=== PATIENT | male | born 1955 | race Caucasian/White ===

== ENCOUNTER 2017-06-20 16:30 | Outpatient (RCR) | payer OTHER, SELFPAY ==
--- NOTE | 2017-06-06 12:18 | HP.OTEVAL_ITS ---
Patient's Visit Information CARLYN EVANGELISTA is a 61 year old M, referred to Occupational Therapy by RAJEEV Hall PA.MELO, with a diagnosis of bilateral wrist strain. Date of Evaluation: 06/05/17 Occupational Therapist: Adri Stokes - Subjective Subjective: Pt seen for inital occupational therapy evaluation due to increased bilateral wrist pain after falling on the ice 04/27/17. He had x-rays that indicated no broken bones. Pain in bilateral wrists have continued to get worse as time goes on. 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 He is right hand dominent. - Pain L wrist 9 Pain Intensity Range: 1, 2, 9, 10 R wrist 7 Pain Intensity Range: 1, 2, 7 - Objective Objective/Observation: Pt appears with increased pain in bilateral wrists from accidental fall on ice, when he landed on his bilateral wrist in April 2017. Pt has good functional ROM bilateral wrist. Pt demo decreased tankroom tender strength bilateral wrist/hands. - ROM ROM Comments: L wrist, R wrist WFL ROM, flexion, extension, supination, pronation - Strength Banquet Lead: R 50#, L 40# Tripod Pinch: R 4#, L 4# - Edema Other: No edema noted - Sensation Sensation Comments: Pt states no numbness/tingling - DASH-Disabilities of Arm, Shoulder& Hand DASH Sum: 93 - Goals Goal:: Pt will progress with bilateral tankroom tender strength by 30# to increase his independence with functional living tasks by d/c. Goal:: Pt will demonstrate no greater than 1/10 pain with movement of bilateral wrists by d/c. Goal:: Pt will be educated on bilateral hand and tankroom tender strengthening exercises to complete at home w/ good understanding and demonstration 100%x. - Rehabilitation General Assessment: Pt would benefit from occupational therapy services to increase bilateral hand strength and decrease bilateral wrist pain at rest and with movement. Rehabilitation Potential: Excellent - Anticipated Interventions Anticipated Interventions: Strengthening, Massage, Modalities, Joint Protection/ Energy Conservation, ADL Training, Home Program - Visit Plan Frequency: 3x /Week Duration: 4 Weeks General Plan: decrease bilateral wrist pain and increase tankroom tender strength bilateral hands/wrists. TEXT: Thank you for the opportunity to evaluate your patient. For Medicare and Medicare HMO plans, please review the plan of care and approve it. It will need to be FAXED BACK to us at [phone] for Medicare purposes. Please let me know if there are questions or concerns regarding this plan of care. Physician Signature: Date:
--- NOTE | 2017-06-20 17:01 | HP.OTDCSUM_ITS ---
HP - OT D/C Summary It has been my pleasure to treat CARLYN EVANGELISTA under orders from RAJEEV Hall, PAABIOLA for the diagnosis of bilateral wrist strain for a total of 5 visit(s). Please see the following information for a summary of their discharge status. - Objective Objective/Function: due to pts inablity to decrease use of hands while at work he has not made inprovments and is rec'd to return to at this time - Goals Patient Goals: Regain Strength, Decrease Pain, Improve Fine Motor Skills, Use Hand/Wrist/Arm Normally Again, Be More Independent in ADLS, Resume Hobbies Goal:: Pt will progress with bilateral top precipitator operator helper strength by 30# to increase his independence with functional living tasks by d/c. Goal:: Pt will demonstrate no greater than 1/10 pain with movement of bilateral wrists by d/c. Goal:: Pt will be educated on bilateral hand and top precipitator operator helper strengthening exercises to complete at home w/ good understanding and demonstration 100%x. - Plan Plan: D/C - D/C Information Discharge Comments: This pt was seen for 5 visits with no reported improvement- due to pts job duties he has not been able to decrease the use of his hands or wear the braces. Therapy has used, US paraffing - trigger point release, brace- and advised to use k-tape- pt is unable to to this while at work so his pain has not decreased. pt was advised to return to for further eval. If there are questions or concerns regarding this patient's occupational therapy , please fell free to call me at [phone]. Thank you for the referral of this patient. Sincerely, Breanna Marie, OTR/L, CHT
== END 2017-06-20 19:00 | disposition home or self-care (01) ==
LOC: OT 16:30
PROVIDERS: Family Provider Family Medicine; PCP Family Medicine; Visit Provider Physician Assistant
DX: S66.911D Strain of unspecified muscle, fascia and tendon at wrist and hand level, right hand, subsequent encounter (principal); S66.912D Strain of unspecified muscle, fascia and tendon at wrist and hand level, left hand, subsequent encounter
CPT/HCPCS: 97035; 97140; 97165; 97530

== ENCOUNTER → 2017-09-11 20:22 | Outpatient (CLI) | payer OTHER, SELFPAY | PROVIDERS: Family Provider Family Medicine; PCP Family Medicine; Visit Provider Family Medicine | DX: G47.30 Sleep apnea, unspecified (principal) | CPT/HCPCS: 95810 ==

== ENCOUNTER 2017-09-27 07:30 | Outpatient (RCR) | payer OTHER, SELFPAY ==
--- NOTE | 2017-09-05 12:27 | HP.OTEVAL_ITS ---
Patient's Visit Information CARLYN EVANGELISTA is a 61 year old M, referred to Occupational Therapy by Marcela Tolentino DO, with a diagnosis of Bilateral wrist sprain. Date of Evaluation: 09/04/17 Occupational Therapist: Breanna Marie, AMBROSE/Gia, CHT - Subjective Subjective: pt was seen for inital OT eval with dx of bilateral wrist sprain- pt has been seen in the past- and with his work schedule his wrist have continued to cuase pain. 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 with BADLS - but has pain the more he uses his hand- - ROM Forearm: right /left supination 75 Wrist: right 65 /60 left 65/60 - Strength Shoulder: right 4/5 left 4/5 Elbow: right 4/5 left 4/5 Forearm: right 4/5 left 4/5 Wrist: right 4/5 left 4/5 Seat Cover Installer: right 70 left 65 Lateral Pinch: right 10# left 10# Tripod Pinch: right 8# left 6# Strength Comments: pt demo with weak UB - Special Tests WHAT Test: negative Edvin Scaphoid Shift: negative - Goals Goal:: pt will demo a increase in BUE strength to 5/5 to increase ind. with IADLS by d/c Goal:: pt will report no pain greater than 1/10 with use of bilateral UE for IADLS by d/c Goal:: pt will demo understanding of joint protection and ad. eq. for IADLS by d /c - Rehabilitation General Assessment: pt demo with decrease understanding of work ergo., ad. eq. and protective flaco. with work and daily tasks. pt demo with weakness in UB that allows for compensation at wrist increasing pts pain. pt would benefit from skilled OT services to ed. on UB strengthening and work ergo. joint protection 2 -3x week for 4-6 weeks. Rehabilitation Potential: Good - Anticipated Interventions Anticipated Interventions: Strengthening, Joint Protection/Energy Conservation, Ergonomic Education - Visit Plan Frequency: 2-3x /Week Duration: 4 Weeks General Plan: pt to initiate Gym ex eq. to strengthen UB, ed. pt on joint protection with IADLS and home mtg tasks- TEXT: Thank you for the opportunity to evaluate your patient. For Medicare and Medicare HMO plans, please review the plan of care and approve it. It will need to be FAXED BACK to us at [phone] for Medicare purposes. Please let me know if there are questions or concerns regarding this plan of care. Physician Signature: Date:
--- NOTE | 2017-09-27 08:11 | HP.OTDCSUM_ITS ---
HP - OT D/C Summary It has been my pleasure to treat CARLYN EVANGELISTA under orders from Marcela Tolentino DO, for the diagnosis of Bilateral wrist sprain for a total of 8 visit(s). Please see the following information for a summary of their discharge status. - Objective Objective/Function: pt demo a increase in bilateral UB MMT grossly throunghout at 4+/5 - pt demo good tolerance of his UB ex. and was instructed to cont.with a HEP or join a health and wellness center- pt demo interest in this. - Goals Patient Goals: Regain Strength, Decrease Pain, Use Hand/Wrist/Arm Normally Again Goal:: pt will demo a increase in BUE strength to 5/5 to increase ind. with IADLS by d/c Goal:: pt will report no pain greater than 1/10 with use of bilateral UE for IADLS by d/c Goal:: pt will demo understanding of joint protection and ad. eq. for IADLS by d /c - Plan Plan: D/C - D/C Information Discharge Comments: pt was seen for 8 visits. He demo understanding of joint protection and ad. equip. use for home mt. tasks. pt Demo increase in bilateral UB strength and reports he has minimal pain in his wrist. Pt does report left wrist pain with some labor tasks he has done but per pt pain is much better. PT was advised to cont with a health and wellness facility to cont with UB strengthening. pt demo understanding. pt is to use tape on his wrist if he is doing heavy manual labor tasks around his home. pt demo understanding. pt has met functional goals in OT and is D/C at this time. If there are questions or concerns regarding this patient's occupational therapy , please fell free to call me at [phone]. Thank you for the referral of this patient. Sincerely, Breanna Marie, OTR/L, CHT
== END 2017-09-27 19:00 | disposition home or self-care (01) ==
LOC: OT 07:30
PROVIDERS: Family Provider Family Medicine; PCP Family Medicine; Visit Provider Orthopaedic Surgery
DX: S63.592D Other specified sprain of left wrist, subsequent encounter (principal); S63.591D Other specified sprain of right wrist, subsequent encounter
CPT/HCPCS: 97110; 97166; 97168

== ENCOUNTER 2018-01-03 08:00 | Outpatient (RCR) | payer OTHER, SELFPAY ==
--- NOTE | 2017-12-07 08:17 | HP.OTEVAL_ITS ---
Patient's Visit Information CARLYN EVANGELISTA is a 61 year old M, referred to Occupational Therapy by Marcela Tolentino DO, with a diagnosis of B wrist sprains. Date of Evaluation: 12/07/17 Occupational Therapist: Leigh Camejo - Subjective Subjective: Arrived and noted that received additional approval for c9. Previously seen at OT due to b wrist sprain in Dec while slipping on ice at work. Symptoms of B wrist sprain are persistent, and he has been approved for additional appointments. 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 He is keeping busy per Pt. report but continues to have pain in wrists. Currently working on putting deck on daughters home with son in law. Notes he was approved for a couple more injections as well as OT. - Pain Bilateral Wrist 1 Pain Intensity Range: 1, 6, 8 - ROM Forearm: WNL Wrist: flexion R 0-79, L 0-80; ext R 0-42, L 0-40 MP: WNL PIP: WNL DIP: WNL ROM Comments: radial R 0-15, L 0-20. ulnar R 0-29, L 0-35 - Strength Reel Worker: flex R 78, L 90; ext R 67, L 57 Lateral Pinch: R 17, L 16 Tripod Pinch: R 11, L 12 Tip-to-Tip Pinch: R 8, L 12 Intrinsics: R 4+/5, L 4-/5 Strength Comments: increased pain over wrist as helping son in law build deck and completed long work day yesterday. - Sensation Thumb: R 3.61, L 3.84 Index: R 3.84, L 2.83 Middle: R 3.84, L 3.84 Ring: R 3.84, L 3.84 Little: R 3.61, L 3.22 Sensation Comments: Does have mild neuropathy in B feet per Pt. report. - DASH-Disabilities of Arm, Shoulder& Hand DASH Sum: 81 - Goals Goal:: Carlyn to increase wrist stability through increased manager solution by 10-15 lbs to promote increased ROM and strength to return to PLOF by d/c. Goal:: Carlyn to be mod I to complete techniques to promote wrist alignment and stability 4/5 trials 80% of the time to promote returning to PLOF by d/c. Goal:: Carlyn to be mod I to complete HEP including strengthening and pain management techniques 4/5 trials 80% of the time to promote pain management and returning to PLOF by d/c. - Rehabilitation General Assessment: Carlyn arrived to OT maría elena on this date. Addition visits approved for B wrist sprain occurring in Apr 2017. 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 He lists pain over ligament attachment points around transverse carpal ligaments and ulnar collateral at wrist. HE has purchased wrist bands and wears on occasion for additional support. Reports that wirts bands seem to help. He plans to follow up with arthritis clinic in [place] to further determine cause of B wrist pain. OT to work on ergonomic and wrist mechanics as well as ROM, strength, orthotics as needed and pain management to promote completing tasks at PLOF. Rehabilitation Potential: Good - Anticipated Interventions Anticipated Interventions: A/AAROM/PROM, Strengthening, Triggerpoint Release, Modalities, Orthoses, Joint Protection/Energy Conservation, Ergonomic Education , Fine Motor Coord/Edwin, Caregiver Training, Home Program - Visit Plan Frequency: 2-3x /Week Duration: 4-6 Weeks General Plan: Carlyn to complete OT for ROM, strengthening, ergonomic and body mechanics, as well as pain mangement through use of modalities and body mechanics to promote returning to PLOF. TEXT: Thank you for the opportunity to evaluate your patient. For Medicare and Medicare HMO plans, please review the plan of care and approve it. It will need to be FAXED BACK to us at [phone] for Medicare purposes. Please let me know if there are questions or concerns regarding this plan of care. Physician Signature: Date:
--- NOTE | 2018-01-03 08:51 | HP.OTDCSUM ---
HP - OT D/C Summary It has been my pleasure to treat CARLYN Javed DANNEMILLER under orders from Marcela Tolentino DO, for the diagnosis of B wrist sprains for a total of 12 visit(s). Please see the following information for a summary of their discharge status. - Overall Improvement % Improvement: 30 - Objective Objective/Function: Reassessment completed on this date. ROM is WFL. Strength assessment completed: gas operations analyst flexed R 80, L 60; ext gas operations analyst R 66, L 63 lbs; lateral R 16, L 14; tripod R 12, L 12; pincer R 7, L 8 lbs. Sensation testing completed: IF R 3.61, L 3.84. MF R 3.04, L 3.84. RF R 4.08, L 3.84. PF R 4.08, L 3.84. thumb R 3.84, L 3.84. He has progressed with some goals and will be d/c'd today. - Goals Patient Goals: Regain Mobility, Regain Strength, Decrease Pain, Return to Work, Use Hand/Wrist/Arm Normally Again, Increase ROM, Be More Independent in ADLS, Resume Former Household Responsibilities (Cooking,Cleaning,Yard, etc.), Resume Hobbies Goal:: Carlyn to increase wrist stability through increased gas operations analyst by 10-15 lbs to promote increased ROM and strength to return to PLOF by d/c. Goal:: Carlyn to be mod I to complete techniques to promote wrist alignment and stability 4/5 trials 80% of the time to promote returning to PLOF by d/c. Goal:: Carlyn to be mod I to complete HEP including strengthening and pain management techniques 4/5 trials 80% of the time to promote pain management and returning to PLOF by d/c. - Plan Plan: Carlyn has completed approved visits and will be d/c'd. HE has progressed towards some but not all goals. Pain has been an issue t/o course of treatment, but he has continued to complete home based IADLs. He is paying out of pocket/using personal insurance to see arthritis doctor mid January to further get to bottom of pain. Further follow up with workers compensation would be beneficial if pain is not resolved after recent cortisone shots a week ago. It would be beneficial for Carlyn to get order from doctor/workers compensation for CMC push brace to provide additional support to R thumb CMC to help alleviate wrist pain. IF symptoms are consistent he is to see arthritis doctor and potentially specialist if he is continuing to have pain a full year out of injury. All symptoms of wrist related pain started and appear to be related to fall from this past April while at work. - D/C Information If there are questions or concerns regarding this patient's occupational therapy, please fell free to call me at [phone]. Thank you for the referral of this patient. Sincerely, Leigh Camejo
== END 2018-01-03 09:05 | disposition home or self-care (01) ==
LOC: OT 08:00
PROVIDERS: Family Provider Family Medicine; PCP Family Medicine; Visit Provider Orthopaedic Surgery
DX: S63.502D Unspecified sprain of left wrist, subsequent encounter (principal); S63.501D Unspecified sprain of right wrist, subsequent encounter
CPT/HCPCS: 97035; 97110; 97166; 97530

== ENCOUNTER → 2018-01-25 09:57 | Outpatient (CLI) | payer OTHER, SELFPAY ==
--- NOTE | 2018-01-25 10:10 | RAD_ITS ---
STUDY: X-RAY - PELVIS REASON FOR EXAM: Male, 62 years old. Pain. TECHNIQUE: One view of the pelvis was obtained. COMPARISON: None. FINDINGS: There is a non-specific bowel gas pattern. Normal visualized soft tissue structures. Normal bilateral iliac wings, sacroiliac joints and visualized sacrum. Normal visualized bilateral superior and inferior pubic rami. Normal pubic symphysis. Normal ischial tuberosities. Normal visualized right femoral head. Normal right acetabulum. Normal right hip joint. Normal visualized left femoral head. Normal left acetabulum. Normal left hip joint. RAD/Pelvis 1 or 2 Views IMPRESSION: Normal x-ray examination of the pelvis. Electronically Signed: Zach Bruno MD at 22:01 EDT , Service support ,
[2018-01-25 12:45] LABS: Absolute Lymphocyte Count 1.25 X10^3/ul (0.83-4.51); Absolute Neutrophil Count 4.8 X10^3/uL (2.0-7.7); Eosinophil# 0.15 X10^3/uL; Eosinophils% 2.1 % (0-5); Erythrocyte Sedimentation Rate 8 mm/hr (0-20); Hematocrit 45.6 % (40-54); Hemoglobin 14.3 g/dl (13.0-16.5); Lymphocyte # 1.25 X10^3/ul (4.0); Lymphocyte % 17.6 % (19-41); Mean Corp Hgb Conc 31.4 g/gl (32-36); Mean Corpuscular Hgb 30.7 pg (27.0-32.0); Mean Corpuscular Volume 97.9 fL (80-94); Monocyte# 0.85 X10^3/uL; Neutrophil # 4.83 X10^3/uL (2.7-7.7); Neutrophil % 68.2 % (47-70); Platelet Count 118 K/mm3 (150-450); RBC Distribution Width CV 13.2 % (11.6-14.6); Red Blood Count 4.66 M/mm3 (4.6-6.2); White Blood Count 7.1 K/mm3 (4.4-11.0)
[2018-01-25 12:46] LABS: Differential Indicated SCAN CRITERIA MET; POSITIVE COUNT NO; POSITIVE DIFFERENTIAL NO; POSITIVE MORPHOLOGY YES
[2018-01-25 12:48] LABS: BUN 17 mg/dL (7-18); Creatinine, Serum 0.95 mg/dL (0.70-1.30); Glucose 122 mg/dL (74-106)
[2018-01-25 12:49] LABS: AST(SGOT) 16 U/L (15-37); Alanine Aminotransfer ALT/SGPT 26 U/L (16-61); Albumin, Serum 3.6 g/dL (3.2-5.0); Alkaline Phosphatase 83 U/L (45-117); Anion Gap 5 (5-15); BUN/Creat Ratio 17.8 RATIO (10-20); Calcium,Total 9.3 mg/dL (8.5-10.1); Chloride 103 mmol/L (98-107); EST Glomerular Filtration Rate 85 mL/min (>60); Est Glom Filt Rate - Afr Amer 103 mL/min (>60); Globulin 3.5 g/dL (2.2-4.2); Potassium 4.6 mmol/L (3.5-5.1); Protein, Total 7.1 g/dL (6.4-8.2); Rheumatoid Factor < 10.0 IU/mL (<15); Sodium Level 142 mmol/L (136-145)
[2018-01-25 13:18] LABS: Platelet Morphology LARGE
[2018-01-28 11:06] LABS: CCP IgG Antibodies 22 units (0-19)
== END ==
PROVIDERS: Family Provider Family Medicine; PCP Family Medicine; Visit Provider Internal Medicine Rheumatology
DX: M18.12 Unilateral primary osteoarthritis of first carpometacarpal joint, left hand (principal); M19.032 Primary osteoarthritis, left wrist
CPT/HCPCS: 36415; 72170; 80053; 85025; 85652; 86140; 86200; 86431

== ENCOUNTER → 2018-02-04 13:44 | Outpatient (CLI) | payer OTHER, SELFPAY ==
[2018-02-04 14:35] LABS: Erythrocyte Sedimentation Rate 6 mm/hr (0-20)
[2018-02-04 14:37] LABS: Rheumatoid Factor < 10.0 IU/mL (<15)
[2018-02-05 13:16] LABS: ANTINUCLEAR ANTIBODIES DIRECT Negative (Negative)
== END ==
PROVIDERS: Family Provider Family Medicine; PCP Family Medicine; Visit Provider Family Medicine
DX: E10.9 Type 1 diabetes mellitus without complications (principal); E03.9 Hypothyroidism, unspecified
CPT/HCPCS: 85652; 86038; 86431

== ENCOUNTER → 2018-04-15 09:36 | Outpatient (CLI) | payer OTHER, SELFPAY ==
--- NOTE | 2018-04-15 09:38 | MRI_ITS ---
STUDY: MRI RIGHT WRIST WITHOUT CONTRAST REASON FOR EXAM: Male, 62 years old. Right wrist injury with diffuse pain for one year. Loss of strength. TECHNIQUE: Standardized fat and water weighted pulse sequences were obtained in all 3 orthogonal planes. COMPARISON: Right wrist images dated May 15, 2017. FINDINGS: Normal visualized distal radius and ulna. Normal distal radioulnar Articulation (DRUJ). Normal triangular fibrocartilaginous complex (TFCC). There are cystic changes in the lunate and triquetrum (coronal series 5 images 7-11). There is moderate arthrosis of the radial carpal row (coronal series 5 images 8-13). There is a small volar ganglion cyst of the pisotriquetral joint (coronal series 5 images 4-9, axial series 6 images 15-19). Normal visualized interosseous scapholunate ligament. Normal visualized dorsal (extrinsic) ligaments. Normal visualized volar (extrinsic) ligaments. Normal extensor tendons. Normal flexor tendons. Normal carpal tunnel with a normal median nerve. Normal carpometacarpal articulation of the thumb. Normal second through fifth carpometacarpal articulations. Normal visualized metacarpal bones. There is no demonstrated soft tissue abnormality. MRI/Upper Ext Joint Only(Routine) IMPRESSION: Osteoarthritic changes as described. Small volar ganglion cyst of the pisotriquetral joint. No other significant abnormality. Electronically Signed: Vijay Davalos MD at 16:57 EST , Service support ,
--- NOTE | 2018-04-15 09:38 | MRI_ITS ---
STUDY: MRI LEFT WRIST WITHOUT CONTRAST REASON FOR EXAM: Wrist pain extending to the thumb, fall 1 year ago. TECHNIQUE: Standardized fat and water weighted pulse sequences were obtained in all 3 orthogonal planes. COMPARISON: Radiographs 05/15/2017. FINDINGS: Normal visualized distal radius and ulna. Normal distal radioulnar articulation (DRUJ). Normal triangular fibrocartilaginous complex (TFCC). There is cystic change of the proximal ulnar aspect of the lunate (inversion recovery coronal images 10, 11). There is a small intraosseous cyst in the trapezoid (inversion recovery coronal image 10). There are very small subchondral cysts of the proximal capitate and hamate (inversion recovery coronal image 11). There is mild triscaphe arthrosis with mild chondral thinning and subchondral cystic change of the distal pole of the scaphoid (inversion recovery coronal image 8). There is a small subchondral cyst of the pisiform at the pisotriquetral articulation (T1 axial image 14). Normal visualized interosseous scapholunate ligament. Normal extensor tendons. Normal flexor tendons. Status post flexor retinaculum release. There is arthrosis of the carpometacarpal articulation of the thumb with chondral thinning and mild subchondral cystic change/bone edema (inversion recovery coronal images 8-11). Normal second through fifth carpometacarpal articulations. Normal visualized metacarpal bones. There is no demonstrated soft tissue abnormality. 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 Electronically Signed: Berto Terrell MD at 8:21 EST Tel , Service support ,
--- OUTSIDE RECORDS SUMMARY | 2018-06-08 13:52 | XMS RPT_ITS ---
:1955 Author Organization [facility] Support Name Relationship Address Phone TONJA SAMMY Unavailable [address] + [place] [address] R Unavailable Unavailable Unavailable DANNEMILLER, SAMMY Unavailable [address] + [place] [address] R Unavailable Unavailable Unavailable NONE Unavailable Unavailable + NONE Unavailable Unavailable + Dannemiller, Sammy Unavailable [address] + [place] [address] R Unavailable Unavailable Unavailable Dannemiller, Sammy Unavailable [address] + [place] [address] R Unavailable Unavailable Unavailable Dannemiller, Sammy Unavailable [address] + [place] [address] R Unavailable Unavailable Unavailable DANNEMILLER, SAMMY Unavailable [address] + [place] [address] R Unavailable Unavailable Unavailable DANNEMILLER, SAMMY Unavailable [address] + [place] [address] MATFO Unavailable [address] + [place] [address] DANNEMILLER, SAMMY Unavailable [address] + [place] [address] MATFO Unavailable [address] + [place] [address] DANNEMILLER, SAMMY Unavailable [address] + [place] [address] R Unavailable Unavailable Unavailable DANNEMILLER, SAMMY Unavailable [address] + [place] [address] MATFO Unavailable [address] + [place] [address] DANNEMILLER, SAMMY Unavailable [address] + [place] [address] MATFO Unavailable [address] + [place] [address] DANNEMILLER, SAMMY Unavailable [address] + [place] [address] MATFO Unavailable [address] + [place] [address] Dannemiller, Sammy Unavailable [address] + [place] [address] PAL[place] Unavailable [address] + [place] [address] Dannemiller, Sammy Unavailable [address] + [place] [address] [place] Unavailable [address] + [place] [address] Dannemiller, Sammy Unavailable [address] + [place] [address] [place] Unavailable [address] + [place] [address] DANNEMILLER, SAMMY Unavailable [address] + [place] [address] [place] Unavailable [address] + [place] [address] DANNEMILLER, SAMMY Unavailable [address] + [place] [address] [place] Unavailable [address] + [place] [address] DANNEMILLER, SAMMY Unavailable [address] + [place] [address] [place] Unavailable [address] + [place] [address] DANNEMILLER, SAMMY Unavailable [address] + [place] [address] [place] Unavailable [address] + [place] [address] DANCHARMAINEILLER, SAMMY Unavailable [address] [facility] [address] + [place] [address] [place] Unavailable [address] + [place] [address] DANNEMILLER, SAMMY Unavailable [address] [facility] [facility] [address] + [place] [address] [place] Unavailable [address] + [place] [address] Care Team Providers Name Role Phone MUMTAZ JONES, MS. GHANSHYAM Parks Attending Unavailable TIM CR, DR. KATTY Fields Primary Care Unavailable Ulices Perez Attending Unavailable JOLENE Loya Referring Unavailable Ulices Perez Attending Unavailable Ulices Perez Attending Unavailable NAUMOFF, KATTY Primary Care Unavailable Ulices Perez Attending Unavailable NAUMOFF, KATTY Referring Unavailable NAUMOFF, KATTY Primary Care Unavailable Gomez Sarabia Attending Unavailable NAUMOFF, KATTY Primary Care Unavailable Gomez Sarabia Referring Unavailable Ulices Perez Attending Unavailable NAUMOFF, KATTY Referring Unavailable NAUMOFF, KATTY Primary Care Unavailable [facility] Employee Attending Unavailable Ulices Perez Attending Unavailable NAUMDIAZ, KATTY Referring Unavailable NAUMDIAZ, KATTY Primary Care Unavailable Marcela Tolentino Attending Unavailable NAUMOFF, KATTY Referring Unavailable NAUMOFF, KATTY Primary Care Unavailable ChicMarcela tracey Attending Unavailable ChicorelliMarcela Referring Unavailable NAUMOFF, KATTY Primary Care Unavailable ChicorelliMarcela Attending Unavailable NAUMOFF, KATTY Referring Unavailable NAUMOFF, KATTY Primary Care Unavailable NAUMOFF, KATTY Attending Unavailable NAUMOFF, KATTY Primary Care Unavailable ChicorelliMarcela Attending Unavailable NAUMOFF, KATTY Referring Unavailable NAUMOFF, KATTY Primary Care Unavailable Chicorelli, Marcela Attending Unavailable ChicorelliMarcela Referring Unavailable NAUMOFF, KATTY Primary Care Unavailable Chicalexy, Marcela Attending Unavailable NAUMOFF, KATTY Referring Unavailable NAUMOFF, KATTY Primary Care Unavailable Casi Santos Attending Unavailable Casi Santos Referring Unavailable NAUMOFF, KATTY Primary Care Unavailable Naumoff, Katty Attending Unavailable NAUMOFF, KATTY Attending Unavailable NAUMOFF, KATTY Referring Unavailable NAUMOFF, KATTY Primary Care Unavailable Chicorelli, Marcela Attending Unavailable NAUMOFF, KATTY Referring Unavailable Chicorelli, Marcela Attending Unavailable Chicorelli, Marcela Referring Unavailable NAUMOFF, KATTY Primary Care Unavailable Chicorelli, Marcela Attending Unavailable NAUMOFF, KATTY Referring Unavailable PROBLEMS PROBLEMS DATE TYPE CONDITION / CODE ATTENDING STATUS SOURCE 01/25/2018 Unknown 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 - 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, 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 / Hospital M19.032(ICD-10) Repository 01/25/2018 Unknown M18.12 - Unilateral Casi Santos Active [facility] primary Community osteoarthritis of Hospital first carpometacarpal Repository joint, left hand / M18.12(ICD-10) 01/03/2018 Unknown S63.502D - Chicorelli, Active [place] Unspecified sprain of [facility] left wrist, Hospital subsequent encounter Repository / S63.502D(ICD-10) 01/30/2018 Unknown S66.911A - Strain of Chicorelli, Active [facility] unspecified muscle, Marcela [facility] fascia and tendon at Hospital wrist and hand level, Repository right hand, initial encounter / S66.911A(ICD-10) 01/30/2018 Unknown S66.912A - Strain of Chicorelli, Active [facility] unspecified muscle, Marcela [facility] fascia and tendon at Hospital wrist and hand level, Repository left hand, initial encounter / S66.912A(ICD-10) 09/11/2017 Unknown G47.30 - Sleep apnea, KATTY IYER Active [facility] unspecified / Community G47.30(ICD-10) Hospital Repository PROCEDURES PROCEDURES No Procedure Records FoundRESULTS RESULTS ORTHOPEDIC VISIT Observed: 04/18/2018 Status: F Source: RAMA REPORT 1:58 PM [facility] REPOSITORY [facility] [address] [place] [address] OFFICE VISIT Date of Service: 04/18/18 MR#: [id number] Acct: [id number] Name: FARAZ AMBRIZ Rep #: [id number] : 1955 Provider: Marcela Tolentino DO Age/Sex: 62/M Location: [facility] Status: Signed Intake Intake Visit Reasons: bilateral wrist Is patient in pain?: Yes Allergies aspirin Allergy (Severe, Verified 04/18/18 09:35) Unknown Medications insulin detemir (U-100) 100 unit/mL (3 mL) subcutaneous pen SC 90 Days #15 05/15/17 [History Confirmed 08/03/17] PFSH Medical History Arthritis (Acute) Diabetes (Acute) Surgical History History of hernia repair (Acute) History of partial thyroidectomy (Acute) Social History Smoking Status: Never smoker alcohol intake: never HPI bilateral wrist: Details: FARAZ AMBRIZ is a 62 year old M here today for bilateral wrist pain. Patient states that he continues to have pain into his wrist. Patient has pain around his thumb. He states that he has weakness into hand. Denies numbness, tingling or other associated symptoms. He had MRI which is here for review. He states that he is not working currently as he is retired. ROS Const Reports system reviewed and no additional complaints, except as docu Eyes Reports system reviewed and no additional complaints, except as docu ENT Reports system reviewed and no additional complaints, except as docu Card Reports system reviewed and no additional complaints, except as docu Resp Reports system reviewed and no additional complaints, except as docu GI Reports system reviewed and no additional complaints, except as docu Reports system reviewed and no additional complaints, except as docu Musc Reports joint pain, Reports muscle weakness Skin/Breast Reports system reviewed and no additional complaints, except as docu Neuro Yes system reviewed and no additional complaints, except as docu Psych Reports system reviewed and no additional complaints, except as docu Endo Reports system reviewed and no additional complaints, except as docu Ortho Exam Right Wrist/Hand Skin/Wound: Yes CDI Contralateral Normal: No A1 desirae trigger: No Right Wrist: Yes ROM-Extension 0-60, ROM-Supination 0-90, ROM-Flexion 0-80 and ROM-Pronation 0-80 Motor: EPL: 5, FDP-2: 5, 1st Dorsal Interosseous: 5, APB: 5 Sensation: Radial: I, Ulnar: I, Median: I Left Wrist/Hand Skin/Wound: Yes CDI Contralateral Normal: No A1 desirae trigger: No Left Wrist: Yes ROM-Extension 0-60, Yes ROM-Flexion 0-80, Yes ROM-Pronation 0-80 and Yes ROM-Supination 0-90 Motor: EPL: 5, FDP-2: 5, 1st Dorsal Interosseous: 5, APB: 5 Sensation: Radial: I, Ulnar: D, Median: I Assessment AND Plan 1. Strain of wrist, bilateral S66.911A; S66.912A Plan discussed treatment options, nothing immediately surgical that needs to be addressed at thsi point. discussed that injections are best course for oa of the wrist for now, and will follow. All questions answered. Patient in agreement of plan. Personally reviewed his MRI and explained that he has OA and degenerative changes with no surgical option at this point. He can continue to be treated with injections. We will request additional bilateral steroid injections. Follow up as needed or sooner if pain, swelling, numbness or associated symptoms, or concerns develop. All questions answered. Patient in agreement of plan. Coding Level of Care Code Off vis,est,level 4 Diagnoses Strain of wrist, bilateral S66.911A; S66.912A 04/18/18 1358 <Electronically signed by Marcela Tolentino DO> Date Marcela Tolentino DO Cosigner Signature: Date (if applicable) CC: UPPER EXT JOINT Observed: 04/15/2018 Status: F Source: RAMA ONLY(ROUTINE) 9:39 AM [facility] REPOSITORY Imaging Services [address] [place] [address] Upper Ext Joint Only(Routine) MR#: [id number] Acct: [id number] Name: FARAZ AMBRIZ Rep #: [id number] : 1955 M 62 From: Berto Terrell MD PCP: Katty Iyer MD Status: REG CLI Study: Upper Ext Joint Only(Routine) Date of Exam: 04/15/18 Exam# [id number] Ordering Dr: Marcela Tolentino DO STUDY: MRI LEFT WRIST WITHOUT CONTRAST REASON FOR EXAM: Wrist pain extending to the thumb, fall 1 year ago. TECHNIQUE: Standardized fat and water weighted pulse sequences were obtained in all 3 orthogonal planes. COMPARISON: Radiographs 05/15/2017. FINDINGS: Normal visualized distal radius and ulna. Normal distal radioulnar articulation (DRUJ). Normal triangular fibrocartilaginous complex (TFCC). There is cystic change of the proximal ulnar aspect of the lunate (inversion recovery coronal images 10, 11). There is a small intraosseous cyst in the trapezoid (inversion recovery coronal image 10). There are very small subchondral cysts of the proximal capitate and hamate (inversion recovery coronal image 11). There is mild triscaphe arthrosis with mild chondral thinning and subchondral cystic change of the distal pole of the scaphoid (inversion recovery coronal image 8). There is a small subchondral cyst of the pisiform at the pisotriquetral articulation (T1 axial image 14). Normal visualized interosseous scapholunate ligament. Normal extensor tendons. Normal flexor tendons. Status post flexor retinaculum release. There is arthrosis of the carpometacarpal articulation of the thumb with chondral thinning and mild subchondral cystic change/bone edema (inversion recovery coronal images 8-11). Normal second through fifth carpometacarpal articulations. Normal visualized metacarpal bones. There is no demonstrated soft tissue abnormality. 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 Electronically Signed: Berto Terrell MD at 8:21 EST Tel , Service support , CC: Katty Iyer MD; Marcela Tolentino DO Curtain Inspector: Signed UPPER EXT JOINT Observed: 04/15/2018 Status: F Source: RAMA ONLY(ROUTINE) 9:39 AM [facility] REPOSITORY Imaging Services [address] [place] [address] Upper Ext Joint Only(Routine) MR#: [id number] Acct: [id number] Name: FARAZ AMBRIZ Rep #: [id number] : 1955 M 62 From: Vijay Davalos MD PCP: Katty Iyer MD Status: REG CLI Study: Upper Ext Joint Only(Routine) Date of Exam: 04/15/18 Exam# [id number] Ordering Dr: Marcela Tolentino DO STUDY: MRI RIGHT WRIST WITHOUT CONTRAST REASON FOR EXAM: Male, 62 years old. Right wrist injury with diffuse pain for one year. Loss of strength. TECHNIQUE: Standardized fat and water weighted pulse sequences were obtained in all 3 orthogonal planes. COMPARISON: Right wrist images dated May 15, 2017. FINDINGS: Normal visualized distal radius and ulna. Normal distal radioulnar Articulation (DRUJ). Normal triangular fibrocartilaginous complex (TFCC). There are cystic changes in the lunate and triquetrum (coronal series 5 images 7-11). There is moderate arthrosis of the radial carpal row (coronal series 5 images 8-13). There is a small volar ganglion cyst of the pisotriquetral joint (coronal series 5 images 4-9, axial series 6 images 15-19). Normal visualized interosseous scapholunate ligament. Normal visualized dorsal (extrinsic) ligaments. Normal visualized volar (extrinsic) ligaments. Normal extensor tendons. Normal flexor tendons. Normal carpal tunnel with a normal median nerve. Normal carpometacarpal articulation of the thumb. Normal second through fifth carpometacarpal articulations. Normal visualized metacarpal bones. There is no demonstrated soft tissue abnormality. MRI/Upper Ext Joint Only(Routine) IMPRESSION: Osteoarthritic changes as described. Small volar ganglion cyst of the pisotriquetral joint. No other significant abnormality. Electronically Signed: Vijay Davalos MD at 16:57 EST , Service support , CC: Katty Iyer MD; Marcela Tolentino DO Curtain Inspector: Signed XR RIBS 2 VIEWS Observed: 04/02/2018 Status: F Source: KS12 LEFT/PA CHEST(AO) 3:27 PM [facility] OR[facility]AL XR RIBS 2 VIEWS LEFT/PA CHEST(AO) CLINICAL STATEMENT: pain. COMPARISON: 04/24/2005 IMPRESSION: Cardiomediastinal contours are normal. Aorta is atherosclerotic. Lungs are clear. No pleural effusion or pneumothorax. No visible rib fracture. I have personally reviewed the images of this examination and agree with the resident's findings and interpretation. Interpreted By: Ana Soares MD Preliminary Report By: Dipak Rebolledo DO Electronically Signed By: Ana Soares MD Dictated Date: 04/02/2018 4:02:31 PM Prelim Date: 04/02/2018 4:04:40 PM Sign Date: 04/02/2018 4:24:31 PM XR SHOULDER MINIMUM 2 Observed: 04/02/2018 Status: F Source: KS12 VIEWS LEFT 3:25 PM [facility] REPOSIT[facility] ORIGINAL XR SHOULDER MINIMUM 2 VIEWS LEFT CLINICAL STATEMENT: pain. Strain type injury lifting deer COMPARISON: None FINDINGS: No acute fracture or dislocation is identified. Humeral head projects over the glenoid appropriately. No abnormal calcification or periosteal reaction. No destructive osseous lesion. There is moderate acromioclavicular joint space narrowing and subacromial spurring. Included intrathoracic structures are unremarkable. IMPRESSION: No acute bony abnormality. I have personally reviewed the images of this examination and agree with the resident's findings and interpretation. Interpreted By: Ana Soares MD Preliminary Report By: Dipak Rebolledo DO Electronically Signed By: Ana Soares MD Dictated Date: 04/02/2018 4:04:50 PM Prelim Date: 04/02/2018 4:06:07 PM Sign Date: 04/02/2018 4:27:45 PM ORTHOPEDIC VISIT Observed: 03/26/2018 Status: F Source: RAMA REPORT 4:36 PM [facility] REPOSITORY [facility] [address] [place] [address] 5 [place] [address] OFFICE VISIT Date of Service: 03/25/18 MR#: [id number] Acct: [id number] Name: FARAZ AMBRIZ Rep #: [id number] : 1955 Provider: Marcela Tolentino DO Age/Sex: 62/M Location: [facility] Status: Signed Intake Intake Visit Reasons: Bilat Wrist Is patient in pain?: Yes Allergies aspirin Allergy (Severe, Verified 03/25/18 09:21) Unknown Medications insulin detemir (U-100) 100 unit/mL (3 mL) subcutaneous pen SC 90 Days #15 05/15/17 [History Confirmed 08/03/17] PFSH Medical History Arthritis (Acute) Diabetes (Acute) Surgical History History of hernia repair (Acute) History of partial thyroidectomy (Acute) Social History Smoking Status: Never smoker alcohol intake: never HPI Bilat Wrist: Details: Faraz Ambriz is a 62 year old M here today for a followup on his bilateral wrist. Patient notes that he has pain of his entire wrist and into his left thumb. He has increased pain with all activities. Patient notes that he has retired but he has pain with activities at home. 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 Patient notes that he has had 2 injections and they were initially helpful but less so now. He has completed physical therapy twice which has not been helpful. Patient denies any bracing due to his brace causing him achiness. He denies any numbness or tingling. Patient takes tylenol for pain if needed. Patient denies any MRI. ROS Const Reports system reviewed and no additional complaints, except as docu Eyes Reports system reviewed and no additional complaints, except as docu ENT Reports system reviewed and no additional complaints, except as docu Card Reports system reviewed and no additional complaints, except as docu Resp Reports system reviewed and no additional complaints, except as docu GI Reports system reviewed and no additional complaints, except as docu Reports system reviewed and no additional complaints, except as docu Musc Reports joint pain, Reports muscle weakness Skin/Breast Reports system reviewed and no additional complaints, except as docu Neuro Yes system reviewed and no additional complaints, except as docu Psych Reports system reviewed and no additional complaints, except as docu Endo Reports system reviewed and no additional complaints, except as docu Ortho Exam Right Wrist/Hand Skin/Wound: Yes CDI Contralateral Normal: No A1 desirae trigger: No Right Wrist: Yes ROM-Extension 0-60 and ROM-Flexion 0-80; no Durken's Test, Sinai's Test or Pardo Test Motor: EPL: 5, FDP-2: 5, 1st Dorsal Interosseous: 5, APB: 5 Sensation: Radial: I, Ulnar: I, Median: I Left Wrist/Hand Skin/Wound: Yes CDI Contralateral Normal: No A1 desirae trigger: No Left Wrist: Yes ROM-Extension 0-60 and Yes ROM-Flexion 0-80; no Durken's Test, no Sinai's Test or no Pardo Test Motor: EPL: 5, FDP-2: 5, 1st Dorsal Interosseous: 4, APB: 5 Sensation: Radial: I, Ulnar: D, Median: I WRIST: he has signs of ulnar nerve weakness at the innervation Assessment AND Plan 1. Strain of wrist, bilateral S66.911A; S66.912A Plan patient also has signs on ulnar neuritis which is not covered by workmans comp which needs to be addressed provided mri is neg. He has completed conservative care with OT and injections and his pain continues to return. He has pain greater in the left than the right with evidence of atrophy in the first interosseous space. We will request an MRI of bilateral wrists and hands for further evaluation. Two pt discrim was negative today. He is overcompensating with the left elbow due to left wrist pain. Follow up after MRI or sooner if pain, swelling, numbness or associated symptoms, or concerns develop. All questions answered. Patient in agreement of plan. Coding Level of Care Code Off vis,est,level 4 Diagnoses Strain of wrist, bilateral S66.911A; S66.912A 03/26/18 4926 <Electronically signed by Marcela Tolentino DO> Date Marcela Mccarthy Signature: Date (if applicable) CC: CBC W/DIFF, AUTOMATED Collected: 02/04/2018 Status: F Source: RAMA 7:45 AM [facility] REPOSITORY Order Comment: JORGE LUIS, RF, SED FOR ANOTHER ACCOUNT TYPE CODE TESTS RESULT OUT OF RANGE REFERENCE UNITS LAB L100.1000 4.4-11.0 K/mm3 Normal WBC 6.0 LAB L100.1200 4.6-6.2 M/mm3 Low RBC 4.57 LAB L100.1300 13.0-16.5 g/dl Normal HGB 14.0 LAB L100.1400 40-54 % Normal HCT 44.8 LAB L100.1500 80-94 fL High MCV 98.0 LAB L100.1600 27.0-32.0 pg Normal MCH 30.6 LAB L100.1700 32-36 g/gl Low MCHC 31.3 LAB L100.1810 11.6-14.6 % Normal RDW CV 13.4 LAB L100.1820 35.1-43.9 fl High RDW SD 48.1 LAB L100.1900 150-450 K/mm3 Low PLT 135 LAB L100.2000 6.2-12.0 fl High MPV 13.7 LAB L100.2100 47-70 % Normal NEUT% 64.1 LAB L100.2200 19-41 % Low LY% 18.4 LAB L100.2300 0-10 % High MONO% 12.1 LAB L100.2400 0-5 % Normal EO% 4.9 LAB L100.2500 0-1 % Normal BASO% 0.0 LAB L100.2550 0.0-0.9 % Normal IM GRAN % 0.500 Result Comment: IG% - Immature Granulocytes (promyelocytes, myelocytes and metamyelocytes) > 1% indicates that a LEFT SHIFT is Present. LAB L100.2620 2.0-7.7 X10 3/uL Normal Absolute Neut 3.8 LAB L100.2720 0.83-4.51 X10 3/ul Normal Absolute Lymph 1.10 Performed By: #### L100.0100 #### [facility] [address] [place], [address] HEMOGLOBIN A1C Collected: 02/04/2018 Status: F Source: [place] 7:45 AM [facility] REPOSITORY Order Comment: JORGE LUIS, RF, SED FOR ANOTHER ACCOUNT TYPE CODE TESTS RESULT OUT OF RANGE REFERENCE UNITS LAB L501.9985 4.2-6.3 % High HGB A1C 7.5 Performed By: #### L501.9985 #### [facility] [address] [place], [address] COMPREHENSIVE METABOLIC Collected: 02/04/2018 Status: F Source: [facility] 7:45 AM [facility] REPOSITORY Order Comment: JORGE LUIS, RF, SED FOR ANOTHER ACCOUNT TYPE CODE TESTS RESULT OUT OF RANGE REFERENCE UNITS LAB L501.0100 74-106 mg/dL High GLU 192 Result Comment: Fasting Glucose result greater than or equal to 126 mg/dL suggests DIABETES MELLITUS per A.D.A. criteria. Please note revised GLUCOSE reference range effective 2017. LAB L501.1000 7-18 mg/dL Normal BUN 15 LAB L501.1100 0.70-1.30 mg/dL Normal CREAT,SERUM 0.94 Result Comment: The validity of the calculated GFR AND GFRAA in patients over 70 years has not been determined. Clinical correlation is essential. LAB L501.1110 >60 mL/min Normal EST GFR 86 Result Comment: Non- GFR Calc LAB L501.1115 >60 mL/min Normal EST GFR - AA 104 Result Comment: GFR Calc LAB L501.1300 10-20 RATIO Normal BUN/CRE 15.9 LAB L501.1500 6.4-8.2 g/dL T Normal PROT 7.2 LAB L501.1800 3.2-5.0 g/dL Normal ALB 3.5 LAB L501.1950 2.2-4.2 g/dL Normal GLOB 3.7 LAB L501.2000 0.9-2.4 RATIO Normal A/G 0.9 LAB L501.2200 8.5-10.1 mg/dL CA Normal 8.7 LAB L501.4100 15-37 U/L Normal AST 20 LAB L501.4305 45-117 U/L Normal ALK P 89 LAB L501.4405 16-61 U/L Normal ALT 29 LAB L501.4600 0.20-1.00 mg/dL T Normal BILI 0.70 LAB L501.5300 136-145 mmol/L NA Normal 140 LAB L501.5600 3.5-5.1 mmol/L K Normal 4.3 LAB L501.5900 98-107 mmol/L CL Normal 104 LAB L501.6100 21.0-32.0 mmol/L Normal CO2 31.0 LAB L501.6200 5-15 Normal GAP 5 Performed By: #### L500.4050, L500.4100, L501.9520, L501.9910 #### [facility] [address] [place], [place], [id number] LIPID PROFILE Collected: 02/04/2018 Status: F Source: RAMA 7:45 AM [facility] REPOSITORY Order Comment: JORGE LUIS, RF, SED FOR ANOTHER ACCOUNT TYPE CODE TESTS RESULT OUT OF RANGE REFERENCE UNITS LAB L501.4900 200 mg/dL High CHOL 221 Result Comment: <200 mg/dL Desirable 200-240 mg/dL Borderline >240 mg/dL High Risk LAB L501.5000 mg/dL Normal TRIG 90 Result Comment: The drugs N-Acetylcysteine and Metamizole may falsely depress this assay. Serum Triglycerides Reference Interval Normal <150 mg/dL Borderline high 150 - 199 mg/dL High 200 - 499 mg/dL Very High > or = 500 mg/dL LAB L501.6400 mg/dL Normal HDL 97 Result Comment: The drugs N-Acetylcysteine and Metamizole may falsely depress this assay. Reference Range HDL <40 mg/dL Low HDL Cholesterol HDL >or= 60 mg/dL High HDL Cholesterol LAB L501.6500 0-130 mg/dL Normal LDL 106 LAB L501.6600 5-40 mg/dL Normal VLDL 18 Performed By: #### L500.4050, L500.4100, L501.9520, L501.9910 #### [facility] [address] [place], [address] THYROID STIM HORMONE Collected: 02/04/2018 Status: F Source: [place] (TSH) 7:45 AM [facility] REPOSITORY Order Comment: JORGE LUIS, RF, SED FOR ANOTHER ACCOUNT TYPE CODE TESTS RESULT OUT OF RANGE REFERENCE UNITS LAB L501.9520 0.358-3.74 uIU/mL Normal TSH 1.87 Performed By: #### L500.4050, L500.4100, L501.9520, L501.9910 #### [facility] [address] [place], [address] PSA,TOTAL - ANNUAL Collected: 02/04/2018 Status: F Source: [place] SCREEN 7:45 AM [facility] REPOSITORY Order Comment: JORGE LUIS, RF, SED FOR ANOTHER ACCOUNT TYPE CODE TESTS RESULT OUT OF RANGE REFERENCE UNITS LAB L501.9910 0.00-4.00 ng/mL Normal PSA,TOT 0.72 SCREEN Result Comment: This test was performed using the TPSA assay method for the Wireless Generation chemistry system. Values obtained with different assay methods cannot be used interchangably. When changing PSA assays in the course of monitoring a patient, additional sequential testing should be carried out to confirm baseline values. Performed By: #### L500.4050, L500.4100, L501.9520, L501.9910 #### [facility] [address] [place], [address] ERYTHROCYTE SED RATE Collected: 02/04/2018 Status: F Source: RAMA 7:45 AM [facility] REPOSITORY TYPE CODE TESTS RESULT OUT OF RANGE REFERENCE UNITS LAB L102.0000 0-20 mm/hr Normal SED RATE 6 Performed By: #### L101.9900 #### [facility] [address] [place], [address] RHEUMATOID FACTOR Collected: 02/04/2018 Status: F Source: [place]A 7:45 AM [facility] REPOSITORY TYPE CODE TESTS RESULT OUT OF RANGE REFERENCE UNITS LAB L505.7010 <15 IU/mL Normal RHEUMATOID FAC < 10.0 Performed By: #### L505.7010 #### [facility] [address] [place], [address] ANTINUCLEAR ANTIBODIES Collected: 02/04/2018 Status: F Source: RAMA DIRECT 7:45 AM [facility] REPOSITORY TYPE CODE TESTS RESULT OUT OF RANGE REFERENCE UNITS LAB L3100.5475 Negative Normal Negative JORGE LUIS-DIRECT Result Comment: Performed at: - [facility] [address] [id number] Skip Load Driver: Garrett Beckwith PhD, Phone: [phone] Performed By: #### L3100.5475 #### [facility] (refer to report for specific site) refer to report for address and phone number ERYTHROCYTE SED RATE Collected: 01/25/2018 Status: F Source: [place] 10:05 AM [facility] REPOSITORY TYPE CODE TESTS RESULT OUT OF RANGE REFERENCE UNITS LAB L102.0000 0-20 mm/hr Normal SED RATE 8 Performed By: #### L101.9900, L100.0100 #### [facility] [address] [place], [place], [address] CBC W/DIFF, AUTOMATED Collected: 01/25/2018 Status: F Source: [place] 10:05 AM [facility] REPOSITORY TYPE CODE TESTS RESULT OUT OF RANGE REFERENCE UNITS LAB L100.1000 4.4-11.0 K/mm3 Normal WBC 7.1 LAB L100.1200 4.6-6.2 M/mm3 Normal RBC 4.66 LAB L100.1300 13.0-16.5 g/dl Normal HGB 14.3 LAB L100.1400 40-54 % Normal HCT 45.6 LAB L100.1500 80-94 fL High MCV 97.9 LAB L100.1600 27.0-32.0 pg Normal MCH 30.7 LAB L100.1700 32-36 g/gl Low MCHC 31.4 LAB L100.1810 11.6-14.6 % Normal RDW CV 13.2 LAB L100.1820 35.1-43.9 fl High RDW SD 47.0 LAB L100.1900 150-450 K/mm3 Low PLT 118 LAB L100.2100 47-70 % Normal NEUT% 68.2 LAB L100.2200 19-41 % Low LY% 17.6 LAB L100.2300 0-10 % High MONO% 12.0 LAB L100.2400 0-5 % Normal EO% 2.1 LAB L100.2500 0-1 % Normal BASO% 0.0 LAB L100.2550 0.0-0.9 % Normal IM GRAN % 0.100 Result Comment: IG% - Immature Granulocytes (promyelocytes, myelocytes and metamyelocytes) > 1% indicates that a LEFT SHIFT is Present. LAB L100.2620 2.0-7.7 X10 3/uL Normal Absolute Neut 4.8 LAB L100.2720 0.83-4.51 X10 3/ul Normal Absolute Lymph 1.25 LAB L100.5650 Normal PLT MORPH LARGE Performed By: #### L101.9900, L100.0100 #### [facility] [address] [place], [place], [address] COMPREHENSIVE METABOLIC Collected: 01/25/2018 Status: F Source: [facility] 10:05 AM [facility] REPOSITORY TYPE CODE TESTS RESULT OUT OF RANGE REFERENCE UNITS LAB L501.0100 74-106 mg/dL High GLU 122 Result Comment: Fasting Glucose result from 100 to 125 mg/dL suggests IMPAIRED HOMEOSTASIS per A.D.A. criteria. Please note revised GLUCOSE reference range effective 2017. LAB L501.1000 7-18 mg/dL Normal BUN 17 LAB L501.1100 0.70-1.30 mg/dL Normal CREAT,SERUM 0.95 Result Comment: The validity of the calculated GFR AND GFRAA in patients over 70 years has not been determined. Clinical correlation is essential. LAB L501.1110 >60 mL/min Normal EST GFR 85 Result Comment: Non- GFR Calc LAB L501.1115 >60 mL/min Normal EST GFR - AA 103 Result Comment: GFR Calc LAB L501.1300 10-20 RATIO Normal BUN/CRE 17.8 LAB L501.1500 6.4-8.2 g/dL T Normal PROT 7.1 LAB L501.1800 3.2-5.0 g/dL Normal ALB 3.6 LAB L501.1950 2.2-4.2 g/dL Normal GLOB 3.5 LAB L501.2000 0.9-2.4 RATIO Normal A/G 1.0 LAB L501.2200 8.5-10.1 mg/dL CA Normal 9.3 LAB L501.4100 15-37 U/L Normal AST 16 LAB L501.4305 45-117 U/L Normal ALK P 83 LAB L501.4405 16-61 U/L Normal ALT 26 LAB L501.4600 0.20-1.00 mg/dL T Normal BILI 0.80 LAB L501.5300 136-145 mmol/L NA Normal 142 LAB L501.5600 3.5-5.1 mmol/L K Normal 4.6 LAB L501.5900 98-107 mmol/L CL Normal 103 LAB L501.6100 21.0-32.0 mmol/L High CO2 34.0 LAB L501.6200 5-15 Normal GAP 5 Performed By: #### L500.4050, L501.6710, L505.7010 #### [facility] [address] [facility]. [place], [place], [address] CRP Collected: 01/25/2018 Status: F Source: [place] 10:05 [facility] REPOSITORY TYPE CODE TESTS RESULT OUT OF RANGE REFERENCE UNITS LAB L501.6710 0.0-3.0 mg/L High 4.60 C-REACTIVE PROT Result Comment: C-Reactive Protein (CRP) provides useful information for the diagnosis, therapy and monitoring of inflammatory processes and associated diseases. For the evaluation of Relative Risk for Cardiovascular Disease, a High Sensitivity CRP (HSCRP) should be ordered. Performed By: #### L500.4050, L501.6710, L505.7010 #### [facility] [address] [facility] [place], [place], [id number] RHEUMATOID FACTOR Collected: 01/25/2018 Status: F Source: [place] 10:05 [facility] REPOSITORY TYPE CODE TESTS RESULT OUT OF RANGE REFERENCE UNITS LAB L505.7010 <15 IU/mL Normal RHEUMATOID FAC < 10.0 Performed By: #### L500.4050, L501.6710, L505.7010 #### [facility] [address] [facility]. [place], [place], [address] CCP IGG ANTIBODIES Collected: 01/25/2018 Status: F Source: [place] 10:05 [facility] REPOSITORY TYPE CODE TESTS RESULT OUT OF REFERENCE UNITS RANGE LAB L4600.0100 0-19 units High ANTI-CCP 22 [id number] Result Comment: Negative <20 Weak positive 20 - 39 Moderate positive 40 - 59 Strong positive >59 Performed at: - [facility] [address] [id number] Skip Load Driver: Tony Ashley MD, Phone: [phone] Performed By: #### L4600.0100 #### [facility] (refer to report for specific site) refer to report for address and phone number PELVIS 1 OR 2 VIEWS Observed: 01/25/2018 Status: F Source: [facility] 10:01 AM [facility] REPOSITORY Imaging Services [address] [place] [address] Pelvis 1 or 2 Views MR#: [id number] Acct: [id number] Name: FARAZ AMBRIZ Rep #: [id number] : 1955 M 62 From: Zach Bruno MD PCP: Katty Iyer MD Status: REG CLI Study: Pelvis 1 or 2 Views Date of Exam: 01/25/18 Exam# [id number] Ordering Dr: Casi Santos MD STUDY: X-RAY - PELVIS REASON FOR EXAM: Male, 62 years old. Pain. TECHNIQUE: One view of the pelvis was obtained. COMPARISON: None. FINDINGS: There is a non-specific bowel gas pattern. Normal visualized soft tissue structures. Normal bilateral iliac wings, sacroiliac joints and visualized sacrum. Normal visualized bilateral superior and inferior pubic rami. Normal pubic symphysis. Normal ischial tuberosities. Normal visualized right femoral head. Normal right acetabulum. Normal right hip joint. Normal visualized left femoral head. Normal left acetabulum. Normal left hip joint. RAD/Pelvis 1 or 2 Views IMPRESSION: Normal x-ray examination of the pelvis. Electronically Signed: Zach Bruno MD at 22:01 EDT , Service support , CC: Katty Iyer MD; Casi Santos MD Curtain Inspector: Signed OT D/C SUMMARY Observed: 01/03/2018 Status: F Source: [place] 9:01 AM [facility] REPOSITORY [facility] [address] [place] [address] Fax REHABILITATION SERVICES DISCHARGE SUMMARY MR#: [id number] Acct: [id number] Name: FARAZ AMBRIZ Rep #: [id number] : 1955 62 From: Leigh Camejo Referring Dr.: Marcela Tolentino DO Status: REG RCR Eval Date: Discharge Date: HP - OT D/C Summary It has been my pleasure to treat FARAZ AMBRIZ under orders from Marcela Tolentino DO, for the diagnosis of B wrist sprains for a total of 12 visit(s). Please see the following information for a summary of their discharge status. - Overall Improvement % Improvement: 30 - Objective Objective/Function: Reassessment completed on this date. ROM is WFL. Strength assessment completed: tag stringer flexed R 80, L 60; ext tag stringer R 66, L 63 lbs; lateral R 16, L 14; tripod R 12, L 12; pincer R 7, L 8 lbs. Sensation testing completed: IF R 3.61, L 3.84. MF R 3.04, L 3.84. RF R 4.08, L 3.84. PF R 4.08, L 3.84. thumb R 3.84, L 3.84. He has progressed with some goals and will be d/c'd today. - Goals Patient Goals: Regain Mobility, Regain Strength, Decrease Pain, Return to Work, Use Hand/Wrist/Arm Normally Again, Increase ROM, Be More Independent in ADLS, Resume Former Household Responsibilities (Cooking,Cleaning,Yard, etc.), Resume Hobbies Goal:: Faraz to increase wrist stability through increased tag stringer by 10-15 lbs to promote increased ROM and strength to return to PLOF by d/c. Goal:: Faraz to be mod I to complete techniques to promote wrist alignment and stability 4/5 trials 80% of the time to promote returning to PLOF by d/c. Goal:: Faraz to be mod I to complete HEP including strengthening and pain management techniques 4/5 trials 80% of the time to promote pain management and returning to PLOF by d/c. - Plan Plan: Faraz has completed approved visits and will be d/c'd. HE has progressed towards some but not all goals. Pain has been an issue t/o course of treatment, but he has continued to complete home based IADLs. He is paying out of pocket/using personal insurance to see arthritis doctor mid January to further get to bottom of pain. Further follow up with workers compensation would be beneficial if pain is not resolved after recent cortisone shots a week ago. It would be beneficial for Faraz to get order from doctor/workers compensation for CMC push brace to provide additional support to R thumb CMC to help alleviate wrist pain. IF symptoms are consistent he is to see arthritis doctor and potentially specialist if he is continuing to have pain a full year out of injury. All symptoms of wrist related pain started and appear to be related to fall from this past April while at work. - D/C Information If there are questions or concerns regarding this patient's occupational therapy, please fell free to call me at [phone]. Thank you for the referral of this patient. Sincerely, Leigh Camejo <Electronically signed by Leigh Camejo > 01/03/18 0901 CC: Katty Iyer MD; Marcela Tolentino DO KMB Signed ORTHOPEDIC VISIT Observed: 01/02/2018 Status: F Source: RAMA REPORT 12:04 PM [facility] REPOSITORY [facility] Orthopaedics AND Sports Medicine [address] [place] [address] OFFICE VISIT Date of Service: 12/28/17 MR#: [id number] Acct: [id number] Name: FARAZ AMBRIZ Rep #: [id number] : 1955 Provider: Marcela Tolentino DO Age/Sex: 62/M Location: [facility] Status: Signed Intake Intake Visit Reasons: Bilat Wrist Pain Is patient in pain?: Yes Allergies aspirin Allergy (Severe, Verified 08/30/17 15:20) Unknown Medications insulin detemir (U-100) 100 unit/mL (3 mL) subcutaneous pen SC 90 Days #15 05/15/17 [History Confirmed 08/03/17] [facility] Medical History Arthritis (Acute) Diabetes (Acute) Surgical History History of hernia repair (Acute) History of partial thyroidectomy (Acute) Social History Smoking Status: Never smoker alcohol intake: never HPI Bilat Wrist Pain: Details: FARAZ AMBRIZ is a 62 year old M here today for bilateral wrist pain, he has since retired due to the pain. His last injection was 08/2017 was helpful for pain relief. His left is greater than the right and he has pain with gripping. Ortho Exam Left Wrist/Hand Skin/Wound: Yes CDI Contralateral Normal: No A1 desirae trigger: No Assessment AND Plan 1. Strain of wrist, bilateral S66.911A; S66.912A Plan Reviewed the pain location and his activities that increase pain. Have approval for bilateral injections today. Instructed to watch his blood sugar carefully over next two days. Follow up as needed or sooner if pain, swelling, numbness or associated symptoms, or concerns develop. All questions answered. Patient in agreement of plan. Orders Orders: Medications New: Coding Level of Care Code No Charge Diagnoses Strain of wrist, bilateral S66.911A; S66.912A 01/02/18 1204 <Electronically signed by Marcela Tolentino DO> Date Marcela Tolentino DO Cosigner Signature: Date (if applicable) CC: OT GENERAL EVALUATION Observed: 12/10/2017 Status: F Source: [facility]A 3:20 PM [facility] REPOSITORY [facility] [address] [place] [address]. [address] [place], [place] [address] Fax REHABILITATION SERVICES INITIAL EVALUATION MR#: [id number] Acct: [id number] Name: FARAZ AMBRIZ Rep #: [id number] : 1955 61 From: Leigh Camejo Referring Dr.: Marcela Tolentino DO Status: REG RCR Insurance: [facility] OTHER Eval Date: SELF PAY INSURANCE Patient's Visit Information FARAZ AMBRIZ is a 61 year old M, referred to Occupational Therapy by Marcela Tolentino DO, with a diagnosis of B wrist sprains. Date of Evaluation: 12/07/17 Occupational Therapist: Leigh Camejo - Subjective Subjective: Arrived and noted that received additional approval for c9. Previously seen at OT due to b wrist sprain in Dec while slipping on ice at work. Symptoms of B wrist sprain are persistent, and he has been approved for additional appointments. 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 He is keeping busy per Pt. report but continues to have pain in wrists. Currently working on putting deck on daughters home with son in law. Notes he was approved for a couple more injections as well as OT. - Pain Bilateral Wrist 1 Pain Intensity Range: 1, 6, 8 - ROM Forearm: WNL Wrist: flexion R 0-79, L 0-80; ext R 0-42, L 0-40 MP: WNL PIP: WNL DIP: WNL ROM Comments: radial R 0-15, L 0-20. ulnar R 0-29, L 0-35 - Strength Draw Frame Operator: flex R 78, L 90; ext R 67, L 57 Lateral Pinch: R 17, L 16 Tripod Pinch: R 11, L 12 Tip-to-Tip Pinch: R 8, L 12 Intrinsics: R 4+/5, L 4-/5 Strength Comments: increased pain over wrist as helping son in law build deck and completed long work day yesterday. - Sensation Thumb: R 3.61, L 3.84 Index: R 3.84, L 2.83 Middle: R 3.84, L 3.84 Ring: R 3.84, L 3.84 Little: R 3.61, L 3.22 Sensation Comments: Does have mild neuropathy in B feet per Pt. report. - DASH-Disabilities of Arm, Shoulder AND Hand DASH Sum: 81 - Goals Goal:: Faraz to increase wrist stability through increased tag stringer by 10-15 lbs to promote increased ROM and strength to return to PLOF by d/c. Goal:: Faraz to be mod I to complete techniques to promote wrist alignment and stability 4/5 trials 80% of the time to promote returning to PLOF by d/c. Goal:: Faraz to be mod I to complete HEP including strengthening and pain management techniques 4/5 trials 80% of the time to promote pain management and returning to PLOF by d/c. - Rehabilitation General Assessment: Faraz arrived to OT eval on this date. Addition visits approved for B wrist sprain occurring in Apr 2017. 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 He lists pain over ligament attachment points around transverse carpal ligaments and ulnar collateral at wrist. HE has purchased wrist bands and wears on occasion for additional support. Reports that wirts bands seem to help. He plans to follow up with arthritis clinic in [place] to further determine cause of B wrist pain. OT to work on ergonomic and wrist mechanics as well as ROM, strength, orthotics as needed and pain management to promote completing tasks at PLOF. Rehabilitation Potential: Good - Anticipated Interventions Anticipated Interventions: A/AAROM/PROM, Strengthening, Triggerpoint Release, Modalities, Orthoses, Joint Protection/Energy Conservation, Ergonomic Education, Fine Motor Coord/Edwin, Caregiver Training, Home Program - Visit Plan Frequency: 2-3x /Week Duration: 4-6 Weeks General Plan: Faraz to complete OT for ROM, strengthening, ergonomic and body mechanics, as well as pain mangement through use of modalities and body mechanics to promote returning to PLOF. TEXT: Thank you for the opportunity to evaluate your patient. For Medicare and Medicare HMO plans, please review the plan of care and approve it. It will need to be FAXED BACK to us at [phone] for Medicare purposes. Please let me know if there are questions or concerns regarding this plan of care. Physician Signature: Date: <Electronically signed by Leigh Camejo > 12/10/17 1520 CC: Katty Iyer MD; Marcela Tolentino DO HIMA Signed For Medicare only, by signing this I certify the plan of care. Physicians Signature Date ORTHOPEDIC VISIT Observed: 11/23/2017 Status: F Source: [place] REPORT 10:[address] [facility] Orthopaedics AND Sports Medicine [address] [place] [address] [address] [place] [address] OFFICE VISIT Date of Service: 11/22/17 MR#: [id number] Acct: [id number] Name: FARAZ AMBRIZ Rep #: [id number] : 1955 Provider: Marcela Tolentino DO Age/Sex: 61/M Location: [facility] [place] Status: Signed Intake Intake Visit Reasons: Bialat Wrist Pain Allergies aspirin Allergy (Severe, Verified 08/30/17 15:20) Unknown Medications insulin detemir (U-100) 100 unit/mL (3 mL) subcutaneous pen SC 90 Days #15 05/15/17 [History Confirmed 08/03/17] [facility] Medical History Arthritis (Acute) Diabetes (Acute) Surgical History History of hernia repair (Acute) History of partial thyroidectomy (Acute) Social History Smoking Status: Never smoker alcohol intake: never HPI Bialat Wrist Pain: Details: FARAZ AMBRIZ is a 61 year old M here today for f/u on bilateral wrist pain. He had injections in August that were successful for about a month. He still has pain with gripping and repetitive. He has recently retired but the ache remains. Denies numbness, tingling or other associated symptoms. Patient does use tylenol prn. Ortho Exam Right Wrist/Hand Skin/Wound: Yes CDI Contralateral Normal: No A1 desirae trigger: No Right Wrist: Yes ROM-Extension 0-60, ROM-Flexion 0-80, ROM- Pronation 0-80 and ROM-Supination 0-90 Sensation: Radial: I, Ulnar: I, Median: I WRIST: ttp and pain with flex and ext at the radiocarpal jt Left Wrist/Hand Contralateral Normal: No A1 desirae trigger: No Left Wrist: Yes ROM-Extension 0-60, Yes ROM-Flexion 0-80, Yes ROM-Pronation 0-80 and Yes ROM-Supination 0-90 Sensation: Radial: I, Ulnar: I, Median: I WRIST: ttp and pain with flex and ext at the radiocarpal jt Assessment AND Plan 1. Strain of wrist, bilateral S66.911A; S66.912A Plan Explained that we can inject again to give some relief, he can try an otc wrist sleeve when he is working or doing repetitive motions. He can also use otc nsaids. We will submit for injections. Follow up when we have approval or sooner if pain, swelling, numbness or associated symptoms, or concerns develop. All questions answered. Patient in agreement of plan. Coding Level of Care Code Off vis,est,level 3 Diagnoses Strain of wrist, bilateral S66.911A; S66.912A 11/23/17 1026 <Electronically signed by Marcela Tolentino DO> Date Marcela Tolentino DO Cosigner Signature: Date (if applicable) CC: OT D/C SUMMARY Observed: 10/01/2017 Status: F Source: [place] 1:41 PM [facility] REPOSITORY [facility] Occupational [facility] [place] [address] Fax REHABILITATION SERVICES DISCHARGE SUMMARY MR#: [id number] Acct: [id number] Name: FARAZ AMBRIZ Rep #: [id number] : 1955 61 From: Breanna BOGGS/Gia, CHT Referring Dr.: Marcela Tolentino DO Status: REG RCR Eval Date: Discharge Date: HP - OT D/C Summary It has been my pleasure to treat FARAZ AMBRIZ under orders from Marcela Tolentino DO, for the diagnosis of Bilateral wrist sprain for a total of 8 visit(s). Please see the following information for a summary of their discharge status. - Objective Objective/Function: pt demo a increase in bilateral UB MMT grossly throunghout at 4+/5 - pt demo good tolerance of his UB ex. and was instructed to cont.with a HEP or join a health and wellness center- pt demo interest in this. - Goals Patient Goals: Regain Strength, Decrease Pain, Use Hand/Wrist/Arm Normally Again Goal:: pt will demo a increase in BUE strength to 5/5 to increase ind. with IADLS by d/c Goal:: pt will report no pain greater than 1/10 with use of bilateral UE for IADLS by d/c Goal:: pt will demo understanding of joint protection and ad. eq. for IADLS by d/c - Plan Plan: D/C - D/C Information Discharge Comments: pt was seen for 8 visits. He demo understanding of joint protection and ad. equip. use for home mt. tasks. pt Demo increase in bilateral UB strength and reports he has minimal pain in his wrist. Pt does report left wrist pain with some labor tasks he has done but per pt pain is much better. PT was advised to cont with a health and wellness facility to cont with UB strengthening. pt demo understanding. pt is to use tape on his wrist if he is doing heavy manual labor tasks around his home. pt demo understanding. pt has met functional goals in OT and is D/C at this time. If there are questions or concerns regarding this patient's occupational therapy, please fell free to call me at [phone]. Thank you for the referral of this patient. Sincerely, AMBROSE Rubin/Gia, MARY <Electronically signed by Breanna BOGGS/MARY Nielsen> 10/01/17 1341 CC: Katty Iyer MD; Marcela Tolentino DO MK Signed OT GENERAL EVALUATION Observed: 09/05/2017 Status: F Source: [place] 12:28 PM [facility] REPOSITORY [facility] Occup[facility] [address] [place] [address] Fax REHABILITATION SERVICES INITIAL EVALUATION MR#: [id number] Acct: [id number] Name: FARAZ AMBRIZ Rep #: [id number] : 1955 61 From: Breanna CANCINO, MARY Referring Dr.: Marcela Tolentino DO Status: REG RCR Insurance: [facility] cFares Eval Date: SELF PAY INSURANCE Patient's Visit Information FARAZ AMBRIZ is a 61 year old M, referred to Occupational Therapy by Marcela Tolentino DO, with a diagnosis of Bilateral wrist sprain. Date of Evaluation: 09/04/17 Occupational Therapist: Breanna Marie, AMBROSE/Gia, CHT - Subjective Subjective: pt was seen for inital OT eval with dx of bilateral wrist sprain- pt has been seen in the past- and with his work schedule his wrist have continued to cuase pain. 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 with BADLS - but has pain the more he uses his hand- - ROM Forearm: right /left supination 75 Wrist: right 65 /60 left 65/60 - Strength Shoulder: right 4/5 left 4/5 Elbow: right 4/5 left 4/5 Forearm: right 4/5 left 4/5 Wrist: right 4/5 left 4/5 Draw Frame Operator: right 70 left 65 Lateral Pinch: right 10# left 10# Tripod Pinch: right 8# left 6# Strength Comments: pt demo with weak UB - Special Tests WHAT Test: negative Edvin Scaphoid Shift: negative - Goals Goal:: pt will demo a increase in BUE strength to 5/5 to increase ind. with IADLS by d/c Goal:: pt will report no pain greater than 1/10 with use of bilateral UE for IADLS by d/c Goal:: pt will demo understanding of joint protection and ad. eq. for IADLS by d/c - Rehabilitation General Assessment: pt demo with decrease understanding of work ergo., ad. eq. and protective flaco. with work and daily tasks. pt demo with weakness in UB that allows for compensation at wrist increasing pts pain. pt would benefit from skilled OT services to ed. on UB strengthening and work ergo. joint protection 2-3x week for 4-6 weeks. Rehabilitation Potential: Good - Anticipated Interventions Anticipated Interventions: Strengthening, Joint Protection/Energy Conservation, Ergonomic Education - Visit Plan Frequency: 2-3x /Week Duration: 4 Weeks General Plan: pt to initiate Gym ex eq. to strengthen UB, ed. pt on joint protection with IADLS and home mtg tasks- TEXT: Thank you for the opportunity to evaluate your patient. For Medicare and Medicare HMO plans, please review the plan of care and approve it. It will need to be FAXED BACK to us at [phone] for Medicare purposes. Please let me know if there are questions or concerns regarding this plan of care. Physician Signature: Date: <Electronically signed by Breanna BOGGS/MARY Nielsen> 09/05/17 1228 CC: Katty Iyer MD; Marcela Tolentino DO MK Signed For Medicare only, by signing this I certify the plan of care. Physicians Signature Date ORTHOPEDIC VISIT Observed: 09/04/2017 Status: F Source: [facility] REPORT 2:04 PM [facility] REPOSITORY [facility] Orthopaedics AND Sports Medicine [address] [place] [address] [address] OFFICE VISIT Date of Service: 08/30/17 MR#: [id number] Acct: [id number] Name: FARAZ AMBRIZ Rep #: [id number] : 1955 Provider: Marcela Tolentino DO Age/Sex: 61/M Location: [facility] [place] Status: Signed Intake Intake Visit Reasons: bilateral wrist Allergies aspirin Allergy (Severe, Verified 08/30/17 15:20) Unknown Medications insulin detemir (U-100) 100 unit/mL (3 mL) subcutaneous pen SC 90 Days #15 05/15/17 [History Confirmed 08/03/17] [facility] Medical History Arthritis (Acute) Diabetes (Acute) Surgical History History of hernia repair (Acute) History of partial thyroidectomy (Acute) Social History Smoking Status: Never smoker alcohol intake: never HPI bilateral wrist: Details: FARAZ AMBRIZ is a 61 year old M here today for bilateral wrist injections. He states that he continues to have at the base of this thumbs and he denies any changes in his symptoms since his last appointment. Patient notes that he continues to work although it increases his pain. His approval through [facility] for injections are here. He can not tolerate the tramadol prescribed last time because it makes him feel like he has the flu. He begins OT next week. ROS Const Reports system reviewed and no additional complaints, except as docu Eyes Reports system reviewed and no additional complaints, except as docu ENT Reports system reviewed and no additional complaints, except as docu Card Reports system reviewed and no additional complaints, except as docu Resp Reports system reviewed and no additional complaints, except as docu GI Reports system reviewed and no additional complaints, except as docu Reports system reviewed and no additional complaints, except as docu Musc Reports joint pain, Reports muscle weakness, Reports stiffness Skin/Breast Reports system reviewed and no additional complaints, except as docu Neuro Yes system reviewed and no additional complaints, except as docu Psych Reports system reviewed and no additional complaints, except as docu Endo Reports system reviewed and no additional complaints, except as docu Ortho Exam Right Wrist/Hand Skin/Wound: Yes CDI Contralateral Normal: No Left Wrist/Hand Skin/Wound: Yes CDI Contralateral Normal: No Office Procedures Ortho Injections Injections Details: Obtained consent for injection. Under sterile conditions, injected the patients bilateral radiocarpal jts with 05. cc kenalog and 1cc bupivacaine. The patient tolerated the injection well without any noted complication. Patient should call our office if redness develops, pain worsens or if they have any concerns. Office Meds Kenalog Performing Provider: Marcela Tolentino DO Administered by: Marcela Tolentino DO on 08/30/17 15:29 Dose Route Admin Location Lot Number Expiration DateNDC First Mate 0.5 mg Intra-Articularradiocarpal [id number] 09/11/18 0036-4011-47 [facility] Assessment AND Plan 1. Strain of wrist, bilateral S66.911A; S66.912A Plan Explained that the injection should coat the joint and give relief, but the next two days it may ache more. He should ice and use tylenol for pain relief. Follow up as needed or sooner if pain, swelling, numbness or associated symptoms, or concerns develop. All questions answered. Patient in agreement of plan. Orders Orders: Medications Discontinued: Kenalog (triamcinolone acetonide) Di0.5 mg (0.05 mL) Intra- Articular ONCE N Ernst Pierre scontinued Reason: Office Medication hS as been Documented as given Coding Level of Care Code No Charge Diagnoses Strain of wrist, bilateral S66.911A; S66.912A 09/04/17 1404 <Electronically signed by Marcela Tolentino DO> Date Marcela Tolentino DO Cosigner Signature: Date (if applicable) CC: ORTHOPEDIC VISIT Observed: 08/17/2017 Status: F Source: [facility] REPORT 12:48 PM [facility] REPOSITORY [facility] Orthopaedics AND Sports Medicine [address] [place] [address] OFFICE VISIT Date of Service: 08/16/17 MR#: [id number] Acct: [id number] Name: Faraz Ambriz Rep #: [id number] : 1955 Provider: Marcela Tolentino DO Age/Sex: 61/M Location: [facility] Status: Signed Intake Intake Visit Reasons: BILAT WRIST Is patient in pain?: Yes Allergies aspirin Allergy (Severe, Verified 08/03/17 16:28) Unknown Medications insulin detemir (U-100) 100 unit/mL (3 mL) subcutaneous pen SC 90 Days #15 05/15/17 [History Confirmed 08/03/17] tramadol 50 mg tablet 50 mg PO Q6H 6 Days #24 tab 08/16/17 [Rx Confirmed 08/16/17] PFSH Medical History Arthritis (Acute) Diabetes (Acute) Surgical History History of hernia repair (Acute) History of partial thyroidectomy (Acute) Social History Smoking Status: Never smoker alcohol intake: never HPI BILAT WRIST: Details: Faraz Ambriz is a 61 year old M here today as a [facility] patient for bilateral wrist pain, left worse than right. Patient slipped on black ice at work in April, his pain has progressed since. Patient has pain over his entire wrist. He completed a few weeks of physical therapy which increased his pain. His pain increases while working. 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 He denies any swelling. He denies any injections or bracing. Denies numbness, tingling or other associated symptoms. Patient is working with no restrictions. Patient had xrays which are here for review. ROS Const Reports system reviewed and no additional complaints, except as docu Eyes Reports system reviewed and no additional complaints, except as docu ENT Reports system reviewed and no additional complaints, except as docu Card Reports system reviewed and no additional complaints, except as docu Resp Reports system reviewed and no additional complaints, except as docu GI Reports system reviewed and no additional complaints, except as docu Reports system reviewed and no additional complaints, except as docu Musc Reports joint pain Skin/Breast Reports system reviewed and no additional complaints, except as docu Neuro Yes system reviewed and no additional complaints, except as docu Psych Reports system reviewed and no additional complaints, except as docu Endo Reports system reviewed and no additional complaints, except as docu Ortho Exam Right Wrist/Hand Skin/Wound: Yes CDI Contralateral Normal: No A1 desirae trigger: No Right Wrist: Yes ROM-Extension 0-60, ROM-Flexion 0-80, ROM- Pronation 0-80 and ROM-Supination 0-90; no Snuffbox tenderness Motor: EPL: 5, FDP-2: 5, 1st Dorsal Interosseous: 5, APB: 5 Sensation: Radial: I, Ulnar: I, Median: I Left Wrist/Hand Skin/Wound: Yes CDI Contralateral Normal: No A1 desirae trigger: No Left Wrist: Yes ROM-Extension 0-60, Yes ROM-Supination 0-90, Yes ROM-Flexion 0-80 and Yes ROM-Pronation 0-80; no Snuffbox tenderness Motor: EPL: 5, FDP-2: 5, 1st Dorsal Interosseous: 5, APB: 5 Sensation: Radial: I, Ulnar: I, Median: I Assessment AND Plan Plan Personally reviewed the patient's medical history, medications, surgeries and recent exams if available. X-rays were reviewed. There is no obvious fracture, dislocation, or lucency noted. Educated the patient on the anatomy of the wrist and explained he would benefit from radiocarpal injections. We will submit for OT and injections. We will prescribe tramadol. 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 Follow up when we have an approval or sooner if pain, swelling, numbness or associated symptoms, or concerns develop. All questions answered. Patient in agreement of plan. Medications New: Coding Level of Care Code Off vis,new,level 3 08/17/17 1248 <Electronically signed by Marcela Tolentino DO> Date Marcela Mccarthy Signature: Date (if applicable) CC: URGENT CARE VISIT Observed: 08/03/2017 Status: F Source: [facility]A REPORT 5:[address] [place] [address] OFFICE VISIT Date of Service: 08/03/17 MR#: [id number] Acct: [id number] Name: Faraz Ambriz Rep #: [id number] : 1955 Provider: Ulices BOO Age/Sex: 61/M Location: [facility] Status: Signed Intake Vital Signs08/03/17 Height 5 ft 9 in Intake Visit Reasons: WRIST PAIN. NEEDS C9 TO SEE ORTHO Is patient in pain?: Yes (wrist ) Pain scale (1-10): 4 Allergies aspirin Allergy (Severe, Verified 08/03/17 16:28) Unknown Medications insulin detemir (U-100) 100 unit/mL (3 mL) subcutaneous pen SC 90 Days #15 05/15/17 [History Confirmed 08/03/17] [facility] Medical History Arthritis (Acute) Diabetes (Acute) Surgical History History of hernia repair (Acute) History of partial thyroidectomy (Acute) Social History Smoking Status: Never smoker alcohol intake: never HPI HPI Details: Faraz Ambriz, is a 61 M who presents to the office today for follow-up of a work-related injury which originally occurred on 04/27/2017. Patient comes in today for request of a C9 to be seen by orthopedics. Patient was previously on 06/22/2017 released from this practice due to noncompliance with restrictions. Patient states that he continues to have the same symptoms as at his last appointment which include bilateral wrist pain and aching which are made worse with the work that he does. 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 Additionally patient has undergone occupational therapy and failed. Currently patient denies any numbness or tingling to the hand or fingers. No radiation of the pain beyond the wrists. No other associated symptoms or alleviating/aggravating factors. ROS Const Constitutional: No fever(s), chills, fatigue or weakness Resp Respiratory: No chest congestion or shortness of breath Cardio Cardiology: No chest pain at rest, irregular heart rhythm or shortness of breath Musc Musculoskeletal: Positive for joint pain and muscle cramps; no muscle weakness, joint swelling, limited range of motion, radiating pain into limb, tingling or numbness Neuro Neurology: No tingling, numbness, abnormal movements or weakness Endo Endocrine: No fatigue Exam Const General: cooperative, healthy appearing Resp Effort AND Inspection: normal respiratory effort Auscultation: Bilateral: Clear to Auscultation Cardio Palpation: normal PMI Rate: regular rate Rhythm: regular rhythm Musc Musculoskeletal: Yes joint tenderness; no muscle weakness or decreased ROM Extrem Other: Negative Tinel's and Sinai's. Psych Appearance: grossly normal Mental Status: mental status grossly normal Assessment AND Plan Problems 1. Strain of wrist, bilateral S66.911A; S66.912A Plan Form C9 filled out for referral to [facility] orthopedics for further evaluation and possible treatment. [employer] 14 filled out releasing patient back to work today without restrictions. Patient advised that he no longer needs to follow-up in this office unless she were to have any new injury. Patient advised that unless he were to be able to comply with restrictions he is unlikely to have a good result. Patient advised of potential red flags when appropriate report to the ED. Patient verbalized understanding of all the above. This note was generated with Scicastsation software. It may contain incorrect words, spelling, and punctuation that were not noted in checking the note before signing. Coding Level of Care Code Off vis,est,level 3 Diagnoses Strain of wrist, bilateral S66.911A; S66.912A 08/03/17 1735 <Electronically signed by Ulices BOO> Date Ulices BOO Cosigner Signature: Date (if applicable) CC: CBC W/DIFF, AUTOMATED Collected: 07/25/2017 Status: F Source: [facility] 7:45 AM [facility] REPOSITORY TYPE CODE TESTS RESULT OUT OF RANGE REFERENCE UNITS LAB L100.1000 4.4-11.0 K/mm3 7.5 Normal WBC LAB L100.1200 4.6-6.2 M/mm3 Low 4.59 RBC LAB L100.1300 13.0-16.5 g/dl 14.2 Normal HGB LAB L100.1400 40-54 % 45.2 Normal HCT LAB L100.1500 80-94 fL High 98.5 MCV LAB L100.1600 27.0-32.0 pg 30.9 Normal MCH LAB L100.1700 32-36 g/gl Low 31.4 MCHC LAB L100.1810 11.6-14.6 % 13.1 Normal RDW CV LAB L100.1820 35.1-43.9 fl High 47.1 RDW SD LAB L100.1900 150-450 K/mm3 Low 118 PLT LAB L100.2000 6.2-12.0 fl Test Normal MPV not performed LAB L100.2100 47-70 % High 73.6 NEUT% LAB L100.2200 19-41 % Low 10.7 LY% LAB L100.2300 0-10 % High 13.1 MONO% LAB L100.2400 0-5 % 2.1 Normal EO% LAB L100.2500 0-1 % 0.0 Normal BASO% LAB L100.2550 0.0-0.9 % 0.500 Normal IM GRAN % Result Comment: IG% - Immature Granulocytes (promyelocytes, myelocytes and metamyelocytes) > 1% indicates that a LEFT SHIFT is Present. LAB L100.2620 2.0-7.7 X10 3/uL Normal Absolute Neut 5.5 LAB L100.2720 0.83-4.51 X10 3/ul Low Absolute Lymph 0.80 LAB L100.5500 ADEQ Normal PLT EST ADEQUATE LAB L100.5650 Normal PLT MORPH LARGE Performed By: #### L100.0100 #### [facility] [address] [place], [address] COMPREHENSIVE METABOLIC Collected: 07/25/2017 Status: F Source: [facility] 7:45 AM [facility] REPOSITORY TYPE CODE TESTS RESULT OUT OF RANGE REFERENCE UNITS LAB L501.0100 74-106 mg/dL High GLU 191 Result Comment: Fasting Glucose result greater than or equal to 126 mg/dL suggests DIABETES MELLITUS per A.D.A. criteria. Please note revised GLUCOSE reference range effective 2017. LAB L501.1000 7-18 mg/dL Normal BUN 14 LAB L501.1100 0.70-1.30 mg/dL Normal CREAT,SERUM 0.90 Result Comment: The validity of the calculated GFR AND GFRAA in patients over 70 years has not been determined. Clinical correlation is essential. LAB L501.1110 >60 mL/min Normal EST GFR 91 Result Comment: Non- GFR Calc LAB L501.1115 >60 mL/min Normal EST GFR - AA 110 Result Comment: GFR Calc LAB L501.1300 10-20 RATIO Normal BUN/CRE 15.5 LAB L501.1500 6.4-8.2 g/dL T Normal PROT 6.7 LAB L501.1800 3.2-5.0 g/dL Normal ALB 3.4 LAB L501.1950 2.2-4.2 g/dL Normal GLOB 3.3 LAB L501.2000 0.9-2.4 RATIO Normal A/G 1.0 LAB L501.2200 8.5-10.1 mg/dL CA Normal 8.6 LAB L501.4100 15-37 U/L Normal AST 16 LAB L501.4305 45-117 U/L Normal ALK P 91 LAB L501.4405 16-61 U/L Normal ALT 24 Result Comment: Please note revised ALT reference range effective 2017. LAB L501.4600 0.20-1.00 mg/dL Normal T BILI 0.90 LAB L501.5300 136-145 mmol/L Normal NA 140 LAB L501.5600 3.5-5.1 mmol/L Normal K 4.5 LAB L501.5900 98-107 mmol/L Normal CL 103 LAB L501.6100 21.0-32.0 mmol/L Normal CO2 32.0 LAB L501.6200 5-15 Normal GAP 5 Performed By: #### L500.4050, L500.4100, L501.9520 #### [facility] [address] [place], [place], [id number] LIPID PROFILE Collected: 07/25/2017 Status: F Source: [place] 7:45 AM [facility] REPOSITORY TYPE CODE TESTS RESULT OUT OF RANGE REFERENCE UNITS LAB L501.4900 200 mg/dL High CHOL 221 Result Comment: <200 mg/dL Desirable 200-240 mg/dL Borderline >240 mg/dL High Risk LAB L501.5000 mg/dL Normal TRIG 67 Result Comment: The drugs N-Acetylcysteine and Metamizole may falsely depress this assay. Serum Triglycerides Reference Interval Normal <150 mg/dL Borderline high 150 - 199 mg/dL High 200 - 499 mg/dL Very High > or = 500 mg/dL LAB L501.6400 mg/dL Normal HDL 99 Result Comment: The drugs N-Acetylcysteine and Metamizole may falsely depress this assay. Reference Range HDL <40 mg/dL Low HDL Cholesterol HDL >or= 60 mg/dL High HDL Cholesterol LAB L501.6500 0-130 mg/dL Normal LDL 109 LAB L501.6600 5-40 mg/dL Normal VLDL 13 Performed By: #### L500.4050, L500.4100, L501.9520 #### [facility] [address] [place], [address] THYROID STIM HORMONE Collected: 07/25/2017 Status: F Source: [facility] ([facility]) 7:45 AM [facility] REPOSITORY TYPE CODE TESTS RESULT OUT OF RANGE REFERENCE UNITS LAB L501.9520 0.358-3.74 uIU/mL Normal TSH 1.42 Performed By: #### L500.4050, L500.4100, L501.9520 #### [facility] [address] [place], [place], [address] HEMOGLOBIN A1C Collected: 07/25/2017 Status: F Source: [facility] 7:45 AM [facility] REPOSITORY TYPE CODE TESTS RESULT OUT OF RANGE REFERENCE UNITS LAB L501.9985 4.2-6.3 % High HGB A1C 8.2 Performed By: #### L501.9985 #### [facility] [address] [place], [address] URGENT CARE VISIT Observed: 06/22/2017 Status: F Source: [facility] REPORT 4:20 PM [facility] REPOSITORY [address] [place] [address] OFFICE VISIT Date of Service: 06/22/17 MR#: [id number] Acct: [id number] Name: FARAZ AMBRIZ Rep #: [id number] : 1955 Provider: Ulices BOO Age/Sex: 61/M Location: [facility] Status: Signed Intake Vital Signs06/22/17 Height 5 ft 9 in Intake Visit Reasons: POALLATA TIM/WRIST INJURY Is patient in pain?: Yes Allergies aspirin Allergy (Severe, Verified 06/22/17 16:08) Unknown Medications insulin detemir (U-100) 100 unit/mL (3 mL) subcutaneous pen SC 90 Days #15 05/15/17 [History Confirmed 06/22/17] [facility] Medical History Arthritis (Acute) Diabetes (Acute) Surgical History History of hernia repair (Acute) History of partial thyroidectomy (Acute) Social History Smoking Status: Never smoker alcohol intake: never HPI HPI Details: FARAZ AMBRIZ, is a 61 M who presents to the office today for follow-up of work-related injury which occurred on 04/27/2017. Patient continues to have bilateral wrist and hand pain due to strain of both wrists. 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 Patient has been on restrictions from this office of no lifting pushing or pulling with of greater than 10 pounds with either hand as well as no repetitive motions with his hands and arms. Patient has continued to refuse to adhere to these restrictions and has continued to work outside of these restrictions while at work. He has also had occupational therapy which was of no relief. I did have a discussion with the occupational therapist who stated that the patient openly admitted to not adhering to the restrictions. No other associated symptoms or alleviating/aggravating factors. ROS Const Constitutional: No chills, fever(s), fatigue, abnormal sleep pattern or weakness Resp Respiratory: No shortness of breath or chest congestion Cardio Cardiology: No chest pain at rest, chest pain with exertion or shortness of breath Musc Musculoskeletal: Positive for joint pain; no muscle weakness, joint swelling, decreased muscle mass, numbness or tingling Skin Skin: No wounds or lesions Neuro Neurology: No numbness, tingling, tremor(s) or weakness Psych Psychiatric: No abnormal sleep pattern, No anxiety Endo Endocrine: No fatigue Exam Const General: cooperative, healthy appearing Resp Effort AND Inspection: normal respiratory effort Auscultation: Bilateral: Clear to Auscultation Cardio Palpation: normal PMI Rate: regular rate Rhythm: regular rhythm Musc Musculoskeletal: Yes joint tenderness; no muscle weakness or decreased ROM Extrem Other: Negative Tinel's and Sinai's. Psych Appearance: grossly normal Mental Status: mental status grossly normal Assessment AND Plan Problems 1. Strain of wrist, bilateral S66.911A; S66.912A Plan [employer] 14 filled out releasing patient back to work today without restrictions. Patient has been advised that he is being released from this office this time due to his inability to adhere to the restrictions. Due to this lack of adherence he has been advised that he has reached maximal expected improvement. Patient verbalized understanding of all the above. Coding Level of Care Code Off vis,est,level 3 Diagnoses Strain of wrist, bilateral S66.911A; S66.912A 06/22/17 1620 <Electronically signed by Ulices BOO> Date Ulices BOO Cosigner Signature: Date (if applicable) CC: OT D/C SUMMARY Observed: 06/22/2017 Status: F Source: [place] 9:34 AM [facility] REPOSITORY [facility] [address] [place] [address] Fax REHABILITATION SERVICES DISCHARGE SUMMARY MR#: [id number] Acct: [id number] Name: FARAZ AMBRIZ Rep #: [id number] : 1955 61 From: Breanna BOGGS/Gia, T Referring Dr.: Gomez BOO Status: REG RCR Eval Date: Discharge Date: HP - OT D/C Summary It has been my pleasure to treat FARAZ AMBRIZ under [facility] the [facility] strain for a total of 5 visit(s). Please see the following information for a summary of their discharge status. - Objective Objective/Function: due to pts inablity to decrease use of hands while at work he has not made inprovments and is rec'd to return to at this time - Goals Patient Goals: Regain Strength, Decrease Pain, Improve Fine Motor Skills, Use Hand/Wrist/Arm Normally Again, Be More Independent in ADLS, Resume Hobbies Goal:: Pt will progress with bilateral tag stringer strength by 30# to increase his independence with functional living tasks by d/c. Goal:: Pt will demonstrate no greater than 1/10 pain with movement of bilateral wrists by d/c. Goal:: Pt will be educated on bilateral hand and tag stringer strengthening exercises to complete at home w/ good understanding and demonstration 100%x. - Plan Plan: D/C - D/C Information Discharge Comments: This pt was seen for 5 visits with no reported improvement- due to pts job duties he has not been able to decrease the use of his hands or wear the braces. Therapy has used, US paraffing - trigger point release, brace-and advised to use k-tape- pt is unable to to this while at work so his pain has not decreased. pt was advised to return to for further eval. If there are questions or concerns regarding this patient's occupational therapy, please fell free to call me at [phone]. Thank you for the referral of this patient. Sincerely, Breanna Marie, AMBROSE/L, CHT <Electronically signed by Breanna BOGGS/Gia, CHT> 06/22/17 0934 CC: Katty Iyer MD; Gomez BOO MK Signed OT GENERAL EVALUATION Observed: 06/06/2017 Status: F Source: [place] 12:23 PM [facility] REPOSITORY [facility] Occupational Therapy [facility] [address] [place] [address]. [address] [place] [address] Fax REHABILITATION SERVICES INITIAL EVALUATION MR#: [id number] Acct: [id number] Name: FARAZ AMBRIZ Tello Rep #: [id number] : 1955 61 From: Adri L Viar Referring Dr.: Gomez BOO Status: REG RCR Insurance: [facility] [employer] Eval Date: SELF PAY INSURANCE Patient's Visit Information FARAZ AMBRIZ is a 61 year old M, referred to Occupational Therapy by RAJEEV Hall,PA.MELO, with a diagnosis of bilateral wrist strain. Date of Evaluation: 06/05/17 Occupational Therapist: Adri Stokes - Subjective Subjective: Pt seen for inital occupational therapy evaluation due to increased bilateral wrist pain after falling on the ice 04/27/17. He had x-rays that indicated no broken bones. Pain in bilateral wrists have continued to get worse as time goes on. 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 He is right hand dominent. - Pain L wrist 9 Pain Intensity Range: 1, 2, 9, 10 R wrist 7 Pain Intensity Range: 1, 2, 7 - Objective Objective/Observation: Pt appears with increased pain in bilateral wrists from accidental fall on ice, when he landed on his bilateral wrist in April 2017. Pt has good functional ROM bilateral wrist. Pt demo decreased tag stringer strength bilateral wrist/hands. - ROM ROM Comments: L wrist, R wrist WFL ROM, flexion, extension, supination, pronation - Strength Draw Frame Operator: R 50#, L 40# Tripod Pinch: R 4#, L 4# - Edema Other: No edema noted - Sensation Sensation Comments: Pt states no numbness/tingling - DASH-Disabilities of Arm, Shoulder AND Hand DASH Sum: 93 - Goals Goal:: Pt will progress with bilateral tag stringer strength by 30# to increase his independence with functional living tasks by d/c. Goal:: Pt will demonstrate no greater than 1/10 pain with movement of bilateral wrists by d/c. Goal:: Pt will be educated on bilateral hand and tag stringer strengthening exercises to complete at home w/ good understanding and demonstration 100%x. - Rehabilitation General Assessment: Pt would benefit from occupational therapy services to increase bilateral hand strength and decrease bilateral wrist pain at rest and with movement. Rehabilitation Potential: Excellent - Anticipated Interventions Anticipated Interventions: Strengthening, Massage, Modalities, Joint Protection/Energy Conservation, ADL Training, Home Program - Visit Plan Frequency: 3x /Week Duration: 4 Weeks General Plan: decrease bilateral wrist pain and increase tag stringer strength bilateral hands/wrists. TEXT: Thank you for the opportunity to evaluate your patient. For Medicare and Medicare HMO plans, please review the plan of care and approve it. It will need to be FAXED BACK to us at [phone] for Medicare purposes. Please let me know if there are questions or concerns regarding this plan of care. Physician Signature: Date: <Electronically signed by Adri Nielsen Viar > 06/06/17 1223 CC: Katty Iyer MD; Gomez BOO SLV Signed For Medicare only, by signing this I certify the plan of care. Physicians Signature Date URGENT CARE VISIT Observed: 05/25/2017 Status: F Source: [place] REPORT 3:59 PM [facility] REPOSITORY [facility] [address] [place] [address] OFFICE VISIT Date of Service: 05/25/17 MR#: [id number] Acct: [id number] Name: FARAZ AMBRIZ Rep #: [id number] : 1955 Provider: Ulices BOO Age/Sex: 61/M Location: [facility] Status: Signed Intake Vital Signs05/25/17 Height 5 ft 9 in 05/25/17 Weight: 153 lb 05/25/17 Body Mass Index (BMI) 22.6 Intake Visit Reasons: RAMIREZ WRISTS/WORKERS COMP/ PALOTTA TIM Allergies aspirin Allergy (Severe, Verified 05/15/17 10:21) Unknown Medications insulin detemir 100 unit/mL (3 mL) subcutaneous pen SC 90 Days #15 05/15/17 [History Confirmed 05/25/17] PFSH Medical History Arthritis (Acute) Diabetes (Acute) Surgical History History of hernia repair (Acute) History of partial thyroidectomy (Acute) HPI RAMIREZ WRISTS/WORKERS JAZMINE/ FRANCES TIM: Details: FARAZ AMBRIZ, is a 61 M who presents to the office today for follow-up of a work-related injury which occurred on 04/27/2017. Patient states that he has not been adherent to his restrictions and has continued to work in his normal job with out the ability to adhere to the weight restrictions or use limitations. Patient states that he continues to push and pull with his hands which cause pain in the wrists. He states that the pain continues to be at the same level that it was at the last visit. He continues to deny any numbness or tingling into the hands. No other associated symptoms or alleviating/aggravating factors. ROS Const Constitutional: No chills, fever(s), fatigue or abnormal sleep pattern Resp Respiratory: No shortness of breath or chest congestion Cardio Cardiology: No chest pain at rest, chest pain with exertion or shortness of breath Musc Musculoskeletal: Positive for joint pain; no muscle weakness, joint swelling, decreased muscle mass, numbness or tingling Skin Skin: No wounds or lesions Neuro Neurology: No behavioral changes, confusion, numbness or tingling Psych Psychiatric: No behavioral changes, No confusion, No abnormal sleep pattern Endo Endocrine: No fatigue Exam Const General: cooperative, well developed Resp Effort AND Inspection: normal respiratory effort Auscultation: Bilateral: Clear to Auscultation Cardio Rate: regular rate Rhythm: regular rhythm Musc Musculoskeletal: Yes joint tenderness; no joint redness or muscle weakness Extrem General: normal to inspection, full ROM, normal capillary refill Other: Full range of motion to both wrists which does elicit moderate pain. Negative Tinel's and Sinai's. Assessment AND Plan Problems 1. Strain of wrist, bilateral S66.911A; S66.912A Plan [employer] 14 filled out releasing patient back to work today with restrictions of no lifting/pushing/pulling of greater than 10 pounds as well as no repetitive movements with the bilateral hands. Form C9 filled out for referral to Occupational Therapy. Patient advised to follow the restrictions have been given to him. Also advised to use ibuprofen or Tylenol for pain as needed. Coding Level of Care Code Off vis,est,level 3 Diagnoses Strain of wrist, bilateral S66.911A; S66.912A 05/25/17 9419 <Electronically signed by Ulices BOO> Date Ulices BOO Cosigner Signature: Date (if applicable) CC: URGENT CARE VISIT Observed: 05/15/2017 Status: F Source: [place] REPORT 11:17 AM [facility] REPOSITORY [facility] [address] [place] [address] OFFICE VISIT Date of Service: 05/15/17 MR#: [id number] Acct: [id number] Name: FARAZ AMBRIZ Rep #: [id number] : 1955 Provider: Ulices BOO Age/Sex: 61/M Location: [facility] Status: Signed Intake Vital Signs05/15/17 Height 5 ft 9 in 05/15/17 Weight: 150 lb 05/15/17 Body Mass Index (BMI) 22.1 Intake Visit Reasons: BILATERAL WRIST PAIN Allergies aspirin Allergy (Severe, Verified 05/15/17 10:21) Unknown Medications insulin detemir 100 unit/mL (3 mL) subcutaneous pen SC 90 Days #15 05/15/17 [History Confirmed 05/15/17] HPI BILATERAL WRIST PAIN: Details: FARAZ AMBRIZ, is a 61 M who presents to the office today for initial evaluation of a work-related injury which occurred on 04/27/2017. Patient states that he stepped out of a car onto black ice and fell catching himself with his hands. He states that his right hand immediately had some pain however this pain is increased since the date of injury. He also states that his left hand has pain as well and rates the pain in both hands of 7 out of 10. 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 He also reports a history of arthritis but has not had pain like this previously. He has tried ibuprofen and Tylenol with little relief. He denies any numbness or tingling. No other associated symptoms or alleviating/aggravating factors. ROS Const Constitutional: No fever(s), body ache or abnormal sleep pattern Resp Respiratory: No shortness of breath or chest congestion Cardio Cardiology: No chest pain at rest or shortness of breath Musc Musculoskeletal: Positive for joint pain and stiffness; no abnormal walking, limited range of motion, muscle weakness, numbness or tingling Neuro Neurology: No confusion, abnormal walking, numbness or tingling Psych Psychiatric: No confusion, No abnormal sleep pattern Exam Const General: cooperative, well developed Resp Effort AND Inspection: normal respiratory effort Auscultation: Bilateral: Clear to Auscultation Cardio Rate: regular rate Rhythm: regular rhythm Musc Musculoskeletal: Yes joint tenderness; no joint redness or muscle weakness Extrem General: normal to inspection, full ROM, normal capillary refill Other: Full range of motion to both wrists which does elicit moderate pain. Negative Tinel's and Sinai's. Assessment AND Plan Problems 1. Strain of wrist, bilateral S66.911A; S66.912A Status Acute Plan X-ray of bilateral wrist reviewed and interpreted by myself to find no acute fractures or processes. Awaiting radiology interpretation at time of dictation. First report of injury as well as [employer] 14 filled out releasing patient back to work today with restrictions of no pushing pulling or lifting of greater than 10 pounds as well as no repetitive movements with bilateral wrist. He is also not to have any twisting or manipulation using his wrist. He is to follow-up back in this office in 10 days for further evaluation. Plan is to have him start physical therapy if he has no improvement of pain after the 10 day rest. Patient is also been given exercises to use for stretching his wrists as well as told to use warm compresses and ibuprofen as necessary for the pain. Advised of potential red flags and when appropriate report to the ED. Patient verbalized understanding all of the above. Orders Orders: Coding Level of Care Code Off vis,new,level 4 Diagnoses Strain of wrist, bilateral S66.911A; S66.912A 05/15/17 1117 <Electronically signed by Ulices BOO> Date Ulices BOO Cosigner Signature: Date (if applicable) CC: WRIST MIN 3 VIEWS Observed: 05/15/2017 Status: F Source: [place] 10:34 AM [facility] REPOSITORY [facility] [address] [place] [address] Wrist min 3 Views MR#: [id number] Acct: [id number] Name: FARAZ AMBRIZ Rep #: [id number] : 1955 M 61 From: Nilesh Galeano DO PCP: Katty Iyer MD Status: REG CLI Study: Wrist min 3 Views Date of Exam: 05/15/17 Exam# [id number] Ordering Dr: Ulices Perez STUDY: X-RAY - LEFT WRIST REASON FOR EXAM: Male, 61 years old. Pain after falling 2 weeks ago. TECHNIQUE: 30 view(s) of the wrist were obtained. COMPARISON: None. FINDINGS: Normal visualized distal radius and ulna. Normal radiocarpal articulation. Normal distal radioulnar articulation. Normal carpal bones. There is degenerative arthrosis of the carpal articulations. There is degenerative arthrosis of the carpometacarpal articulation of the thumb. Normal second through fifth carpometacarpal articulations. Normal visualized metacarpal bones. The soft tissue structures are unremarkable. RAD/Wrist min 3 Views IMPRESSION: Degenerative change and left wrist without acute fracture or dislocation. Electronically Signed: Nilesh Galeano DO at 12:15 EST Tel [phone], Service support , CC: Katty Iyer MD; Ulices BOO Curtain Inspector: Signed WRIST MIN 3 VIEWS Observed: 05/15/2017 Status: F Source: [place] 10:28 AM [facility] REPOSITORY [facility] [address] [place] [address] Wrist min 3 Views MR#: [id number] Acct: [id number] Name: FARAZ AMBRIZ Rep #: [id number] : 1955 M 61 From: Nilesh Galeano DO PCP: Katty Iyer MD Status: REG CLI Study: Wrist min 3 Views Date of Exam: 05/15/17 Exam# [id number] Ordering Dr: Ulices Perez STUDY: X-RAY - RIGHT WRIST REASON FOR EXAM: Male, 61 years old. Wrist pain after falling 2 weeks ago. TECHNIQUE: 3 view(s) of the wrist were obtained. COMPARISON: None. FINDINGS: Normal visualized distal radius and ulna. Normal radiocarpal articulation. Normal distal radioulnar articulation. Normal carpal bones. There is degenerative arthrosis of the carpal articulations. There is degenerative arthrosis of the carpometacarpal articulation of the thumb. Normal second through fifth carpometacarpal articulations. Normal visualized metacarpal bones. The soft tissue structures are unremarkable. RAD/Wrist min 3 Views IMPRESSION: Degenerative changes of the right wrist without fracture or dislocation. Electronically Signed: Nilesh Galeano DO at 12:14 EST Tel [phone], Service support , CC: Katty Iyer MD; Ulices BOO Curtain Inspector: Signed ALLERGIES ALLERGIES DATE TYPE / CODE NAME / CODE REACTION SEVERITY SOURCE 04/18/2018 Drug aspirin/F006 Unknown SV [facility] Allergy/4160 992720([facility] 51302(SNOMED M) Repository CT) ENCOUNTERS ENCOUNTERS ADMIT/DISCHARGE ACCOUNT NUMBER ADMITTING ENCOUNTER LOCATION SOURCE CLASS 04/18/2018/04/18/20 [id number] Ambulatory BMSBuilding: [place] 18 BMS.On license of [facility] Repository 04/15/2018 [id number] Ambulatory [facility] ding:MRI Repository 04/02/2018/04/02/20 [id number] Ambulatory BBuilding:RA Yolanda [address] [place] [address] Repository 03/25/2018/03/25/20 [id number] Ambulatory BMSBuilding: [place] 18 BMS.[facility] Repository 02/04/2018 [id number] Ambulatory [facility] ding:LABSPEC Repository 02/04/2018 [id number] Ambulatory [facility] ding:OLS.WCE Repository H 01/25/2018 [id number] Ambulatory [facility] ding:MTLAB Repository 01/03/2018/01/04/20 [id number] Ambulatory [address] ding:OT Repository 12/28/2017/12/29/19 [id number] Ambulatory BMSBuilding: [place] 18 BMS.On license of [facility] Repository 11/22/2017/11/23/19 [id number] Ambulatory BMSBuilding: [place] 18 BMS.On license of [facility] Repository 09/27/2017/09/28/19 [id number] Ambulatory [address] ding:OT Repository 09/11/2017 [id number] Ambulatory [facility] ding:SL Repository 08/30/2017/08/31/19 [id number] Ambulatory BMSBuilding: [place] 18 BMS.On license of [facility] Repository 08/16/2017/08/17/19 [id number] Ambulatory BMSBuilding: [place] 18 BMS.On license of [facility] Repository 08/03/2017/08/04/19 [id number] Ambulatory BMSBuilding: [place] 18 BMS.[facility] Repository 07/25/2017 [id number] Ambulatory [facility] ding:OLS.WCE Repository H 06/22/2017/06/22/19 [id number] Ambulatory BMSBuilding: [place] 18 BMS.[facility] Repository 06/20/2017/06/20/19 [id number] Ambulatory [address] ding:OT Repository 05/25/2017/05/25/19 [id number] Ambulatory BMSBuilding: [place] 18 BMS.[facility] Repository 05/15/2017 [id number] Ambulatory [facility] ding:HPRAD Repository 05/15/2017/05/15/19 [id number] Ambulatory BMSBuilding: [place] 18 BMS.[facility] Repository 05/15/2017/05/15/19 [id number] Ambulatory BMSBuilding: [place] 18 BMS.[facility] Repository PAYERS PAYERS ENCOUNTER GUARANTOR PAYER SUBSCRIBER SOURCE 04/18/2018 FARAZ Javed Primary SAMMY [place] [id number] Insurance:AETNAPolicy DANNEMILLERDOB: [facility] Number: [id number] [id number] Repository [address]Dys: 330) Date:7794-78-88MZ [phone] () [place], [place] [address]RH: 04/18/2018 Secondary NOT GIVENUNK [place] Insurance:SELF PAY [facility] Number: Effective Repository Date:2018-04-17 04/15/2018 FARAZ Javed Primary Insurance:OB FARAZ [place] [id number] OCCUPATIONAL HEALTH DANNEMILLERDOB: [facility] Number: [id number], [place] [id number] Repository [address]Kkr: (330) Date:8524-14-77WX [phone] () [address] [address]RT: 04/15/2018 Secondary NOT GIVENUNK [place] Insurance:SELF PAY [facility] Number: Effective Repository Date:2018-04-03 04/02/2018 [facility] DANNEMILLERDOB: Insurance:AETNA DANCHARMAINEILLERDOB: [facility] [id number] [facility] Number: [id number] Repository [facility] [id number] [address] [place] [address] Date:2018-04-02 - [place], [place] [address]Bfe: [phone]) [id number] 38[address]Ygt: Name:[facility] [phone] ()Tel: [phone] [address]PAIMVNKFY, [place] () (WP) [phone]: (WP) [phone] 03/25/2018 FARAZ A Primary SAMMY [place] [id number] Insurance:AETNAPolikey DANCHARMAINEILLERDOB: [facility] Number: [id number], [place] [id number] Repository [address]Liz: 330) Date:9952-36-81UF [phone] () 423450LAROHINI MAYS [address]AN: 03/25/2018 Secondary NOT GIVENUNK [place] Insurance:SELF PAY [facility] Number: Effective Repository Date:2018-03-22 02/04/2018 FARAZ A Primary SAMMY [place] [id number] Insurance:AETNAPolicy DANCHARMAINEILLERDOB: [facility] Number: [id number], [place] [id number] Repository [address]Ouh: 330) Date:9415-17-34AW [phone] () 756292YLROHINI MAYS [address]BH: 02/04/2018 Secondary NOT GIVENUNK [place] Insurance:SELF PAY [facility] Number: Effective Repository Date:2018-02-04 02/04/2018 FARAZ A Primary Insurance:SELF NOT GIVENUNK [place] [id number] [facility]Y [facility] Number: Effective [place] Date:2018-02-04 Repository [address]Gcd: () 01/25/2018 FARAZ A Primary SAMMY [place] [id number] Insurance:AETNAPolicy DANNEMILLERDOB: [facility] Number: [id number], [place] [id number] Repository [address]Opo: (011) Date:1859-41-05ST [phone] (HP) [id number] ROHINI SANTIAGO [address]XW: 01/25/2018 Secondary NOT GIVENUNK [place] Insurance:SELF PAY [facility] Number: Effective Repository Date:2018-01-25 01/03/2018 FARAZ A Primary FARAZ A [place] [id number] Insurance:OCCUPATIONAL DANNEMILLERDOB: [facility] [id number], [place] Number: Repository [address]Vmh: [phone] [id number] [phone] () Date: [place] [address] [address]BM: 01/03/2018 Secondary NOT GIVENUNK [place] Insurance:SELF PAY [facility] Number: Effective Repository Date:2017-12-04 12/28/2017 FARAZ A Primary SAMMY [place] [id number] Insurance:AETNAPolicy DANNEMILLERDOB: [facility] Number: [id number], [place] [id number] Repository [address]Omb: (491) Date:6122-31-26OB [phone] () 162921TS ROHINI SANTIAGO [address]PX: 12/28/2017 Secondary NOT GIVENUNK [place] Insurance:SELF PAY [facility] Number: Effective Repository Date:2017-12-27 11/22/2017 FARAZ A Primary SAMMY [place] [id number] Insurance:AETNAPolicy DANNEMILLERDOB: Community [facility] Number: [id number], [place] [id number] Repository [address]Qxu: (330) Date:0794-01-92HO [phone] (HP) [id number] JACK ROHINI [address]ZM: 11/22/2017 Secondary FARAZ A [place] Insurance:OB DANNEMILLERDOB: [facility] [id number] Number: Repository [id number] Date: [place], [place] [address]BT: 11/22/2017 Tertiary NOT GIVENUNK [place] Insurance:SELF PAY [facility] Number: Effective Repository Date:2017-11-22 09/27/2017 FARAZ A Primary Insurance:[facility] FARAZ A [place] [id number] [facility] DANNEMILLERDOB: [facility]IP[facility] INCDel[facility] Hospitaly Number: [id number], [place] [id number] Repository [address]Iuf: Date: [phone] [facility] EST 0-7 (HP) [place], [place] [address]VE: 09/27/2017 Secondary NOT GIVENUNK [place] Insurance:SELF PAY [facility] Number: Effective Repository Date:2017-08-27 09/11/2017 FARAZ A Primary SAMMY [place] [id number] Insurance:AETNAPolicy DANNEMILLERDOB: [facility] Number: [id number], [place] [id number] Repository [address]Fol: Date:9231-20-03GZ [phone]~33 [id number] JACKROHINI 0-7 (HP) [address]HT: 09/11/2017 Secondary NOT GIVENUNK [place] Insurance:SELF PAY [facility] Number: Effective Repository Date:2017-08-21 08/30/2017 FARAZ A Primary SAMMY [place] [id number] Insurance:AETNAPolicy DANNEMILLERDOB: Community [facility] Number: [id number], [place] [id number] Repository [address]Uxg: (032) Date:2831-85-94IO [phone] (HP) 4464[address]JVWAG[place], [place] [address]EW: 08/30/2017 Secondary NOT GIVENUNK [place] Insurance:SELF PAY [facility] Number: Effective Repository Date:2017-08-22 08/16/2017 Faraz A Primary Insurance:SELF NOT GIVENUNK [place] [id number] PAY [facility] Number: Effective [place] Date:2017-08-09 Repository [address]Ibw: [phone] 0-7 (HP) 08/03/2017 Faraz A Primary Insurance:[facility]Pro[facility] Hospitale A [place] [id number] [facility] DannemillerDOB: [facility] [facility]Al[facility] Number: [id number], [place] [id number] Repository [address]Vsq: Date: [phone] [address]7 (HP) [place], [place] [address]EK: 08/03/2017 Secondary NOT GIVENUNK [place] Insurance:SELF PAY [facility] Number: Effective Repository Date:2017-08-03 07/25/2017 FARAZ A Primary Insurance:SELF NOT GIVENUNK [place] [id number] PAY [facility] Number: Effective [place] Date:2017-07-25 Repository [address]Ava: [phone] 0-7 (HP) 06/22/2017 FARAZ A Primary Insurance:OBBARNEY CHILDREN'S MEDICAL CENTERE A [place] [id number] [facility] DANNEMILLERDOB: [facility] [place] INCPolicy Number: [id number], [place] [id number] Repository [address]Piv: Date: [phone]7 (HP) [place], [place] [address]TI: 06/22/2017 Secondary NOT GIVENUNK [place] Insurance:SELF PAY [facility] Number: Effective Repository Date:2017-06-22 06/20/2017 FARAZ A Primary Insurance:OB FARAZ A [place] [id number] [facility] DANNEMILLERDOB: [facility] Number: [id number], [place] [id number] Repository [address]Lcv: Date: [phone] (HP) [place], [place] [address]XL: 06/20/2017 Secondary NOT GIVENUNK [place] Insurance:SELF PAY [facility] Number: Effective Repository Date:2017-06-04 05/25/2017 FARAZ A Primary Insurance:OB FARAZ A Rama [id number] [facility] DANNEMILLERDOB: [facility] Number: [id number], [place] [id number] Repository [address]Ttl: Date: [phone] [address]7 (HP) [place], [place] [address]RS: 05/25/2017 Secondary SAMMY [place] Insurance:AETNAPolicy DANNEMILLERDOB: Community Number: [id number] [id number] Repository Date:2419-60-83NN [address]WTROHINI MASY [address]ZA: 05/25/2017 Tertiary NOT GIVENUNK [place] Insurance:SELF PAY [facility] Number: Effective Repository Date:2017-05-15 05/15/2017 FARAZ A Primary Insurance:OB FARAZ A [place] [id number] [facility] DANNEMILLERDOB: [facility] [place] INCPolicy Number: [id number], [place] [id number] Repository [address]Ico: Date: [phone] [address] [address] (HP) [place], [place] [address]JW: 05/15/2017 Secondary SAMMY Rama Insurance:AETNAPolicy DANNEMILLERDOB: Community Number: [id number] [id number] Repository Date:[id number] [address]VE: 05/15/2017 Tertiary NOT GIVENUNK Rama Insurance:SELF PAY [facility] Number: Effective Repository Date:2017-05-15 05/15/2017 FARAZ A Primary Insurance:SELF NOT GIVENUNK [place] [id number] [facility]: Effective [place] Date:2017-05-15 Repository [address]Bus: [phone] 0-7 (HP) 05/15/2017 FARAZ A Primary SAMMY [place] [id number] Insurance:AETNAPolicy DANNEMILLERDOB: [facility] [place]: [id number] [id number] Repository [address]Pxu: Date:[id number] [phone] [id number] [address] (HP) [id number]: 05/15/2017 Secondary NOT GIVENUNK [place] Insurance:SELF PAY [facility] Effective Repository Date:2017-05-15
== END ==
PROVIDERS: Family Provider Family Medicine; PCP Family Medicine; Referring Provider Orthopaedic Surgery; Visit Provider Orthopaedic Surgery
DX: S69.91XA Unspecified injury of right wrist, hand and finger(s), initial encounter (principal); M67.431 Ganglion, right wrist
CPT/HCPCS: 73221

== ENCOUNTER → 2018-08-06 07:30 | Outpatient (CLI) | payer OTHER, SELFPAY | PROVIDERS: Visit Provider Family Medicine | DX: E03.9 Hypothyroidism, unspecified (principal); Z12.5 Encounter for screening for malignant neoplasm of prostate; E10.9 Type 1 diabetes mellitus without complications | CPT/HCPCS: 82784; 83516; 86255 ==

== ENCOUNTER 2019-08-18 08:30 | Outpatient (RCR) | payer OTHER, SELFPAY ==
--- NOTE | 2019-06-19 12:43 | HP.OTEVAL_ITS ---
Patient's Visit Information CARLYN EVANGELISTA is a 63 year old M, referred to Occupational Therapy by Pippa Perkins MD, with a diagnosis of left unilateral primary osteoarthritis of 1st carpometacarpal joint. Date of Evaluation: 06/18/19 Occupational Therapist: Breanna Marie, AMBROSE/Gia, CHT - Subjective Subjective: This 63 year old male was seen for OT eval with dx of left unilateral primary osteoarthritis of 1st carpometacarpal joint, CMC arthritis 2 weeks s/p left CMC arthroplasty. Pt arrives with short thumb spica orthosis on he just had placed today after he got his stitches out. pt report pain and swelling along with limited ability to perfrom ADLs and IADLS. Pt would like to return to his PLOF. - Pain left hand 6 Pain Intensity Range: 1, 8 - ROM Wrist: right 65/60 left 35/30 CMC: right 10 left 10* MP: right 70 Left 20 IP: right 55 left 10* ROM Comments: pt demo with limited left wrist and thumb ROM - Strength Welfare Interviewer: right 50# left NT Lateral Pinch: right 10# left NT Tripod Pinch: right 10# left NT - Sensation Sensation Comments: denies - Quick DASH-Disab of Arm,Shoulder& Hand Quick DASH Score: 63.6350 - Goals Goal:100% adherence to protocol: Yes Comment: follow Dr. Pippa Perkins's CMC arthroplasty protocol Goal:Daily scar massage when approriate: Yes Goal:ROM equal to unaffected hand: Yes Goal:Welfare Interviewer/Pinch strength at least 75% of unaffected hand: Yes Goal:No pain with affected hand use: Yes Goal:PIP Circumferences equal to unaffected hand: Yes Goal:Full use of affected hand in daily activities including: Yes Goal:Decrease scar hypersensitivity: Yes - Rehabilitation General Assessment: left unilateral primary osteoarthritis of 1st ca rpometacarpal joint, CMC arthritis 2 weeks s/p left CMC arthroplasty, arrives with short thumb spica orthosis and stitches removed today. pt demo with limited ROM and weakness decreaseing pts ind. with ADls and IADLs. Pt would benefit from skilled OT services 1-2 x week for 6 weeks to return pt to PLOF. Today pt ed. on following protocol of CMC arthroplasty, IP ROM, edema contorl, scar mtg. pt de mo understading and agree to POC. Rehabilitation Potential: Good - Anticipated Interventions Anticipated Interventions: A/AAROM/PROM, Edema Control, Scar Care, Desensitization, Sensory Retraining, Modalities, Orthoses, Joint Protection/Energy Conservation, Ergonomic Education - Visit Plan Frequency: 1x/Week Duration: 6 Weeks General Plan: 10 days- 2 weeks use of orthosis (ridged thumb spica). AROM to digits and thumb IP joint only, scar mtg. week 4 post/op begin AROM exercises for wrist and thumb CMC joint, cont. scar mtg/edema control. utilize modalities as indicated for pain/edema reduction. Week 6 s/0 D/C orthosis and issue comfot cool fitted splint as needed. discontinue orthosis by week 8 except may wear during heavy activities. exercies- initiate gentle strengthening (theraputty) and progress as miryam. progress wrist strengthening & heavier prehension tasks at 8 weeks s/p. AVOID forceful extension of thumb. TEXT: Thank you for the opportunity to evaluate your patient. For Medicare and Medicare HMO plans, please review the plan of care and approve it. It will need to be FAXED BACK to us at [phone] for Medicare purposes. Please let me know if there are questions or concerns regarding this plan of care. Physician Signature: Date:
--- NOTE | 2019-07-17 11:26 | HP.OTREVAL ---
Pippa Perkins MD, It has been my pleasure to treat CARLYN EVANGELISTA over the last 6 visits for left unilateral primary osteoarthritis of 1st carpometacarpal joint. Please see the progress note below for an update on the occupational therapy plan of care! Subjective: pt 6 weeks s/p - feels he is doing ok- just stiff. Therapy will cont. to follow Protocol with no wrist strengthening until 8 weeks s/p. Due to date limitation of C9 therapist will ask for date extension for 6 more weeks to rehab pt to met protocol. Objective/Function: wrist 55/50. cmc 10*. MP 35. IP 25 Plan Frequency: 1x/Week Duration: 6 Weeks Plan: pt will be 7 weeks sx post this 07-24-19 will progress pt as protocol (no strengthening until pt is 8 weeks s/p) - indicates. try fluido with ROM ex to decrease stiffness Anticipated Interventions Anticipated Interventions: A/AAROM/PROM, Edema Control, Scar Care, Desensitization, Sensory Retraining, Modalities, Orthoses, Joint Protection/Energy Conservation, Ergonomic Education Please do not hesitate to contact me at [phone] by phone or if you have questions or concerns regarding this new plan of care! Sincerely, Breanna Marie, KATHRINR/L, CHT
--- NOTE | 2019-08-18 18:15 | HP.OTDCSUM_ITS ---
It has been my pleasure to treat CARLYN EVANGELISTA under orders from Pippa Perkins MD, for the diagnosis of left unilateral primary osteoarthritis of 1st carpometacarpal joint for a total of 13 visit(s). Please see the following information for a summary of their discharge status. % Improvement: 85 Objective/Function: IP 40*. MP 50*. opposition to LF. pt demo ROM WFL-. 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 with ADLs and IADLs at this time. Pt has met goals in OT and is D/C with HEP of AROM, scar mtg - increase use as miryam. Pt demo understanding and agrees to HEP. If there are questions or concerns regarding this patient's occupational therapy, please fell free to call me at [phone]. Thank you for the referral of this patient. Sincerely, Breanna Marie, OTR/L, CHT
== END 2019-08-18 19:00 | disposition home or self-care (01) ==
LOC: OT 08:30
PROVIDERS: PCP Family Medicine; Referring Provider Orthopaedic Surgery Hand Surgery; Visit Provider Orthopaedic Surgery Hand Surgery
DX: M18.12 Unilateral primary osteoarthritis of first carpometacarpal joint, left hand (principal)
CPT/HCPCS: 97035; 97110; 97140; 97166; 97530

== ENCOUNTER 2020-04-30 08:28 | Day surgery (SDC) | payer OTHER, SELFPAY ==
[2020-04-30 08:48] VITALS: BP 140/63; PULSE 61; RESP 16; TEMP 36.6; O2SAT 100; BMI 25.8
[2020-04-30] MEDS: Lactated Ringers 1,000 ML 100 ML IV (09:12)
[2020-04-30 09:15] LABS: Bedside Glucose 183 mg/dL (70-110)
--- NOTE | 2020-04-30 09:18 | H&P.OPEN ---
History of Present Illness Date of Admission: 04/30/20 The patient is a 64 year old M here for screening colonoscopy. His last colonoscopy was 10 years ago. The patient is not having any abdominal pain or blood in his stool. He reports no family history of colon cancer and he is on no blood thinners. Past Medical/Surgical History - Planned Operation Planned Operative Procedure/s: Colonoscopy Date of Operative Procedure: 04/30/20 Permit Signed: No S.O.S: No Is This Patient Having a Total Joint: No - Previous Hospitalizations/Surgeries HX Hospitalizations: Yes HX of Surgeries: left shoulder repair 2019. rt shoulder repair 2001. partial thyroidectomy. carpal tunnel. hernia. cyst and fissure on tailbone. tonsils. cataract Any Problems With Anesthesia: No You/Your Family Experience Fever (Hyperthermia) With Anes: No Cholinesterase deficiency: No - Cardiovascular Hx Chest Pain within Last 2 months: No Hx of Irregular Heartbeat and/or Afib: No Hx Heart Attack: No Hx Congestive Heart Failure: No Hx Rheumatic Fever: No Hx Hypertension: Yes Hx Internal Defibrillator: No Hx Pacemaker: No Hx Cardiac Catheterization: No Hx Cardiac Surgery/Stents/Etc.: No Hx Stress Test: No HX Edema: No Hx Pain in Legs when Walking/Leg Cramps: No - Respiratory Chronic Cough: No HX of Shortness of Breath: No Hoarseness: No Hx Chronic Obstructive Pulmonary Disease (COPD): No Hx Asthma: No Hx Emphysema: No Hx Sleep Apnea: Yes CPAP: No BIPAP: No Hx Oxygen Use at Home: No Hx Respiratory Tract Infection/Cold (presently): No Result (for STOP score): Positive Hx Smoking: No Smoking Status: Never smoker - Gastrointestinal Hx Gastroesophageal Reflux: Yes - occasional Controlled With Meds: Yes Hx Gastrointestinal Disorders: No Hx Gastrointestinal Bleed: No Hx Ulcer: No Hx Hiatal Hernia: No Difficulty Chewing/Swallowing: No Recent Onset of Swallowing Problems: No Special diet followed at home: No Hx Unplanned Weight Loss of 20#: No HX Unplanned Weight Gain of 20#: No - Neurological Hx Seizures: No HX Syncope/Blackout Spells/Unconsciousness: No Hx CVA/Stroke: No Hx Transient Ischemic Attacks (TIA): No Hx Multiple Sclerosis: No Hx Parkinson's Disease: No Hx Head/Neck Injury: No Hx Headaches: No Hx Back Injury/Pain: Yes - chronic back pain Recent Onset of Speech Difficulty: No Restless Legs: No Does patient have nerve stimulator: No Patient instructed to have device shut off: No Rep notified?: No - Blood Disorder Hx Leukemia: No Bleeding Tendencies: No Hx Deep Vein Thrombosis: No Hx High Cholesterol: Yes - borderline Blood Transmitted Disease: No Hx Hepatitis: No Hx Cirrhosis: No Hx Anemia: No Hx Blood Disorders: No - Genitourinary Hx Renal Disease: No Hx Dialysis: No - Musculoskeletal Hx Arthritis: Yes Hx Rheumatoid Arthritis: No Hx Gout: No Recent Onset of an Orthopedic Problem: Yes - shoulder repair - Endocrine Hx Diabetes: Yes Insulin: Yes Thyroid Disease: Yes - partial thyroidectomy Hx Steroid Therapy: No - Psycho/Social Hx Substance Use: No Hx Alcohol Use: Yes - occasional Hx Anxiety: No Hx Depression: No Mental Illness: No Hx Dementia: No - Miscellaneous Hx Cancer: No Recent Exposure to Contagious Disease: No Active MRSA: No Hx of C-Diff: No Any Loose Teeth: No Allergies aspirin Allergy (Severe, Verified 04/30/20 08:46) Unknown NSAIDS (Non-Steroidal Anti-Inflamma Adverse Reaction (Verified 04/30/20 08:46) Nausea/Vom/Diarrhea - Discharge Is Pt Admitted From a Detention, or a Shelter: No After D/C, Where Do you Plan to Go: Return Home - From the PAT History Number of Risk Factors: 4 - Physical Exam Vitals/I&O's: Vital Signs Temp Pulse Resp BP Pulse Ox 98 F 61 16 140/63 H 100 04/30/20 08:48 04/30/20 08:48 04/30/20 08:48 04/30/20 08:48 04/30/20 08:48 Oxygen Delivery Method Room Air Weight: 160 lb 0.889 oz Body Mass Index (BMI) 25.8 General: Alert, Oriented x3 Neck: No JVD Lungs: Normal air movement Cardiovascular: Regular rate, Regular Rhythm Abdomen: Soft, Non Tender, Non-Distended Microbiology Past 72 Hours 04/28/20 10:00 Interface Orders SARS-CoV-2 Antigen (Rapid) - Final Laboratory Results 04/30/20 08:58: POC Glucose 183 H Current Medications Lactated Ringer's () 1,000 mls @ 100 mls/hr IV .Q10H IVETTE Last Admin: 04/30/20 09:12 Dose: 100 mls/hr Documented by: Assessment/Plan All Active Problems (Last Reviewed 08/03/17 @ 16:29 by Bettina Mars) Strain of wrist, bilateral (Acute) 64-year-old male for screening colonoscopy I explained endoscopy in detail to the patient. I explained the risks including but not limited to stroke or heart attack with anesthesia, perforation of the GI tract, bleeding, infection. I explained that any of these could necessitate further emergency surgery. The patient understands and all questions were answered sufficiently. The patient wishes to proceed with procedure. We discussed the current risks associated with COVID-19. While it is understood that there is a community spread of COVID-19, the risk of george COVID-19 while at [facility] ([facility]) is very low; however, the risk cannot be completely mitigated because of the community spread of the disease. We discussed in detail the risk of exposure to and/or potential harm posed by the COVID-19 virus with having a surgery/procedure at this time versus the risk of delaying the surgery/procedure. It is not possible to know either the risk of delaying the surgery or procedure or chance of getting an infection with perfect accuracy, but a joint decision was made to proceed at this time with the scheduled surgery/procedure as indicated on the consent form. Patient was notified that we will need to comply with any screening or testing [facility] wishes to perform or that surgery may be delayed for any positive results. Ger Lawrence MD Pager: [facility] [address] [place] [address], [address] [place] [address] Office: Surgery Risks - Colonoscopy Risks Include but are not Limited To: Risks include but are not limited to: Bleeding, perforation requiring further surgery, inability to complete colonoscopy requiring barium enema.
--- NOTE | 2020-04-30 09:45 | OP.CCLET_ITS ---
04/30/2020 Mihir Iyer Re : Colonoscopy procedure for Faraz Ambriz Dear Jaylon This procedure was performed on Thursday, April 30, 2020. My impressions and recommendations are as follows: Impressions : - The entire examined colon is normal on direct and retroflexion views. - No specimens collected. Recommendations : - Discharge patient to home. - Resume previous diet. - Continue present medications. - Repeat colonoscopy in 10 years for screening purposes. My findings are described in the full procedure note, which is enclosed. If I can be of further assistance, please feel free to contact me at Doctor phone number(s): , Work: . Sincerely, Ger Lawrence MD 04/30/2020 9:44:38 AM This report has been signed electronically.
--- NOTE | 2020-04-30 09:45 | OP.COLON_ITS ---
Patient Name: Faraz Ambriz Procedure Date: 04/30/2020 9:22 AM Date of : 1955 Age: 64 Procedure: Colonoscopy Indications: Screening for colorectal malignant neoplasm Providers: Ger Lawrence MD Referring MD: Mihir Iyer Medicines: Monitored Anesthesia Care Patient Profile: This is a 64 year old male. Refer to note in patient chart for documentation of history and physical. Last Colonoscopy: 10 years ago. Complications: No immediate complications. Procedure: Pre-Anesthesia Assessment: - Prior to the procedure, a History and Physical was performed, and patient medications and allergies were reviewed. The patient's tolerance of previous anesthesia was also reviewed. The risks and benefits of the procedure and the sedation options and risks were discussed with the patient. All questions were answered, and informed consent was obtained. Prior Anticoagulants: The patient has taken no previous anticoagulant or antiplatelet agents. After reviewing the risks and benefits, the patient was deemed in satisfactory condition to undergo the procedure. After I obtained informed consent, the scope was passed under direct vision. Throughout the procedure, the patient's blood pressure, pulse, and oxygen saturations were monitored continuously. The colonoscope was introduced through the anus and advanced to the cecum, identified by appendiceal orifice and ileocecal valve. The colonoscopy was performed without difficulty. The patient tolerated the procedure well. The quality of the bowel preparation was good. Scope In: 9:32:33 AM Scope Withdrawal Time 0 hours 5 minutes 5 seconds Scope Out: 9:40:35 AM Total Procedure Duration Time 0 hours 8 minutes 2 seconds Findings: The entire examined colon appeared normal on direct and retroflexion views. Impression: - The entire examined colon is normal on direct and retroflexion views. - No specimens collected. Recommendation: - Discharge patient to home. - Resume previous diet. - Continue present medications. - Repeat colonoscopy in 10 years for screening purposes. Procedure Code(s): --- Professional --- 05137, Colonoscopy, flexible; diagnostic, including collection of specimen(s) by brushing or washing, when performed (separate procedure) Diagnosis Code(s): --- Professional --- Z12.11, Encounter for screening for malignant neoplasm of colon CPT copyright 2017 [employer]. All rights reserved. The codes documented in this report are preliminary and upon clinical genetics laboratory chief review may be revised to meet current compliance requirements. Ger Lawrence MD 04/30/2020 9:44:38 AM This report has been signed electronically. Number of Addenda: 0 Note Initiated On: 04/30/2020 9:22 AM
[2020-04-30 09:47] VITALS: BP 105/68; BP 140/63; PULSE 80; RESP 16; TEMP 36.7; O2SAT 100
[2020-04-30 09:50] VITALS: BP 113/60; BP 140/63; PULSE 78; RESP 16; O2SAT 99
[2020-04-30 09:55] VITALS: BP 123/67; BP 140/63; PULSE 79; RESP 16; O2SAT 100
[2020-04-30 10:00] VITALS: BP 125/72; BP 140/63; PULSE 71; RESP 16; TEMP 36.9; O2SAT 100
== END 2020-04-30 10:24 | disposition home or self-care (01) ==
LOC: EN 08:29 → AC 08:29
PROVIDERS: PCP Family Medicine; Referring Provider Family Medicine; Visit Provider Surgery
PROC: 0DJD8ZZ Inspection of Lower Intestinal Tract, Via Natural or Artificial Opening Endoscopic (ICD-10-PCS; CPT 45378; principal; 2020-04-30 09:40)
DX: Z12.11 Encounter for screening for malignant neoplasm of colon (principal); Z79.4 Long term (current) use of insulin; K21.9 Gastro-esophageal reflux disease without esophagitis; E11.9 Type 2 diabetes mellitus without complications; Z20.828 Contact with and (suspected) exposure to other viral communicable diseases
CPT/HCPCS: 45378; 82962; 87426; C9803; J7120; J2405

== ENCOUNTER 2020-06-23 08:00 | Outpatient (RCR) | payer OTHER, SELFPAY ==
--- NOTE | 2020-04-02 08:56 | HP.PTEVAL ---
Patient's Visit Information CARLYN EVANGELISTA is a 64 year old M referred to Physical Therapy by Dr. Pippa Perkins MD with a diagnosis of INJURY OF LEFT ROTATOR CUFF INITIAL COUNTER. Date of Evaluation: 04/02/20 Physical Therapist: Gary Nuñez, PT, Cert MDT, OCS - Visit Plan Frequency: 2x /Week Duration: 6 Weeks Plan: s/p LEFT SHOULDER ARTHROSCOPIC COMPLETE DEBRIDEMENT AND SUBACROMIAL DECOMPRESSION 03/16/20. PT INTERVENTION PROM/AAROM/AROM 2WEEKS PROGRESS TO RTC/SCAPULAR STRENGTHENING,MANUAL THERAPY ,CP/MHP - Subjective This 64 y/o male presents to physical therapy with left shoulder arthroscopic debridement and subacromial decompression on 03/16/[address] Perkins at [facility] .Patient d/c DOS with sling revoved next day. Seen 04/01/20 recommended PT. Patient pain related to cummulative affect of working .Prior to surgery did x-rays. Tried cortizone last spring. Patient denies parathesia/tingling. Patient pain located global shoulder. Pateint surgery on left shoulder affects ADL's a,housework tasks and function. Patient symptoms affects QOL.Pain affects sleeping. SOCIAL: . VOACTION: retired - Pain Left Pain Intensity (Out of 10): 4 Pain Intensity Range: 10 - Objective POSTURE: head foward. INSCION: well approxiamte. PALAPTION: tender acromiom. AROM: shoulder flexion 90 degrees,abduction 80 degrees. PROM: supine shoulder 140 degrees,abduction 14 in scaption,ER 65 degrees. MMT: RTC 4/5,except supraspinatous 4-/5,deltoid 3/5. NEURO: intact - Goals Goal 1:: Patient to be I with HEP Goal Time Frame: 4-6 Weeks Goal 2:: Patient decrease left shoulder pain by 75% or > to improve function and ADL's. Goal Time Frame: 4-6 Weeks Goal 3:: Patient to improve AROM shoulder flexion ,abduction 150 degrees,ER 90 degrees to improve function with ADL'S . Goal Time Frame: 4-6 Weeks Goal 4:: Patient increase strength RTC 4/5 and deltoid 4-/5 to improve function. Goal Time Frame: 4-6 Weeks Goal 5:: Patient to improve quick dash by 5-10 points or > to improve QOL. Goal Time Frame: 4-6 Weeks Goal 6:: Patient be able to perform ADL's and housework tasks above 90 degrees with no limitations. Goal Time Frame: 4-6 Weeks - Rehabilitation Potential Physical Therapy Diagnosis: This patient had left shoulder arthroscopic debridement 03/16 with ROM ,strength impairs ADLS'a nd function above 90 degrees thus benifit from skilled PT Rehabilitation Potential: Good - Anticipated Interventions Patient/Client Instruction: Educate patient on: Condition, Plan of Care For the Purpose of:: To decrease pain, To increase ROM, To improve muscle performance and motor function, To improve ability to perform ADL's, To increase tolerance to activity/condition/position, To improve ability of physical actions for home/community/work/leisure, To improve health of tissue, To decrease soft tissue restriction, To increase flexibility/ROM, To reduce risk of recurrence, To improve ability to perform tasks related to life management Therapeutic Exercise to Include: Strength training, Postural training, Flexibilty training, Passive ROM, Active ROM, Scapular Strength/Stabilization Comment: RTC/SCAPULAR For the Purpose of:: To decrease pain, To increase ROM, To improve muscle performance and motor function, To improve ability to perform ADL's, To increase tolerance to activity/condition/position, To improve performance and independence with ADL's, To improve ability of physical actions for home/community/work/leisure, To improve health of tissue, To decrease soft tissue restriction, To increase flexibility/ROM, To reduce risk of recurrence, To improve health and function Thank you for the opportunity to evaluate your patient. For Medicare and Medicare HMO plans, please review the plan of care and approve it. It will need to be FAXED BACK to us at [phone] for Medicare purposes. For Medicare only, by signing this I certify the plan of care. Please let me know if there are questions or concerns regarding this plan of care. Physician Signature: Date:
--- NOTE | 2020-06-23 08:31 | HP.PTDCSUM ---
It has been my pleasure to treat CARLYN EVANGELISTA referred by Dr. Pippa Perkins MD, with the diagnosis of LEFT SHOULDER ARTHROSCOPIC DEBRIDEMENT AND SAD 03/16/20 for a total of 20 visit(s). Discharge Date: 06/23/20 Please see the following information for a summary of their discharge status. Subjective: Patient states he is feeling good but is stiff in the morning. Reports he goes to the gym to do UE strengthening and stretching. Reports he won't be following up with the doctor unless anything starts to bother him again. Left Pain Intensity (Out of 10): 0 % Improvement: 80 Objective/Function: UE AROM: L shoulder flexion 137 degrees, 125 degrees. UE MMT: L shoulder flex 4+/5, abd 4+/5, empty can 4/5, IR 5/5, ER 5/5. R shoulder flex 4+/5, abd 5/5, empty can 5/5, ER 5/5, IR 5/5. Patient tolerated all exericse this date with no increase in pain. Discussed HEP with patient; expresses good understanding. Goal 1:: Patient to be I with HEP Goal Progress: Goal Met Goal 2:: Patient decrease left shoulder pain by 80% or > to improve function and ADL's. (update goal) Goal Progress: Goal Met Goal 3:: Patient to improve AROM shoulder flexion ,abduction 150 degrees,ER 90 degrees to improve function with ADL'S . Goal Progress: Progressing Goal 4:: Patient increase strength RTC 4/5 and deltoid 4-/5 to improve function. Goal Progress: Goal Met Goal 5:: Patient to improve quick dash by 5-10 points or > to improve QOL. Goal Progress: Goal Met Goal 6:: Patient be able to perform ADL's and housework tasks above 90 degrees with no limitations. Goal Progress: Goal Met Plan: D/C TO HEP Discharge Comments: Discharge to HEP. Demonstrates improvement with UE AROM and rotator cuff strength. If there are questions or concerns regarding this patient's physical therapy, please feel free to call me at [phone]. Thank you for the referral of this patient. Sincerely, Gary Nuñez, PT, Cert MDT, OCS
== END 2020-06-23 19:00 | disposition home or self-care (01) ==
LOC: PT 08:00
PROVIDERS: PCP Family Medicine; Referring Provider Orthopaedic Surgery Hand Surgery; Visit Provider Orthopaedic Surgery Hand Surgery
DX: S46.002D Unspecified injury of muscle(s) and tendon(s) of the rotator cuff of left shoulder, subsequent encounter (principal)
CPT/HCPCS: 97110; 97162

== ENCOUNTER → 2020-07-05 08:46 | Outpatient (CLI) | payer OTHER, SELFPAY ==
--- NOTE | 2020-07-05 08:51 | ART_ITS ---
Reason For Study: Raynauds evaluation Procedure A bilateral lower extremity continuous wave Doppler with analog waveform analysis,segmental pressures,and ankle brachial indexes without exercise. Test was performed with cold sensitivity evaluation. Left Segmental Pressures Left brachial= 153mmHg. Left posterior tibial artery = 172mmHg. Left dorsalis pedis artery = 186mmHg. The left dorsalis pedis waveforms are triphasic. The left posterior tibial artery waveforms are triphasic. Right Segmental Pressures Right brachial= 157mmHg. Right posterior tibial artery = 177mmHg. Right dorsalis pedis artery = 168mmHg. The right dorsalis pedis waveforms are triphasic. The right posterior tibial artery waveforms are triphasic. Indices The right ankle brachial index by the dorsalis pedis is 1.07. The right ankle brachial index by the posterior tibial artery is 1.13. The left ankle brachial index by the dorsalis pedis is 1.18. The left ankle brachial index by the posterior tibial artery is 1.10. Interpretation Summary Resting ankle-brachial indices appear bilaterally normal. Normal bilateral lower extremity posterior tibial and dorsalis pedis Doppler waveforms Normal resting digital PPG's bilaterally After cold immersion thermal measurements failed to return to baseline within 5 to 10 minutes for bilateral 10 digits of the feet consistent with an abnormal result therefore suspicious for Raynaud's. Clinical correlation would be appropriate. Ordering Physician: Jessica Ortega Referring Physician: Mihir Iyer Performed By: Benrie Maldonado RVT
== END ==
PROVIDERS: PCP Family Medicine; Referring Provider Podiatrist; Visit Provider Podiatrist
DX: I73.9 Peripheral vascular disease, unspecified (principal)
CPT/HCPCS: 93923

== ENCOUNTER → 2020-09-02 09:27 | Outpatient (CLI) | payer OTHER, SELFPAY ==
--- NOTE | 2020-09-02 09:30 | RAD_ITS ---
STUDY: X-RAY - LUMBAR SPINE REASON FOR EXAM: Male, 64 years old. LUMBAR SPRAIN TECHNIQUE: 5 view(s) of the lumbar spine were obtained including oblique views. COMPARISON: None FINDINGS: Normal lumbar lordosis. There is no substantial scoliosis. There is a normal alignment of the vertebrae. There is multilevel endplate spondylosis of the lumbar vertebrae. Disc space narrowing at the L1-L2 level. There is a 1.5 cm x 1.5 cm rounded calcification in the right upper quadrant. This may represent either a calculus in the upper pole calyx of the right kidney or possible gallstone. RAD/L/S Spine Min 4 Views IMPRESSION: Degenerative changes of the spine, as detailed above. Electronically Signed: Miguel Angel Brink MD at 15:50 EDT , Service support ,
== END ==
PROVIDERS: PCP Family Medicine; Visit Provider Chiropractor
DX: S33.5XXA Sprain of ligaments of lumbar spine, initial encounter (principal)
CPT/HCPCS: 72110

== ENCOUNTER 2021-05-27 16:52 | Outpatient (CLI) | payer OTHER, SELFPAY ==
--- NOTE | 2021-05-27 17:30 | MRI_ITS ---
STUDY: MRI LEFT REARFOOT WITHOUT CONTRAST REASON FOR EXAM: Male, 65 years old. Pain at 5th MT base and peroneals TECHNIQUE: Standardized fat and water weighted pulse sequences were obtained in all 3 orthogonal planes. COMPARISON: X-ray 02/02/2021 FINDINGS: Normal subcutis adipose space. Normal posterior tibialis tendon. Normal flexor digitorum longus tendon. Normal flexor hallucis longus tendon. Normal peroneus longus and brevis tendons. Normal tibialis anterior tendon. Normal extensor hallucis longus tendon. Normal extensor digitorum longus tendons. Normal Achilles tendon and teno-osseous insertion. Normal plantar fascia. Normal plantar calcaneal tubercles. Normal intrinsic muscles of the rearfoot. Normal distal tibiofibular syndesmotic ligamentous complex. Normal lateral ligamentous complex. Normal subtalar ligaments and sinus tarsi. Normal deltoid ligamentous complexes. Normal plantar calcaneonavicular (spring) ligament. Normal tibiotalar articulation. Normal talar dome. Normal subtalar articulations. Normal talonavicular articulation. Normal calcaneocuboid articulation. Normal navicular-cuneiform articulations. MRI/Lower Ext/No Jt/w/o IMPRESSION: Normal MRI of the rearfoot. Electronically Signed: Anders Ashby MD at 11:01 EST Tel , Service support ,
== END 2021-05-27 23:59 | disposition short-term general hospital (02) ==
LOC: MRI 16:53
PROVIDERS: PCP Family Medicine; Referring Provider Podiatrist; Visit Provider Podiatrist
DX: M77.9 Enthesopathy, unspecified (principal)
CPT/HCPCS: 73718

== ENCOUNTER → 2021-07-11 09:19 | Outpatient (CLI) | payer OTHER, SELFPAY ==
--- NOTE | 2021-07-11 09:42 | RAD_ITS ---
History: Pain Right hand 3 views: Findings: Narrowing of the lateral joints of the wrist. Triangular cartilage calcification is present. Database narrowing and subchondral cyst formation involve the second and third MCP joints. No periarticular erosion or demineralization to suggest inflammatory arthritis. IMPRESSION: Osteoarthritic changes of the hands and wrist. at 1346 Reported and signed by: Will Johnson MD Electronically Signed: Will Johnson MD at 13:45 EST , RAD/Hand Min 3 Views
--- NOTE | 2021-07-11 09:42 | RAD_ITS ---
History: PAIN Right knee 4 views: Findings: No acute fracture, subluxation or joint effusion. No joint space narrowing or soft tissue abnormality. IMPRESSION: No acute abnormality. at 1325 Reported and signed by: Will Johnson MD Electronically Signed: Will Johnson MD at 13:24 EST , RAD/Knee 4 or More Views
--- NOTE | 2021-07-11 09:42 | RAD_ITS ---
History: Pain Left hand 3 views: Findings: Surgical resection of the greater multangular noted. Deformity of the proximal base of the first metacarpal related to arthritic changes/prior surgery. Narrowing of the second MCP joint. No periarticular erosion or demineralization to suggest inflammatory arthritis. No acute fracture or subluxation. IMPRESSION: Postoperative postoperative and degenerative changes as described. at 1327 Reported and signed by: Will Johnson MD Electronically Signed: Will Johnson MD at 13:26 EST , RAD/Hand Min 3 Views
--- NOTE | 2021-07-11 09:42 | RAD_ITS ---
History: PAIN Left knee 4 views: Findings: No acute fracture, subluxation or joint effusion. No joint space narrowing or soft tissue abnormality. Mild articular cartilage calcification. IMPRESSION: No acute abnormality. Mild chondrocalcinosis. at 1120 Reported and signed by: Will Johnson MD Electronically Signed: Will Johnson MD at 11:19 EST , RAD/Knee 4 or More Views
--- NOTE | 2021-07-11 09:43 | RAD_ITS ---
History: PAIN AP pelvis and bilateral hips, 5 views: Findings: No fracture or subluxation. Mild narrowing of both hip joints. No bony hypertrophy. Soft tissues are normal. IMPRESSION: No acute abnormality. Minimal narrowing of the hip joints. at 1344 Reported and signed by: Will Johnson MD Electronically Signed: Will Johnson MD at 13:43 EST , RAD/Hips B/L min 2 views w/ Pelvis
== END ==
PROVIDERS: PCP Family Medicine
DX: M25.59 Pain in other specified joint (principal)
CPT/HCPCS: 73130; 73521; 73564

== ENCOUNTER → 2022-07-19 | Outpatient (CLI) | payer MEDICARE, OTHER, SELFPAY ==
[2022-07-19 17:36] LABS: Absolute Lymphocyte Count 1.45 X10^3/uL (0.83-4.51); Absolute Neutrophil Count 5.3 X10^3/uL (2.0-7.7); Basophil# 0.01 X10^3/uL; Basophil% 0.1 % (0-1); Eosinophil# 0.15 X10^3/uL; Eosinophils% 1.9 % (0-5); Hematocrit 45.8 % (40-54); Hemoglobin 14.7 g/dL (13.0-16.5); Lymphocyte # 1.45 X10^3/ul (0.83-4.51); Lymphocyte % 18.5 % (19-41); Mean Corp Hgb Conc 32.1 g/dL (32-36); Mean Corpuscular Hgb 30.9 pg (27.0-32.0); Mean Corpuscular Volume 96.2 fL (80-94); Mean Platelet Vol. 14.4 fl (6.2-12.0); Monocyte% 11.5 % (0-10); NRBC Flagged by Analyzer 0 % (0-5); Neutrophil # 5.31 X10^3/uL (2.7-7.7); Neutrophil % 67.6 % (47-70); Platelet Count 145 K/mm3 (150-450); RBC Distribution Width CV 12.1 % (11.6-14.6); RBC Distribution Width SD 43.6 fl (35.1-43.9); Red Blood Count 4.76 M/mm3 (4.6-6.2); White Blood Count 7.9 K/mm3 (4.4-11.0)
[2022-07-19 17:58] LABS: ALB/GLOB Ratio 1.1 RATIO (0.9-2.4); AST(SGOT) 20 U/L (15-37); Alanine Aminotransfer ALT/SGPT 29 U/L (16-61); Albumin, Serum 3.9 g/dL (3.2-5.0); Alkaline Phosphatase 82 U/L (45-117); Anion Gap 7 (5-15); BUN 23 mg/dL (7-18); BUN/Creat Ratio 24.6 RATIO (10-20); Calcium,Total 9.7 mg/dL (8.5-10.1); Chloride 102 mmol/L (98-107); Creatinine, Serum 0.94 mg/dL (0.70-1.30); EST Glomerular Filtration Rate 86 mL/min (>60); Est Glom Filt Rate - Afr Amer 104 mL/min (>60); Globulin 3.4 g/dL (2.2-4.2); Glucose 154 mg/dL (74-106); Potassium 4.3 mmol/L (3.5-5.1); Protein, Total 7.3 g/dL (6.4-8.2); Sodium Level 140 mmol/L (136-145)
[2022-07-19 18:27] LABS: Hepatitis C Antibody Non-Reactive (Nonreactive); Vitamin D,25 Hydroxy 54.6 ng/mL
== END | disposition home or self-care (01) ==
PROVIDERS: PCP Family Medicine; Visit Provider Family Medicine Geriatric Medicine
DX: R53.83 Other fatigue (principal); E55.9 Vitamin D deficiency, unspecified; Z13.89 Encounter for screening for other disorder; Z12.5 Encounter for screening for malignant neoplasm of prostate
CPT/HCPCS: 36415; 80053; 82306; 84153; 84443; 85025; 86803; G0103

== ENCOUNTER → 2023-02-08 | Outpatient (CLI) | payer MEDICARE, OTHER, SELFPAY ==
[2023-02-08 10:21] LABS: Absolute Lymphocyte Count 1.63 X10^3/uL (0.83-4.51); Basophil# 0.01 X10^3/uL; Basophil% 0.1 % (0-1); Eosinophil# 0.22 X10^3/uL; Eosinophils% 2.8 % (0-5); Hematocrit 47.7 % (40-54); Hemoglobin 15.3 g/dL (13.0-16.5); Lymphocyte # 1.63 X10^3/ul (0.83-4.51); Lymphocyte % 20.6 % (19-41); Mean Corp Hgb Conc 32.1 g/dL (32-36); Mean Corpuscular Volume 96.8 fL (80-94); Mean Platelet Vol. 13.9 fl (6.2-12.0); Monocyte# 0.96 X10^3/uL; Monocyte% 12.2 % (0-10); NRBC Flagged by Analyzer 0 % (0-5); Neutrophil # 5.04 X10^3/uL (2.7-7.7); Neutrophil % 63.8 % (47-70); POSITIVE MORPHOLOGY YES; Platelet Count 140 K/mm3 (150-450); RBC Distribution Width CV 12.4 % (11.6-14.6); RBC Distribution Width SD 44.1 fl (35.1-43.9); Red Blood Count 4.93 M/mm3 (4.6-6.2); White Blood Count 7.9 K/mm3 (4.4-11.0)
[2023-02-08 10:27] LABS: Differential Indicated SCAN CRITERIA MET
[2023-02-08 10:51] LABS: Vitamin D,25 Hydroxy 41.4 ng/mL
[2023-02-08 11:51] LABS: ALB/GLOB Ratio 1.1 RATIO (0.9-2.4); AST(SGOT) 18 U/L (15-37); Alanine Aminotransfer ALT/SGPT 28 U/L (16-61); Albumin, Serum 3.9 g/dL (3.2-5.0); Alkaline Phosphatase 86 U/L (45-117); Anion Gap 4 (5-15); BUN 19 mg/dL (7-18); BUN/Creat Ratio 19.7 RATIO (10-20); Calcium,Total 9.7 mg/dL (8.5-10.1); Chloride 107 mmol/L (98-107); Creatinine, Serum 0.96 mg/dL (0.70-1.30); EST Glomerular Filtration Rate 83 mL/min (>60); Est Glom Filt Rate - Afr Amer 100 mL/min (>60); Globulin 3.7 g/dL (2.2-4.2); Glucose 67 mg/dL (74-106); Potassium 4.4 mmol/L (3.5-5.1); Protein, Total 7.6 g/dL (6.4-8.2); Sodium Level 141 mmol/L (136-145); Thyroid Stim Hormone (TSH) 1.63 uIU/mL (0.358-3.74)
== END | disposition home or self-care (01) ==
LOC: LAB 09:57
PROVIDERS: PCP Family Medicine Geriatric Medicine; Referring Provider Family Medicine Geriatric Medicine; Visit Provider Family Medicine Geriatric Medicine
DX: E11.65 Type 2 diabetes mellitus with hyperglycemia (principal); R53.83 Other fatigue; E55.9 Vitamin D deficiency, unspecified
CPT/HCPCS: 36415; 80053; 82306; 84443; 85025

== ENCOUNTER → 2023-05-09 | Outpatient (CLI) | payer MEDICARE, OTHER, SELFPAY ==
[2023-05-09 11:04] LABS: AST(SGOT) 10 U/L (15-37); Alanine Aminotransfer ALT/SGPT 22 U/L (16-61); Albumin, Serum 3.5 g/dL (3.2-5.0); Alkaline Phosphatase 86 U/L (45-117); Anion Gap 0 (5-15); BUN 21 mg/dL (7-18); BUN/Creat Ratio 23.6 RATIO (10-20); Calcium,Total 9.6 mg/dL (8.5-10.1); Chloride 106 mmol/L (98-107); Creatinine, Serum 0.89 mg/dL (0.70-1.30); EST Glomerular Filtration Rate 90 mL/min (>60); Est Glom Filt Rate - Afr Amer 109 mL/min (>60); Globulin 3.6 g/dL (2.2-4.2); Glucose 88 mg/dL (74-106); Potassium 3.9 mmol/L (3.5-5.1); Protein, Total 7.1 g/dL (6.4-8.2); Sodium Level 139 mmol/L (136-145)
== END | disposition home or self-care (01) ==
LOC: LAB 09:38
PROVIDERS: PCP Family Medicine Geriatric Medicine; Referring Provider Nurse Practitioner Family; Visit Provider Nurse Practitioner Family
DX: I10 Essential (primary) hypertension (principal); E10.65 Type 1 diabetes mellitus with hyperglycemia
CPT/HCPCS: 36415; 80053

== ENCOUNTER → 2023-05-11 | Outpatient (CLI) | payer MEDICARE, OTHER, SELFPAY ==
--- OUTSIDE RECORDS SUMMARY | 2023-05-11 06:40 | XMS RPT_ITS | CCD ---
Author Name Unknown Address [address] [place] [address] Organization [facility] Care Team Providers Care Surgery Assistant Name Role Phone VykrystleMihir Primary Care Provider [phone] CARLOS CAMPOS, DR ARREOLA Primary Care Physician JUSTIN SOTELO Attending Unavailable DR ELBA GONZALEZ MD Primary Care Unavailable REEDER REPROGRAPHICS ASSOCIATE-CATERING ADMINISTRATIVE ASSISTANT, DOMENICO M Admitting Unavail kasey GONZALEZ MD, DR ARREOLA Primary Care Unavailable NATE CAMPOS FACP, CHRISTEN Pearce Attending Unavail kasey SULLIVAN MD FACP, CHRISTEN Pearce Referring Unavail able Allergies Allergy Classification Reported Allergen(s) Allergy Type Date of Onset Reaction(s) Facility (1 source) Enalapril Drug Allergy 9 [facility] Work Phone: (1 source) Non-steroidal anti-inflammato ry agent Propensity to adverse reactions 5 [facility] Work Phone: (1 source) oxyCODONE Drug Allergy 1 Other: See Comments [facility] Work Phone: (1 source) Salicylic Acid Drug Allergy 5 [facility] Work Phone: (1 source) Simvastatin Drug Allergy 9 [facility] Work Phone: (1 source) valsartan Drug Allergy 0 Cough [facility] (2 sources) Aspirin; Translations: [aspirin] Drug Allergy [facility] (2 sources) diphenhydrAMINE ; Translations: [diphenhydramin e] Drug Allergy [facility] Medications Current Medications Medication Drug Class(es) Dates Sig (Normalized) Sig (Original) acetaminophen 500 mg oral tablet (2 sources) Start: 11-28-2019 acetaminophen 500 mg oral tablet Dose : 1,000 mg = 2 tab(s), Oral, TID, PRN PRN pain or fever, 0 Refill(s) Start Date: 11/28/19 Status: Ordered DME [facility]aneous (6 sources) Start: 07-10-2022 DME MISCellaneous See Instructions, Dexcom G6 Sensors use as directed # 1 box of 3 x 2 refills Dx: E11.9 Diabetes Provider , # 3 EA, 2 Refill(s), Pharmacy: [facility]/pharmacy #[id number], 173, cm, 05/16/22 10:21:00 EST, Height, 74, kg, 05/16/22 10:21:00 EST, Do... 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 diabetes mellitus; Translations: [Type 1 diabetes mellitus with other diabetic kidney complication] Onset: 09-11-2022 Chronic Diabetes mellitus without complication (4 sources) Type 1 diabetes mellitus; Translations: [Type 1 diabetes mellitus without complications] Onset: 01-17-2016 01-17-2016 Chronic Disorders of lipid metabolism (3 sources) Hyperlipidemia; Translations: [Hyperlipidemia, unspecified] Onset: 08-28-2007 08-28-2007 Chronic Genitourinary symptoms and ill-defined conditions (2 sources) Grade A2 albuminuria 05-16-2022 Episodic Hyperplasia of prostate (2 sources) Benign prostatic hyperplasia 04-01-2019 Chronic Osteoarthritis (2 sources) Degenerative joint disease involving multiple joints 02-24-2019 Chronic Other congenital anomalies (1 source) Congenital anomaly of skin; Translations: [Other specified congenital malformations of skin] Onset: 04-20-2005 04-20-2005 Chronic Other male genital disorders (2 sources) Impotence 02-24-2019 Chronic Other nervous system disorders (1 source) Carpal tunnel syndrome; Translations: [Carpal tunnel syndrome, unspecified upper limb] Onset: 08-20-2007 08-20-2007 Chronic Other nervous system disorders (1 source) Personal history of other diseases of the nervous system and sense organs; Translations: [Personal history of other diseases of the nervous system and sense organs] Onset: 09-11-2022 Episodic Other non-traumatic joint disorders (2 sources) Arthropathy 02-24-2019 Chronic Residual codes; unclassified (2 sources) Sleep apnea 02-24-2019 Chronic Residual codes; unclassified (1 source) Altered mental status; Translations: [Altered mental status, unspecified] Onset: 09-11-2022 Episodic Thyroid disorders (1 source) Hypothyroidism; Translations: [Hypothyroidism, unspecified] Onset: 03-23-2009 03-23-2009 Chronic Unclassified (2 sources) Long-term current use of insulin 05-16-2022 Unclassified (2 sources) Vaccination needed 10-18-2020 Past or Other Problems Problem Classification Problem Date Documented Da te Episodic/Chronic Other connective tissue disease (1 source) Muscle pain; Translations: [Myalgia and myositis, unspecified] Onset: 04-25-2006 04-25-2006 Episodic Results Test Name Value Interpretation Reference Range Facil ity Vital Signs Date Time Vital Sign Value Performing Clinician Zora cooney 09-11-2022 11:46-0400 Body temperature 97.88 [degF] AUGUST REEDER [employer] [facility] 09-11-2022 11:46-0400 Diastolic Blood Pressure Non-Invasive 52 1 AUGUST REEDER [employer] [facility] 09-11-2022 11:46-0400 Heart rate 94 /min AUGUST REEDER [employer] [facility] 09-11-2022 11:46-0400 Reason For Taking VItal Signs AUGUST REEDER [employer] [facility] 09-11-2022 11:46-0400 Respiratory rate 18 /min AUGUST REEDER [employer] [facility] 09-11-2022 11:46-0400 Systolic Blood Pressure Non-Invasive 135 1 AUGUST REEDER REPROGRAPHICS ASSOCIATE-CATERING ADMINISTRATIVE ASSISTANT [facility] 09-11-2022 11:03-0400 Heart rate 92 /min AUGUST REEDER REPROGRAPHICS ASSOCIATE-CATERING ADMINISTRATIVE ASSISTANT [facility] 09-11-2022 07:48-0400 Heart rate 106 /min AUGUST REEDER REPROGRAPHICS ASSOCIATE-CATERING ADMINISTRATIVE ASSISTANT [facility] 09-11-2022 07:09-0400 Body temperature 98.6 [degF] AUGUST REEDER REPROGRAPHICS ASSOCIATE-CATERING ADMINISTRATIVE ASSISTANT [facility] 09-11-2022 07:09-0400 Diastolic Blood Pressure Non-Invasive 54 1 AUGUST REEDER REPROGRAPHICS ASSOCIATE-CATERING ADMINISTRATIVE ASSISTANT [facility] 09-11-2022 07:09-0400 Reason For Taking VItal Signs AUGUST REEDER REPROGRAPHICS ASSOCIATE-CATERING ADMINISTRATIVE ASSISTANT [facility] 09-11-2022 07:09-0400 Respiratory rate 18 /min AUGUST REEDER REPROGRAPHICS ASSOCIATE-CATERING ADMINISTRATIVE ASSISTANT [facility] 09-11-2022 07:09-0400 Systolic Blood Pressure Non-Invasive 130 1 AUGUST REEDER REPROGRAPHICS ASSOCIATE-CATERING ADMINISTRATIVE ASSISTANT [facility] 09-11-2022 04:08-0400 Respiratory rate 18 /min AUGUST REEDER REPROGRAPHICS ASSOCIATE-CATERING ADMINISTRATIVE ASSISTANT [facility] 09-11-2022 02:32-0400 Body height 167.6 cm AUGUST REEDER REPROGRAPHICS ASSOCIATE-CATERING ADMINISTRATIVE ASSISTANT [facility] 09-11-2022 02:32-0400 Body weight 77.3 kg AUGUST REEDER REPROGRAPHICS ASSOCIATE-CATERING ADMINISTRATIVE ASSISTANT [facility] 09-11-2022 02:32-0400 Body weight 27.52 kg/m2 AUGUST REEDER REPROGRAPHICS ASSOCIATE-CATERING ADMINISTRATIVE ASSISTANT [facility] 09-11-2022 02:11-0400 Body temperature 97.88 [degF] AUGUST REEDER REPROGRAPHICS ASSOCIATE-CATERING ADMINISTRATIVE ASSISTANT [facility] 09-11-2022 02:11-0400 Diastolic Blood Pressure Non-Invasive 51 1 AUGUST REEDER REPROGRAPHICS ASSOCIATE-CATERING ADMINISTRATIVE ASSISTANT [facility] 09-11-2022 02:11-0400 Heart rate 92 /min DOMENICO REEDER REPROGRAPHICS ASSOCIATE-CATERING ADMINISTRATIVE ASSISTANT [facility] 09-11-2022 02:11-0400 Systolic Blood Pressure Non-Invasive 141 1 AUGUST REEDER REPROGRAPHICS ASSOCIATE-CATERING ADMINISTRATIVE ASSISTANT [facility] 09-11-2022 01:36-0400 Heart rate 76 /min AUGUST REEDER REPROGRAPHICS ASSOCIATE-CATERING ADMINISTRATIVE ASSISTANT [facility] 09-11-2022 01:36-0400 Reason For Taking VItal Signs DOMENICO REEDER REPROGRAPHICS ASSOCIATE-CATERING ADMINISTRATIVE ASSISTANT [facility] 09-11-2022 01:18-0400 Heart rate 108 /min DOMENICO REEDER REPROGRAPHICS ASSOCIATE-CATERING ADMINISTRATIVE ASSISTANT [facility] 09-11-2022 00:29-0400 Heart rate 88 /min AUGUST REEDER REPROGRAPHICS ASSOCIATE-CATERING ADMINISTRATIVE ASSISTANT [facility] 09-10-2022 19:50-0400 Blood Pressure Location AUGUST REEDER REPROGRAPHICS ASSOCIATEMira DesignsCATERING ADMINISTRATIVE ASSISTANT [facility] 09-10-2022 19:50-0400 Body weight 76.4 kg AUGUST REEDER REPROGRAPHICS ASSOCIATEMira DesignsCATERING ADMINISTRATIVE ASSISTANT [facility] Encounters Encounter Date Encounter Type Care Provider Facility Start: 10-13-2022 End: 10-14-2022 ambulatory JUSTIN SOTELO Facility:B Start: 10-13-2022 End: 10-13-[address] JUSTIN SOTELO [facility] Start: 09-10-2022 End: 09-11-2022 ambulatory DOMENICO HALE REPROGRAPHICS ASSOCIATE-CATERING ADMINISTRATIVE ASSISTANT Facility:B Start: 09-10-2022 End: 09-11-2022 Observation DOMENICO HALE REPROGRAPHICS ASSOCIATE-CATERING ADMINISTRATIVE ASSISTANT [facility] Start: 08-16-2021 End: 08-16-2021 Subsequent hospital visit by physician Candice Corea MD Work Phone: [facility] Procedures Date Procedure Procedure Detail Performing Clinician Start: 04-05-2009 Anal sphincterotomy APR [place] ALEXIA REPROGRAPHICS ASSOCIATE-CATERING ADMINISTRATIVE ASSISTANT Plan of Treatment Date Care Activity Detail Author Start: 01-12-2022 Influenza vaccination INFLUENZA (Sea son Ended) [facility] Start: 05-14-2021 ADVANCE DIRECTIVE DISCUSSION ADVANCE DIRECTIVE DISCUSSION [facility] Start: 12-19-2020 PNEUMOVAX AGE 65 AND OVER WITH 5YR LOOKBACK (#1) PNEUMOVAX AGE 65 AND OVER WITH 5YR LOOKBACK (#1) [facility] Start: 01-03-2017 Hepatitis B screening URINE AL BUMIN:CREATININE RATIO [facility] Start: 01-03-2017 Hepatitis B surface antibody level LDL CHOLESTEROL [facility] Start: 07-06-2016 Hemoglobin A1c/Hemoglobin.total in Blood HBA1C [facility] Start: 11-25-2015 Hepatitis C antibody , confirmatory test DILATED RETINAL EXAM [facility] Start: 08-27-2015 3 comp foot exam completed DIABETIC FOOT EXAM [facility] Start: 03-10-2015 PROSTATE CANCER SCRE ENING DISCUSSION PROSTATE CANCER SCREENING DISCUSSION [facility] Start: 12-19-2005 SHINGRIX VACCINE (1 of 2) SHINGRIX V ACCINE (1 of 2) [facility] Start: 12-19-2000 COLOGUARD (FIT-DNA) COLOGUARD (FIT-D NA) [facility] Start: 12-19-2000 Colonoscopy COLONOSCOPY [facility] Start: 12-19-2000 COLORECTAL CANCER SCREENING COLORECTAL CANCER SCREENING [facility] Start: 12-19-[address] COLONOGRAPHY [facility] Start: 12-19-2000 FECAL OCCULT BLOOD FECAL OCCULT BLOO D [facility] Start: 12-19-2000 SIGMOIDOSCOPY SIGMOIDOSCOPY [facility] Start: 12-19-1974 Urine microalbumin profile DTAP,TDAP ,TD (1 - Tdap) [facility] Start: 12-19-1973 ANNUAL PCP TEAM CERTIFIED ORTHOTIST PRACTICE MANAGER KANE DISEASE VISIT ANNUAL PCP TEAM CHRONIC DISEASE VISIT [facility] Start: 12-19-1973 HEPATITIS C SCREENING HEPATITIS C SC REENING [facility] Start: 12-19-1973 HIV SCREENING HIV SCREENING [facility] Start: 1967 Adult depression scr eening assessment DEPRESSION SCREENING [facility] Start: 12-19-1960 COVID-19 VACCINE (1) COVID-19 VACCIN E (1) [facility] Immunizations Immunization Date Immunization Notes Care Provider Fa galina 03-20-2022 influenza virus vaccine, unspecified formulation AUGUST REEDER REPROGRAPHICS ASSOCIATE-AccurIC [facility] 12-13-2020 SARS-CoV-2 (COVID-19 ) mRNA-1273 vaccine AUGUST REEDER REPROGRAPHICS ASSOCIATE-AccurIC [facility] Payers Date Payer Category Payer Medicare [id number] 2021 Unknown [id number] 2013 Private Health Insurance AET[employer] A ETNA CHOICE POS II [id number] 2013-Present [phone] [address] [place] [address] POS [id number] 1955 Unknown [id number] 1955 Unknown [id number] Social History Date Type Detail Facility Start: 01-04-2019 Tobacco smoking stat us CTIS Never smoked tobacco [facility] Start: 01-12-2016 Alcohol intake Current drinke r of alcohol (finding) [facility] Start: 1955 Sex Assigned At Not on file C [facility] Sex Assigned At Male [facility] Medical Equipment Procedure Code Equipment Code Equipment Origin al Text Equipment Identifier Dates Start: 01-12-2016 Functional Status Date Assessment Result Facility 09-11-2022 Functional Status Door open, Room check performed [facility] 09-11-[address] [facility] 09-11-[address] 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 09-10-[address] [facility] Mental Status Date Assessment Result Facility 09-11-2022 Mental Status Oriented x 4 [facility] 09-10-2022 Mental Status [facility] Clinical Notes 05-16-2022 to 09-11-2022 Note Date & Type Note Facility 09-11-2022 Note Date of Service 09/11/2022 Chief Complaint Arrives from home with c/o headache 01/21 with some confusion with his words per family. Family states patient laid down about [phone] and woke up confused History of Present Illness 66-year-old male with past medical history significant for type 1 diabetes mellitus, BPH, neuropathy, ED, osteoarthritis, hypothyroidism. Patient presented to [facility] emergency department 09/10/2022 With altered mental status and headache. Last seen normal at 12:30 PM. Arrived in the emergency department at 1950. In the emergency department he was afebrile, hypertensive with adequate oxygen saturations on room air. No leukocytosis. Urinalysis negative. Glucose 290. Remainder of BMP unremarkable. Troponin 6.7. CTA head and neck obtained. CT of the brain obtained. All imaging negative. He did have confusion. NIH 1 for mild dysarthria. He was out of the window for tPA. Pt was admitted for further evaluation. Overnight patient remained afebrile and hemodynamically stable with adequate oxygen saturations on room air. Mild leukocytosis this morning with white blood cell count of 14,000. Magnesium low at 1.5. Cholesterol and HDL elevated. Magnesium level 1.5. A1c 8.3%. On exam today, pt denies any fever or chills. No headache or dizziness. Denies chest pain, palpitations. No cough, dyspnea, sputum production. Denies N/V/D/C. No melena/hematochezia. No dysuria or hematuria. No new paresthesias. Review of Systems See HPI for specific ROS. All other systems reviewed and negative. Physical Exam Vitals and Measurements T: 36.6 C (Oral) TMIN: 36.6 C (Oral) TMAX: 37.0 C (Oral) HR: 94(Monitored) RR: 18 BP: 135/52 SpO2: 96% HT: 167.6 cm WT: 77.3 kg BMI: 27.52 Weight Dosing Weight: 77.3 kg (09/11/22) Dosing Weight: 76.4 kg (09/10/22) GEN: Appears chronically ill EYES: No conjunctival erythema, drainage. EOMI EARS: Hearing grossly intact. NOSE: No nasal discharge. THROAT: Oral cavity and pharynx pink and moist. CHEST: Normal S1 and S2. Rhythm is regular. Clear to auscultation, without rales, rhonchi, wheezing. ABD: Positive bowel sounds x 4 quads. Soft, nondistended, nontender. EXT: No significant deformity or joint abnormality. No edema. Peripheral pulses intact. NEURO: Sensation grossly intact SKIN: Skin color normal PSYCH: The mental examination revealed the patient was alert and oriented x 4 Lab Results 09/11 05:12 WBC: 14.3 H Hgb: 13.5 L Hct: 40.9 L Platelet: 113 L Neutrophil %: 91.3 H Glucose Level: 257 H Sodium Level: 140 Potassium Level: 5.0 BUN: 23 H Creatinine Lvl (s): 1.22 09/10 20:00 WBC: 9.9 Hgb: 14.7 Hct: 44.2 Platelet: 123 L Neutrophil %: 80.1 H Protime: 10.8 PT International Ratio: 1.0 Glucose Level: 290 H Sodium Level: 138 Potassium Level: 4.2 BUN: 22 H Creatinine Lvl (s): 1.08 Imaging Results and Diagnostics MRI Brain w/o Contrast Result Date: September 11, 2022 Verified By: ROSA M RAVI MD CLINICAL STATEMENT: IMPRESSION: Unremarkable examination. CT Angiography Neck w/ Contrast Result Date: September 10, 2022 Verified By: IKER VELAZQUEZ MD CLINICAL STATEMENT: IMPRESSION: Patent CTA of the neck with no significant carotid stenosis. RECOMMENDATIONS:Unavailable CT Angiography Head w/ Contrast Result Date: September 10, 2022 Verified By: IKER VELAZQUEZ MD CLINICAL STATEMENT: IMPRESSION: Patent CTA of the head with no significant stenosis. RECOMMENDATIONS:Unavailable XR Chest 1 View Result Date: September 10, 2022 Verified By: CAITLIN COLLINS MD CLINICAL STATEMENT: IMPRESSION: Hypoventilatory findings. No acute abnormality. CT Head or Brain w/o Contrast Result Date: September 10, 2022 Verified By: CAITLIN COLLINS MD CLINICAL STATEMENT: IMPRESSION: No acute intracranial abnormality. Assessment/Plan 1. Altered mental status 2. 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 This is typical for how he normally experiences migraines. He has had migraines since childhood. He does report that this was the worst one that he has experienced. Normally he lays down for a nap and it goes away. Altered mental status had resolved. He did have a stroke work-up. MRI brain was unremarkable. Venous Dopplers unremarkable. Echocardiogram shows no ASD. LVEF 65 to 70% with normal diastolic function. Mild mitral regurgitation. Patient has never followed with neurologist for migraines. Patient will be initiated on rosuvastatin 20 mg daily. Type 1 diabetes mellitus poorly controlled. A1c is 8.3%. Patient makes adjustments to his insulin regularly. 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 I recommended follow-up with neurology. DVT prophylaxis: SCD's Labs, diagnostics, and progress notes reviewed as noted in HPI Code Status:Full Code Plan of care discussed with patient. All questions answered. Patient verbalizes understanding is agreeable to plan of care. This dictation was performed using voice recognition software and may include grammatical and/or spelling errors. 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 Long-term insulin use Need for vaccination Pure hypercholesterolemia Sleep apnea Type 1 diabetes mellitus with albuminuria Uncontrolled type 1 diabetes mellitus with hyperglycemia Historical No qualifying data Procedure/Surgical History Anal sphincterotomy: 04/05/09 Medications Home Medications (15) Active acetaminophen 500 mg oral tablet 1,000 mg = 2 tab(s), PRN, Oral, TID Blood Glucose Test Strips See Instructions DME MISCellaneous See Instructions DME MISCellaneous See Instructions DME MISCellaneous See Instructions Freestyle Alpha See Instructions Freestyle Alpha 14 day sensor See Instructions Insulin Syringes (orange cap) See Instructions Lancets See Instructions Levemir 8 unit(s), Subcutaneous, qHS NovoLOG FlexPen 100 units/mL injectable solution 10 unit(s), Subcutaneous, TIDAC Pen needles See Instructions Pepcid 40 mg oral tablet 40 mg = 1 tab(s), Oral, Daily rosuvastatin 20 mg oral tablet 20 mg = 1 tab(s), Oral, qDay tadalafil 5 mg oral tablet 5 mg = 1 tab(s), Oral, qHS Allergies Benadryl NSAIDS (Nausea and vomiting) aspirin (Hives) Social History Alcohol Use: Current. Frequency: 1-2 times per month., 02/24/2019 Employment/School Status: Retired. 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 Spouse Name: Tere., 07/13/2021 Nutrition/Health Caffeine intake amount: 3-4 iced tea., 11/28/2019 Sexual Self described orientation: Straight or heterosexual., 10/27/2019 Substance Abuse Use: Never., 01/04/2019 Tobacco Tobacco Use: Never (less than 100 in lifetime)., 01/04/2019 Family History Cancer: Father. Coronary artery disease: Mother. Heart failure: Mother. Immunizations pneumococcal 13-valent conjugate vaccine: 0.5 mL (10/18/20) pneumococcal 23-valent vaccine(Pneumovax: 0 unknown unit (06/29/16) SARS-CoV-2 (COVID-19) mRNA-1273 vaccine: 0.5 unknown unit (08/02/21) SARS-CoV-2 (COVID-19) mRNA-1273 vaccine: 0.5 unknown unit (11/17/20) tetanus/diphth/pertuss (Tdap) adult/adol: 0.5 mL (10/27/19) zoster vaccine live: 0 unknown unit (08/03/16) zoster vaccine, inactivated: 0.5 unknown unit (04/07/19) Code Status Full code Digitally Signed by SASKHI REYES on 09/11/2022 03:01 PM [facility] 09-11-2022 Hospital Discharge instructions Patient Education 09/11/2022 12:55:40 Transient Ischemic Attack, [id number] Transient Ischemic Attack A transient ischemic attack (TIA) is a warning stroke that causes stroke-like symptoms that go away quickly. A TIA does not cause lasting damage to the brain. But having a TIA is a sign that you may be at risk for a stroke. Lifestyle changes and medical treatments can help prevent a stroke. It is important to know the symptoms of a TIA and what to do. Get help right away, even if your symptoms go away. The symptoms of a TIA are the same as those of a stroke. They can happen fast, and they usually go away within minutes or hours. They can include: Weakness or loss of feeling in your face, arm, or leg. This often happens on one side of your body. Trouble walking. Trouble moving your arms or legs. Trouble talking or understanding what people are saying. Trouble seeing. Seeing two of one object (double vision). Feeling dizzy. Feeling confused. Loss of balance or coordination. Feeling sick to your stomach (nauseous) and throwing up (vomiting). A very bad headache for no reason. What increases the risk? Certain things may make you more likely to have a TIA. Some of these are things that you can change, such as: Being very overweight (obese). Using products that contain nicotine or tobacco, such as cigarettes and e-cigarettes. Taking control pills. Not being active. Drinking too much alcohol. Using drugs. Other risk factors include: Having an irregular heartbeat (atrial fibrillation). Being or . Having had blood clots, stroke, TIA, or heart attack in the past. Being a woman with a history of high blood pressure in (preeclampsia). Being over the age of 60. Being male. Having family history of stroke. Having the following diseases or conditions: ?High blood pressure. ?High cholesterol. ?Diabetes. ?Heart disease. ?Sickle cell disease. ?Sleep apnea. ?Migraine headache. ?Long-term (chronic) diseases that cause soreness and swelling (inflammation). ?Disorders that affect how your blood clots. Follow these instructions at home: Medicines Take [id number] and prescription medicines only as told by your doctor. If you were told to take aspirin or another medicine to thin your blood, take it exactly as told by your doctor. ?Taking too much of the medicine can cause bleeding. ?Taking too little of the medicine may not work to treat the problem. Eating and drinking Eat 5 or more servings of fruits and vegetables each day. Follow instructions from your doctor about your diet. You may need to follow a certain diet to help lower your risk of having a stroke. You may need to: ?Eat a diet that is low in fat and salt. ?Eat foods that contain a lot of fiber. ?Limit the amount of carbohydrates and sugar in your diet. Limit alcohol intake to 1 drink a day for non women and 2 drinks a day for men. One drink equals 12 oz of beer, 5 oz of wine, or 1 oz of hard liquor. General instructions Keep a healthy weight. Stay active. Try to get at least 30 minutes of activity on all or most days. Find out if you have a condition called sleep apnea. Get treatment if needed. Do not use any products that contain nicotine or tobacco, such as cigarettes and e-cigarettes. If you need help quitting, ask your doctor. Do not abuse drugs. Keep all follow-up visits as told by your doctor. This is important. Get help right away if: You have any signs of stroke. BE FAST is an easy way to remember the main warning signs: ?B - Balance. Signs are dizziness, sudden trouble walking, or loss of balance. ?E - Eyes. Signs are trouble seeing or a sudden change in how you see. ?F - Face. Signs are sudden weakness or loss of feeling of the face, or the face or eyelid drooping on one side. ?A - Arms. Signs are weakness or loss of feeling in an arm. This happens suddenly and usually on one side of the body. ?S - Speech. Signs are sudden trouble speaking, slurred speech, or trouble understanding what people say. ?T - Time. Time to call emergency services. Write down what time symptoms started. You have other signs of stroke, such as: ? A sudden, very bad headache with no known cause. ? Feeling sick to your stomach (nausea). ? Throwing up (vomiting). ?Jerky movements that you cannot control (seizure). These symptoms may be an emergency. Do not wait to see if the symptoms will go away. Get medical help right away. Call your local emergency services (911 in the [place] Do not drive yourself to the hospital. Summary A transient ischemic attack (TIA) is a warning stroke that causes stroke-like symptoms that go away quickly. A TIA is a medical emergency. Get help right away, even if your symptoms go away. A TIA does not cause lasting damage to the brain. Having a TIA is a sign that you may be at risk for a stroke. Lifestyle changes and medical treatments can help prevent a stroke. This information is not intended to replace advice given to you by your health care provider. Make sure you discuss any questions you have with your health care provider. Document Released: 02/06/2009 Document Revised: 01/24/2019 Document Reviewed: 08/01/2017 [employer] Patient Education 2020 [employer]. Follow Up Care 09/10/2022 19:39:51 With:FAIZA URIAS MD Address: [address] [place] [address] [place] [address]- [phone] When:3-5 days Comments:Call to establish as new patient. With:ELBA GONZALEZ MD Address: [facility]/[address] [place] [address]- When:3-5 days Comments:Please call to schedule your post-hospital follow-up appointment. [facility] 1. Altered mental status 2. 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 This is typical for how he normally experiences migraines. He has had migraines since childhood. He does report that this was the worst one that he has experienced. Normally he lays down for a nap and it goes away. Altered mental status had resolved. He did have a stroke work- up. MRI brain was unremarkable. Venous Dopplers unremarkable. Echocardiogram shows no ASD. LVEF 65 to 70% with normal diastolic function. Mild mitral regurgitation. Patient has never followed with neurologist for migraines. Patient will be initiated on rosuvastatin 20 mg daily. Type 1 diabetes mellitus poorly controlled. A1c is 8.3%. Patient makes adjustments to his insulin regularly. 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 I recommended follow-up with neurology. DVT prophylaxis: SCD's Labs, diagnostics, and progress notes reviewed as noted in HPI Code Status:Full Code Plan of care discussed with patient. All questions answered. Patient verbalizes understanding is agreeable to plan of care. This dictation was performed using voice recognition software and may include grammatical and/or spelling errors. Future Scheduled Tests Laboratory* Glutamic Acid Decarboxylase 05/16/22 * Prostate Specific Antigen 05/16/22 * Thyroid Stimulating Hormone 05/16/22 * Free T4 05/16/22 * A1C Hemoglobin 05/16/22 * Complete Blood Count 05/16/22 * C-Peptide 05/16/22 * Lipid Profile 05/16/22 * Hepatitis C Antibody IgG 05/16/22 * Microalbumin Level Urine 05/16/22 * Vitamin D Level 05/16/22 * Complete Metabolic Panel 05/16/22 [facility] 05-01-2023 Note Discharge Instructions Thank you for allowing [facility] to assist you with your healthcare needs. The following is importantdischarge information regarding your hospital visit. Your Care Team Sakshi Reyes APRN Your Diagnosis Altered mental status Altered mental status Headache What to do next Instructions From Your Doctor You were admitted for a stroke work-up. This was negative for acute stroke. I would recommend that you follow-up with neurology for further evaluation of migraines. Additionally your hemoglobin A1c is 8.3%. This is not well controlled given your age and puts you at high risk for complications related to diabetes. I recommend that you follow-up with endocrinology for assisting in better control of your diabetes. Follow Up Appointments Follow Up with FAIZA URIAS MD When Within 3-5 days Why: Call to establish as new patient. Where: [address] [place] [place] [address]- [phone] Follow Up with ELBA GONZALEZ MD When Within 3-5 days Why: Please call to schedule your post-hospital follow-up appointment. Where: [facility] [address] [place] [address]- The Following Activity and Diet Have Been Ordered for You Discharge Activity - Ordered -- Resume your pre-hospitalization activity, 09/11/22 11:46:00 EDT Discharge Diet - Ordered -- No changes were made to your diet during your hospital stay. Please resume your pre hospitalization diet on discharge., 09/11/22 11:46:00 EDT The Following Treatments Have Been Ordered for You Discharge Labs No qualifying data available. Discharge Radiology No qualifying data available. Other Therapies No qualifying data available. Post Acute Orders No qualifying data available. Allergies Benadryl NSAIDS (Nausea and vomiting) aspirin (Hives) Medications Please ask your primary doctor or pharmacist before taking any other medication not listed, including over the counter drugs, herbal medications, vitamins and or supplements as they may interact withyour home medications. What How Much When Why Instructions Last Dose New atorvastatin (atorvastatin 40 mg oral tablet) 1 tab(s) by mouth Once a day Pickup at [facility]acy [id number] none today Changed insulin detemir (Levemir) (Levemir) 8 unit(s) Subcutaneous Daily at bedtime none today Changed tadalafil (tadalafil 5 mg oral tablet) 1 tab(s) by mouth Daily at bedtime none today Unchanged acetaminophen (acetaminophen 500 mg oral tablet) 2 tab(s) by mouth Three (3) times a day as needed for pain or fever 09/11/22 at 0830am Unchanged DME (Blood Glucose Test Strips) See instructions Diabetes type 1, controlled Accu check Guide test strips, #270, use 1 strip 3 times daily to test blood sugar; frequent testingdue to fluctuating blood sugars. Dx: E10.9 Unchanged DME (DME MISCellaneous) See instructions Dexcom G6 Recevier use as directed #1 x 0 refills Dx: E11.9 Diabetes Provider Unchanged DME (DME MISCellaneous) See instructions Dexcom G6 Transmitter use as directed #1 x 0 refills Dx: E11.9 Diabetes Provider Unchanged DME (DME MISCellaneous) See instructions Dexcom G6 Sensors use as directed # 1 box of 3 x 2 refills Dx: E11.9 Diabetes Provider Unchanged DME (Freestyle Alpha 14 day sensor) See instructions 1 month supply Unchanged DME (Freestyle Alpha) See instructions Glucose level checks Unchanged DME (Insulin Syringes (orange cap)) See instructions Diabetes type 1, controlled Use 1 syringe as directed 5 times daily to inject insulin. Unchanged DME (Lancets) See instructions Patient tests 6 times daily. Please give enough for 3 months with 3 refills. Accu-Chek fast clix Unchanged DME (Pen needles) See instructions pen needles, dispense #100 with three refills. DX E10.9 Unchanged famotidine (Pepcid 40 mg oral tablet) 1 tab(s) by mouth Every day 09/11/22 at 1054am Unchanged insulin aspart (Novolog) (NovoLOG FlexPen 100 units/ mL injectable solution) 10 unit(s) Subcutaneous Three (3) times a day before meals Enough for 3 months please 09/11/22 at 0830 and 1155am Pharmacy Information [id number]: [address], [place] [id number] [phone] What How Much When Comments Stop Taking insulin glargine (Lantus 100 units/ mL10 ml vial solution) 10 unit(s) Subcutaneous Once a day We will monitor placement for Levemir due to backorder Match previous dosing, our records show 10 units nightly Stop Taking insulin glargine (Lantus Solostar Pen 100 units/ mL 3 mL Pen) 10 unit(s) Subcutaneous Daily at bedtime Please take this list to your next doctor s visit. Bring all medications you take, including over the counter medications, herbals and other supplements with you to your doctor s visit. Patients and families are reminded to discard old lists and to update any records with all medication providers or retail pharmacies. Education Materials Transient Ischemic Attack A transient ischemic attack (TIA) is a warning stroke that causes stroke-like symptoms that go away quickly. A TIA does not cause lasting damage to the brain. But having a TIA is a sign that you may be at risk for a stroke. Lifestyle changes and medical treatments can help prevent a stroke. It is important to know the symptoms of a TIA and what to do. Get help right away, even if your symptoms go away. The symptoms of a TIA are the same as those of a stroke. They can happen fast, and they usually go away within minutes or hours. They can include: Weakness or loss of feeling in your face, arm, or leg. This often happens on one side of your body. Trouble walking. Trouble moving your arms or legs. Trouble talking or understanding what people are saying. Trouble seeing. Seeing two of one object (double vision). Feeling dizzy. Feeling confused. Loss of balance or coordination. Feeling sick to your stomach (nauseous) and throwing up (vomiting). A very bad headache for no reason. What increases the risk? Certain things may make you more likely to have a TIA. Some of these are things that you can change, such as: Being very overweight (obese). Using products that contain nicotine or tobacco, such as cigarettes and e-cigarettes. Taking control pills. Not being active. Drinking too much alcohol. Using drugs. Other risk factors include: Having an irregular heartbeat (atrial fibrillation). Being or . Having had blood clots, stroke, TIA, or heart attack in the past. Being a woman with a history of high blood pressure in (preeclampsia). Being over the age of 60. Being male. Having family history of stroke. Having the following diseases or conditions: ? High blood pressure. ? High cholesterol. ? Diabetes. ? Heart disease. ? Sickle cell disease. ? Sleep apnea. ? Migraine headache. ? Long-term (chronic) diseases that cause soreness and swelling (inflammation). ? Disorders that affect how your blood clots. Follow these instructions at home: Medicines Take fsjv-xdy-yeoaldg and prescription medicines only as told by your doctor. If you were told to take aspirin or another medicine to thin your blood, take it exactly as told byyour doctor. ? Taking too much of the medicine can cause bleeding. ? Taking too little of the medicine may not work to treat the problem. Eating and drinking Eat 5 or more servings of fruits and vegetables each day. Follow instructions from your doctor about your diet. You may need to follow a certain diet to helplower your risk of having a stroke. You may need to: ? Eat a diet that is low in fat and salt. ? Eat foods that contain a lot of fiber. ? Limit the amount of carbohydrates and sugar in your diet. Limit alcohol intake to 1 drink a day for non women and 2 drinks a day for men. One drink equals 12 oz of beer, 5 oz of wine, or 1 oz of hard liquor. General instructions Keep a healthy weight. Stay active. Try to get at least 30 minutes of activity on all or most days. Find out if you have a condition called sleep apnea. Get treatment if needed. Do not use any products that contain nicotine or tobacco, such as cigarettes and e-cigarettes. If you need help quitting, ask your doctor. Do not abuse drugs. Keep all follow-up visits as told by your doctor. This is important. Get help right away if: You have any signs of stroke. BE FAST is an easy way to remember the main warning signs: ? B - Balance. Signs are dizziness, sudden trouble walking, or loss of balance. ? E - Eyes. Signs are trouble seeing or a sudden change in how you see. ? F - Face. Signs are sudden weakness or loss of feeling of the face, or the face or eyelid drooping on one side. ? A - Arms. Signs are weakness or loss of feeling in an arm. This happens suddenly and usually on oneside of the body. ? S - Speech. Signs are sudden trouble speaking, slurred speech, or trouble understanding what peoplesay. ? T - Time. Time to call emergency services. Write down what time symptoms started. You have other signs of stroke, such as: ? A sudden, very bad headache with no known cause. ? Feeling sick to your stomach (nausea). ? Throwing up (vomiting). ? Jerky movements that you cannot control (seizure). These symptoms may be an emergency. Do not wait to see if the symptoms will go away. Get medical help right away. Call your local emergency services (911 in the [place] Do not drive yourself to the hospital. Summary A transient ischemic attack (TIA) is a warning stroke that causes stroke-like symptoms that go away quickly. A TIA is a medical emergency. Get help right away, even if your symptoms go away. A TIA does not cause lasting damage to the brain. Having a TIA is a sign that you may be at risk for a stroke. Lifestyle changes and medical treatments can help prevent a stroke. This information is not intended to replace advice given to you by your health care provider. Make sure you discuss any questions you have with your health care provider. Document Released: 02/06/2009 Document Revised: 01/24/2019 Document Reviewed: 08/01/2017 Elsevier Patient Education 2020 [employer] Additional Information VACCINATE! IT SAVES LIVES! Members of the community who have not yet received the COVID-19 vaccine and would like to receive it can visit one of [facility] vaccine clinics. There are many vaccine clinic locations within the [facility]. For locations and available times, please visit [email or web address].[place].gov/. It is important to note that some COVID mobile vaccine clinics are held outdoors and may be canceled in rainy or stormy conditions. To learn more about pediatric vaccinations (ages 5-11), we invite you to visit the [facility] webpage. [email or web address] learn more about the COVID-19 vaccine, we invite you to visit the CDC website for a list of frequently asked questions. https://www.cdc.gov/coronavirus/2019-ncov/vaccines/faq.html [facility] Patient Portal Access Instructions: Stay connected with your healthcare team and access your personal medical information anytime with the [facility] Patient Portal.If you would like a full copy of your medical records, please contact the [facility] Medical Records Department, Sunday through Sunday between 8a.m. and 4:30p.m. Please follow the directions below to access the portal: 1.Access the email account you provided upon registration to the hospital.2.Look for an invitation email from [facility].3.Open the email and access the invitation link: Accept Invitation to [facility].Fill in the required ramirez to create your account. Sign into [email or web address] with your username and password that you created in the above steps to stay up to date. You can then view a summary of results, a summary of your visits, and the ability to download your summaries to your computer or send the information securely to a physician. Remember that your healthcare information is confidential, so carefully consider who you will allow to register on the [facility] Patient Portal for access to your information. You can also access the [facility] Patient Portal on the [employer] [place] [employer]. Simply click on Health Records under [facility] and then click on the [facility] logo. HOW TO SAFELY DISPOSE OF PRESCRIPTION MEDICATIONS Please use one of the following methods to safely dispose of your unused medications. 1.Use a drug disposal kit: the drug disposal pouch allows you to safely discard your old and unuseddrugs. Ask your nurse to give you one when you are discharged.2.Visit a local take-back location: Many local pharmacies and police departments have programs that collect old and unwanted prescriptiondrugs. Call your local pharmacy or go to http://Bunndle.adjust/7A0Tk8x to find one close to you.3.Make use of household items: Use cat litter or old coffee grounds to dispose medications if other options arenot available. Mix your drugs with these household products, seal them in an airtight container andthrow it into the garbage. Call [facility]: [phone] to be sure your drugs can be disposed of in this way. Some medicines may require a different approach.4.Never flush your medications down the toilet. IF YOU HAVE BEEN PRESCRIBED AN OPIOID FOR PAIN If you have been prescribed an opioid (such as hydrocodone, oxycodone or morphine), it is critical to understand the possible side effects and risks of opioid pain medications. Even when taken as directed, opioids can have several side effects including: Tolerance, meaning you might need to take more of a medication for the same pain relief. Nausea, vomiting and/or constipation. Sleepiness, dizziness, dry mouth, confusion, depression or itching. Physical dependence, meaning you have withdrawal symptoms when a medication is stopped, can develop within a few days. KNOW YOUR RESPONSIBILITIES It is important to know exactly how much and how often to take the opioid pain medications you are prescribed. Never take opioids in higher amounts or more often than prescribed. Do not combine opioids with alcohol or other drugs that cause drowsiness, such as benzodiazepines, also known as benzos, including diazepam and alprazolam, muscle relaxants or sleep aids. Never sell or share prescription opioids. This is illegal. Store opioids in a secure place and out of reach of others (including children, family, friends and visitors). The last page of this document has been signed and retained as a CHART COPY. Signatures Patient Education Materials Transient Ischemic Attack, Yxbr-nb-Ebqr Medication Leaflets My discharge plan and instructions have been reviewed and explained to me and I,CARLYN EVANGELISTAtand my current condition and have read and understand these discharge instructions. I have received a written copy of the plan/instructions. If I have questions, I am aware that I should contact my doctor. Patient/Catering Administrative Assistant Signature: Date/Time: Relationship to Patient: Witness Name/Signature: Date/Time: [facility]-01[facility]2023 Note ORIGINAL HISTORY: Headaches, confusion, slurred speech COMPARISON: Head CT previous day TECHNIQUE: 1. Sagittal T1-weighted images. 2. Axial T2-weighted and T2*-weighted images. 3. Axial FLAIR images. 4. Axial diffusion-weighted images with ADC map. FINDINGS: The ventricles and sulci are normal in size and configuration. There are no abnormal intra or extra-axial fluid collections. Power-white matter differentiation is maintained. There is no abnormal restriction of diffusion. The orbital contents are normal in appearance. Paranasal sinuses are clear. IMPRESSION: Unremarkable examination. Interpreted by: Rosa M Ravi MD Preliminary Report By: Rosa M Ravi MD Electronically signed By Rosa M Ravi MD Dictated Date: 09/11/2022 9:33:05 AM Prelim Date: 09/11/2022 9:34:19 AM Sign Date: 09/11/2022 9:34:19 AM Ordering Provider: [facility]05-01-2023 Note ORIGINAL HISTORY: Headaches, confusion, slurred speech COMPARISON: Head CT previous day TECHNIQUE: 1. Sagittal T1-weighted images. 2. Axial T2-weighted and T2*-weighted images. 3. Axial FLAIR images. 4. Axial diffusion-weighted images with ADC map. FINDINGS: The ventricles and sulci are normal in size and configuration. There are no abnormal intra or extra-axial fluid collections. Power-white matter differentiation is maintained. There is no abnormal restriction of diffusion. The orbital contents are normal in appearance. Paranasal sinuses are clear. IMPRESSION: Unremarkable examination. Interpreted by: Rosa M Ravi MD Preliminary Report By: Rosa M Ravi MD Electronically signed By Rosa M Ravi MD Dictated Date: 09/11/2022 9:33:05 AM Prelim Date: 09/11/2022 9:34:19 AM Sign Date: 09/11/2022 9:34:19 AM Ordering Provider: [facility]04-30-2023 Note ORIGINAL EXAMINATION: CTA OF THE NECK 09/10/2022 9:56 pm TECHNIQUE: CTA of the neck was performed with the administration of intravenous contrast. Multiplanar reformatted images are provided for review. MIP images are provided for review. Stenosis of the internal carotid arteries measured using NASCET criteria. Automated exposure control, iterative reconstruction, and/or weight based adjustment of the mA/kV was utilized to reduce the radiation dose to as low as reasonably achievable. COMPARISON: None. HISTORY: ORDERING SYSTEM PROVIDED HISTORY: Reason for Exam: headache FINDINGS: AORTIC ARCH/ARCH VESSELS: No dissection or arterial injury. No significant stenosis of the brachiocephalic or subclavian arteries. CAROTID ARTERIES: There is mild atherosclerotic change at the right carotid bulb but no dissection, arterial injury, or hemodynamically significant stenosis by NASCET criteria. VERTEBRAL ARTERIES: No dissection, arterial injury, or significant stenosis. SOFT TISSUES: The lung apices are clear. No cervical or superior mediastinal lymphadenopathy. The larynx and pharynx are unremarkable. No acute abnormality of the salivary glands. Status post right hemithyroidectomy BONES: No acute osseous abnormality. Degenerative change in the spine most pronounced at C6-C7 where there is mild bilateral neural foramen stenosis and mild spinal canal stenosis. IMPRESSION: Patent CTA of the neck with no significant carotid stenosis. RECOMMENDATIONS: Unavailable Interpreted by: Iker Velazquez Preliminary Report By: Iker Velazquez Electronically signed By Iker Velazquez Dictated Date: 09/10/2022 10:03:09 PM Prelim Date: 09/10/2022 10:06:27 PM Sign Date: 09/10/2022 10:06:27 PM Ordering Provider: [facility]04-30-2023 Note ORIGINAL EXAMINATION: CTA OF THE HEAD WITH CONTRAST 09/10/2022 9:58 pm: TECHNIQUE: CTA of the head/brain was performed with the administration of intravenous contrast. Multiplanar reformatted images are provided for review. MIP images are provided for review. Automated exposure control, iterative reconstruction, and/or weight based adjustment of the mA/kV was utilized to reduce the radiation dose to as low as reasonably achievable. COMPARISON: Noncontrast CT head of the same date. HISTORY: ORDERING SYSTEM PROVIDED HISTORY: Reason for Exam: headache FINDINGS: ANTERIOR CIRCULATION: There is mild calcified atherosclerotic plaque in the carotid siphons bilaterally but no significant stenosis of the intracranial internal carotid, anterior cerebral, or middle cerebral arteries. No aneurysm. POSTERIOR CIRCULATION: No significant stenosis of the vertebral, basilar, or posterior cerebral arteries. No aneurysm. Right dominant vertebral artery. OTHER: No dural venous sinus thrombosis on this non-dedicated study. Status post right cataract extraction. BRAIN: No mass effect or midline shift. No extra-axial fluid collection. The power-white differentiation is maintained. IMPRESSION: Patent CTA of the head with no significant stenosis. RECOMMENDATIONS: Unavailable Interpreted by: Iker Velazquez Preliminary Report By: Iker Velazquez Electronically signed By Iker Velazquez Dictated Date: 09/10/2022 9:59:22 PM Prelim Date: 09/10/2022 10:02:52 PM Sign Date: 09/10/2022 10:02:52 PM Ordering Provider: PIERRE [place] [id number] Note ORIGINAL EXAMINATION: CTA OF THE NECK 09/10/2022 9:56 pm TECHNIQUE: CTA of the neck was performed with the administration of intravenous contrast. Multiplanar reformatted images are provided for review. MIP images are provided for review. Stenosis of the internal carotid arteries measured using NASCET criteria. Automated exposure control, iterative reconstruction, and/or weight based adjustment of the mA/kV was utilized to reduce the radiation dose to as low as reasonably achievable. COMPARISON: None. HISTORY: ORDERING SYSTEM PROVIDED HISTORY: Reason for Exam: headache FINDINGS: AORTIC ARCH/ARCH VESSELS: No dissection or arterial injury. No significant stenosis of the brachiocephalic or subclavian arteries. CAROTID ARTERIES: There is mild atherosclerotic change at the right carotid bulb but no dissection, arterial injury, or hemodynamically significant stenosis by NASCET criteria. VERTEBRAL ARTERIES: No dissection, arterial injury, or significant stenosis. SOFT TISSUES: The lung apices are clear. No cervical or superior mediastinal lymphadenopathy. The larynx and pharynx are unremarkable. No acute abnormality of the salivary glands. Status post right hemithyroidectomy BONES: No acute osseous abnormality. Degenerative change in the spine most pronounced at C6-C7 where there is mild bilateral neural foramen stenosis and mild spinal canal stenosis. IMPRESSION: Patent CTA of the neck with no significant carotid stenosis. RECOMMENDATIONS: Unavailable Interpreted by: Iker Velazquez Preliminary Report By: Iker Velazquez Electronically signed By Iker Velazquez Dictated Date: 09/10/2022 10:03:09 PM Prelim Date: 09/10/2022 10:06:27 PM Sign Date: 09/10/2022 10:06:27 PM Ordering Provider: [facility]04-30-2023 Note ORIGINAL EXAMINATION: CTA OF THE HEAD WITH CONTRAST 09/10/2022 9:58 pm: TECHNIQUE: CTA of the head/brain was performed with the administration of intravenous contrast. Multiplanar reformatted images are provided for review. MIP images are provided for review. Automated exposure control, iterative reconstruction, and/or weight based adjustment of the mA/kV was utilized to reduce the radiation dose to as low as reasonably achievable. COMPARISON: Noncontrast CT head of the same date. HISTORY: ORDERING SYSTEM PROVIDED HISTORY: Reason for Exam: headache FINDINGS: ANTERIOR CIRCULATION: There is mild calcified atherosclerotic plaque in the carotid siphons bilaterally but no significant stenosis of the intracranial internal carotid, anterior cerebral, or middle cerebral arteries. No aneurysm. POSTERIOR CIRCULATION: No significant stenosis of the vertebral, basilar, or posterior cerebral arteries. No aneurysm. Right dominant vertebral artery. OTHER: No dural venous sinus thrombosis on this non-dedicated study. Status post right cataract extraction. BRAIN: No mass effect or midline shift. No extra-axial fluid collection. The power-white differentiation is maintained. IMPRESSION: Patent CTA of the head with no significant stenosis. RECOMMENDATIONS: Unavailable Interpreted by: Iker Velazquez Preliminary Report By: Iker Velazquez Electronically signed By Iker Velazquez Dictated Date: 09/10/2022 9:59:22 PM Prelim Date: 09/10/2022 10:02:52 PM Sign Date: 09/10/2022 10:02:52 PM Ordering Provider: [facility]04-30-2023 Note ORIGINAL EXAMINATION: CT OF THE HEAD WITHOUT CONTRAST 09/10/2022 8:30 pm TECHNIQUE: CT of the head was performed without the administration of intravenous contrast. Automated exposure control, iterative reconstruction, and/or weight based adjustment of the mA/kV was utilized to reduce the radiation dose to as low as reasonably achievable. COMPARISON: None. HISTORY: ORDERING SYSTEM PROVIDED HISTORY: Reason for Exam: change in mental status/weakness/aphasia FINDINGS: BRAIN/VENTRICLES: There is no acute intracranial hemorrhage, mass effect or midline shift. No abnormal extra-axial fluid collection. The power-white differentiation is maintained without evidence of an acute infarct. There is no evidence of hydrocephalus. ORBITS: The visualized portion of the orbits demonstrate no acute abnormality. SINUSES: The visualized paranasal sinuses and mastoid air cells demonstrate no acute abnormality. SOFT TISSUES/SKULL: No acute abnormality of the visualized skull or soft tissues. IMPRESSION: No acute intracranial abnormality. Interpreted by: Caitlin Collins MD Preliminary Report By: Caitlin Collins MD Electronically signed By Caitlin Collins MD Dictated Date: 09/10/2022 8:35:34 PM Prelim Date: 09/10/2022 8:37:23 PM Sign Date: 09/10/2022 8:37:23 PM Ordering Provider: [facility]04-30-2023 Note ORIGINAL EXAMINATION: ONE XRAY VIEW OF THE CHEST 09/10/2022 8:29 pm COMPARISON: Chest x-ray on 05/04/2020 HISTORY: ORDERING SYSTEM PROVIDED HISTORY: Reason for Exam: chest pain/SOB FINDINGS: The heart size and lung markings are mildly exaggerated by a shallow depth of inspiration, and lordotic positioning. There is no acute lung infiltrate or edema. No pneumothorax or pleural fluid is present. Surgical anchor is in the right humeral head. No acute skeletal abnormality is detected. IMPRESSION: Hypoventilatory findings. No acute abnormality. Interpreted by: Caitlin Collins MD Preliminary Report By: Caitlin Collins MD Electronically signed By Caitlin Collins MD Dictated Date: 09/10/2022 8:34:05 PM Prelim Date: 09/10/2022 8:35:15 PM Sign Date: 09/10/2022 8:35:15 PM Ordering Provider: PIERRE [facility]04-30-2023 Note ORIGINAL EXAMINATION: CT OF THE HEAD WITHOUT CONTRAST 09/10/2022 8:30 pm TECHNIQUE: CT of the head was performed without the administration of intravenous contrast. Automated exposure control, iterative reconstruction, and/or weight based adjustment of the mA/kV was utilized to reduce the radiation dose to as low as reasonably achievable. COMPARISON: None. HISTORY: ORDERING SYSTEM PROVIDED HISTORY: Reason for Exam: change in mental status/weakness/aphasia FINDINGS: BRAIN/VENTRICLES: There is no acute intracranial hemorrhage, mass effect or midline shift. No abnormal extra-axial fluid collection. The power-white differentiation is maintained without evidence of an acute infarct. There is no evidence of hydrocephalus. ORBITS: The visualized portion of the orbits demonstrate no acute abnormality. SINUSES: The visualized paranasal sinuses and mastoid air cells demonstrate no acute abnormality. SOFT TISSUES/SKULL: No acute abnormality of the visualized skull or soft tissues. IMPRESSION: No acute intracranial abnormality. Interpreted by: Caitlin Collins MD Preliminary Report By: Caitlin Collins MD Electronically signed By Caitlin Collins MD Dictated Date: 09/10/2022 8:35:34 PM Prelim Date: 09/10/2022 8:37:23 PM Sign Date: 09/10/2022 8:37:23 PM Ordering Provider: PIERRE [facility]04-30-2023 Note ORIGINAL EXAMINATION: ONE XRAY VIEW OF THE CHEST 09/10/2022 8:29 pm COMPARISON: Chest x-ray on 05/04/2020 HISTORY: ORDERING SYSTEM PROVIDED HISTORY: Reason for Exam: chest pain/SOB FINDINGS: The heart size and lung markings are mildly exaggerated by a shallow depth of inspiration, and lordotic positioning. There is no acute lung infiltrate or edema. No pneumothorax or pleural fluid is present. Surgical anchor is in the right humeral head. No acute skeletal abnormality is detected. IMPRESSION: Hypoventilatory findings. No acute abnormality. Interpreted by: Ciatlin Collins MD Preliminary Report By: Caitlin Collins MD Electronically signed By Caitlin Collins MD Dictated Date: 09/10/2022 8:34:05 PM Prelim Date: 09/10/2022 8:35:15 PM Sign Date: 09/10/2022 8:35:15 PM Ordering Provider: [facility] Evaluation + Plan note Future Scheduled Tests Laboratory* Glutamic Acid Decarboxylase 05/16/22 * Prostate Specific Antigen 05/16/22 * Thyroid Stimulating Hormone 05/16/22 * Free T4 05/16/22 * A1C Hemoglobin 05/16/22 * Complete Blood Count 05/16/22 * C-Peptide 05/16/22 * Lipid Profile 05/16/22 * Hepatitis C Antibody IgG 05/16/22 * Microalbumin Level Urine 05/16/22 * Vitamin D Level 05/16/22 * Complete Metabolic Panel 05/16/22 [facility] Hospital course Narrative No data available for this section [facility] Hospital Discharge instructions No data available for this section [facility] Progress note No data available for this section [facility] Summary Purpose Family History No Family History Records FoundNo Family History Records Found Advance Directives No Advanced Directives Records FoundNo Advanced Directives Records Found Additional Source Comments Source Comments (unrecognize d section and content) In the event this informatio n is protected by the Federal Confidentiality of Alcohol and Drug Abuse Patient Records regulations: The Federal rules restrict any use of the information to criminally investigate or prosecute any alcohol or drug abuse patient.[facility] Care Teams (unrecognized sec tion and content) (unrecognized sect ion and content) No Status Records FoundNo Status Records Found INFORMATION SOURCE (unrecogn ized section and content) DATE CREATED AUTHOR AUTHOR'S ELLA MILLER 10/24/2022 [facility] FOR RECORDS PERTAINING TO PATIENTS WHO ARE OR HAVE BEEN ENROLLED IN A CHEMICAL DEPENDENCY/SUBSTANCEABUSE PROGRAM, SOME INFORMATION MAY BE OMITTED. This clinical summary was aggregated from multiple sources. Caution should be exercised in using it in the provision of clinical care. This summary normalizes information from multiple sources, and as a consequence, information in this document may materially change the coding, format and clinical context of patient data. In addition, data may be omitted in some cases. CLINICAL DECISIONS SHOULD BE BASED ON THE PRIMARY CLINICAL RECORDS. [facility]. provides no warranty or guarantee of the accuracy or completeness of information in this document.
[2023-05-11 08:25] LABS: Glucose 156 mg/dL (74-106)
[2023-05-13 13:07] LABS: C-Peptide < 0.1 ng/mL (1.1-4.4)
== END | disposition home or self-care (01) ==
PROVIDERS: PCP Family Medicine Geriatric Medicine; Referring Provider Nurse Practitioner Family; Visit Provider Nurse Practitioner Family
DX: E10.65 Type 1 diabetes mellitus with hyperglycemia (principal)
CPT/HCPCS: 36415; 82947; 84681

== ENCOUNTER → 2023-05-21 | Outpatient (CLI) | payer MEDICARE, OTHER, SELFPAY ==
--- OUTSIDE RECORDS SUMMARY | 2023-05-21 06:54 | XMS RPT_ITS | CCD ---
Author Name Unknown Address [address] [place] [address] Organization [facility] Care Team Providers Care Corporate Compliance Director Name Role Phone VykrystleMihir Primary Care Provider [phone] CARLOS CAMPOS, DR ARREOLA Primary Care Physician JUSTIN SOTELO Attending Unavailable DR ELBA GONZALEZ MD Primary Care Unavailable [facility], DOMENICO M Admitting Unavail kasey GONZALEZ MD, DR ARREOLA Primary Care Unavailable NATE CAMPOS FACP, CHRISTEN Pearce Attending Unavail kasey SULLIVAN MD FACPCHRISTEN Referring Unavail able Allergies Allergy Classification Reported Allergen(s) Allergy Type Date of Onset Reaction(s) Facility (1 source) Enalapril Drug Allergy 9 [facility] Work Phone: (1 source) Non-steroidal anti-inflammato ry agent Propensity to adverse reactions 5 [facility] Work Phone: (1 source) oxyCODONE Drug Allergy 1 Other: See Comments [facility] Work Phone: (1 source) Salicylic Acid Drug Allergy 5 [facility] Work Phone: (1 source) Simvastatin Drug Allergy 9 [facility] Work Phone: (1 source) valsartan Drug Allergy 0 Cough [facility] (2 sources) Aspirin; Translations: [aspirin] Drug Allergy Keith Guerrero [facility] (2 sources) diphenhydrAMINE ; Translations: [diphenhydramin e] Drug Allergy [facility] [place] Medications Current Medications Medication Drug Class(es) Dates [...] , # 3 EA, 2 Refill(s), Pharmacy: [facility]/pharmacy #[id number], 173, cm, 05/16/22 10:21:00 EST, Height, [...] 09-11-2022 11:46-0400 Body temperature 97.88 [degF] [facility] [employer] [facility] 09-11-2022 11:46-0400 Diastolic Blood Pressure Non-Invasive 52 1 [facility] [place] [employer] [facility] 09-11-2022 11:46-0400 Heart rate 94 /min [facility] [employer] [facility] 09-11-2022 11:46-0400 Reason For Taking VItal Signs [facility] [place] [employer] [facility] 09-11-2022 11:46-0400 Respiratory rate 18 /min [facility] [place] [employer] [facility] 09-11-2022 11:46-0400 Systolic Blood Pressure Non-Invasive 135 1 [place] [facility]-CHILD CARE PROVIDER [facility] 09-11-2022 11:03-0400 Heart rate 92 /min [place] [facility]CHILD CARE PROVID[facility] 09-11-2022 07:48-0400 Heart rate 106 /min [place] [facility]CHILD CARE PROVID[facility] 09-11-2022 07:09-0400 Body temperature 98.6 [degF] [place] [facility]CHILD CARE PROVID[facility] 09-11-2022 07:09-0400 Diastolic Blood Pressure Non-Invasive 54 1 [place] [facility]CHILD CARE PROVID[facility] 09-11-2022 07:09-0400 Reason For Taking VItal Signs [place] [facility]CHILD CARE PROVID[facility] 09-11-2022 07:09-0400 Respiratory rate 18 /min [place] [facility]CHILD CARE PROVID[facility] 09-11-2022 07:09-0400 Systolic Blood Pressure Non-Invasive 130 1 [place] [facility]CHILD CARE PROVID[facility] 09-11-2022 04:08-0400 Respiratory rate 18 /min [place] [facility]CHILD CARE PROVID[facility] 09-11-2022 02:32-0400 Body height 167.6 cm [facility] [place] [place] [facility]ILD CARE PROVID[facility] 09-11-2022 02:32-0400 Body weight 77.3 kg [place] [place] [facility]CHILD CARE PROVID[facility] 09-11-2022 02:32-0400 Body weight 27.52 kg/m2 [place] [facility]CHILD CARE PROVID[facility] 09-11-2022 02:11-0400 Body temperature 97.88 [degF] [place] [facility]CHILD CARE PROVID[facility] 09-11-2022 02:11-0400 Diastolic Blood Pressure Non-Invasive 51 1 [place] [facility]CHILD CARE PROVID[facility] 09-11-2022 02:11-0400 Heart rate 92 /min [place] [facility]CHILD CARE PROVID[facility] 09-11-2022 02:11-0400 Systolic Blood Pressure Non-Invasive 141 1 [place] [facility]CHILD CARE PROVID[facility] 09-11-2022 01:36-0400 Heart rate 76 /min [place] [facility]CHILD CARE PROVIDER [facility] 09-11-2022 01:36-0400 Reason For Taking VItal Signs [place] [facility]CHILD CARE PROVID[facility] 09-11-2022 01:18-0400 Heart rate 108 /min [place] [facility]CHILD CARE PROVIDER [facility] 09-11-2022 00:29-0400 Heart rate 88 /min [place] [facility]CHILD CARE PROVID[facility] 09-10-2022 19:50-0400 Blood Pressure Location [place] [facility] [employer]ILD C[employer] PROVID[employer] [facility] 09-10-2022 19:50-0400 Body weight 76.4 kg [place] [facility] PROVID[employer] [facility] Encounters Encounter Date Encounter Type Care Provider Facility Start: 10-13-2022 End: 10-14-2022 ambulatory JUSTIN SOTELO Facility:[facility] Start: 10-13-2022 End: 10-13-[address] JUSTIN SOTELO [facility] Start: 09-10-2022 End: 09-11-2022 ambulatory DOMENICO [facility]CHILD CARE PROVIDER Facility:[facility] Start: 09-10-2022 End: 09-11-2022 Observation DOMENICO HALE [facility]ER-CHILD CARE PROVIDER [facility] Start: 08-16-2021 End: 08-16-2021 Subsequent hospital visit by physician Candice Corea MD Work Phone: [facility] Procedures Date Procedure Procedure Detail Performing Clinician Start: 04-05-2009 Anal sphincterotomy APR [facility]CHILD CARE PROVIDER Plan of Treatment Date Care Activity Detail Author Start: 01-12-2022 Influenza vaccination INFLUENZA (Sea son Ended) [facility] Start: 05-14-2021 ADVANCE DIRECTIVE DISCUSSION ADVANCE DIRECTIVE DISCUSSION [facility] Start: 12-19-2020 PNEUMOVAX AGE 65 AND OVER WITH 5YR LOOKBACK (#1) PNEUMOVAX AGE 65 AND OVER WITH 5YR LOOKBACK (#1) [facility] Start: 01-03-2017 Hepatitis B screening URINE AL BUMIN:CREATININE RATIO [facility] Start: 01-03-2017 Hepatitis B surface antibody level LDL CHOLESTEROL [facility] Start: 07-06-2016 Hemoglobin A1c/Hemoglobin.total in Blood HBA1C [facility] Start: 11-25-2015 Hepatitis C antibody , confirmatory test DILATED RETINAL EXAM [facility] Start: 08-27-2015 3 comp foot exam completed DIABETIC FOOT EXAM [facility] Start: 03-10-2015 PROSTATE CANCER SCRE ENING DISCUSSION PROSTATE CANCER SCREENING DISCUSSION [facility] Start: 12-19-2005 SHINGRIX VACCINE (1 of 2) SHINGRIX V ACCINE (1 of 2) [facility] Start: 12-19-2000 COLOGUARD (FIT-DNA) COLOGUARD (FIT-D NA) [facility] Start: 12-19-2000 Colonoscopy COLONOSCOPY [facility] Start: 12-19-2000 COLORECTAL CANCER SCREENING COLORECTAL CANCER SCREENING [facility] Start: 12-19-[address] COLONOGRAPHY [facility] Start: 12-19-2000 FECAL OCCULT BLOOD FECAL OCCULT BLOO D [facility] Start: 12-19-2000 SIGMOIDOSCOPY SIGMOIDOSCOPY [facility] Start: 12-19-1974 Urine microalbumin profile DTAP,TDAP ,TD (1 - Tdap) [facility] Start: 12-19-1973 ANNUAL PCP TEAM FLEECER KANE DISEASE VISIT ANNUAL PCP TEAM CHRONIC DISEASE VISIT [facility] Start: 12-19-1973 HEPATITIS C SCREENING HEPATITIS C SC REENING [facility] Start: 12-19-1973 HIV SCREENING HIV SCREENING [facility] Start: 1967 Adult depression scr eening assessment DEPRESSION SCREENING [facility] Start: 12-19-1960 COVID-19 VACCINE (1) COVID-19 VACCIN E (1) [facility] Immunizations Immunization Date Immunization Notes Care Provider Fa galina 03-20-2022 influenza virus vaccine, unspecified formulation [place] [facility] 12-13-2020 SARS-CoV-2 (COVID-19 ) mRNA-1273 vaccine [place] [facility] Payers Date Payer Category Payer Medicare [id number] 2021 Unknown [id number] 2013 Private Health Insurance AET[employer] A ETNA CHOICE POS II [id number] 2013-Present [phone] [address] [place] [address] POS [id number] 1955 Unknown [id number] 1955 Unknown [id number] Social History Date Type Detail Facility Start: 01-04-2019 Tobacco smoking stat us FLIS Never smoked tobacco [facility] Start: 01-12-2016 Alcohol intake Current drinke r of alcohol (finding) [facility] Start: 1955 Sex Assigned At Not on file C [facility] Sex Assigned At Male [facility] Medical Equipment Procedure Code Equipment Code Equipment Origin al Text Equipment Identifier Dates Start: 01-12-2016 Functional Status Date Assessment Result Facility 09-11-2022 Functional Status Door open, Room check performed [facility] 09-11-2022 Functional Status [facility] 09-11-2022 Functional Status Independent [facility] 09-11-2022 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, 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 09-10-2022 Mental Status [facility] Clinical Notes 05-16-2022 to 09-11-2022 Note Date & Type Note Facility 09-11-2022 Note Date of Service 09/11/2022 Chief Complaint Arrives from home with c/o headache 01/21 with some confusion with his words per family. Family states patient laid down about [id number] and woke up confused History of Present Illness 66-year-old male with past medical history significant for type 1 diabetes mellitus, BPH, neuropathy, ED, osteoarthritis, hypothyroidism. Patient presented to [facility] emergency department 09/10/2022 With altered mental [...] regularly. He used to follow with an medical reimbursement manager and no longer does so. I recommended [...] See Instructions DME MISCellaneous See Instructions [employer]estyle [place] See Instructions [employer] [place] 14 day sensor See Instructions Insulin Syringes [...] month., 02/24/2019 Employment/School Status: Retired. 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.., 04/19/2020 Home/Environment Primary Architectural Modeler: self, lives with spouse, Tere 2 grown [...] Code Status Full code Digitally Signed by SAKSHI REYES on 09/11/2022 03:01 PM [facility] 09-11-2022 Hospital Discharge instructions Patient Education 09/11/2022 12:55:40 Transient Ischemic Attack, Aowv-ax-Dbfc Transient Ischemic Attack A transient ischemic attack [...] Follow these instructions at home: Medicines Take pvgs-rap-phughqm and prescription medicines only as told by [...] 02/06/2009 Document Revised: 01/24/2019 Document Reviewed: 08/01/2017 [employer] Patient Education 2020 Aleph[employer]. Follow Up Care 09/10/2022 19:39:51 With:FAIZA URIAS MD Address: [address] [place] [address] [place] [address] [phone] When:3-5 days Comments:Call to establish as new patient. With:ELBA GONZALEZ MD Address: [facility]/[address] [place] [address]- When:3-5 days Comments:Please call to schedule your post-hospital follow-up appointment. [facility] 1. Altered mental status 2. History [...] regularly. He used to follow with an medical reimbursement manager and no longer does so. I recommended [...] Level 05/16/22 * Complete Metabolic Panel 05/16/22 [facility] 05-01-2023 Note Discharge Instructions Thank you for allowing [facility] to assist you with your healthcare needs. [...] Call to establish as new patient. Where: [address] [facility] [place] [phone]- [phone] Follow Up with ELBA GONZALEZ MD When Within 3-5 days Why: Please call to schedule your post-hospital follow-up appointment. Where: [facility] [address] [place] [id number]- The Following Activity and Diet Have Been [...] by mouth Once a day Pickup at [facility]/pharmacy #[id number] none today Changed insulin detemir (Levemir) (Levemir) [...] Dx: E11.9 Diabetes Provider Unchanged DME (Freestyle [place] 14 day sensor) See instructions 1 month supply Unchanged DME (Freestyle [place]) See instructions Glucose level checks Unchanged DME [...] 1155am Pharmacy Information [id number]: [address], [place] [id number] [phone] What How Much When Comments Stop Taking [...] Follow these instructions at home: Medicines Take izut-yns-sdajqpa and prescription medicines only as told by [...] Document Reviewed: 08/01/2017 Elsevier Patient Education 2020 [employer] Additional Information VACCINATE! IT SAVES LIVES! Members of the community who have not yet received the COVID-19 vaccine and would like to receive it can visit one of [facility] vaccine clinics. There are many vaccine clinic locations within the [facility]. For locations and available times, please visit [email or web address].[place].gov/. It is important to note that some COVID mobile vaccine clinics are held outdoors and may be canceled in rainy or stormy conditions. To learn more about pediatric vaccinations (ages 5-11), we invite you to visit the [facility] webpage. https://www.[employer].org/pages/5286-Twfnw-Tnlijzgertu-Uhxvsnqtfa-Lllms-Fhu stions.htmlTo learn more about the COVID-19 vaccine, we invite you to visit the CDC website for a list of frequently asked questions. https://www.cdc.gov/coronavirus/2019-ncov/vaccines/faq.html [facility] Patient Portal Access Instructions: Stay connected with your healthcare team and access your personal medical information anytime with the [facility] Patient Portal.If you would like a full copy of your medical records, please contact the [facility] Medical Records Department, Sunday through Sunday between 8a.m. and 4:30p.m. Please follow the directions below to access the portal: 1.Access the email account you provided upon registration to the hospital.2.Look for an invitation email from [facility].3.Open the email and access the invitation link: Accept Invitation to [facility]4.Fill in the required ramirez to create your account. Sign into [email or web address] with your username and password that you [...] you will allow to register on the [facility] Patient Portal for access to your information. You can also access the [facility] Patient Portal on the [employer] ventura. Simply click on Health Records under [employer] and then click on the [employer] logo. HOW TO SAFELY DISPOSE OF PRESCRIPTION [...] Call your local pharmacy or go to http://HackerTarget.[employer] LLC.Stylect/5E4Wp5x to find one close to you.3.Make use of household items: Use cat litter or old coffee grounds to dispose medications if other options arenot available. Mix your drugs with these household products, seal them in an airtight container andthrow it into the garbage. Call [facility]: [phone] to be sure your drugs can be [...] Signatures Patient Education Materials Transient Ischemic Attack, Jyse-jr-Yzkz Medication Leaflets My discharge plan and instructions have been reviewed and explained to me and I,CARLYN EVANGELISTAtand my current condition and have read and understand these discharge instructions. I have received a written copy of the plan/instructions. If I have questions, I am aware that I should contact my doctor. 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 Signature: Date/Time: Relationship to Patient: Witness Name/Signature: Date/Time: [facility]05-01-2023 Note ORIGINAL HISTORY: Headaches, confusion, slurred [...] Sign Date: 09/11/2022 9:34:19 AM Ordering Provider: [facility]05-01-2023 Note ORIGINAL HISTORY: Headaches, confusion, slurred [...] Sign Date: 09/11/2022 9:34:19 AM Ordering Provider: [facility]04-30-2023 Note ORIGINAL EXAMINATION: CTA OF THE [...] Date: 09/10/2022 10:06:27 PM Ordering Provider: [facility]04-30-2023 Note ORIGINAL EXAMINATION: CTA OF THE [...] Date: 09/10/2022 10:02:52 PM Ordering Provider: PIERRE [place] [address]-30-2023 Note ORIGINAL EXAMINATION: CTA OF THE NECK [...] Sign Date: 09/10/2022 10:06:27 PM Ordering Provider: [facility]04-30-2023 Note ORIGINAL EXAMINATION: CTA OF THE HEAD [...] Sign Date: 09/10/2022 10:02:52 PM Ordering Provider: [facility]04-30-2023 Note ORIGINAL EXAMINATION: CT OF THE HEAD [...] Sign Date: 09/10/2022 8:37:23 PM Ordering Provider: [facility]04-30-2023 Note ORIGINAL EXAMINATION: ONE XRAY [...] Date: 09/10/2022 8:35:15 PM Ordering Provider: [facility]04-30-2023 Note ORIGINAL EXAMINATION: CT OF THE [...] Date: 09/10/2022 8:37:23 PM Ordering Provider: [facility]04-30-2023 Note ORIGINAL EXAMINATION: ONE XRAY VIEW OF [...] Date: 09/10/2022 8:35:15 PM [facility] + Plan note Future Scheduled [...] Level 05/16/22 * Complete Metabolic Panel 05/16/22 [facility] Hospital course Narrative No data available for this section [facility] Hospital Discharge instructions No data available for this section [facility] Progress note No data available for this section [facility] Summary Purpose Family History No Family [...] or prosecute any alcohol or drug abuse patient.[facility] Care Teams (unrecognized sec tion and content) (unrecognized sect ion and content) No Status Records FoundNo Status Records Found INFORMATION SOURCE (unrecogn ized section and content) DATE CREATED AUTHOR AUTHOR'S ELLA MILLER 10/24/2022 [facility] FOR RECORDS PERTAINING TO PATIENTS WHO ARE [...] BE BASED ON THE PRIMARY CLINICAL RECORDS. [facility] [employer] [facility]. provides no warranty or guarantee of the accuracy or completeness of information in this document.
== END | disposition home or self-care (01) ==
LOC: PSN 06:51
PROVIDERS: PCP Family Medicine Geriatric Medicine; Referring Provider Family Medicine Geriatric Medicine; Visit Provider Family Medicine Geriatric Medicine
DX: R68.83 Chills (without fever) (principal)
CPT/HCPCS: 87631

== ENCOUNTER → 2023-07-23 | Outpatient (CLI) | payer MEDICARE, OTHER, SELFPAY ==
[2023-07-23 10:25] LABS: Absolute Lymphocyte Count 1.24 X10^3/uL (0.83-4.51); Absolute Neutrophil Count 5.3 X10^3/uL (2.0-7.7); Basophil# 0.03 X10^3/uL; Basophil% 0.4 % (0-1); Eosinophil# 0.24 X10^3/uL; Eosinophils% 3.2 % (0-5); Hematocrit 45.9 % (40-54); Hemoglobin 14.6 g/dL (13.0-16.5); Lymphocyte # 1.24 X10^3/ul (0.83-4.51); Lymphocyte % 16.4 % (19-41); Mean Corp Hgb Conc 31.8 g/dL (32-36); Mean Corpuscular Hgb 30.2 pg (27.0-32.0); Mean Platelet Vol. 14.1 fl (6.2-12.0); Monocyte# 0.74 X10^3/uL; Monocyte% 9.8 % (0-10); NRBC Flagged by Analyzer 0 % (0-5); Neutrophil # 5.27 X10^3/uL (2.7-7.7); Neutrophil % 69.7 % (47-70); POSITIVE MORPHOLOGY YES; Platelet Count 151 K/mm3 (150-450); RBC Distribution Width CV 12.4 % (11.6-14.6); RBC Distribution Width SD 43.5 fl (35.1-43.9); Red Blood Count 4.83 M/mm3 (4.6-6.2); White Blood Count 7.6 K/mm3 (4.4-11.0)
[2023-07-23 10:26] LABS: Differential Indicated SCAN CRITERIA MET
--- OUTSIDE RECORDS SUMMARY | 2023-07-23 10:27 | XMS RPT_ITS | CCD ---
Author Name Unknown Address [address] [place] [address] Organization [facility] Care Team Providers Care Licensed Embalmer Supervisor Name Role Phone VykrystleMihir Primary Care Provider [phone] CARLOS CAMPOS, DR ARREOLA Primary Care Physician JUSTIN SOTELO Attending Unavailable DR ELBA GONZALEZ MD Primary Care Unavailable [facility], DOMENICO M Admitting Unavail kasey GONZALEZ MD, DR ARREOLA Primary Care Unavailable NATE CAMPOS FACP, CHRISTEN Pearce Attending Unavail kasey SULLIVAN MD FACPCHRISTEN Referring Unavail able Allergies Allergy Classification Reported Allergen(s) Allergy Type Date of Onset Reaction(s) Facility (1 source) Enalapril Drug Allergy 9 [facility] Work Phone: (1 source) Non-steroidal anti-inflammato ry agent Propensity to adverse reactions 5 [facility] Work Phone: (1 source) oxyCODONE Drug Allergy 1 Other: See Comments [facility] Work Phone: (1 source) Salicylic Acid Drug Allergy 5 [facility] Work Phone: (1 source) Simvastatin Drug Allergy 9 [facility] Work Phone: (1 source) valsartan Drug Allergy 0 Cough [facility] (2 sources) Aspirin; Translations: [aspirin] Drug Allergy [facility] (2 sources) diphenhydrAMINE ; Translations: [diphenhydramin e] Drug Allergy [facility] Medications Current Medications Medication Drug Class(es) Dates [...] , # 3 EA, 2 Refill(s), Pharmacy: [facility]/pharmacy #[id number], 173, cm, 05/16/22 10:21:00 EST, Height, [...] 09-11-2022 11:46-0400 Body temperature 97.88 [degF] [place] [facility] 09-11-2022 11:46-0400 Diastolic Blood Pressure Non-Invasive 52 1 [place] [facility] 09-11-2022 11:46-0400 Heart rate 94 /min [place] [facility] 09-11-2022 11:46-0400 Reason For Taking VItal Signs [place] [facility] 09-11-2022 11:46-0400 Respiratory rate 18 /min [place] [facility] 09-11-2022 11:46-0400 Systolic Blood Pressure Non-Invasive 135 1 [place] [employer] PROM[employer]ER-CREDIT AND COLLECTION MANAGER [facility] 09-11-2022 11:03-0400 Heart rate 92 /min [place] [facility] PROMOTER-CREDIT AND COLLECTION MANAGER [facility] 09-11-2022 07:48-0400 Heart rate 106 /min [place] [facility] PROMOTER-CREDIT AND COLLECTION MANAGER [facility] 09-11-2022 07:09-0400 Body temperature 98.6 [degF] [place] [facility] PROMOTER-CREDIT AND COLLECTION MANAGER [facility] 09-11-2022 07:09-0400 Diastolic Blood Pressure Non-Invasive 54 1 [place] [employer] PROMOTER-CREDIT AND COLLECTION MANAGER [facility] 09-11-2022 07:09-0400 Reason For Taking VItal Signs [place] [employer] PROMOTER-CREDIT AND COLLECTION MANAGER [facility] 09-11-2022 07:09-0400 Respiratory rate 18 /min [place] [facility] PROMOTER-CREDIT AND COLLECTION MANAGER [facility] 09-11-2022 07:09-0400 Systolic Blood Pressure Non-Invasive 130 1 [place] [employer] PROMOTER-CREDIT AND COLLECTION MANAGER [facility] 09-11-2022 04:08-0400 Respiratory rate 18 /min [place] [facility] PROMOTER-CREDIT AND COLLECTION MANAGER [facility] 09-11-2022 02:32-0400 Body height 167.6 cm [place] [facility] PROMOTER-CREDIT AND COLLECTION MANAGER [facility] 09-11-2022 02:32-0400 Body weight 77.3 kg [place] [employer] PROMOTER-CREDIT AND COLLECTION MANAGER [facility] 09-11-2022 02:32-0400 Body weight 27.52 kg/m2 [place] [employer] PROMOTER-CREDIT AND COLLECTION MANAGER [facility] 09-11-2022 02:11-0400 Body temperature 97.88 [degF] [place] [facility] PROMOTER-CREDIT AND COLLECTION MANAGER [facility] 09-11-2022 02:11-0400 Diastolic Blood Pressure Non-Invasive 51 1 [place] [employer] PROMOTER-CREDIT AND COLLECTION MANAGER [facility] 09-11-2022 02:11-0400 Heart rate 92 /min [place] [facility] PROMOTER-CREDIT AND COLLECTION MANAGER [facility] 09-11-2022 02:11-0400 Systolic Blood Pressure Non-Invasive 141 1 [place] [employer] PROMOTER-CREDIT AND COLLECTION MANAGER [facility] 09-11-2022 01:36-0400 Heart rate 76 /min [place] [employer] PROMOTER-CREDIT AND COLLECTION MANAGER [facility] 09-11-2022 01:36-0400 Reason For Taking VItal Signs [place] [facility] PROMOTER-CREDIT AND COLLECTION MANAGER [facility] 09-11-2022 01:18-0400 Heart rate 108 /min [place] [employer] PROMOTER-CREDIT AND COLLECTION MANAGER [facility] 09-11-2022 00:29-0400 Heart rate 88 /min [place] [employer] PROMOTER-CREDIT AND COLLECTION MANAGER [facility] 09-10-2022 19:50-0400 Blood Pressure Location [place] [facility] PROMOTERSapling LearningCREDIT AND COLLECTION MANAGER [facility] 09-10-2022 19:50-0400 Body weight 76.4 kg [place] [facility] PROMOTERSapling LearningCREDIT AND COLLECTION MANAGER [facility] Encounters Encounter Date Encounter Type Care Provider Facility Start: 10-13-2022 End: 10-14-2022 ambulatory JUSTIN SOTELO Facility:B Start: 10-13-2022 End: 10-13-[address] JUSTIN SOTELO [facility] Start: 09-10-2022 End: 09-11-2022 ambulatory DOMENICO [facility] MEDIA PROMOTER-CREDIT AND COLLECTION MANAGER Facility:B Start: 09-10-2022 End: 09-11-2022 Observation DOMENICO HALE MEDIA PROMOTER-CREDIT AND COLLECTION MANAGER [facility] Start: 08-16-2021 End: 08-16-2021 Subsequent hospital visit by physician Candice Corea MD Work Phone: [facility] Procedures Date Procedure Procedure Detail Performing Clinician Start: 04-05-2009 Anal sphincterotomy APR [place] [facility] [facility] PROMOTER-CREDIT AND COLLECTION MANAGER Plan of Treatment Date Care Activity Detail Author Start: 01-12-2022 Influenza vaccination INFLUENZA (Sea son Ended) [facility] Start: 05-14-2021 ADVANCE DIRECTIVE DISCUSSION ADVANCE DIRECTIVE DISCUSSION [facility] Start: 12-19-2020 PNEUMOVAX AGE 65 AND OVER WITH 5YR LOOKBACK (#1) PNEUMOVAX AGE 65 AND OVER WITH 5YR LOOKBACK (#1) [facility] Start: 01-03-2017 Hepatitis B screening URINE AL BUMIN:CREATININE RATIO [facility] Start: 01-03-2017 Hepatitis B surface antibody level LDL CHOLESTEROL [facility] Start: 07-06-2016 Hemoglobin A1c/Hemoglobin.total in Blood HBA1C [facility] Start: 11-25-2015 Hepatitis C antibody , confirmatory test DILATED RETINAL EXAM [facility] Start: 08-27-2015 3 comp foot exam completed DIABETIC FOOT EXAM [facility] Start: 03-10-2015 PROSTATE CANCER SCRE ENING DISCUSSION PROSTATE CANCER SCREENING DISCUSSION [facility] Start: 12-19-2005 SHINGRIX VACCINE (1 of 2) SHINGRIX V ACCINE (1 of 2) [facility] Start: 12-19-2000 COLOGUARD (FIT-DNA) COLOGUARD (FIT-D NA) [facility] Start: 12-19-2000 Colonoscopy COLONOSCOPY [facility] Start: 12-19-2000 COLORECTAL CANCER SCREENING COLORECTAL CANCER SCREENING [facility] Start: 12-19-[address] COLONOGRAPHY [facility] Start: 12-19-2000 FECAL OCCULT BLOOD FECAL OCCULT BLOO D [facility] Start: 12-19-2000 SIGMOIDOSCOPY SIGMOIDOSCOPY [facility] Start: 12-19-1974 Urine microalbumin profile DTAP,TDAP ,TD (1 - Tdap) [facility] Start: 12-19-1973 ANNUAL PCP TEAM LEATHER GOODS MAKER KANE DISEASE VISIT ANNUAL PCP TEAM CHRONIC DISEASE VISIT [facility] Start: 12-19-1973 HEPATITIS C SCREENING HEPATITIS C SC REENING [facility] Start: 12-19-1973 HIV SCREENING HIV SCREENING [facility] Start: 1967 Adult depression scr eening assessment DEPRESSION SCREENING [facility] Start: 12-19-1960 COVID-19 VACCINE (1) COVID-19 VACCIN E (1) [facility] Immunizations Immunization Date Immunization Notes Care Provider Fa galina 03-20-2022 influenza virus vaccine, unspecified formulation [place] [facility] 12-13-2020 SARS-CoV-2 (COVID-19 ) mRNA-1273 vaccine [place] [employer] PROM[employer] Payers Date Payer Category Payer Medicare [id number] 2021 Unknown [id number] 2013 Private Health Insurance AETNA A ETNA CHOICE POS II [id number] 2013-Present [phone] [address] [place] [address] POS [id number] 1955 Unknown [id number] 1955 Unknown [id number] Social History Date Type Detail Facility Start: 01-04-2019 Tobacco smoking stat us NMIS Never smoked tobacco [facility] Start: 01-12-2016 Alcohol intake Current drinke r of alcohol (finding) [facility] Start: 1955 Sex Assigned At Not on file C [facility] Sex Assigned At Male [facility] Medical Equipment Procedure Code Equipment Code Equipment Origin al Text Equipment Identifier Dates Start: 01-12-2016 Functional Status Date Assessment Result Facility 09-11-2022 Functional Status Door open, Room check performed [facility] 09-11-2022 Functional Status [facility] 09-11-2022 Functional Status Independent [facility] 09-11-2022 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, 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, 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, Personal ADL, Social participation [facility] 09-11-2022 Functional Status N/A [facility] 09-10-2022 Functional Status [facility] Mental Status Date Assessment Result Facility 09-11-2022 Mental Status Oriented x 4 [facility] 09-10-2022 Mental Status [facility] Clinical Notes 05-16-2022 to 09-11-2022 Note Date & Type Note Facility 09-11-2022 Note Date of Service 09/11/2022 Chief Complaint Arrives from home with c/o headache 01/21 with some confusion with his words per family. Family states patient laid down about 0910-1310 and woke up confused History of Present Illness 66-year-old male with past medical history significant for type 1 diabetes mellitus, BPH, neuropathy, ED, osteoarthritis, hypothyroidism. Patient presented to [facility] emergency department 09/10/2022 With altered mental status [...] regularly. He used to follow with an first aid teacher and no longer does so. I recommended [...] See Instructions DME MISCellaneous See Instructions [employer]estyle [place] See Instructions [employer] [place] 14 day sensor See Instructions Insulin Syringes [...] month., 02/24/2019 Employment/School Status: Retired. 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 Follow Up Care 09/10/2022 19:39:51 With:FAIZA URIAS MD Address: [address] [place] [address] [place] [address]- [phone] When:3-5 days Comments:Call to establish as new patient. With:ELBA GONZALEZ MD Address: [facility]/[address] [place] [address]- When:3-5 days Comments:Please call to schedule your post-hospital follow-up appointment. [facility] 1. Altered mental status 2. [...] regularly. He used to follow with an first aid teacher and no longer does so. I recommended [...] Level 05/16/22 * Complete Metabolic Panel 05/16/22 [facility] 05-01-2023 Note Discharge Instructions Thank you for allowing [facility] to assist you with your healthcare needs. [...] Call to establish as new patient. Where: [address] [facility] [place] [address]- [phone] Follow Up with ELBA GONZALEZ MD When Within 3-5 days Why: Please call to schedule your post-hospital follow-up appointment. Where: [facility] [address] [place] [address]- The Following Activity and Diet Have Been [...] by mouth Once a day Pickup at [facility]/pharmacy #[id number] none today Changed insulin detemir (Levemir) (Levemir) [...] Dx: E11.9 Diabetes Provider Unchanged DME (Freestyle [place] 14 day sensor) See instructions 1 month supply Unchanged DME (Freestyle [place]) See instructions Glucose level checks Unchanged DME [...] 1155am Pharmacy Information [id number]: [address], [place] [phone] What How Much When Comments Stop Taking [...] Follow these instructions at home: Medicines Take ofpy-wsq-gvamwpx and prescription medicines only as told by [...] Document Reviewed: 08/01/2017 Elsevier Patient Education 2020 [employer] Additional Information VACCINATE! IT SAVES LIVES! Members of the community who have not yet received the COVID-19 vaccine and would like to receive it can visit one of [facility] vaccine clinics. There are many vaccine clinic locations within the [facility]. For locations and available times, please visit [email or web address].[email or web address] It is important to note that some COVID mobile vaccine clinics are held outdoors and may be canceled in rainy or stormy conditions. To learn more about pediatric vaccinations (ages 5-11), we invite you to visit the [employer] [facility] webpage. https://www.[employer]system[employer].org/pages/[email or web address]-Rgrdi-Zqzaamazfbn-Vtnwdysene-Njyra-Dzs stions.htmlTo learn more about the COVID-19 vaccine, we invite you to visit the CDC website for a list of frequently asked questions. https://www.cdc.gov/coronavirus/2019-ncov/vaccines/faq.html [facility] Patient Portal Access Instructions: Stay connected with your healthcare team and access your personal medical information anytime with the [employer] Patient Portal.If you would like a full copy of your medical records, please contact the [facility] Medical Records Department, Sunday through Sunday between 8a.m. and 4:30p.m. Please follow the directions below to access the portal: 1.Access the email account you provided upon registration to the hospital.2.Look for an invitation email from [facility].3.Open the email and access the invitation link: Accept Invitation to [facility].Fill in the required ramirez to create your account. Sign into www.[employer] with your username and password that you [...] you will allow to register on the [employer] Patient Portal for access to your information. You can also access the [employer] Patient Portal on the [employer] ventura. Simply click on Health Records under [employer] and then click on the [employer] logo. HOW TO SAFELY DISPOSE OF PRESCRIPTION [...] Call your local pharmacy or go to [email or web address] to find one close to you.3.Make use of household items: Use cat litter or old coffee grounds to dispose medications if other options arenot available. Mix your drugs with these household products, seal them in an airtight container andthrow it into the garbage. Call [facility]: [phone] to be sure your drugs can be [...] Signatures Patient Education Materials Transient Ischemic Attack, Mlxg-zo-Mcpq Medication Leaflets My discharge plan and instructions have been reviewed and explained to me and I,CARLYN EVANGELISTAtand my current condition and have read and understand these discharge instructions. I have received a written copy of the plan/instructions. If I have questions, I am aware that I should contact my doctor. Patient/Offal Baler Signature: Date/Time: Relationship to Patient: Witness Name/Signature: Date/Time: [facility]05-01-2023 Note ORIGINAL HISTORY: Headaches, confusion, [...] Sign Date: 09/11/2022 9:34:19 AM Ordering Provider: [facility]05-01-2023 Note ORIGINAL HISTORY: Headaches, confusion, slurred [...] Sign Date: 09/11/2022 9:34:19 AM Ordering Provider: [facility]04-30-2023 Note ORIGINAL EXAMINATION: CTA OF THE NECK [...] Date: 09/10/2022 10:06:27 PM Ordering Provider: [facility]04-30-2023 Note ORIGINAL EXAMINATION: CTA OF THE [...] Date: 09/10/2022 10:02:52 PM Ordering Provider: PIERRE [place] [address]-30-2023 Note ORIGINAL EXAMINATION: CTA OF THE NECK [...] Sign Date: 09/10/2022 10:06:27 PM Ordering Provider: [facility]04-30-2023 Note ORIGINAL EXAMINATION: CTA OF THE HEAD [...] Sign Date: 09/10/2022 10:02:52 PM Ordering Provider: [facility]04-30-2023 Note ORIGINAL EXAMINATION: CT OF THE HEAD [...] Sign Date: 09/10/2022 8:37:23 PM Ordering Provider: [facility]04-30-2023 Note ORIGINAL EXAMINATION: ONE XRAY VIEW [...] Date: 09/10/2022 8:35:15 PM Ordering Provider: [facility]-30-2023 Note ORIGINAL EXAMINATION: CT OF THE [...] Date: 09/10/2022 8:37:23 PM Ordering Provider: [facility]04-30-2023 Note ORIGINAL EXAMINATION: ONE XRAY VIEW OF [...] Date: 09/10/2022 8:35:15 PM [facility] + Plan note Future Scheduled Tests Laboratory* Glutamic Acid Decarboxylase 05/16/22 * Prostate Specific Antigen 05/16/22 * Thyroid Stimulating Hormone 05/16/22 * Free T4 05/16/22 * A1C Hemoglobin 05/16/22 * Complete Blood Count 05/16/22 * C-Peptide 05/16/22 * Lipid Profile 05/16/22 * Hepatitis C Antibody IgG 05/16/22 * Microalbumin Level Urine 05/16/22 * Vitamin D Level 05/16/22 * Complete Metabolic Panel 05/16/22 [facility] Hospital course Narrative No data available for this section [facility] Hospital Discharge instructions No data available for this section [facility] Progress note No data available for this section [facility] Summary Purpose Family History No [...] or prosecute any alcohol or drug abuse patient.[facility] Care Teams (unrecognized sec tion and content) (unrecognized sect ion and content) No Status Records FoundNo Status Records Found INFORMATION SOURCE (unrecogn ized section and content) DATE CREATED AUTHOR AUTHOR'S ELLA MILLER 10/24/2022 [facility] FOR RECORDS PERTAINING TO PATIENTS WHO ARE [...] BE BASED ON THE PRIMARY CLINICAL RECORDS. [facility] [employer] [facility]. provides no warranty or guarantee of the accuracy or completeness of information in this document.
[2023-07-23 11:06] LABS: Vitamin D,25 Hydroxy 44.9 ng/mL
[2023-07-23 11:24] LABS: ALB/GLOB Ratio 0.9 RATIO (0.9-2.4); AST(SGOT) 19 U/L (15-37); Alanine Aminotransfer ALT/SGPT 21 U/L (16-61); Albumin, Serum 3.4 g/dL (3.2-5.0); Alkaline Phosphatase 79 U/L (45-117); Anion Gap 2 (5-15); BUN 17 mg/dL (7-18); BUN/Creat Ratio 17.1 RATIO (10-20); Calcium,Total 9.3 mg/dL (8.5-10.1); Chloride 105 mmol/L (98-107); Creatinine, Serum 0.99 mg/dL (0.70-1.30); EST Glomerular Filtration Rate 80 mL/min (>60); Est Glom Filt Rate - Afr Amer 97 mL/min (>60); Globulin 3.6 g/dL (2.2-4.2); Glucose 246 mg/dL (74-106); PSA,Total - Annual Screen 0.97 ng/mL (0.00-4.00); Potassium 4.4 mmol/L (3.5-5.1); Sodium Level 137 mmol/L (136-145); Thyroid Stim Hormone (TSH) 1.46 uIU/mL (0.358-3.74)
[2023-07-23 12:43] LABS: Differential Comment SCANNED
== END | disposition home or self-care (01) ==
LOC: LAB 09:59
PROVIDERS: PCP Family Medicine Geriatric Medicine; Referring Provider Family Medicine Geriatric Medicine; Visit Provider Family Medicine Geriatric Medicine
DX: Z12.5 Encounter for screening for malignant neoplasm of prostate (principal); E11.65 Type 2 diabetes mellitus with hyperglycemia; E55.9 Vitamin D deficiency, unspecified; I10 Essential (primary) hypertension
CPT/HCPCS: 36415; 80053; 82306; 84153; 84443; 85025; G0103

== ENCOUNTER → 2023-12-14 | Outpatient (CLI) | payer MEDICARE, OTHER, SELFPAY ==
--- NOTE | 2023-12-14 10:40 | RAD_ITS ---
INDICATION: Pain in thoracic spine EXAMINATION/TECHNIQUE: X-RAY - XR Spine Thoracic 2 Views COMPARISON: No relevant prior comparison study available FINDINGS: VERTEBRAE: Preserved vertebral body height. No fracture. No spondylolisthesis. Increased kyphosis of the thoracic spine. No substantial scoliosis. DISCS: Mild disc space narrowing of mid thoracic spine. Mild endplate spondylosis. INCLUDED CHEST/ABDOMEN: No acute abnormalities. RAD/Thoracic Spine 2 Views IMPRESSION: Mild increased kyphosis and mild degenerative changes. Electronically Signed: Emmanuel Mcmillan MD at 11:47 EDT ,
== END | disposition home or self-care (01) ==
LOC: RAD 10:38
PROVIDERS: PCP Family Medicine Geriatric Medicine; Referring Provider Family Medicine Geriatric Medicine; Visit Provider Family Medicine Geriatric Medicine
DX: M54.6 Pain in thoracic spine (principal)
CPT/HCPCS: 72070

== ENCOUNTER → 2023-12-24 | Outpatient (CLI) | payer MEDICARE, OTHER, SELFPAY ==
--- NOTE | 2023-12-24 12:48 | CT_ITS ---
STUDY: CT ABDOMEN AND PELVIS WITHOUT CONTRAST REASON FOR EXAM: Male, 68 years old. LEFT FLANK PAIN, HEMATURIA RADIATION DOSAGE (If Supplied By Facility): CTDIvol = ( 8.21 ) mGy, DLP = ( 374.77 ) mGycm TECHNIQUE: Transaxial images were obtained from the dome of the diaphragm to the symphysis pubis without oral contrast, and without intravenous contrast. Sagittal and coronal images were reconstructed. Individualized dose optimization techniques were used for this CT. COMPARISON: None. FINDINGS: The visualized lung bases are unremarkable. Coronary artery calcification. Normal liver. There is a solitary gallstone. This measures 1.1 cm. Normal spleen. Normal pancreas. Normal bilateral adrenal glands. Normal right kidney. Normal left kidney. Questionable 3 mm calculus in the distal portion of the left ureter just proximal to the ureterovesical junction. There is a small hiatal hernia. Normal small intestine. A moderate amount of fecal material is seen in the colon. Scattered sigmoid diverticula. The appendix is visualized and appears normal. There is scattered atherosclerotic calcification of the abdominal aorta and its major visceral branches, without a demonstrated aneurysm. Normal inferior vena cava. Normal retroperitoneum. Normal urinary bladder. Normal abdominal wall. There are mild degenerative changes of the visualized lumbar spine. CT/Abdomen/Pelvis without Cont IMPRESSION: Questionable 3 mm calculus in the distal portion of the left ureter just proximal to the ureterovesical junction. Electronically Signed: Miguel Angel Brink MD at 13:47 EDT ,
== END | disposition home or self-care (01) ==
LOC: CT 12:07
PROVIDERS: PCP Family Medicine Geriatric Medicine; Visit Provider Family Medicine Geriatric Medicine
DX: N39.0 Urinary tract infection, site not specified (principal); R31.9 Hematuria, unspecified; R10.9 Unspecified abdominal pain
CPT/HCPCS: 74176; 87086

== ENCOUNTER → 2024-01-21 | Outpatient (CLI) | payer MEDICARE, OTHER, SELFPAY ==
--- NOTE | 2024-01-21 06:48 | MRI_ITS ---
STUDY: MR PELVIS WITHOUT CONTRAST REASON FOR EXAM: Male, 68 years old. LOW BACK PAIN MUSCLE SPASMS TECHNIQUE: Standardized fat and water weighted pulse sequences were obtained in all 3 orthogonal planes. COMPARISON: CT of the abdomen and pelvis dated December 24, 2023 FINDINGS: No marrow edema or fractures or osteonecrosis is seen. Mild bilateral axial narrowing is demonstrated in the hips. Subchondral cysts are seen in the lateral aspect of the left acetabular roof. No hip joint effusions are present. No aggressive lesions are seen. The iliac wings and SI joints are normal. No hip bursitis is present. The visualized intrapelvic and bilateral hip muscles have normal signal and morphology. No soft tissue mass or edema or fluid collection is present. No inguinal lymphadenopathy is present. No visualized inguinal hernias. The prostate gland is grossly unremarkable. Normal urinary bladder. Normal visualized small intestine. There are multiple colonic diverticula of the sigmoid colon consistent with chronic diverticulosis. There is no pelvic fluid. There is no pelvic mass lesion or lymphadenopathy. Grossly unremarkable visualized pelvic arteries. Unremarkable osseous structures. Normal abdominal wall. MRI/Pelvis (Routine) IMPRESSION: 1. Sigmoid diverticulosis. 2. Mild bilateral hip joint space narrowing and left hip DJD. 3. The visualized intrapelvic and bilateral hip muscles have normal signal and morphology. No soft tissue mass or edema or fluid collection is present. No inguinal lymphadenopathy is present. Electronically Signed: Bharat Dill MD at 14:51 EDT ,
--- NOTE | 2024-01-21 06:49 | MRI_ITS ---
EXAM: MR LUMBAR SPINE WITHOUT INTRAVENOUS CONTRAST CLINICAL INDICATION: BACK PAIN MIUSCLE SPASMS TECHNIQUE: Multiplanar and multisequence MR images of the lumbar spine without intravenous contrast. COMPARISON: CT abdomen and pelvis, 12/24/2023. FINDINGS: VERTEBRAE: The lumbar vertebra are normal in height and alignment. No suspicious marrow space signal abnormalities are identified. A few scattered hemangiomas are present and scattered Modic type II endplate signal changes are identified. SPINAL CORD: The distal spinal cord is normal in signal and morphology with conus terminating at L1. No evidence of nerve root impingement, thickening, or clumping. SOFT TISSUES: No significant abnormality. GALLBLADDER AND BILE DUCTS: Cholelithiasis. No distinct evidence of cholecystitis. KIDNEYS AND URETERS: Left renal cyst for which no follow-up is indicated. DISCS/SPINAL CANAL/NEURAL FORAMINA: L1-L2: Disc bulge with associated endplate osteophytosis and facet arthrosis. Mild spinal canal stenosis. No significant neural foraminal narrowing. L2-L3: Moderate bilateral facet arthrosis. No disc herniation, spinal canal stenosis, or neural foraminal narrowing. L3-L4: Moderate bilateral facet arthrosis. No disc herniation, spinal canal stenosis, or neural foraminal narrowing. L4-L5: Disc bulge with superimposed central disc herniation and moderate bilateral facet arthrosis. Mild spinal canal stenosis and mild bilateral neural foraminal narrowing. L5-S1: Central disc herniation superimposed upon a disc bulge and mild bilateral facet arthrosis. No significant spinal canal or neural foraminal stenosis. MRI/Spine Lumbar (Routine) IMPRESSION: 1. Degenerative changes in the lumbar spine. No critical spinal canal or neural foraminal stenosis and no evidence of nerve root impingement. 2. Cholelithiasis. No distinct evidence of cholecystitis. Electronically Signed: Colin Todd DO at 23:59 EDT ,
--- NOTE | 2024-01-21 06:50 | MRI_ITS ---
STUDY: MRI THORACIC SPINE WITHOUT CONTRAST REASON FOR EXAM: Male, 68 years old. BACK PAIN, SHOULDER PAIN TECHNIQUE: Standardized fat and water weighted pulse sequences were obtained in the sagittal and axial planes. Mild motion artifact is present. COMPARISON: X-ray of the thoracic spine dated December 14, 2023. FINDINGS: Normal kyphosis of the thoracic spine. There is no substantial scoliosis. T1-2, T2-3, T3-4, T4-5, T5-6, T6-7, T7-8, T8-9, T9-10, T10-11, T11-12: Disc desiccation, minimal disc space narrowing and endplate degenerative changes are present throughout the thoracic spine. No significant posterior disc herniation or bulging or disc extrusion. No demonstrated cord compression. Normal central canal and intervertebral neural foramina at the corresponding levels. No marrow edema or fracture or compression deformity is present. No aggressive lesions are seen. There is no evidence of infection. Normal conus medullaris that terminates at the T12-L1 level. No visualized demyelinating lesions of the cord. No intramedullary or intrathecal abnormalities are present. Motion artifact is present through the upper and mid aspect of the spinal cord but the overall morphology is grossly normal. The remaining aspects of the cord down to the conus are normal. The soft tissue structures are unremarkable. The visualized internal structures are unremarkable. Gallstones are present. MRI/Spine Thoracic (Routine) IMPRESSION: 1. Mild multilevel degenerative changes of the thoracic spine. 2. No demonstrated central canal stenosis, foraminal stenosis, or cord compression 3. The visualized internal structures are unremarkable. Gallstones are present. Electronically Signed: Bharat Dill MD at 14:38 EDT ,
== END | disposition home or self-care (01) ==
LOC: MRI 06:19
PROVIDERS: PCP Family Medicine Geriatric Medicine; Referring Provider Family Medicine Geriatric Medicine; Visit Provider Family Medicine Geriatric Medicine
DX: M62.830 Muscle spasm of back (principal); M54.50 Low back pain, unspecified; M25.511 Pain in right shoulder; M54.6 Pain in thoracic spine
CPT/HCPCS: 72146; 72148; 72195

== ENCOUNTER → 2024-02-07 | Outpatient (CLI) | payer MEDICARE, OTHER, SELFPAY ==
[2024-02-07 09:32] LABS: Absolute Lymphocyte Count 1.36 X10^3/uL (0.83-4.51); Absolute Neutrophil Count 5.5 X10^3/uL (2.0-7.7); Basophil# 0.02 X10^3/uL; Basophil% 0.2 % (0-1); Eosinophil# 0.23 X10^3/uL; Eosinophils% 2.8 % (0-5); Hematocrit 46.3 % (40-54); Hemoglobin 14.7 g/dL (13.0-16.5); Lymphocyte # 1.36 X10^3/ul (0.83-4.51); Lymphocyte % 16.8 % (19-41); Mean Corp Hgb Conc 31.7 g/dL (32-36); Mean Corpuscular Hgb 30.6 pg (27.0-32.0); Mean Corpuscular Volume 96.5 fL (80-94); Mean Platelet Vol. 14.1 fl (6.2-12.0); Monocyte# 0.96 X10^3/uL; Monocyte% 11.8 % (0-10); NRBC Flagged by Analyzer 0 % (0-5); Neutrophil # 5.49 X10^3/uL (2.7-7.7); Neutrophil % 67.8 % (47-70); Platelet Count 134 K/mm3 (150-450); RBC Distribution Width CV 13.4 % (11.6-14.6); RBC Distribution Width SD 47.8 fl (35.1-43.9); White Blood Count 8.1 K/mm3 (4.4-11.0)
[2024-02-07 10:08] LABS: Vitamin D,25 Hydroxy 36.8 ng/mL
[2024-02-07 10:16] LABS: ALB/GLOB Ratio 1.1 RATIO (0.9-2.4); AST(SGOT) 18 U/L (15-37); Alanine Aminotransfer ALT/SGPT 18 U/L (16-61); Albumin, Serum 3.6 g/dL (3.2-5.0); Alkaline Phosphatase 69 U/L (45-117); Anion Gap 2 (5-15); BUN 16 mg/dL (7-18); BUN/Creat Ratio 15.5 RATIO (10-20); Calcium,Total 9.5 mg/dL (8.5-10.1); Chloride 106 mmol/L (98-107); Creatinine, Serum 1.03 mg/dL (0.70-1.30); EST Glomerular Filtration Rate 76 mL/min (>60); Est Glom Filt Rate - Afr Amer 92 mL/min (>60); Globulin 3.4 g/dL (2.2-4.2); Glucose 172 mg/dL (74-106); Potassium 4.1 mmol/L (3.5-5.1); Sodium Level 140 mmol/L (136-145)
== END | disposition home or self-care (01) ==
LOC: POLAB3 09:10
PROVIDERS: PCP Family Medicine Geriatric Medicine; Visit Provider Family Medicine Geriatric Medicine
DX: I10 Essential (primary) hypertension (principal); E11.65 Type 2 diabetes mellitus with hyperglycemia; E55.9 Vitamin D deficiency, unspecified
CPT/HCPCS: 36415; 80053; 82306; 84443; 85025

== ENCOUNTER 2024-02-27 07:30 | Outpatient (RCR) | payer MEDICARE, OTHER, SELFPAY | END 2024-02-27 19:00 | disposition home or self-care (01) | LOC: PT 07:30 | PROVIDERS: PCP Family Medicine Geriatric Medicine; Referring Provider Family Medicine Geriatric Medicine; Visit Provider Family Medicine Geriatric Medicine | DX: M48.061 Spinal stenosis, lumbar region without neurogenic claudication (principal) | CPT/HCPCS: 97110; 97162 ==

== ENCOUNTER → 2024-07-16 | Outpatient (CLI) | payer MEDICARE, OTHER, SELFPAY ==
--- NOTE | 2024-07-16 08:30 | RAD_ITS ---
PROCEDURE: ESOPHAGUS DUAL CONTRAST REASON FOR EXAM: Dysphagia. TECHNIQUE: Following the ingestion of effervescent granules, high density barium and a barium pill, routine fluoroscopic imaging was performed with image documentation. FLUOROSCOPIC TIME: 72 seconds. DOSE: 8.2 mGy. FLUOROGRAPHIC IMAGES: 6 sequences. COMPARISON: None. FINDINGS: No abnormalities were noted in the hypopharynx. Esophagus contractility was normal. No constricting or obstructing lesions were identified. No intraluminal filling defects. No ulcerations are identified. A small Schatzki's ring is demonstrated. No signs of gastroesophageal reflux. RAD/Esophagus Dual Contrast IMPRESSION: 1. A small Schatzki's ring was demonstrated during this study. 2. No signs of gastroesophageal reflux or other abnormalities. Reading Location: [place] [id number]
== END | disposition home or self-care (01) ==
LOC: RAD 08:00
PROVIDERS: PCP Family Medicine Geriatric Medicine; Referring Provider Internal Medicine Gastroenterology; Visit Provider Internal Medicine Gastroenterology
DX: R13.10 Dysphagia, unspecified (principal)
CPT/HCPCS: 74221

== ENCOUNTER → 2024-07-23 | Outpatient (CLI) | payer MEDICARE, OTHER, SELFPAY ==
[2024-07-23 09:33] LABS: Absolute Lymphocyte Count 1.18 X10^3/uL (0.83-4.51); Absolute Neutrophil Count 3.4 X10^3/uL (2.0-7.7); Basophil# 0.01 X10^3/uL; Basophil% 0.2 % (0-1); Eosinophil# 0.23 X10^3/uL; Eosinophils% 4.2 % (0-5); Hematocrit 44.2 % (40-54); Hemoglobin 14.1 g/dL (13.0-16.5); Lymphocyte # 1.18 X10^3/ul (0.83-4.51); Lymphocyte % 21.5 % (19-41); Mean Corp Hgb Conc 31.9 g/dL (32-36); Mean Corpuscular Hgb 30.3 pg (27.0-32.0); Mean Corpuscular Volume 94.8 fL (80-94); Mean Platelet Vol. 13.7 fl (6.2-12.0); Monocyte# 0.67 X10^3/uL; Monocyte% 12.2 % (0-10); NRBC Flagged by Analyzer 0 % (0-5); Neutrophil # 3.35 X10^3/uL (2.7-7.7); Neutrophil % 61.2 % (47-70); POSITIVE MORPHOLOGY YES; Platelet Count 143 K/mm3 (150-450); RBC Distribution Width CV 12.5 % (11.6-14.6); RBC Distribution Width SD 43.4 fl (35.1-43.9); Red Blood Count 4.66 M/mm3 (4.6-6.2); White Blood Count 5.5 K/mm3 (4.4-11.0)
[2024-07-23 10:23] LABS: Differential Indicated SCAN CRITERIA MET
[2024-07-23 10:51] LABS: ALB/GLOB Ratio 1.6 RATIO (0.9-2.4); AST(SGOT) 21 U/L (<=37); Alanine Aminotransfer ALT/SGPT 16 U/L (<=46); Alkaline Phosphatase 74 U/L (40-129); Anion Gap 7 (5-15); BUN 20 mg/dL (4-19); BUN/Creat Ratio 20.2 RATIO (10-20); Calcium,Total 9.7 mg/dL (7.6-11.0); Carbon Dioxide 29.2 mmol/L (21.0-32.0); Chloride 102 mmol/L (98-108); Creatinine, Serum 1.01 mg/dL (0.70-1.20); EST Glomerular Filtration Rate 81 (>60); Globulin 2.6 g/dL (2.2-4.2); Glucose 154 mg/dL (70-99); PSA,Total - Annual Screen 0.83 ng/mL (0.02-4.00); Potassium 4.6 mmol/L (3.3-5.1); Protein, Total 6.6 g/dL (5.9-8.4); Sodium Level 139 mmol/L (133-145); Total Bilirubin 0.69 mg/dL (0.00-1.30); Vitamin D,25 Hydroxy 34.1 ng/mL (30-100)
== END | disposition home or self-care (01) ==
LOC: POLAB3 09:06
PROVIDERS: PCP Family Medicine Geriatric Medicine; Visit Provider Family Medicine Geriatric Medicine
DX: Z12.5 Encounter for screening for malignant neoplasm of prostate (principal); E11.65 Type 2 diabetes mellitus with hyperglycemia; I10 Essential (primary) hypertension; E55.9 Vitamin D deficiency, unspecified
CPT/HCPCS: 36415; 80053; 82306; 84153; 84443; 85025; G0103

== ENCOUNTER → 2024-12-24 | Outpatient (CLI) | payer MEDICARE, OTHER, SELFPAY ==
--- NOTE | 2024-12-24 12:33 | ECHOD_ITS ---
Reason For Study Reason For Study: SOB Procedure This was a 2D Doppler, Color Flow transthoracic echocardiogram. Exam performed in department. Left Ventricle Normal LV size. Left ventricular systolic function is normal. The left ventricular ejection fraction is 65 %. No regional wall motion abnormalities noted. Right Ventricle Normal RV size. Normal systolic function. Atria Normal left atrium. Normal right atrium. Mitral Valve Normal mitral valve. Tricuspid Valve Normal tricuspid valve. Mild tricuspid valve insufficiency. Aortic Valve Normal aortic valve. Trisinus/trileaflet aortic valve. Pulmonic Valve Normal pulmonic valve. Great Vessels Normal aortic root. The pulmonary artery is normal size. Inferior vena cava collapse with respiration. Pericardium/Pleural No pericardial effusion. MMode/2D Measurements & Calculations LVIDd: 4.6 cm IVSd: 1.1 cm Ao root diam: 2.9 cm LVIDs: 2.7 cm LVPWd: 1.1 cm RVDd: 3.8 cm FS: 41.9 % LAV(MOD-bp): 66.4 ml LVAd ap4: 26.6 cm2 LVAd ap2: 25.5 cm2 LAV(MOD-bp) Indexed: 36.5 ml/m2 LVLd ap4: 7.6 cm LVLd ap2: 6.9 cm LAV(MOD-sp2): 66.3 ml EDV(MOD-sp4): 78.7 ml EDV(MOD-sp2): 80.5 ml LAV(MOD-sp4): 63.6 ml EDV(sp4-el): 78.5 ml EDV(sp2-el): 79.8 ml LVAs ap4: 13.2 cm2 LVAs ap2: 12.1 cm2 LVLs ap4: 5.8 cm LVLs ap2: 5.7 cm ESV(MOD-sp4): 25.6 ml ESV(MOD-sp2): 23.7 ml ESV(sp4-el): 25.4 ml ESV(sp2-el): 21.9 ml EF(MOD-sp4): 67.4 % EF(MOD-sp2): 70.6 % EF(sp4-el): 67.6 % SV(MOD-sp4): 53.0 ml SV(MOD-sp2): 56.8 ml SV(sp4-el): 53.1 ml SI(MOD-sp4): 29.1 ml/m2 SI(MOD-sp2): 31.2 ml/m2 LA A4 area: 20.3 cm2 LA dimension(2D): 3.7 cm RA A4 area: 18.5 cm2 TAPSE: 2.3 cm Time Measurements MV dec time: 0.22 sec Doppler Measurements & Calculations MV E max corey: 105.7 cm/sec Lat Peak E' Corey: 10.6 cm/sec Med Peak E' Corey: 9.0 cm/sec MV A max corey: 83.8 cm/sec E/E' lat: 9.9 E/E' med: 11.7 MV E/A: 1.3 Ao V2 max: 139.3 cm/sec LV V1 max: 124.8 cm/sec PA V2 max: 105.2 cm/sec Ao max P.8 mmHg LV V1 max P.2 mmHg PA V2 mean: 78.3 cm/sec Ao V2 mean: 94.0 cm/sec LV V1 mean P.1 mmHg Ao mean P.0 mmHg LV V1 mean: 83.0 cm/sec Ao V2 VTI: 30.7 cm LV V1 VTI: 30.4 cm AV (velocity ratio): 0.99 TR max corey: 205.4 cm/sec TR max P.9 mmHg ECHO/Echo Complete Interpretation Summary Normal LV size. Left ventricular systolic function is normal. The left ventricular ejection fraction is 65 %. Structurally normal valves. Ordering Physician: Shravan Hare Chi Referring Physician: Shravan Hare Chi Performed By: Tomi, Zulay, RDCS, RVT
== END | disposition home or self-care (01) ==
PROVIDERS: PCP Family Medicine Geriatric Medicine; Referring Provider Family Medicine Geriatric Medicine; Visit Provider Family Medicine Geriatric Medicine
DX: R06.02 Shortness of breath (principal)
CPT/HCPCS: 93306; 94060

== ENCOUNTER → 2025-01-05 | Outpatient (CLI) | payer MEDICARE, OTHER, SELFPAY | END | disposition home or self-care (01) | LOC: POLAB3 11:56 | PROVIDERS: PCP Family Medicine Geriatric Medicine; Visit Provider Family Medicine Geriatric Medicine | DX: N39.0 Urinary tract infection, site not specified (principal) | CPT/HCPCS: 87086 ==

== ENCOUNTER → 2025-02-04 | Outpatient (CLI) | payer MEDICARE, OTHER, SELFPAY ==
[2025-02-04 09:11] LABS: Hematocrit 42.8 % (40-54); Hemoglobin 14.3 g/dL (13.0-16.5); Immature Granulocytes Count 0.040 X10^3/uL (0.0-0.0); Mean Corp Hgb Conc 33.4 g/dL (32-36); Mean Corpuscular Volume 94.7 fL (80-94); Mean Platelet Vol. 13.4 fl (6.2-12.0); NRBC Flagged by Analyzer 0 % (0-5); POSITIVE MORPHOLOGY YES; Platelet Count 138 K/mm3 (150-450); RBC Distribution Width CV 12.5 % (11.6-14.6); RBC Distribution Width SD 43.2 fl (35.1-43.9); Red Blood Count 4.52 M/mm3 (4.6-6.2); White Blood Count 6.9 K/mm3 (4.4-11.0)
[2025-02-04 09:48] LABS: Differential Indicated SCAN CRITERIA MET
[2025-02-04 10:01] LABS: AST(SGOT) 17 U/L (<=37); Alanine Aminotransfer ALT/SGPT 17 U/L (<=46); Albumin, Serum 3.9 g/dL (3.4-4.8); Alkaline Phosphatase 76 U/L (40-129); Anion Gap 11 (5-15); BUN 20 mg/dL (4-19); BUN/Creat Ratio 20.1 RATIO (10-20); Calcium,Total 9.0 mg/dL (7.6-11.0); Carbon Dioxide 25.5 mmol/L (21.0-32.0); Chloride 103 mmol/L (98-108); Globulin 2.5 g/dL (2.2-4.2); Glucose 220 mg/dL (70-99); Potassium 4.2 mmol/L (3.3-5.1); Vitamin D,25 Hydroxy 33.4 ng/mL (30-100)
[2025-02-04 16:57] LABS: Xtra Tube Kwok EXTRA TUBE
== END | disposition home or self-care (01) ==
LOC: POLAB3 08:57
PROVIDERS: PCP Family Medicine Geriatric Medicine; Visit Provider Family Medicine Geriatric Medicine
DX: E03.9 Hypothyroidism, unspecified (principal); E55.9 Vitamin D deficiency, unspecified; I10 Essential (primary) hypertension
CPT/HCPCS: 36415; 80053; 82306; 84443; 85025

== ENCOUNTER → 2025-03-17 | Outpatient (CLI) | payer MEDICARE, OTHER, SELFPAY ==
--- OUTSIDE RECORDS SUMMARY | 2025-03-17 07:12 | XMS RPT_ITS | CCD ---
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 Shravan Bledsoe Chi Primary Care Provider Dr. Shravan Gonzalez Chi Referring Provider MAGALIS Russ Attending Provider RAJEEV Gutierrez Attending Provider Dr. Shravan Gonzalez Chi Primary Care Provider Dr. Shravan Gonzalez Chi Referring Provider MAGALIS Russ Attending Provider RAJEEV Gutierrez Attending Provider Dr. Shravan Gonzalez MD, Chi Primary Care Provider Dr. Shravan Gonzalez MD, Chi Referring Provider Naheed Awan Attending Provider Kassy CAMPOS, Dr. Tucker Attending Provider Dr. Garrett Elena MD Referring Provider Payam CAMPOS, Dr. Shravan Rivas Attending Provider Payam CAMPOS, Dr. Shravan Rivas Primary Care Provider Payam CAMPOS, Dr. Shravan Rivas Referring Provider Jeb SEARCH ENGINEER-C, Naheed Attending Provider Payam CAMPOS, Dr. Shravan Rivas Primary Care Provider Payam CAMPOS, Dr. Shravan Rivas Referring Provider Jeb SEARCH ENGINEER-C, Naheed Attending Provider Payam CAMPOS, Dr. Shravan Rivas Attending Provider Domonique CAMPOS, Dr. De La Torre Attending Provider Payam CAMPOS, Dr. Shravan Rivas Primary Care Physician Payam CAMPOS, Dr. Shravan Rivas Attending Physician Payam CAMPOS, Dr. Shravan Rivas Referring Provider Domonique CAMPOS, Dr. De La Torre Attending Physician Jeb SEARCH ENGINEER-CNaheed Attending Physician Garrett Elena Attending Unavailable JabourGarrett Referring Unavailable Payam, Shravan Chi Primary Care Unavailable Payam, Shravan Chi Attending Unavailable Payam, Shravan Chi Primary Care Unavailable Payam, Shravan Chi Attending Unavailable Payam, Shravan Chi Referring Unavailable Payam, Shravan Chi Primary Care Unavailable Payam, Shravan Chi Attending Unavailable Payam, Shravan Chi Primary Care Unavailable Payam, Shravan Chi Attending Unavailable Payam, Shravan Chi Referring Unavailable Payam, Shravan Chi Primary Care Unavailable Naheed Russ Attending Unavailable Payam, Shravan Chi Primary Care Unavailable Payam, Shravan Chi Referring Unavailable Wil Youssef Attending Unavailable Payam, Shravan Chi Referring Unavailable Payam, Shravan Chi Primary Care Unavailable Wil Youssef Attending Unavailable Payam, Shravan Chi Primary Care Unavailable Heron Graham Attending Unavailable Naheed Russ Attending Unavailable Payam, Shravan Chi Referring Unavailable Payam, Shravan Chi Primary Care Unavailable Naheed Russ Attending Unavailable Payam, Shravan Chi Referring Unavailable Payam, Shravan Chi Primary Care Unavailable Dewey Pastor Attending Unavailable Payam, Shravan Chi Referring Unavailable Payam, Shravan Chi Primary Care Unavailable Naheed Russ Attending Unavailable Payam, Shravan Chi Primary Care Unavailable Payam, Shravan Chi Referring Unavailable Payam, Shravan Chi Attending Unavailable Payam, Shravan Chi Primary Care Unavailable Allergies Allergy Classification Reported Allergen(s) Allergy Type Date of Onset Reaction(s) Facility (1 source) Enalapril Drug Allergy 9 [facility] Work Phone: (1 source) Non-steroidal anti-inflammator y agent Propensity to adverse reactions 5 [facility] Work Phone: (1 source) oxyCODONE Drug Allergy 1 Other: See Comments [facility] Work Phone: (1 source) Salicylic Acid Drug Allergy 5 [facility] Work Phone: (1 source) Simvastatin Drug Allergy 9 [facility] Work Phone: (1 source) valsartan Drug Allergy 0 Cough [facility] (12 sources) Aspirin; Translations: [aspirin] Drug Allergy 0 Unknown, Hives [facility] (10 sources) Nonsteroidal Anti-inflammator y Compounds Propensity to adverse reactions 0 Nausea/Vom/Diar [facility] (2 sources) diphenhydrAMINE; Translations: [diphenhydramine ] Drug Allergy [facility] Comment on above: Hives (2 sources) Naproxen; Translations: [naproxen] Drug Allergy Nausea and vomiting (disorder) [facility] (1 source) Aspirin Drug Allergy 5 [facility] Repository (1 source) NSAIDs Drug allergy (disorder) 5 [facility] Repository Medications Current Medications Medication Drug Class(es) Dates Sig (Normalized) Sig (Original) acetaminophen 500 mg oral tablet (2 sources) Start: 11-28-2019 acetaminophen 500 mg oral tablet Dose : 1,000 mg = 2 tab(s), Oral, TID, PRN PRN pain or fever, 0 Refill(s) Start Date: 11/28/19 Status: Ordered Blood-Glucose Sensor (Dexcom G7 Sensor) device (17 sources) Start: 05-23-2023 Blood-Glucose Sensor (Dexcom G7 Sensor) device Active 0 .Route 9 May 23, 2023 10:12am Type 1 diabetes mellitus with hyperglycemia Type 1 diabetes mellitus with hyperglycemia 1 sensor q 10 days Start: 05-23-2023 Blood-Glucose Sensor (Dexcom G7 Sensor) device Active 0 .Route May 23, 2023 10:12am 1 sensor q 10 days Start: 12-04-2022 End: 05-23-2023 Blood-Glucose Sensor (Dexcom G7 Sensor) device Discontinued 0 .Route 9 December 04, 2022 12:00am May 23, 2023 10:12am Type 1 diabetes mellitus with hyperglycemia Type 1 diabetes mellitus with hyperglycemia 1 sensor q 10 days Start: 12-04-2022 End: 05-23-2023 Blood-Glucose Sensor (Dexcom G7 Sensor) device Discontinued 0 .Route December 04, 2022 12:00am May 23, 2023 10:12am 1 sensor q 10 days Start: 12-04-2022 Blood-Glucose Sensor (Dexcom G7 Sensor) device Active 0 .Route December 03, 2022 11:00pm 1 sensor q 10 days [facility]ME [facility] (6 sources) Start: 07-10-2022 DME MISCellane ous See Instructions, Dexcom G6 Sensors use as directed # 1 box of 3 x 2 refills Dx: E11.9 Diabetes Provider , # 3 EA, 2 Refill(s), Pharmacy: [facility]/pharmacy #[id number], 173, cm, 05/16/22 10:21:00 EST, Height, 74, kg, 05/16/22 10:21:00 EST, Do... Start Date: 07/10/22 Status: Ordered Start: 06-02-2022 DME [facility]ISCellane ous See Instructions, Dexcom G6 Recevier use as directed #1 x 0 refills Dx: E11.9 Diabetes Provider , # 1 EA, 0 Refill(s), 74 Start Date: 06/02/22 Status: Ordered Start: 06-02-2022 DME MISCellane ous See Instructions, Dexcom G6 Transmitter use as directed #1 x 0 refills Dx: E11.9 Diabetes Provider , # 1 EA, 0 Refill(s), 74 Start Date: 06/02/22 Status: Ordered Freestyle [place] (2 sources) Start: 05-16-2022 Freestyle Read er See Instructions, Glucose level checks, # 1 EA, 0 Refill(s) Start Date: 05/16/22 Status: Ordered Freestyle [place] 14 day sensor (2 sources) Start: 04-19-2020 Freestyle Read er 14 day sensor See Instructions, 1 month supply, # 2 EA, 11 Refill(s), 75.1 Start Date: 04/19/20 Status: Ordered Insulin Syringes (orange cap) (2 sources) Start: 04-27-2022 Insulin Syring es (orange cap) See Instructions, Use 1 syringe as directed 5 times daily to inject insulin., # 150 EA, 0 Refill(s), Diabetes type 1, controlled, 74.2 Start Date: 04/27/22 Status: Ordered losartan potassium 50 mg oral tablet (20 sources) Angiotensin 2 Receptor Ross Start: 09-21-2023 End: 02-29-2024 take 1 tablet by mouth once daily Start: 02-05-2023 End: 09-21-2023 take 1 tablet by mouth once daily Losartan 25 mg tablet Discontinued 25 mg PO DAILY 10 10June 04, 2023 1:38pm September 21, 2023 10:00am Hypertension Essential (primary) hypertension Magnesium (2 sources) Start: 01-26-2025 take 1 tablet by mouth once da tammy Start: 01-26-2025 take 1 tablet by boris th once daily Magnesium 200 mg tablet Active 200 mg PO daily January 26, 2025 12:00am pantoprazole 40 mg delayed release oral tablet (2 sources) Proton Pump Inhibitor Start: 01-26-2025 take 1 tablet by mouth once daily Pen needles (2 sources) Start: 10-24-2021 Pen needles Se e Instructions, 09/26" pen needles, dispense #100 with three refills. DX E10.9, # 1 EA, 3 Refill(s) Start Date: 10/24/21 Status: Ordered rosuvastatin calcium 20 mg oral tablet (2 sources) HMG-CoA Reductase Inhibitor Start: 09-11-2022 rosuvastatin 20 mg oral tablet Dose : 20 mg = 1 tab(s), Oral, qDay, # 30 tab(s), 0 Refill(s), Pharmacy: [facility]/pharmacy #[id number], 167.6, cm, 09/11/22 2:32:00 EDT, Height Start Date: 09/11/22 Status: Ordered tamsulosin hydrochloride 0.4 mg oral capsule (2 sources) alpha-Adrenergic Ross Start: 01-26-2025 take 1 capsule by mouth at bedtime Completed/Discontinued Medications Medication Drug Class(es) Dates Sig (Normalized) Sig (Original) ascorbic acid 500 mg oral tablet (10 sources) Vitamin C Start: 04-27-2020 End: 10-19-2022 take 1 tablet by mouth once daily Ascorbic Acid (Vitamin C) 500 MG tablet Discontinued 500 mg PO DAILY April 27, 2020 1:00am October 19, 2022 11:23am benzonatate 200 mg oral capsule (9 sources) Non-narcotic Antitussive Start: 05-15-2023 End: 08-13-2023 take 1 capsule by mouth three times daily as needed for cough Benzonatate 200 mg capsule Discontinued 200 mg PO THREE TIMES A DAY as needed for cough 20 May 15, 2023 1:00am August 13, 2023 9:18am ezetimibe 10 mg oral tablet (9 sources) Dietary Cholesterol Absorption Inhibitor Start: 12-04-2022 End: 02-05-2023 take 1 tablet by mouth once daily Ezetimibe 10 mg tablet Discontinued 10 mg PO DAILY 30 December 04, 2022 12:00am February 05, 2023 9:42am High blood cholesterol Pure hypercholesterolem ia, unspecified famotidine 40 mg oral tablet (11 sources) Histamine-2 Receptor Antagonist Start: 10-19-2022 End: 01-26-2025 take 1 tablet by mouth once daily Famotidine 40 mg tablet Discontinued 40 mg PO DAILY October 19, 2022 12:00am January 26, 2025 8:41am Start: 09-11-2022 Pepcid 40 mg o ral tablet Dose : 40 mg = 1 tab(s), Oral, Daily, 0 Refill(s) Start Date: 09/11/22 Status: Ordered insulin aspart, human 100 unt/ml injectable solution (20 sources) Insulin Analog Start: 07-16-2023 End: 10-30-2024 Insulin Aspart U-100 (Novolog U-100 Insulin Aspart) 100 unit/mL solution Discontinued 40 U continuous subcutaneous infusion .continuous 36 January 18, 2024 9:09am October 30, 2024 3:32pm Type 1 diabetes mellitus with hyperglycemia Type 1 diabetes mellitus with hyperglycemia via insulin pump Start: 12-04-2022 End: 07-16-2023 Insulin Aspart U-100 (Novolo g U-100 Insulin Aspart) 100 unit/mL solution Discontinued 1 sliding scale dose SC Use as Directed December 04, 2022 12:00am July 16, 2023 5:16pm Start: 12-04-2022 End: 07-16-2023 Insulin Aspart U-100 (Novolo g U-100 Insulin Aspart) 100 unit/mL solution Discontinued 1 sliding scale dose SC Use as Directed December 04, 2022 12:00am July 16, 2023 5:16pm Start: 05-30-2022 NovoLOG FlexPe n 100 units/mL injectable solution Dose : 10 unit(s) =, Subcutaneous, TIDAC, Enough for 3 months please, # 15 mL, 0 Refill(s) Start Date: 05/30/22 Status: Ordered Start: 01-12-2016 insulin aspart (NOVOLOG FLEXPEN) 100 unit/mL inpn Inject 15 units per meal + sliding scale up to 60 units daily 60 mL 4 01/12/2016 Active Comment on above: Inject 15 units per meal + sliding scale up to 60 units daily 3 ml insulin detemir 100 unt/ml pen injector (20 sources) Insulin Analog Start: 10-19-2022 End: 12-17-2023 Insulin Detemir U-100 (Levemir Flexpen) 100 unit/mL (3 mL) insulin pen Discontinued 8 U SC AT BEDTIME October 19, 2022 12:00am December 17, 2023 8:35am Start: 09-11-2022 inject 1 dose by sub cutaneous injection once daily at bedtime Levemir Dose : 8 unit(s) =, Subcutaneous, qHS, 0 Refill(s) Start Date: 09/11/22 Status: Ordered Start: 04-27-2020 End: 10-19-2022 Insulin Detemir U-100 100 UN IT/ML solution Discontinued 100 U SQ April 27, 2020 1:00am October 19, 2022 11:24am Start: 05-15-2017 End: 10-19-2022 Insulin Detemir U-100 100 un it/mL (3 mL) insulin pen Discontinued 0 SC 3 TIMES DAILY WITH MEALS Protocol: - Use for Total Daily Dose of Insulin 28-36 units- Average size patientsLOW MEDIUM DOSING ALGORITHM Condition: 150-209 mg/dl = 1 unit Condition: 210-269 mg/dl = 2 units Condition: 270-329 mg/dl = 3 units Condition: 330-389 mg/dl = 4 units Condition: 390-449 mg/dl = 5 units Condition: Greater than 449 call physician 15 90 0 May 15, 2017 1:00am October 19, 2022 11:24am Please contact the information source for Protocol details. Start: 05-15-2017 End: 10-19-2022 Insulin Detemir U-100 100 un it/mL (3 mL) insulin pen Discontinued 0 SC 3 TIMES DAILY WITH MEALS 15 90 0 May 15, 2017 1:00am October 19, 2022 11:24am Please contact the information source for Protocol details. Start: 05-15-2017 End: 10-19-2022 Insulin Detemir U-100 Discon tinued 0 SC 3 TIMES DAILY WITH MEALS 15 90 May 15, 2017 1:00am October 19, 2022 11:24am Start: 01-12-2016 inject 8 [IU] by sub cutaneous injection once daily at bedtime insulin detemir (LEVEMIR FLEXTOUCH) 100 unit/mL (3 mL) inpn injection Inject 8 Units subcutaneously daily at bedtime. plus extra twice daily if illness or surgery 15 mL 4 01/12/2016 Active Comment on above: Inject 8 Units subcu taneously daily at bedtime. plus extra twice daily if illness or surgery Insulin Detemir U-100 (Levemir Flexpen) 100 unit/mL (3 mL) insulin pen (8 sources) Start: 10-19-2022 End: 12-17-2023 Insulin Detemir U-100 (Levemir Flexpen) 100 unit/mL (3 mL) insulin pen Discontinued 8 U SC AT BEDTIME October 19, 2022 12:00am December 17, 2023 8:35am Start: 10-19-2022 Insulin Detemi r U-100 (Levemir Flexpen) 100 unit/mL (3 mL) insulin pen Active 8 UNIT SC AT BEDTIME October 19, 2022 12:00am Start: 10-19-2022 Insulin Detemi r U-100 (Levemir Flexpen) 100 unit/mL (3 mL) insulin pen Active 8 UNIT SC AT BEDTIME October 18, 2022 11:00pm lisinopril 5 mg oral tablet (10 sources) Angiotensin Converting Enzyme Inhibitor Start: 04-27-2020 End: 10-19-2022 take 1 tablet by mouth once daily Lisinopril 5 MG tablet Discontinued 5 mg PO DAILY April 27, 2020 1:00am October 19, 2022 11:25am Multivit with Iron,Minerals (10 sources) Start: 04-27-2020 End: 10-19-2022 Multivit with Iron,Minerals Discontinued 1 {tbl} PO DAILY April 27, 2020 1:00am October 19, 2022 11:25am Start: 04-27-2020 End: 10-19-2022 take 1 tablet by mouth once daily Multivit with Iron,Minerals Discontinued 1 TABLET PO DAILY April 27, 2020 1:00am October 19, 2022 11:25am Start: 04-27-2020 End: 10-19-2022 take 1 tablet by mouth once daily Multivit with Iron,Minerals Discontinued 1 TABLET PO DAILY April 27, 2020 12:00am October 19, 2022 10:25am Start: 04-27-2020 take 1 tablet by boris th once daily Multivit with Iron,Minerals Active 1 TABLET PO DAILY April 27, 2020 1:00am tadalafil 5 mg oral tablet (12 sources) Phosphodiesterase 5 Inhibitor Start: 10-19-2022 End: 01-26-2025 take 1 tablet by mouth once daily Tadalafil 5 mg tablet Discontinued 5 mg PO DAILY October 19, 2022 12:00am January 26, 2025 8:41am Start: 09-11-2022 tadalafil 5 mg oral tablet Dose : 5 mg = 1 tab(s), Oral, qHS, 0 Refill(s) Start Date: 09/11/22 Status: Ordered Start: 01-12-2016 Tadalafil (ELADIO LIS) 10 mg tablet Take 1 tablet by mouth as needed. TAKE 1-2 HOURS BEFORE SEXUAL INTERCOURSE NEEDED. 10 tablet 11 01/12/2016 Active Comment on above: Take 1 tablet by boris th as needed. TAKE 1-2 HOURS BEFORE SEXUAL INTERCOURSE NEEDED. traMADol hydrochloride 50 mg oral tablet (10 sources) Opioid Agonist Start: 8 End: 8 take 1 tablet by mouth every six hours Tramadol 50 mg tablet Discontinued 50 mg PO EVERY 6 HOURS 24 6 0 August 16, 2017 12:00am August 21, 2017 12:00am August 22, 2017 12:06am pain Problems Active Problems Problem Classification Problem Date Documented Date Episodic/Chronic Complications of surgical procedures or medical care (1 source) Postoperative hypothyroidism; Translations: [Postprocedural hypothyroidism] 02-08-2005 Chronic Coronary atherosclerosis and other heart disease (1 source) Atherosclerotic heart disease of [place] coronary artery without angina pectoris; Translations: [Atherosclerotic heart disease of [place] coronary artery without angina pectoris] Onset: 03-16-2025 Chronic Diabetes mellitus with complications (20 sources) Renal disorder due to type 1 diabetes mellitus; Translations: [Type 1 diabetes mellitus with other diabetic kidney complication] Onset: 09-11-2022 Chronic Diabetes mellitus without complication (20 sources) Type 1 diabetes mellitus; Translations: [Type 1 diabetes mellitus without complications] Onset: 01-17-2016 01-17-2016 Chronic Diabetes mellitus without complication (15 sources) Insulin pump present; Translations: [Presence of insulin pump (external) (internal)] 08-13-2023 Episodic Disorders of lipid metabolism (20 sources) Hyperlipidemia; Translations: [Hyperlipidemia, unspecified] Onset: 08-28-2007 08-28-2007 Chronic Essential hypertension (20 sources) Hypertensive disorder; Translations: [Essential (primary) hypertension] Onset: 03-16-2025 02-05-2023 Chronic Genitourinary symptoms and ill-defined conditions (2 sources) Grade A2 albuminuria 05-16-2022 Episodic Hyperplasia of prostate (2 sources) Benign prostatic hyperplasia 04-01-2019 Chronic Osteoarthritis (2 sources) Degenerative joint disease involving multiple joints 02-24-2019 Chronic Other circulatory disease (9 sources) Elevated blood-pressure reading without diagnosis of hypertension; Translations: [Elevated blood-pressure reading, without diagnosis of hypertension] 02-05-2023 Episodic Other congenital anomalies (1 source) Congenital anomaly of skin; Translations: [Other specified congenital malformations of skin] Onset: 04-20-2005 04-20-2005 Chronic Other lower respiratory disease (2 sources) Shortness of breath; Translations: [Shortness of breath] Onset: 12-22-2024 Episodic Other male genital disorders (2 sources) Impotence [...] joint disorders (2 sources) Arthropathy 02-24-2019 Chronic Other nutritional; endocrine; and metabolic disorders (15 sources) Overweight; Translations: [Overweight] 12-17-2023 Episodic Residual codes; unclassified (2 sources) Sleep apnea 02-24-2019 Chronic Residual codes; unclassified (1 source) Altered mental status; Translations: [Altered mental status, unspecified] Onset: 09-11-2022 Episodic Sprains and strains (10 sources) Injury of wrist; Translations: [Strain of unspecified muscle, fascia and tendon at wrist and hand level, right hand, initial encounter] 05-15-2017 Episodic Thyroid disorders (2 sources) Hypothyroidism; Translations: [Hypothyroidism, unspecified] Onset: 03-23-2009 03-23-2009 Chronic Unclassified (2 sources) Long-term current use of insulin 05-16-2022 Unclassified (2 sources) Vaccination needed 10-18-2020 Urinary tract infections (1 source) Urinary tract infection, site not specified; Translations: [Urinary tract infection, site not specified] Onset: 01-09-2025 Episodic Past or Other Problems Problem Classification Problem Date Documented Da te Episodic/Chronic Other connective tissue disease (1 source) Muscle pain; Translations: [Myalgia and myositis, unspecified] Onset: 04-25-2006 04-25-2006 Episodic Other gastrointestinal disorders (1 source) Dysphagia, unspecified; Translations: [Dysphagia, unspecified] Onset: 07-29-2024 Episodic Other screening for suspected conditions (not mental disorders or infectious disease) (1 source) Encounter for screening for malignant neoplasm of prostate; Translations: [Encounter for screening for malignant neoplasm of prostate] Onset: 08-01-2024 Episodic Results Test Name Value Interpretation Reference Range Facility Cardiology Visit Reporton Cardiology Visit Report [facility] [address] [place] [address] OFFICE VISIT Date of Service: 03/16/25 MR#: [id number] Acct: [id number] Name: CARLYN EVANGELISTA Rep #: [id number] : [id number] Provider: Dr. Dewey Pastor MD Age/Sex: 69/M Location: [facility] Status: Signed HPI HPI History of Present Illness Details: This pleasant gentleman has past medical history significant for diabetes mellitus, hypertension and dyslipidemia. Recently he has had coronary artery calcium score checked. It was abnormal at 59. Subsequently he has been referred to us for evaluation and management. Patient remains physically very active. He denies any chest pains either at rest or with exertion. Occasionally with strenuous exertion only, he has some shortness of breath. No orthopnea. No PND. No ankle edema. Denies any palpitations. No lightheadedness or dizziness. No syncope or presyncope. Intake Vital Signs 01/26/25 08:37 03/16/25 08:22 03/16/25 08:35 Height 5 ft 6 in 5 ft 6 in Weight: 161 lb 6 oz 162 lb BMI 26.0 26.1 BP 149/78 H 157/86 H 157/73 H Blood Pressure Location Lt brachial Lt brachial Lt brachial Position Sitting Sitting Sitting Respiration 18 Pulse 66 57 L 50 L Pulse Source Monitor Monitor Monitor Pulse Oximetry (%) 97 Oxygen Delivery Method room air Intake Visit Reasons: CORONARY CALCIFICATIONS (PAYAM) [employer] Required: No Accompanied by: Self Is patient in pain?: No Allergies aspirin Allergy (Severe, Verified 03/16/25 08:22) Unknown NSAIDS (Non-Steroidal Anti-Inflamma Adverse Reaction (Verified 03/16/25 08:22) Nausea/Vom/Diarrhea Medications ???Medication ???Instructions ???Recorded ???Confirmed ???Type blood-glucose sensor ([employer] G7 #9 ea 05/23/23 07/10/24 Rx Sensor device) losartan 50 mg tablet 50 mg PO DAILY #90 tabs 02/29/24 1 Rx blood sugar diagnostic (Accu-Chek #100 ea 07/10/24 07/10/24 Rx Guide test strips) insulin aspart U-100 100 unit/mL 40 unit (0.4 mL) continuous 03/16/25 Rx subcutaneous solution (Novolog subcutaneous infusion .continuous U-100 Insulin aspart) #36 mL pantoprazole 40 mg tablet,delayed 40 mg PO QDAY 01/26/25 03/02/25 H istory release magnesium citrate 100 mg capsule 100 mg PO QDAY 03/02/25 03/02/25 H istory Ejection fraction %: 65 Have you fallen in the past year?: No PFSH Medical History Benign prostatic hyperplasia GERD (gastroesophageal reflux disease) Elevated blood pressure reading in office without diagnosis of hypertension Anal fissure Cataract Arthritis Surgical History History of surgery Hx of tonsillectomy History of arthroscopic procedure on shoulder History of partial thyroidectomy History of hernia repair Family History Father Myocardial infarction Heart disease Mother Breast cancer Social History Smoking Status: Never smoker alcohol intake: current alcohol intake frequency: holidays/special occasions only substance use type: does not use what type of physical activity do you participate in: none ROS Const Const: Negative for fatigue or weakness Eyes Eyes: Negative for change in vision ENT ENT: Negative for dizziness or balance problems Cardio Chest Pain: No Palpitations: No Edema: None Resp Respiratory: Positive for SOB with activity; Negative for SOB at rest or SOB orthopnea SOB lying down GI GI: Negative nausea or heartburn Musc Musc: Negative for balance problems Neuro Neuro: Positive for lightheadedness (occ when stands up to fast); Negative for dizziness, near syncope, syncope or weakness Endo Endo: Negative for fatigue Cardiology Exam Const Appearance: comfortable and no acute distress Nutritional Appearance: well nourished Neck Neck: no JVD Carotids: Negative bruit Chest Auscultation: Bilateral: Clear to Auscultation Cardio Rate: regular rate Rhythm: regular rhythm Heart sounds: S1 normal and S2 normal Neuro General: patient alert, patient awake and patient oriented x3 Extremities Lower Extremity Edema: None: Bilateral Supplemental Info Supplemental Information Diagnostics: Echocardiogram Abdomen/Pelvis CT Extremity Arterial Study Coronary Angiography CT Past Visits: Cardiology Visit Today Assessment and Plan Assessment and Plan (1) Coronary artery disease: Status: Chronic Plan: Coronary calcium score 59.8. Patient reports allergy to aspirin with hives and "swelling" as a child. Start on clopidogrel 75 mg daily. Check exercise stress Myoview to [employer] (more content not included)... Normal [facility] Absolute lymphocyte countOrd ered By: Shravan Izaguirreok on 02-04-2025 Lymphocytes Auto (Unsp spec) [#/Vol] 1.15 10*3/uL 0.83-4.51 [facility] Absolute neutrophil countOrd ered By: Shravan Gonzalez on 02-04-2025 Neutrophils (Bld) [#/Vol] 4.9 10*3/uL 2.0-7.7 [facility] Anion gap in Serum or Plasma Ordered By: Shravan Gonzalez on 02-04-2025 Anion gap [Moles/Vol] 11 mmol/L 5-15 [facility] Automated lymphocyte count a s percentage of total leukocytesOrdered By: Shravan Payam on 02-04-2025 Lymphocytes/100 WBC Auto (Unsp spec) 16.6 % Low 19-41 [facility] BUN/creatinine ratioOrdered By: [facility] on 02-04-2025 Urea nitrogen/Creatinine [Mass ratio] 20.1 mg/mg High 10-20 [facility] Basophil percentageOrdered B y: Shravan Gonzalez on 02-04-2025 Basophils/100 WBC (Bld) 0.1 % 0-[address] [facility] Bilirubin, totalOrdered By: Shravan Payam on 02-04-2025 Bilirubin [Mass/Vol] 0.81 mg/dL 0.00-1.30 [facility] CBC W/Diff, Automatedon 01-13 Absolute Lymph 1.15 X10 3/uL Normal 0.83-4.51 [facility] Comment on above: Performed By: #### L 100.0100, L500.4050, L501.9520, L506.1001 ####[facility] [address] [place], [address] Absolute Neut 4.9 X10 3/uL Normal 2.0-7.7 [facility] Comment on above: Performed By: #### L 100.0100, L500.4050, L501.9520, L506.1001 ####[facility] [address] [place], [address] Basophils/100 WBC (Bld) 0.1 % Normal 0-[address] [facility] Comment on above: Performed By: #### L 100.0100, L500.4050, L501.9520, L506.1001 ####[facility] [address] [place], [address] Eosinophils/100 WBC (Bld) 3.0 % Normal 0-5 [facility] Comment on above: Performed By: #### L 100.0100, L500.4050, L501.9520, L506.1001 ####[facility] [address] [place], [address] Erythrocyte distribution width (RBC) [Ratio] 12.5 % Normal 11.6-14.6 [facility] Comment on above: Performed By: #### L 100.0100, L500.4050, L501.9520, L506.1001 ####[facility] [address] [place], [address] Hematocrit (Bld) [Volume fraction] 42.8 % Normal 40-54 [facility] Comment on above: Performed By: #### L 100.0100, L500.4050, L501.9520, L506.1001 ####[facility] [address] [place], [address] Hemoglobin (Bld) [Mass/Vol] 14.3 g/dL Normal 13.0-16.5 [facility] Comment on above: Performed By: #### L 100.0100, L500.4050, L501.9520, L506.1001 ####[facility] [address] [place], [address] IG% 0.600 Normal 0.0-0.9 [facility] Comment on above: Result Comment: IG% - Immature Granulocytes (promyelocytes, myelocytes and metamyelocytes) > 1% indicates that a LEFT SHIFT is Present. Performed By: #### L 100.0100, L500.4050, L501.9520, L506.1001 ####[facility] [address] [place], [address] Lymphocytes/100 WBC (Bld) 16.6 % Low 19-41 [facility] Comment on above: Performed By: #### L 100.0100, L500.4050, L501.9520, L506.1001 ####[facility] [address] [place], [address] MCH (RBC) [Entitic mass] 31.6 pg Normal 27.0-32.0 [facility] Comment on above: Performed By: #### L 100.0100, L500.4050, L501.9520, L506.1001 ####[facility] [address] [place], [address] MCHC (RBC) [Mass/Vol] 33.4 g/dL Normal 32-36 [facility] Comment on above: Performed By: #### L 100.0100, L500.4050, L501.9520, L506.1001 ####[facility] [address] [place], [address] MCV (RBC) [Entitic vol] 94.7 fL High 80-[address] [facility] Comment on above: Performed By: #### L 100.0100, L500.4050, L501.9520, L506.1001 ####[facility] [address] [place], [address] Monocytes/100 WBC (Bld) 9.5 % Normal 0-[address] [facility] Comment on above: Performed By: #### L 100.0100, L500.4050, L501.9520, L506.1001 ####[facility] [address] [place], [address] Neutrophils/100 WBC (Bld) 70.2 % High 47-70 [facility] Comment on above: Performed By: #### L 100.0100, L500.4050, L501.9520, L506.1001 ####[facility] [address] [place], [address] Nucleated RBC (Bld) [#/Vol] 0 10*3/uL Normal 0-5 [facility] Comment on above: Performed By: #### L 100.0100, L500.4050, L501.9520, L506.1001 ####[facility] [address] [place], [address] Platelet mean volume (Bld) [Entitic vol] 13.4 fL High 6.2-12.0 [facility] Comment on above: Performed By: #### L 100.0100, L500.4050, L501.9520, L506.1001 ####[facility] [address] [place], [address] Platelets (Bld) [#/Vol] 138 10*3/uL Low 150-450 [facility] Comment on above: Performed By: #### L 100.0100, L500.4050, L501.9520, L506.1001 ####[facility] [address] [place], [address] RBC (Bld) [#/Vol] 4.52 10*6/uL Low 4.6-6.2 [facility] Comment on above: Performed By: #### L 100.0100, L500.4050, L501.9520, L506.1001 ####[facility] [address] [place], [address] RDW SD 43.2 fl Normal 35.1-43.9 [facility] Comment on above: Performed By: #### L 100.0100, L500.4050, L501.9520, L506.1001 ####[facility] [address] [place], [address] WBC (Bld) [#/Vol] 6.9 10*3/uL Normal 4.4-11.0 [facility] Comment on above: Performed By: #### L 100.0100, L500.4050, L501.9520, L506.1001 ####[facility] [address] [place], [address] Carbon dioxide, total [Moles /volume] in Central venous bloodOrdered By: Shravan Gonzalez on 02-04-2025 CO2 [Moles/Vol] 25.5 mmol/L 21.0-32.0 [facility] Chloride assayOrdered By: Konrad Gonzalez on 02-04-2025 Chloride [Moles/Vol] 103 mmol/L 98-108 [facility] Comprehensive Metabolic Prof ilon 02-04-2025 Albumin [Mass/Vol] 3.9 g/dL Normal 3.4-4.8 [facility] Comment on above: Performed By: #### L 100.0100, L500.4050, L501.9520, L506.1001 ####[facility] [address] [place], [address] Albumin/Globulin [Mass ratio] 1.6 {ratio} Normal 0.9-2.4 [facility] Comment on above: Performed By: #### L 100.0100, L500.4050, L501.9520, L506.1001 ####[facility] [address] [place], [address] ALK PHOS 76 U/L Normal 40-129 [facility] Comment on above: Performed By: #### L 100.0100, L500.4050, L501.9520, L506.1001 ####[facility] [address] [place], [address] ALT [Catalytic activity/Vol] 17 U/L Normal <=46 [facility] Comment on above: Performed By: #### L 100.0100, L500.4050, L501.9520, L506.1001 ####[facility] [address] [place], [address] AST [Catalytic activity/Vol] 17 U/L Normal <=37 [facility] Comment on above: Performed By: #### L 100.0100, L500.4050, L501.9520, L506.1001 ####[facility] [address] [place], [address] Bilirubin [Mass/Vol] 0.81 mg/dL Normal 0.00-1.30 [facility] Comment on above: Performed By: #### L 100.0100, L500.4050, L501.9520, L506.1001 ####[facility] [address] [place], [address] BUN/CRE 20.1 RATIO High 10-20 [facility] Comment on above: Performed By: #### L 100.0100, L500.4050, L501.9520, L506.1001 ####[facility] [address] [place], [address] Calcium [Mass/Vol] 9.0 mg/dL Normal 7.6-11.0 [facility] Comment on above: Performed By: #### L 100.0100, L500.4050, L501.9520, L506.1001 ####[facility] [address] [place], [address] Chloride [Moles/Vol] 103 mmol/L Normal 98-108 [facility] Comment on above: Performed By: #### L 100.0100, L500.4050, L501.9520, L506.1001 ####[facility] [address] [place], [address] CO2 [Moles/Vol] 25.5 mmol/L Normal 21.0-32.0 [facility] Comment on above: Performed By: #### L 100.0100, L500.4050, L501.9520, L506.1001 ####[facility] [address] [place], [address] Creatinine [Mass/Vol] 0.99 mg/dL Normal 0.70-1.20 [facility] Comment on above: Performed By: #### L 100.0100, L500.4050, L501.9520, L506.1001 ####[facility] [address] [place], [address] GAP 11 Normal 5-15 [facility] Comment on above: Performed By: #### L 100.0100, L500.4050, L501.9520, L506.1001 ####[facility] [address] [place], [address] GFR/1.73 sq M.predicted among non-blacks MDRD (S/P/Bld) [Vol rate/Area] 82 mL/min/{1.73_m2} Normal >60 [facility] Comment on above: Result Comment: mL/m in/1.73m2 CKD-EPI Creatinine Equation (2020) Performed By: #### L 100.0100, L500.4050, L501.9520, L506.1001 ####[facility] [address] [place], [address] Globulin (S) [Mass/Vol] 2.5 g/dL Normal 2.2-4.2 [facility] Comment on above: Performed By: #### L 100.0100, L500.4050, L501.9520, L506.1001 ####[facility] [address] [place], [address] Glucose [Mass/Vol] 220 mg/dL High 70-99 [facility] Comment on above: Performed By: #### L 100.0100, L500.4050, L501.9520, L506.1001 ####[facility] [address] [place], [address] Potassium [Moles/Vol] 4.2 mmol/L Normal 3.3-5.1 [facility] Comment on above: Performed By: #### L 100.0100, L500.4050, L501.9520, L506.1001 ####[facility] [address] [place], [address] Sodium [Moles/Vol] 139 mmol/L Normal 133-145 [facility] Comment on above: Performed By: #### L 100.0100, L500.4050, L501.9520, L506.1001 ####[facility] [address] [place], [address] T PROT 6.4 g/dL Normal 5.9-8.4 [facility] Comment on above: Performed By: #### L 100.0100, L500.4050, L501.9520, L506.1001 ####[facility] [address] [place], [address] Urea nitrogen [Mass/Vol] 20 mg/dL High 4-19 [facility] Comment on above: Performed By: #### L 100.0100, L500.4050, L501.9520, L506.1001 ####[facility] [address] [place], [address] Eosinophil percentageOrdered By: Shravan Gonzalez on 02-04-2025 Eosinophils/100 WBC (Bld) 3.0 % 0-5 [facility] Erythrocyte distribution wid th ratioOrdered By: Shravan Gonzalez on 02-04-2025 Erythrocyte distribution width (RBC) [Ratio] 12.5 % 11.6-14.6 [facility] Erythrocyte distribution wid th standard deviationOrdered By: Shravan Gonzalez on 02-04-2025 Erythrocyte distribution width (RBC) [Ratio] 43.2 fl 35.1-43.9 [facility] Glomerular filtration rate ( GFR) estimation/1.73 sq m using serum, plasma, or whole bOrdered By: Shravan Gonzalez on 02-04-2025 GFR/1.73 sq M.predicted among non-blacks MDRD (S/P/Bld) [Vol rate/Area] 82 mL/min/{1.73_m2} >60 [facility] Comment on above: mL/min/1.73m2 CKD-EP I Creatinine Equation (2020) Hematocrit Auto (Bld) [Volum e fraction]Ordered By: Shravan Gonzalez on 02-04-2025 Hematocrit (Bld) [Volume fraction] 42.8 % 40-54 [facility] Hemoglobin measurementOrdere d By: Shravan Gonzalez 02-04-2025 Hemoglobin (Bld) [Mass/Vol] 14.3 g/dL 13.0-16.5 [facility] Immature granulocytes/100 WB C Auto (Bld)Ordered By: Shravan Gonzalez 02-04-2025 Immature granulocytes/100 WBC (Bld) 0.600 % 0.0-0.9 [facility] Comment on above: IG% - Immature Granu locytes (promyelocytes, myelocytes and metamyelocytes) > 1% indicates that a LEFT SHIFT is Present. Laboratory - Chemistry and C hemistry - challengeOrdered By: Shravan Gonzalez 02-04-2025 AST [Catalytic activity/Vol] 17 U/L <38 [facility] MCV (mean corpuscular volume ) determinationOrdered By: Shravan Gonzalez 02-04-2025 MCV (RBC) [Entitic vol] 94.7 fL High 80-[address] [facility] Mean corpuscular hemoglobin (MCH) determinationOrdered By: Shravan Gonzalez 02-04-2025 MCH (RBC) [Entitic mass] 31.6 pg 27.0-32.0 [facility] Mean corpuscular hemoglobin concentration (MCHC) determinationOrdered By: Shravan Gonzalez 5 MCHC (RBC) [Mass/Vol] 33.4 g/dL 32-36 [facility] Mean platelet volume determi nationOrdered By: Shravan Gonzalez on 02-04-2025 Platelet mean volume (Bld) [Entitic vol] 13.4 fL High 6.2-12.0 [facility] Monocyte percentageOrdered B y: Shravan Gonzalez on 02-04-2025 Monocytes/100 WBC (Bld) 9.5 % 0-[address] [facility] Neutrophil percentageOrdered By: Shravan Gonzalez on 02-04-2025 Neutrophils/100 WBC (Bld) 70.2 % High 47-70 [facility] Nucleated red blood cell per centageOrdered By: Shravan Gonzalez on 02-04-2025 Nucleated RBC/100 WBC (Bld) [Ratio] 0 % 0-5 [facility] Platelet countOrdered By: Konrad Gonzalez on 02-04-2025 Platelets (Bld) [#/Vol] 138 10*3/uL Low 150-450 [facility] Potassium measurement (mass/ volume)Ordered By: Shravan Gonzalez on 02-04-2025 Potassium (Unsp spec) [Mass/Vol] 4.2 mmol/L 3.3-5.1 [facility] RBC Auto (Bld) [#/Vol]Ordere d By: Shravan Gonzalez on 02-04-2025 RBC (Bld) [#/Vol] 4.52 10*6/uL Low 4.6-6.2 [facility] Serum creatinine measurement (mass/volume)Ordered By: Shravan Gonzalez on 02-04-2025 Creatinine [Mass/Vol] 0.99 mg/dL 0.70-1.20 [facility] Serum globulin measurementOr dered By: Shravan Gonzalez on 02-04-2025 Globulin (S) [Mass/Vol] 2.5 g/dL 2.2-4.2 [facility] Serum glucose measurement (m ass/volume)Ordered By: Shravan Gonzalez on 02-04-2025 Glucose [Mass/Vol] 220 mg/dL High 70-99 [facility] Serum or plasma alanine mejia otransferase (ALT) measurementOrdered By: Shravan Gonzalez on 02-04-2025 ALT [Catalytic activity/Vol] 17 U/L <47 [facility] Serum or plasma albumin dylon urement (mass/volume)Ordered By: Shravan Gonzalez on 02-04-2025 Albumin [Mass/Vol] 3.9 g/dL 3.4-4.8 [facility] Serum or plasma albumin/glob ulin mass ratioOrdered By: Shravan Gonzalez on 02-04-2025 Albumin/Globulin [Mass ratio] 1.6 {ratio} 0.9-2.4 [facility] Serum or plasma alkaline hannah sphatase measurementOrdered By: Shravan Gonzalez on 02-04-2025 ALP [Catalytic activity/Vol] 76 U/L 40-129 [facility] Serum or plasma calcium dylon urement (mass/volume)Ordered By: Shravan Gonzalez on 02-04-2025 Calcium [Mass/Vol] 9.0 mg/dL 7.6-11.0 [facility] Serum or plasma urea nitroge n measurement (mass/volume)Ordered By: Shravan Gonzalez on 02-04-2025 Urea nitrogen [Mass/Vol] 20 mg/dL High 4-19 [facility] Sodium levelOrdered By: Shravan Gonzalez on 02-04-2025 Sodium [Moles/Vol] 139 mmol/L 133-145 [facility] TSH DL <= 0.005 mIU/L QnOrde red By: Shravan Gonzalez on 02-04-2025 TSH Qn 1.670 uIU/mL 0.300-4.200 [facility] Thyroid Stim Hormone (TSH)on 02-04-2025 TSH 1.670 uIU/mL Normal 0.300-4.200 [facility] Comment on above: Performed By: #### L 100.0100, L500.4050, L501.9520, L506.1001 ####[facility] [address] [place], [place], [id number] Total proteinOrdered By: Shravan Gonzalez on 02-04-2025 Protein [Mass/Vol] 6.4 g/dL 5.9-8.4 [facility] Vitamin D,25 Hydroxyon 02-04 Vitamin D 25-OH 33.4 ng/mL Normal 30-100 [facility] Comment on above: Result Comment: Melvina min D Status Deficiency: <20 ng/mL (50nmol/L) Insufficiency: 20-30 ng/mL (50-75 nmol/L) Sufficiency: 30-100 ng/mL (75-250 nmol/L) Toxicity: >100 ng/mL (>250 nmol/L) Performed By: #### L 100.0100, L500.4050, L501.9520, L506.1001 ####[facility] [address] [place], [address] White blood cell (WBC) count Ordered By: Shravan Gonzalez on 02-04-2025 WBC (Bld) [#/Vol] 6.9 10*3/uL 4.4-11.0 [facility] Endocrinology Visit Reporton 01-26-2025 Endocrinology Visit Report [facility] [address] [place], [place] [address] OFFICE VISIT Date of Service: 01/26/25 MR#: [id number] Acct: [id number] Name: CARLYN EVANGELISTA Rep #: [id number] : 1955 Provider: MAGALIS govea Age/Sex: 69/M Location: [facility] [place] Status: Signed Intake Vital Signs 10/13/24 08:38 01/26/25 08:37 Height 5 ft 6 in 5 ft 6 in Weight: 161 lb 6 oz BMI 26.0 BP 149/78 H Blood Pressure Location Lt brachial Position Sitting Pulse 66 Pulse Source Monitor Pulse Oximetry (%) 97 Oxygen Delivery Method room air Intake Visit Reasons: 3 M FU Chief Complaint: f/u diabetes Is patient in pain?: No Allergies aspirin Allergy (Severe, Verified 01/26/25 08:40) Unknown NSAIDS (Non-Steroidal Anti-Inflamma Adverse Reaction (Verified 01/26/25 08:40) Nausea/Vom/Diarrhea Medications ???Medication ???Instructions ???Recorded ???Confirmed ???Type blood-glucose sensor (Dexcom G7 #9 ea 05/23/23 07/10/24 Rx Sensor device) losartan 50 mg tablet 50 mg PO DAILY #90 tabs 02/29/24 0 01/26/25 Rx blood sugar diagnostic (Accu-Chek #100 ea 07/10/24 07/10/24 Rx Guide test strips) insulin aspart U-100 100 unit/mL 40 unit (0.4 mL) continuous 01/26/25 Rx subcutaneous solution (Novolog subcutaneous infusion .continuous U-100 Insulin aspart) #36 mL magnesium 200 mg tablet 200 mg PO QDAY 01/26/25 01/26/25 H istory pantoprazole 40 mg tablet,delayed 40 mg PO QDAY 01/26/25 01/26/25 H istory release tamsulosin 0.4 mg capsule 0.4 mg PO QHS 01/26/25 01/26/25 Hi story Have you fallen in the past year?: No PFSH Medical History Elevated blood pressure reading in office without diagnosis of hypertension Anal fissure Cataract Arthritis Surgical History History of partial thyroidectomy History of hernia repair Family History Father Myocardial infarction Heart disease Mother Breast cancer Social History Smoking Status: Never smoker alcohol intake: current alcohol intake frequency: holidays/special occasions only substance use type: does not use what type of physical activity do you participate in: none HPI HPI Chief Complaint: f/u diabetes Details: CARLYN EVANGELISTA, is a 69 M who presents to the office today for evaluation and management of diabetes. A1C today is 6.7%, improved slightly from 10/13/24 at 6.9%. Weight is stable. Currently using Medtronic 780g with Guardian CGM. Insulin pump downloaded and reviewed- he is having elevations during the afternoon, his pump is alarming at 250 and he is addressing with corrections and/or fake carbohydrates. This will typically result in a low prior to supper time, this is very irritating to him. BP is slightly elevated. Reports BP always "low" with PCP. He has upcoming appt with PCP in a couple weeks. Currently taking losartan 50 mg once daily. Intolerance to statins. PCP is managing lipids. Labs are up to date. Denies any acute concerns. ROS Const Constitutional: No fatigue or weight change ENT ENT: No dizziness/vertigo Cardio Cardiology: No chest pain at rest, chest pain with exertion, shortness of breath or palpitations Skin Skin: No wounds Endo Endocrine: No fatigue or weight change Exam Const General: cooperative, healthy appearing, comfortable and no acute distress Nutritional Appearance: overweight Orientation: alert, awake and oriented x3 HENMT Head: normal to inspection Ears: hearing grossly normal bilaterally Nose: external nose normal Face and sinus: normal facial exam Eyes General: appearance normal, both eyes and all related structures Alignment and Position: alignment normal Sclera: sclerae normal Neck Neck: normal visual inspection Carotids: normal carotid upstroke Chest Chest palpation inspection: normal inspection of the chest Resp Effort Inspection: normal respiratory effort, able to speak in complete sentences, symmetric chest movement, normal respiratory pattern, no audible wheezes and no cough Auscultation: Bilateral: Clear to Auscultation Cardio Rate: regular rate Rhythm: regular rhythm Heart Sounds: S1 normal and S2 normal GI Inspection: normal to inspection Musc Cervical Spine: normal cervical lordosis Thoracic/Lumbar Spine: thoracic and lumbar spine normal to inspection Skin General: no rashes or lesions noted Lesions: no lesions Rashes: no rashes Trauma: no lacerations or abrasions Wounds: no wounds Neuro General: patient alert, patient awake and patient oriented x3 Cognition: normal cogniti (more content not included)... Normal [facility] Laboratory - Hematology and Cell countsOrdered By: Naheed Russ on 01-26-2025 HbA1c (Bld) [Mass fraction] 6.7 % High 4.2-6.3 [facility] Urine Cultureon 01-06-2025 URC Culture exhibits no growth. Normal [facility] Comment on above: Performed By: #### M 100.8456 #### [facility] Laboratory [address] [place], [address] Urine cultureOrdered By: Shravan Gonzalez on 01-05-2025 Bacteria identified Cx Nom (U) Culture exhibits no growth. [facility] Echo Completeon 12-24-2024 Echo [facility] [address] [place] [address] Echo Complete 12/24/24 1326 MR#: [id number] Acct: [id number] Name: CARLYN EVANGELISTA Rep #: [id number] : 1955 69 From: Wil Youssef MD Attending Dr: Dr. Shravan Gonzalez MD Status: REG CLI Ordering Dr: Shravan Gonzalez MD Date: 12/24/24 Location: [facility] Sex: M C Admitted: Reason For Study Reason For Study: SOB Procedure This was a 2D Doppler, Color Flow transthoracic echocardiogram. Exam performed in department. Left Ventricle Normal LV size. Left ventricular systolic function is normal. The left ventricular ejection fraction is 65 %. No regional wall motion abnormalities noted. Right Ventricle Normal RV size. Normal systolic function. Atria Normal left atrium. Normal right atrium. Mitral Valve Normal mitral valve. Tricuspid Valve Normal tricuspid valve. Mild tricuspid valve insufficiency. Aortic Valve Normal aortic valve. Trisinus/trileaflet aortic valve. Pulmonic Valve Normal pulmonic valve. Great Vessels Normal aortic root. The pulmonary artery is normal size. Inferior vena cava collapse with respiration. Pericardium/Pleural No pericardial effusion. MMode/2D Measurements Calculations LVIDd: 4.6 cm IVSd: 1.1 cm Ao root diam: 2.9 cm LVIDs: 2.7 cm LVPWd: 1.1 cm RVDd: 3.8 cm FS: 41.9 % LAV(MOD-bp): 66.4 ml LVAd ap4: 26.6 cm2 LVAd ap2: 25.5 cm2 LAV(MOD-bp) Indexed: 36.5 ml/m2 LVLd ap4: 7.6 cm LVLd ap2: 6.9 cm LAV(MOD-sp2): 66.3 ml EDV(MOD-sp4): 78.7 ml EDV(MOD-sp2): 80.5 ml LAV(MOD-sp4): 63.6 ml EDV(sp4-el): 78.5 ml EDV(sp2-el): 79.8 ml LVAs ap4: 13.2 cm2 LVAs ap2: 12.1 cm2 LVLs ap4: 5.8 cm LVLs ap2: 5.7 cm ESV(MOD-sp4): 25.6 ml ESV(MOD-sp2): 23.7 ml ESV(sp4-el): 25.4 ml ESV(sp2-el): 21.9 ml EF(MOD-sp4): 67.4 % EF(MOD-sp2): 70.6 % EF(sp4-el): 67.6 % SV(MOD-sp4): 53.0 ml SV(MOD-sp2): 56.8 ml SV(sp4-el): 53.1 ml SI(MOD-sp4): 29.1 ml/m2 SI(MOD-sp2): 31.2 ml/m2 LA A4 area: 20.3 cm2 LA dimension(2D): 3.7 cm RA A4 area: 18.5 cm2 TAPSE: 2.3 cm Time Measurements MV dec time: 0.22 sec Doppler Measurements Calculations MV E max tao: 105.7 cm/sec Lat Peak E' Tao: 10.6 cm/sec Med Peak E' Tao: 9.0 cm/sec MV A max tao: 83.8 cm/sec E/E' lat: 9.9 E/E' med: 11.7 MV E/A: 1.3 Ao V2 max: 139.3 cm/sec LV V1 max: 124.8 cm/sec PA V2 max: 105.2 cm/sec Ao max P.8 mmHg LV V1 max P.2 mmHg PA V2 mean: 78.3 cm/sec Ao V2 mean: 94.0 cm/sec LV V1 mean P.1 mmHg Ao mean P.0 mmHg LV V1 mean: 83.0 cm/sec Ao V2 VTI: 30.7 cm LV V1 VTI: 30.4 cm AV (velocity ratio): 0.99 TR max tao: 205.4 cm/sec TR max P.9 mmHg ECHO/Echo Complete Interpretation Summary Normal LV size. Left ventricular systolic function is normal. The left ventricular ejection fraction is 65 %. Structurally normal valves. Ordering Physician: Shravan Gonzalez Chi Referring Physician: Shravan Gonzalez Chi Performed By: Zulay Krishna, MELA, RVT 12/24/24 1636 Date Wil Youssef MD CC: Dr. Shravan Gonzalez MD Date Dictated: 12/24/24 1326 Date Transcribed: 12/24/241635 Exchange Operator: Signed Normal [facility] Echocardiogram study reportO rdered By: Wil Youssef on 12-24-2024 Study report [facility] [address] [place] [address] Echo Complete 12/24/241325 MR#: [id number] Acct: [id number] Name: CARLYN EVANGELISTA Rep #:[id number] : 1955 69 From: Wil Leiva Attending Dr: Dr. Shravan Gonzalez MD Status: [facility] Ordering Dr: Shravan Gonzalez MD Date: Location: [facility] Sex: M C Admitted: Reason For Study Reason For Study: SOB Procedure This was a 2D Doppler, Color Flow transthoracic echocardiogram. Exam performed in department. Left Ventricle Normal LV size. Left ventricular systolic function is normal. The left ventricular ejection fraction is 65 %. No regional wall motion abnormalities noted. Right Ventricle Normal RV size. Normal systolic function. Atria Normal left atrium. Normal right atrium. Mitral Valve Normal mitral valve. Tricuspid Valve Normal tricuspid valve. Mild tricuspid valve insufficiency. Aortic Valve Normal aortic valve. Trisinus/trileaflet aortic valve. Pulmonic Valve Normal pulmonic valve. Great Vessels Normal aortic root. The pulmonary artery is normal size. Inferior vena cava collapse with respiration. Pericardium/Pleural No pericardial effusion. MMode/2D Measurements & Calculations LVIDd: 4.6 cm IVSd: 1.1 cm Ao root diam: 2.9 cm LVIDs: 2.7 cm LVPWd: 1.1 cm RVDd: 3.8 cm FS: 41.9 % LAV(MOD-bp): 66.4 ml LVAd ap4: 26.6 cm2 LVAd ap2: 25.5 cm2 LAV(MOD-bp) Indexed: 36.5 ml/m2 LVLd ap4: 7.6 cm LVLd ap2: 6.9 cm LAV(MOD-sp2): 66.3 ml EDV(MOD-sp4): 78.7 ml EDV(MOD-sp2): 80.5 ml LAV(MOD-sp4): 63.6 ml EDV(sp4-el): 78.5 ml EDV(sp2-el): 79.8 ml LVAs ap4: 13.2 cm2 LVAs ap2: 12.1 cm2 LVLs ap4: 5.8 cm LVLs ap2: 5.7 cm ESV(MOD-sp4): 25.6 ml ESV(MOD-sp2): 23.7 ml ESV(sp4-el): 25.4 ml ESV(sp2-el): 21.9 ml EF(MOD-sp4): 67.4 % EF(MOD-sp2): 70.6 % EF(sp4-el): 67.6 % SV(MOD-sp4): 53.0 ml SV(MOD-sp2): 56.8 ml SV(sp4-el): 53.1 ml SI(MOD-sp4): 29.1 ml/m2 SI(MOD-sp2): 31.2 ml/m2 LA A4 area: 20.3 cm2 LA dimension(2D): 3.7 cm RA A4 area: 18.5 cm2 TAPSE: 2.3 cm Time Measurements MV dec time: 0.22 sec Doppler Measurements & Calculations MV E max tao: 105.7 cm/sec Lat Peak E' Tao: 10.6 cm/sec Med Peak E' Tao: 9.0 cm/sec MV A max tao: 83.8 cm/sec E/E' lat: 9.9 E/E' med: 11.7 MV E/A: 1.3 Ao V2 max: 139.3 cm/sec LV V1 max: 124.8 cm/sec PA V2 max: 105.2 cm/sec Ao max P.8 mmHg LV V1 max P.2 mmHg PA V2 mean: 78.3 cm/sec Ao V2 mean: 94.0 cm/sec LV V1 mean P.1 mmHg Ao mean P.0 mmHg LV V1 mean: 83.0 cm/sec Ao V2 VTI: 30.7 cm LV V1 VTI: 30.4 cm AV (velocity ratio): 0.99 TR max tao: 205.4 cm/sec TR max P.9 mmHg ECHO/Echo Complete Interpretation Summary Normal LV size. Left ventricular systolic function is normal. The left ventricular ejection fraction is 65 %. Structurally normal valves. Ordering Physician: Shravan Gonzalez Chi Referring Physician: Shravan Gonzalez Chi Performed By: Zulay Krishna, RDCS, RVT 12/24/24 048 Date _ Wil Youssef MD CC: Dr. Shravan Gonzalez MD ~ Date Dictated: 12/24/24 1326 Date Transcribed: 12/24/24 163 Exchange Operator: Signed [facility] Work Phone: Coronary Angiography CTon Coronary Angiography CT [facility] Imaging Services [address] [place] [address] 12/22/24 1759 MR#: [id number] Acct: [id number] Name: CARLYN EVANGELISTA Rep #: [id number] : 1955 69 From: Wil Youssef MD PCP: Dr. Shravan Gonzalez MD Status:REG REF Y Location: CT Calcium Scoring Date of Study:: 12/22/24 Indications Indications: HLD Coronary Calcium Scoring: High-resolution Computed Tomographic imaging of the chest was performed on [12/22/24 ], with particular attention paid to the coronary arteries. Images from the examination were analyzed for the presence and extent of coronary artery calcification , using coronary calcium quantification software. The patient tolerated the procedure well and there were no complications. The results of the coronary calcification analysis are provided below. Findings Coronary Artery Left Main (LM): 0 Left Anterior Descending (LAD): 20.3 Left Circumflex (LCX): 20.3 Right Coronary Artery (RCA): 19.3 Total Agatston Score: 59.9 Percentile Rankin%-50% Calcium Scoring Interpretation: Different methods to categorize the overall amount of coronary plaque. Overall amount CAC SIS Visual of coronary plaque P1 Mild -100 <2 1-2 vessels with mild amount of plaque P2 Moderate 101-300 3-4 1-2 vessels with moderate amount, 3 vessels with mild amount of plaque P3 Severe 301-999 5-7 3 vessels with moderate amount, 1 vessel with severe amount of plaque P4 Extensive >1000 >8 2-3 vessels with severe amount of plaque Calcium Score: Mild: 1-2 vessels w/mild amount of plaque Conclusion: Mild three-vessel plaque disease 12/22/24 1800 Date Wil Youssef MD Cosigner Signature (if applicable): Date CC: Dr. Wil Youssef MD; Dr. Shravan Gonzalez MD Signed Normal [facility] Limited Chest CT Cardiac Onl yon 12-22-[address] Cardiac Only [facility] Imaging Services [address] [place] [address] Cardiac Only MR#: [id number] Acct: [id number] Name: CARLYN EVANGELISTA Rep #: [id number] : 1955 M 69 From: Miguel Angel sims MD PCP: Dr. Shravan Gonzalez MD Status: REG REF Study: Limited Chest CT Cardiac Only Date of Exam: Exam# [id number] Ordering Dr: Shravan Gonzalez MD PROCEDURE: LIMITED CHEST CT CARDIAC ONLY 12/22/2024 REASON FOR EXAM: SOB Family history of heart disease. TECHNIQUE: LIMITED CHEST CT CARDIAC ONLY CONTRAST: None One or more dose reduction techniques were used (e.g., Automated exposure control, adjustment of the mA and/or kV according to patient size, use of iterative reconstruction technique). RADIATION DOSE SUMMARY: CTDlvol: 12.19 mGy DLP: 243.79 mGycm COMPARISON: None FINDINGS: Mild atherosclerotic plaque formation of the aortic arch. Coronary artery calcification. 1 the lungs are clear. 1 cm cyst in the left lobe of the liver. CT/Limited Chest CT Cardiac Only IMPRESSION: Coronary artery calcification. Reading Location: [place] [address] CC: Dr. Shravan Gonzalez MD Exchange Operator: Signed Normal [facility] Endocrinology Visit Reporton 10-13-2024 Endocrinology Visit Report [facility] [address] [place] [address]. [address] [place] [address] OFFICE VISIT Date of Service: 10/13/24 MR#: [id number] Acct: [id number] Name: CARLYN EVANGELISTA Rep #: [id number] : 1955 Provider: MAGALIS govea Age/Sex: 68/M Location: [facility] Status: Signed Intake Vital Signs 07/10/24 08:36 10/13/24 08:38 Height 5 ft 6 in 5 ft 6 in Weight: 161 lb 8 oz 160 lb 4 oz BMI 26.0 25.8 BP 150/83 H 148/75 H Blood Pressure Location Rt brachial Rt brachial Position Sitting Sitting Pulse 62 54 L Pulse Source Monitor Monitor Pulse Oximetry (%) 96 97 Oxygen Delivery Method room air room air Intake Visit Reasons: 3 M FU Chief Complaint: f/u diabetes Is patient in pain?: No Allergies aspirin Allergy (Severe, Verified 10/13/24 08:40) Unknown NSAIDS (Non-Steroidal Anti-Inflamma Adverse Reaction (Verified 10/13/24 08:40) Nausea/Vom/Diarrhea Medications ???Medication ???Instructions ???Recorded ???Confirmed ???Type famotidine 40 mg tablet 40 mg PO DAILY 10/19/22 10/13/24 H istory tadalafil 5 mg tablet 5 mg PO DAILY 10/19/22 10/13/24 Hi story blood-glucose sensor (Dexcom G7 #9 ea 05/23/23 07/10/24 Rx Sensor device) insulin aspart U-100 100 unit/mL 40 unit (0.4 mL) continuous 10/13/24 Rx subcutaneous solution (Novolog subcutaneous infusion .continuous U-100 Insulin aspart) #36 mL losartan 50 mg tablet 50 mg PO DAILY #90 tabs 02/29/24 0 10/13/24 Rx blood sugar diagnostic (Accu-Chek #100 ea 07/10/24 07/10/24 Rx Guide test strips) Have you fallen in the past year?: No PFSH Medical History Elevated blood pressure reading in office without diagnosis of hypertension Anal fissure Cataract Arthritis Surgical History History of partial thyroidectomy History of hernia repair Family History Father Myocardial infarction Heart disease Mother Breast cancer Social History Smoking Status: Never smoker alcohol intake: current alcohol intake frequency: holidays/special occasions only substance use type: does not use what type of physical activity do you participate in: none HPI HPI Chief Complaint: f/u diabetes Details: CARLYN EVANGELISTA, is a 68 M who presents to the office today for evaluation and management of diabetes. A1C today is 6.9%, improved from 07/10/24 at 7.5%. Weight is stable. Currently using Medtronic 780 g with Guardian 4 CGM. Insulin pump downloaded and reviewed- he continues to bolus for fake carbohydrates. He gets frustrated that he has to continue to do so and then has a low blood sugar. He complains of recurrent lows with increased activity. BP today is stable. Currently taking losartan 50 mg once daily. Hx of uncontrolled cholesterol. Unable to tolerate statins. PCP was discussing injectable cholesterol medications; however, he states repeat total cholesterol was <200. I do not have record of these results. Denies any acute concerns. ROS Const Constitutional: No fatigue or weight change ENT ENT: No dizziness/vertigo Cardio Cardiology: No chest pain at rest, chest pain with exertion, shortness of breath or palpitations Skin Skin: No wounds Endo Endocrine: No fatigue or weight change Exam Const General: cooperative, healthy appearing, comfortable and no acute distress Nutritional Appearance: overweight Orientation: alert, awake and oriented x3 [facility] Head: normal to inspection Ears: hearing grossly normal bilaterally Nose: external nose normal Face and sinus: normal facial exam Eyes General: appearance normal, both eyes and all related structures Alignment and Position: alignment normal Sclera: sclerae normal Neck Neck: normal visual inspection Chest Chest palpation inspection: normal inspection of the chest Resp Effort Inspection: normal respiratory effort, able to speak in complete sentences, symmetric chest movement, normal respiratory pattern, no audible wheezes and no cough Auscultation: Bilateral: Clear to Auscultation Cardio Rate: regular rate Rhythm: regular rhythm Heart Sounds: S1 normal and S2 normal GI Inspection: normal to inspection Musc Cervical Spine: normal cervical lordosis Thoracic/Lumbar Spine: thoracic and lumbar spine normal to inspection Skin General: no rashes or lesions noted Lesions: no lesions Rashes: no rashes Trauma: no lacerations or abrasions Wounds: no wounds Neuro General: patient alert, patient awake and patient oriented x3 Cognition: normal cognition Speech: speech normal Gait: normal gait Extrem Gen (more content not included)... Normal [facility] Laboratory - Hematology and Cell countsOrdered By: Nahede Russ on 10-13-2024 HbA1c (Bld) [Mass fraction] 6.9 % High 4.2-6.3 [facility] Absolute lymphocyte countOrd ered By: Shravan Gonzalez on 07-23-2024 Lymphocytes Auto (Unsp spec) [#/Vol] 1.18 10*3/uL 0.83-4.51 [facility] Absolute neutrophil countOrd ered By: Shravan Gonzalez on 07-23-2024 Neutrophils (Bld) [#/Vol] 3.4 10*3/uL 2.0-7.7 [facility] Anion gap in Serum or Plasma Ordered By: Shravan Gonzalez on 07-23-2024 Anion gap [Moles/Vol] 7 mmol/L 5-15 [facility] Automated lymphocyte count a s percentage of total leukocytesOrdered By: Shravan Gonzalez on 07-23-2024 Lymphocytes/100 WBC Auto (Unsp spec) 21.5 % 19-41 [facility] BUN/creatinine ratioOrdered By: Shravan Gonzalez on 07-23-2024 Urea nitrogen/Creatinine [Mass ratio] 20.2 mg/mg High 10-20 [facility] Basophil percentageOrdered B y: Shravan Gonzalez on 07-23-2024 Basophils/100 WBC (Bld) 0.2 % 0-[address] [facility] Bilirubin, totalOrdered By: Shravan Gonzalez on 07-23-2024 Bilirubin [Mass/Vol] 0.69 mg/dL 0.00-1.30 [facility] Blood manual differential co mment interpretation (narrative result)Ordered By: Shravan Gonzalez on 07-23-2024 Manual differential comment David (Bld) [Interp] Not Reportable [facility] CBC W/Diff, Automatedon 07-12 Absolute Lymph 1.18 X10 3/uL Normal 0.83-4.51 [facility] Comment on above: Performed By: #### L 501.9910, L506.1001, L500.4050, L100.0100, L501.9520 #### [facility] [address] [place], [address] Absolute Neut 3.4 X10 3/uL Normal 2.0-7.7 [facility] Comment on above: Performed By: #### L 501.9910, L506.1001, L500.4050, L100.0100, L501.9520 #### [facility] [address] [place], [address] Basophils/100 WBC (Bld) 0.2 % Normal 0-[address] [facility] Comment on above: Performed By: #### L 501.9910, L506.1001, L500.4050, L100.0100, L501.9520 #### [facility] [address] [place], [address] Eosinophils/100 WBC (Bld) 4.2 % Normal 0-5 [facility] Comment on above: Performed By: #### L 501.9910, L506.1001, L500.4050, L100.0100, L501.9520 #### [facility] [address] [place], [address] Erythrocyte distribution width (RBC) [Ratio] 12.5 % Normal 11.6-14.6 [facility] Comment on above: Performed By: #### L 501.9910, L506.1001, L500.4050, L100.0100, L501.9520 #### [facility] [address] [place], [address] Hematocrit (Bld) [Volume fraction] 44.2 % Normal 40-54 [facility] Comment on above: Performed By: #### L 501.9910, L506.1001, L500.4050, L100.0100, L501.9520 #### [facility] [address] [place], [address] Hemoglobin (Bld) [Mass/Vol] 14.1 g/dL Normal 13.0-16.5 [facility] Comment on above: Performed By: #### L 501.9910, L506.1001, L500.4050, L100.0100, L501.9520 #### [facility] [address] [place], [address] IG% 0.700 Normal 0.0-0.9 [facility] Comment on above: Result Comment: IG% - Immature Granulocytes (promyelocytes, myelocytes and metamyelocytes) > 1% indicates that a LEFT SHIFT is Present. Performed By: #### L 501.9910, L506.1001, L500.4050, L100.0100, L501.9520 #### [facility] [address] [place], [address] Lymphocytes/100 WBC (Bld) 21.5 % Normal 19-41 [facility] Comment on above: Performed By: #### L 501.9910, L506.1001, L500.4050, L100.0100, L501.9520 #### [facility] [address] [place], [address] MCH (RBC) [Entitic mass] 30.3 pg Normal 27.0-32.0 [facility] Comment on above: Performed By: #### L 501.9910, L506.1001, L500.4050, L100.0100, L501.9520 #### [facility] [address] [place], [address] MCHC (RBC) [Mass/Vol] 31.9 g/dL Low 32-36 [facility] Comment on above: Performed By: #### L 501.9910, L506.1001, L500.4050, L100.0100, L501.9520 #### [facility] [address] [place], [address] MCV (RBC) [Entitic vol] 94.8 fL High 80-[address] [facility] Comment on above: Performed By: #### L 501.9910, L506.1001, L500.4050, L100.0100, L501.9520 #### [facility] [address] [place], [address] Monocytes/100 WBC (Bld) 12.2 % High 0-[address] [facility] Comment on above: Performed By: #### L 501.9910, L506.1001, L500.4050, L100.0100, L501.9520 #### [facility] [address] [place], [address] Neutrophils/100 WBC (Bld) 61.2 % Normal 47-70 [facility] Comment on above: Performed By: #### L 501.9910, L506.1001, L500.4050, L100.0100, L501.9520 #### [facility] [address] [place], [address] Nucleated RBC (Bld) [#/Vol] 0 10*3/uL Normal 0-5 [facility] Comment on above: Performed By: #### L 501.9910, L506.1001, L500.4050, L100.0100, L501.9520 #### [facility] [address] [place], [address] Platelet mean volume (Bld) [Entitic vol] 13.7 fL High 6.2-12.0 [facility] Comment on above: Performed By: #### L 501.9910, L506.1001, L500.4050, L100.0100, L501.9520 #### [facility] [address] [place], [address] Platelets (Bld) [#/Vol] 143 10*3/uL Low 150-450 [facility] Comment on above: Performed By: #### L 501.9910, L506.1001, L500.4050, L100.0100, L501.9520 #### [facility] [address] [place], [address] RBC (Bld) [#/Vol] 4.66 10*6/uL Normal 4.6-6.2 [facility] Comment on above: Performed By: #### L 501.9910, L506.1001, L500.4050, L100.0100, L501.9520 #### [facility] [address] [place], [address] RDW SD 43.4 fl Normal 35.1-43.9 [facility] Comment on above: Performed By: #### L 501.9910, L506.1001, L500.4050, L100.0100, L501.9520 #### [facility] [address] [place], [address] WBC (Bld) [#/Vol] 5.5 10*3/uL Normal 4.4-11.0 [facility] Comment on above: Performed By: #### L 501.9910, L506.1001, L500.4050, L100.0100, L501.9520 #### [facility] [address] [place], [address] Carbon dioxide, total [Moles /volume] in Central venous bloodOrdered By: Shravan Gonzalez on 07-23-2024 CO2 [Moles/Vol] 29.2 mmol/L 21.0-32.0 [facility] Chloride assayOrdered By: Konrad Gonzalez on 07-23-2024 Chloride [Moles/Vol] 102 mmol/L 98-108 [facility] Comprehensive Metabolic Prof ilon 07-23-2024 Albumin [Mass/Vol] 4.0 g/dL Normal 3.4-4.8 [facility] Comment on above: Performed By: #### L 501.9910, L506.1001, L500.4050, L100.0100, L501.9520 #### [facility] [address] [place], [address] Albumin/Globulin [Mass ratio] 1.6 {ratio} Normal 0.9-2.4 [facility] Comment on above: Performed By: #### L 501.9910, L506.1001, L500.4050, L100.0100, L501.9520 #### [facility] [address] [place], [address] ALK PHOS 74 U/L Normal 40-129 [facility] Comment on above: Performed By: #### L 501.9910, L506.1001, L500.4050, L100.0100, L501.9520 #### [facility] [address] [place], [address] ALT [Catalytic activity/Vol] 16 U/L Normal <=46 [facility] Comment on above: Performed By: #### L 501.9910, L506.1001, L500.4050, L100.0100, L501.9520 #### [facility] [address] [place], [address] AST [Catalytic activity/Vol] 21 U/L Normal <=37 [facility] Comment on above: Performed By: #### L 501.9910, L506.1001, L500.4050, L100.0100, L501.9520 #### [facility] [address] [place], [address] Bilirubin [Mass/Vol] 0.69 mg/dL Normal 0.00-1.30 [facility] Comment on above: Performed By: #### L 501.9910, L506.1001, L500.4050, L100.0100, L501.9520 #### [facility] [address] [place], [address] BUN/CRE 20.2 RATIO High 10-20 [facility] Comment on above: Performed By: #### L 501.9910, L506.1001, L500.4050, L100.0100, L501.9520 #### [facility] [address] [place], [address] Calcium [Mass/Vol] 9.7 mg/dL Normal 7.6-11.0 [facility] Comment on above: Performed By: #### L 501.9910, L506.1001, L500.4050, L100.0100, L501.9520 #### [facility] [address] [place], [address] Chloride [Moles/Vol] 102 mmol/L Normal 98-108 [facility] Comment on above: Performed By: #### L 501.9910, L506.1001, L500.4050, L100.0100, L501.9520 #### [facility] [address] [place], [address] CO2 [Moles/Vol] 29.2 mmol/L Normal 21.0-32.0 [facility] Comment on above: Performed By: #### L 501.9910, L506.1001, L500.4050, L100.0100, L501.9520 #### [facility] [address] [place], [address] Creatinine [Mass/Vol] 1.01 mg/dL Normal 0.70-1.20 [facility] Comment on above: Performed By: #### L 501.9910, L506.1001, L500.4050, L100.0100, L501.9520 #### [facility] [address] [place], [address] GAP 7 Normal 5-15 [facility] Comment on above: Performed By: #### L 501.9910, L506.1001, L500.4050, L100.0100, L501.9520 #### [facility] [address] [place], [address] GFR/1.73 sq M.predicted among non-blacks MDRD (S/P/Bld) [Vol rate/Area] 81 mL/min/{1.73_m2} Normal >60 [facility] Comment on above: Result Comment: mL/m in/1.73m2 CKD-EPI Creatinine Equation (2020) Performed By: #### L 501.9910, L506.1001, L500.4050, L100.0100, L501.9520 #### [facility] [address] [place], [address] Globulin (S) [Mass/Vol] 2.6 g/dL Normal 2.2-4.2 [facility] Comment on above: Performed By: #### L 501.9910, L506.1001, L500.4050, L100.0100, L501.9520 #### [facility] [address] [place], [address] Glucose [Mass/Vol] 154 mg/dL High 70-99 [facility] Comment on above: Performed By: #### L 501.9910, L506.1001, L500.4050, L100.0100, L501.9520 #### [facility] [address] [place], [address] Potassium [Moles/Vol] 4.6 mmol/L Normal 3.3-5.1 [facility] Comment on above: Performed By: #### L 501.9910, L506.1001, L500.4050, L100.0100, L501.9520 #### [facility] [address] [place], [address] Sodium [Moles/Vol] 139 mmol/L Normal 133-145 [facility] Comment on above: Performed By: #### L 501.9910, L506.1001, L500.4050, L100.0100, L501.9520 #### [facility] [address] [place], [address] T PROT 6.6 g/dL Normal 5.9-8.4 [facility] Comment on above: Performed By: #### L 501.9910, L506.1001, L500.4050, L100.0100, L501.9520 #### [facility] [address] [place], [address] Urea nitrogen [Mass/Vol] 20 mg/dL High 4-19 [facility] Comment on above: Performed By: #### L 501.9910, L506.1001, L500.4050, L100.0100, L501.9520 #### [facility] [address] [place], [address] Eosinophil percentageOrdered By: Shravan Gonzalez on 07-23-2024 Eosinophils/100 WBC (Bld) 4.2 % 0-5 [facility] Erythrocyte distribution wid th ratioOrdered By: Shravan Gonzalez on 07-23-2024 Erythrocyte distribution width (RBC) [Ratio] 12.5 % 11.6-14.6 [facility] Erythrocyte distribution wid th standard deviationOrdered By: Shravan Gonzalez on 07-23-2024 Erythrocyte distribution width (RBC) [Entitic vol] 43.4 fL 35.1-43.9 [facility] Erythrocyte distribution width (RBC) [Ratio] 43.4 fl 35.1-43.9 [facility] GFR/1.73 sq M.predicted sammy g non-blacks MDRD (S/P/Bld) [Vol rate/Area]Ordered By: Shravan Gonzalez on 07-23-2024 Estimated GFR (MDRD) Non-Af Amer 81 >60 [facility] Comment on above: mL/min/1.73m2 CKD-EP I Creatinine Equation (2020) Glomerular filtration rate ( GFR) estimation/1.73 sq m using serum, plasma, or whole bOrdered By: Shravan Gonzalez on 07-23-2024 GFR/1.73 sq M.predicted among non-blacks MDRD (S/P/Bld) [Vol rate/Area] 81 mL/min/{1.73_m2} >60 [facility] Comment on above: mL/min/1.73m2 CKD-EP I Creatinine Equation (2020) Hematocrit Auto (Bld) [Volum e fraction]Ordered By: Shravan Gonzalez on 07-23-2024 Hematocrit (Bld) [Volume fraction] 44.2 % 40-54 [facility] Hemoglobin measurementOrdere d By: Shravan Gonzalez on 07-23-2024 Hemoglobin (Bld) [Mass/Vol] 14.1 g/dL 13.0-16.5 [facility] Immature granulocytes/100 WB C Auto (Bld)Ordered By: Shravan Gonzalez on 07-23-2024 Immature granulocytes/100 WBC (Bld) 0.700 % 0.0-0.9 [facility] Comment on above: IG% - Immature Granu locytes (promyelocytes, myelocytes and metamyelocytes) > 1% indicates that a LEFT SHIFT is Present. L506.1001on 07-23-2024 Vitamin D 25-OH 34.1 ng/mL Normal 30-100 [facility] Comment on above: Result Comment: Melvina min D Status Deficiency: <20 ng/mL (50nmol/L) Insufficiency: 20-30 ng/mL (50-75 nmol/L) Sufficiency: 30-100 ng/mL (75-250 nmol/L) Toxicity: >100 ng/mL (>250 nmol/L) Performed By: #### L 501.9910, L506.1001, L500.4050, L100.0100, L501.9520 ####[facility] [address] [place], [place], [id number] Laboratory - Chemistry and C hemistry - challengeOrdered By: Shravan Gonzalez on 07-23-2024 AST [Catalytic activity/Vol] 21 U/L <38 [facility] Lymphocytes Auto (Unsp spec) [#/Vol]Ordered By: Shravan Gonzalez on 07-23-2024 Lymphocytes (Bld) [#/Vol] 1.18 10*3/uL 0.83-4.51 [facility] Lymphocytes/100 WBC Auto (Un sp spec)Ordered By: Shravan Gonzalez on 07-23-2024 Lymphocytes/100 WBC (Bld) 21.5 % 19-41 [facility] MCV (mean corpuscular volume ) determinationOrdered By: Shravan Gonzalez on 07-23-2024 MCV (RBC) [Entitic vol] 94.8 fL High 80-[address] [facility] Manual differential comment David (Bld) [Interp]Ordered By: Shravan Gonzalez on 07-23-2024 Differential Comment Not Reportable [facility] Mean corpuscular hemoglobin (MCH) determinationOrdered By: Shravan Gonzalez on 07-23-2024 MCH (RBC) [Entitic mass] 30.3 pg 27.0-32.0 [facility] Mean corpuscular hemoglobin concentration (MCHC) determinationOrdered By: Shravan Gonzalez on 07-23-2024 MCHC (RBC) [Mass/Vol] 31.9 g/dL Low 32-36 [facility] Mean platelet volume determi nationOrdered By: Shravan Gonzalez on 07-23-2024 Platelet mean volume (Bld) [Entitic vol] 13.7 fL High 6.2-12.0 [facility] Monocyte percentageOrdered B y: Shravan Payam on 07-23-2024 Monocytes/100 WBC (Bld) 12.2 % High 0-[address] [facility] Neutrophil percentageOrdered By: Shravan Gonzalez on 07-23-2024 Neutrophils/100 WBC (Bld) 61.2 % 47-70 [facility] Nucleated red blood cell per centageOrdered By: Shravan Payam on 07-23-2024 Nucleated RBC/100 WBC (Bld) [Ratio] 0 % 0-5 [facility] PSA, total screeningOrdered By: Shravan Payam on 07-23-2024 Prostate Specific Antigen Screen 0.83 ng/mL 0.02-4.00 [facility] Comment on above: This test was perfor med using the [employer] tPSA method. Measured values of a patient sample can vary depending on the testing procedure used. PSA values determined on patient samples by different testing procedures cannot be used interchangeably. If there is a change in PSA assays while monitoring therapy, sequential testing should be performed to confirm baseline values. PSA,Total - Annual Screenon 07-23-2024 PSA,TOT SCREEN 0.83 ng/mL Normal 0.02-4.00 [facility] Comment on above: Result Comment: This test was performed using the [employer] tPSA method. Measured values of a patient??sample can vary depending on the testing procedure used. PSA values determined on patient samples by different testing procedures cannot be used interchangeably. If there is a change in PSA assays while monitoring therapy, sequential testing should be performed to confirm baseline values. Performed By: #### L 501.9910, L506.1001, L500.4050, L100.0100, L501.9520 #### [facility] [address] [place], [place], [id number] Platelet countOrdered By: Konrad Gonzalez on 07-23-2024 Platelets (Bld) [#/Vol] 143 10*3/uL Low 150-450 [facility] Potassium (Unsp spec) [Mass/ Vol]Ordered By: Shravan Gonzalez on 07-23-2024 Potassium [Moles/Vol] 4.6 mmol/L 3.3-5.1 [facility] Potassium measurement (mass/ volume)Ordered By: Shravan Gonzalez on 07-23-2024 Potassium (Unsp spec) [Mass/Vol] 4.6 mmol/L 3.3-5.1 [facility] RBC Auto (Bld) [#/Vol]Ordere d By: Shravan Gonzalez on 07-23-2024 RBC (Bld) [#/Vol] 4.66 10*6/uL 4.6-6.2 [facility] Serum creatinine measurement (mass/volume)Ordered By: Shravan Gonzalez on 07-23-2024 Creatinine [Mass/Vol] 1.01 mg/dL 0.70-1.20 [facility] Serum globulin measurementOr dered By: Shravan Gonzalez on 07-23-2024 Globulin (S) [Mass/Vol] 2.6 g/dL 2.2-4.2 [facility] Serum glucose measurement (m ass/volume)Ordered By: Shravan Gonzalez on 07-23-2024 Glucose [Mass/Vol] 154 mg/dL High 70-99 [facility] Serum or plasma alanine mejia otransferase (ALT) measurementOrdered By: Shravan Gonzalez on 07-23-2024 ALT [Catalytic activity/Vol] 16 U/L <47 [facility] Serum or plasma albumin dylon urement (mass/volume)Ordered By: Shravan Gonzalez on 07-23-2024 Albumin [Mass/Vol] 4.0 g/dL 3.4-4.8 [facility] Serum or plasma albumin/glob ulin mass ratioOrdered By: Shravan Gonzalez on 07-23-2024 Albumin/Globulin [Mass ratio] 1.6 {ratio} 0.9-2.4 [facility] Serum or plasma alkaline hannah sphatase measurementOrdered By: Shravan Gonzalez 07-23-2024 ALP [Catalytic activity/Vol] 74 U/L 40-129 [facility] Serum or plasma calcium dylon urement (mass/volume)Ordered By: Shravan Gonzalez 07-23-2024 Calcium [Mass/Vol] 9.7 mg/dL 7.6-11.0 [facility] Serum or plasma urea nitroge n measurement (mass/volume)Ordered By: Shravan Gonzalez on 07-23-2024 Urea nitrogen [Mass/Vol] 20 mg/dL High 4-19 [facility] Sodium levelOrdered By: Shravan Gonzalez 07-23-2024 Sodium [Moles/Vol] 139 mmol/L 133-145 [facility] TSH DL <= 0.005 mIU/L QnOrde red By: Shravan Gonzalez on 07-23-2024 Thyroid Stimulating Hormone (TSH) 2.140 uIU/mL 0.300-4.200 [facility] TSH Qn 2.140 uIU/mL 0.300-4.200 [facility] Thyroid Stim Hormone (TSH)on 07-23-2024 TSH 2.140 uIU/mL Normal 0.300-4.200 [facility] Comment on above: Performed By: #### L 501.9910, L506.1001, L500.4050, L100.0100, L501.9520 #### [facility] [place], [address] Total proteinOrdered By: Shravan Gonzalez on 07-23-2024 Protein [Mass/Vol] 6.6 g/dL 5.9-8.4 [facility] Vitamin D, 25-hydroxyOrdered By: Shravan Gonzalez on 07-23-2024 Vitamin D 25-Hydroxy 34.1 ng/mL 30-100 [facility] Comment on above: Vitamin D StatusDefi ciency: <20 ng/mL (50nmol/L)Insufficiency: 20-30 ng/mL (50-75 nmol/L)Sufficiency: 30-100 ng/mL (75-250 nmol/L)Toxicity: >100 ng/mL (>250 nmol/L) White blood cell (WBC) count Ordered By: Shravan Gonzalez on 07-23-2024 WBC (Bld) [#/Vol] 5.5 10*3/uL 4.4-11.0 [facility] Esophagus Dual Contraston Esophagus Dual Contrast [facility] Imaging Services [address] [place], [place] [address] Esophagus Dual Contrast MR#: [id number] Acct: [id number] Name: CARLYN EVANGELISTA Rep #: [id number] : 1955 M 68 From: Cortez Koch MD PCP: Dr. Shravan Gonzalez MD Status: REG CLI Study: Esophagus Dual Contrast Date of Exam: 07/16/24 Exam# [id number] Ordering Dr: Garrett Elena MD PROCEDURE: ESOPHAGUS DUAL CONTRAST REASON FOR EXAM: Dysphagia. TECHNIQUE: Following the ingestion of effervescent granules, high density barium and a barium pill, routine fluoroscopic imaging was performed with image documentation. FLUOROSCOPIC TIME: 72 seconds. DOSE: 8.2 mGy. FLUOROGRAPHIC IMAGES: 6 sequences. COMPARISON: None. FINDINGS: No abnormalities were noted in the hypopharynx. Esophagus contractility was normal. No constricting or obstructing lesions were identified. No intraluminal filling defects. No ulcerations are identified. A small Schatzki's ring is demonstrated. No signs of gastroesophageal reflux. RAD/Esophagus Dual Contrast IMPRESSION: 1. A small Schatzki's ring was demonstrated during this study. 2. No signs of gastroesophageal reflux or other abnormalities. Reading Location: [facility] CC: Dr. Shravan Gonzalez MD; Dr. Garrett Elena MD Exchange Operator: Signed Normal [facility] Endocrinology Visit Reporton 07-10-2024 Endocrinology Visit Report [facility] [address] [place] [address] OFFICE VISIT Date of Service: 07/10/24 MR#: [id number] Acct: [id number] Name: CARLYN EVANGELISTA Rep #: [id number] : 1955 Provider: MAGALIS govea Age/Sex: 68/M Location: [facility] Status: Signed Intake Vital Signs 03/31/24 08:05 07/10/24 08:36 Height 5 ft 6 in 5 ft 6 in Weight: 159 lb 8 oz 161 lb 8 oz BMI 25.7 26.0 BP 150/75 H 150/83 H Blood Pressure Location Lt brachial Rt brachial Position Sitting Sitting Pulse 60 62 Pulse Source Monitor Monitor Pulse Oximetry (%) 96 96 Oxygen Delivery Method room air room air Intake Visit Reasons: 3 M FU Chief Complaint: f/u diabetes Is patient in pain?: No Allergies aspirin Allergy (Severe, Verified 07/10/24 08:40) Unknown NSAIDS (Non-Steroidal Anti-Inflamma Adverse Reaction (Verified 07/10/24 08:40) Nausea/Vom/Diarrhea Medications ???Medication ???Instructions ???Recorded ???Confirmed ???Type famotidine 40 mg tablet 40 mg PO DAILY 10/19/22 07/10/24 H istory tadalafil 5 mg tablet 5 mg PO DAILY 10/19/22 07/10/24 Hi story blood-glucose sensor (Dexcom G7 #9 ea 05/23/23 07/10/24 Rx Sensor device) insulin aspart U-100 100 unit/mL 40 unit (0.4 mL) continuous 07/10/24 Rx subcutaneous solution (Novolog subcutaneous infusion .continuous U-100 Insulin aspart) #36 mL losartan 50 mg tablet 50 mg PO DAILY #90 tabs 02/29/24 0 07/10/24 Rx blood sugar diagnostic (Accu-Chek #100 ea 07/10/24 07/10/24 Rx Guide test strips) Have you fallen in the past year?: No PFSH Medical History Elevated blood pressure reading in office without diagnosis of hypertension Anal fissure Cataract Arthritis Surgical History History of partial thyroidectomy History of hernia repair Family History Father Myocardial infarction Heart disease Mother Breast cancer Social History Smoking Status: Never smoker alcohol intake: current alcohol intake frequency: holidays/special occasions only substance use type: does not use what type of physical activity do you participate in: none HPI HPI Chief Complaint: f/u diabetes Details: CARLYN EVANGELISTA, is a 68 M who presents to the office today for evaluation and management of diabetes. A1C today is 7.5%, increased from 03/31/24 at 7.2%. He has gained 2 lbs since that time. Currently using [employer] 780g with [employer] CGM. Insulin pump downloaded and reviewed- he is aggressively treating elevated blood sugars resulting in lows. He gets frustrated when he boluses for elevated blood sugars and he does not notice quick improvement. He boluses fake carbohydrates to address elevated blood sugars. Denies any significant episode of hypoglycemia that has required assistance from others. BP today is 150/83. It is typically elevated in our office. He reports typical systolic is 120's with PCP. Currently taking losartan 50 mg once daily. Hx of elevated cholesterol, he is unable to tolerate statins. PCP was discussing Leqvio and Repatha. He started taking fish oil daily, he would like to wait until repeat lipid panel prior to starting injectable medications. Labs are up to date and largely unremarkable. Denies any acute concerns. ROS Const Constitutional: No fatigue or weight change ENT ENT: No dizziness/vertigo Cardio Cardiology: No chest pain at rest, chest pain with exertion, shortness of breath or palpitations Musc Musculoskeletal: Positive for joint pain and back pain Skin Skin: No wounds Endo Endocrine: No fatigue or weight change Exam Const General: cooperative, healthy appearing, comfortable and no acute distress Nutritional Appearance: overweight Orientation: alert, awake and oriented x3 [facility] Head: normal to inspection Ears: hearing grossly normal bilaterally Nose: external nose normal Face and sinus: normal facial exam Eyes General: appearance normal, both eyes and all related structures Alignment and Position: alignment normal Sclera: sclerae normal Neck Neck: normal visual inspection Chest Chest palpation inspection: normal inspection of the chest Resp Effort Inspection: normal respiratory effort, able to speak in complete sentences, symmetric chest movement, normal respiratory pattern, no audible wheezes and no cough Auscultation: Bilateral: Clear to Auscultation Cardio Rate: regular rate Rhythm: regular rhythm Heart Sounds: S1 normal and S2 normal GI Inspection: normal to inspection Musc Cervical Spine: normal cervical lordos (more content not included)... Normal [facility] - Hematology and Cell countsOrdered By: Naheed Russ on 07-10-2024 HbA1c (Bld) [Mass fraction] 7.5 % High 4.2-6.3 [facility] Endocrinology Visit Reporton 03-31-2024 Endocrinology Visit Report [facility] [address] [place] [address] OFFICE VISIT Date of Service: 03/31/24 MR#: [id number] Acct: [id number] Name: CARLYN EVANGELISTA Rep #: [id number] : 1955 Provider: MAGALIS govea Age/Sex: 68/M Location: [facility] Status: Signed Intake Vital Signs 12/17/23 08:37 03/31/24 08:05 Height 5 ft 6 in 5 ft 6 in Weight: 159 lb 8 oz BMI 25.7 BP 150/75 H Blood Pressure Location Lt brachial Position Sitting Pulse 60 Pulse Source Monitor Pulse Oximetry (%) 96 Oxygen Delivery Method room air Intake Visit Reasons: 3 M FU Chief Complaint: f/u diabetes Allergies aspirin Allergy (Severe, Verified 12/17/23 08:31) Unknown NSAIDS (Non-Steroidal Anti-Inflamma Adverse Reaction (Verified 12/17/23 08:31) Nausea/Vom/Diarrhea Medications ???Medication ???Instructions ???Recorded ???Confirmed ???Type famotidine 40 mg tablet 40 mg PO DAILY 10/19/22 03/31/24 History tadalafil 5 mg tablet 5 mg PO DAILY 10/19/22 03/31/24 History blood-glucose sensor (Dexcom G7 #9 ea 05/23/23 03/31/24 Rx Sensor device) blood sugar diagnostic (Accu-Chek #100 ea 07/16/23 03/31/24 Rx Guide test strips) insulin aspart U-100 100 unit/mL 40 unit (0.4 mL) continuous 01/18/24 03/31/24 Rx subcutaneous solution (Novolog subcutaneous infusion .continuous U-100 Insulin aspart) #36 mL losartan 50 mg tablet 50 mg PO DAILY #90 tabs 02/29/24 03/31/24 Rx Have you fallen in the past year?: Yes PFSH Medical History Elevated blood pressure reading in office without diagnosis of hypertension Anal fissure Cataract Arthritis Surgical History History of partial thyroidectomy History of hernia repair Family History Father Myocardial infarction Heart disease Mother Breast cancer Social History Smoking Status: Never smoker alcohol intake: current alcohol intake frequency: holidays/special occasions only substance use type: does not use what type of physical activity do you participate in: none HPI HPI Chief Complaint: f/u diabetes Details: CARLYN EVANGELISTA, is a 68 M who presents to the office today for evaluation and management of diabetes. A1C today is 7.2%, improved from 12/17/23 at 7.6%. He has lost 8 lbs since that time. Currently using [employer] 780 g insulin pump. Pump downloaded and reviewed- he is having lows shortly following breakfast. BGL at time of appointment was in 50's. He gets frustrated with labile blood sugar control. BP today remains elevated at 150/75. Currently taking losartan 50 mg once daily. Reports compliance with medication regimen. He was recently seen by PCP and reports BP was 120's systolic. Hx of uncontrolled cholesterol, he is unable to tolerate statin therapy. He was on ezetimibe for a short time and had myalgias. PCP recommend Leqvio. His labs are partially up to date. Denies any acute concerns. ROS Const Constitutional: No fatigue or weight change ENT ENT: No dizziness/vertigo Cardio Cardiology: No chest pain at rest, chest pain with exertion, shortness of breath or palpitations Skin Skin: No wounds Endo Endocrine: No fatigue or weight change Exam Const General: cooperative, healthy appearing, comfortable and no acute distress Nutritional Appearance: overweight Orientation: alert, awake and oriented x3 [facility] Head: normal to inspection Ears: hearing grossly normal bilaterally Nose: external nose normal Face and sinus: normal facial exam Eyes General: appearance normal, both eyes and all related structures Alignment and Position: alignment normal Sclera: sclerae normal Neck Neck: normal visual inspection Carotids: normal carotid upstroke Chest Chest palpation inspection: normal inspection of the chest Resp Effort Inspection: normal respiratory effort, able to speak in complete sentences, symmetric chest movement, normal respiratory pattern, no audible wheezes and no cough Auscultation: Bilateral: Clear to Auscultation Cardio Rate: regular rate Rhythm: regular rhythm Heart Sounds: S1 normal and S2 normal Bruits: no carotid bruits GI Inspection: normal to inspection Musc Cervical Spine: normal cervical lordosis Thoracic/Lumbar Spine: thoracic and lumbar spine normal to inspection Skin General: no rashes or lesions noted Lesions: no lesions Rashes: no rashes Trauma: no lacerations or abrasions Wounds: no wounds Neuro General: patient alert, patient awake and patient oriented x3 Cognition: normal cognition Speech: speech normal Gait: normal gait (more content not included)... Normal [facility] - Hematology and Cell countson 03-31-2024 HbA1c (Bld) [Mass fraction] 7.2 % High 4.2-6.3 [facility] Absolute lymphocyte countOrd ered By: Shravan Gonzalez on 07-23-2023 Lymphocytes Auto (Unsp spec) [#/Vol] 1.24 10*3/uL 0.83-4.51 [facility] Automated lymphocyte count a s percentage of total leukocytesOrdered By: Shravan Gonzalez on 07-23-2023 Lymphocytes/100 WBC Auto (Unsp spec) 16.4 % 19-41 [facility] Basophil percentageOrdered B y: Shravan Gonzalez on 07-23-2023 Basophils/100 WBC (Bld) 0.4 % 0-1 [facility] Bilirubin [Mass/Vol] 0.60 mg/dL 0.20-1.00 [facility] Comment on above: For patients on eltr ombopag therapy, use of Dimension [place] TBIL is not recommended. Chloride [Moles/Vol] 105 mmol/L 98-107 [facility] Eosinophils/100 WBC (Bld) 3.2 % 0-5 [facility] Glucose [Mass/Vol] 246 mg/dL 74-106 [facility] Comment on above: Glucose result great er than or equal to 200 mg/dLsuggests DIABETES MELLITUS per A.D.A. criteria. Hemoglobin (Bld) [Mass/Vol] 14.6 g/dL 13.0-16.5 [facility] Monocytes/100 WBC (Bld) 9.8 % 0-10 [facility] Neutrophils (Bld) [#/Vol] 5.3 10*3/uL 2.0-7.7 [facility] Neutrophils/100 WBC (Bld) 69.7 % 47-70 [facility] Potassium [Moles/Vol] 4.4 mmol/L 3.5-5.1 [facility] Protein [Mass/Vol] 7.0 g/dL 6.4-8.2 [facility] Sodium [Moles/Vol] 137 mmol/L 136-145 [facility] WBC (Bld) [#/Vol] 7.6 10*3/uL 4.4-11.0 [facility] Blood manual differential co mment interpretation (narrative result)Ordered By: Shravan Gonzalez on 07-23-2023 Manual differential comment David (Bld) [Interp] SCANNED [facility] Determination of erythrocyte mean corpuscular volume (MCV)Ordered By: Shravan Gonzalez on 07-23-2023 MCV (RBC) [Entitic vol] 95.0 fL 80-[address] [facility] Erythrocyte distribution wid th ratioOrdered By: Shravan Gonzalez on 07-23-2023 Erythrocyte distribution width (RBC) [Ratio] 12.4 % 11.6-14.6 [facility] Erythrocyte distribution wid th standard deviationOrdered By: Shravan Gonzalez on 07-23-2023 Erythrocyte distribution width (RBC) [Entitic vol] 43.5 fL 35.1-43.9 [facility] Hematocrit Auto (Bld) [Volum e fraction]Ordered By: Shravan Gonzalez on 07-23-2023 Hematocrit (Bld) [Volume fraction] 45.9 % 40-54 [facility] Immature granulocytes/100 WB C Auto (Bld)Ordered By: Sharvan Gonzalez on 07-23-2023 Immature granulocytes/100 WBC (Bld) 0.500 % 0.0-0.9 [facility] Comment on above: IG% - Immature Granu locytes (promyelocytes, myelocytes and metamyelocytes) > 1% indicates that a LEFT SHIFT is Present. Laboratory - Chemistry and C hemistry - challengeOrdered By: Shravan Gonzalez on 07-23-2023 Albumin/Globulin [Mass ratio] 0.9 {ratio} 0.9-2.4 [facility] ALP [Catalytic activity/Vol] 79 U/L 45-117 [facility] ALT [Catalytic activity/Vol] 21 U/L 16-61 [facility] CO2 [Moles/Vol] 30.0 mmol/L 21.0-32.0 [facility] Globulin (S) [Mass/Vol] 3.6 g/dL 2.2-4.2 [facility] Urea nitrogen/Creatinine [Mass ratio] 17.1 mg/mg 10-20 [facility] Laboratory - Hematology and Cell countsOrdered By: Shravan Gonzalez on 07-23-2023 MCH (RBC) [Entitic mass] 30.2 pg 27.0-32.0 [facility] MCHC (RBC) [Mass/Vol] 31.8 g/dL 32-36 [facility] Nucleated RBC/100 WBC (Bld) [Ratio] 0 % 0-5 [facility] Platelet mean volume (Bld) [Entitic vol] 14.1 fL 6.2-12.0 [facility] Platelets (Bld) [#/Vol] 151 10*3/uL 150-450 [facility] No Panel InformationOrdered By: Shravan Gonzalez on 07-23-2023 Estimated GFR (MDRD) Amer 97 mL/min >60 [facility] Comment on above: GFR Calc Estimated GFR (MDRD) Non-Af Amer 80 mL/min >60 [facility] Comment on above: Non- GFR Calc Prostate Specific Antigen Screen 0.97 ng/mL 0.00-4.00 [facility] Comment on above: This test was perfor med using the TPSA assay method for the[employer] chemistry system. Values obtained with differentassay methods cannot be used interchangably.When changing PSA assays in the course of monitoring apatient, additional sequential testing should be carriedout to confirm baseline values. Vitamin D 25-Hydroxy 44.9 ng/mL [facility] Comment on above: Vitamin D 25(OH) Sta tus Range Deficiency <20 ng/mL (50nmol/L) Insufficiency 20 - 30 ng/mL (50 - 75 nmol/L) Sufficiency 30 - 100 ng/mL (75 - 250 nmol/L) Toxicity >100 ng/mL (>250 nmol/L) RBC Auto (Bld) [#/Vol]Ordere d By: Shravan Gonzalez on 07-23-2023 RBC (Bld) [#/Vol] 4.83 10*6/uL 4.6-6.2 [facility] Serum or plasma calcium dylon urement (mass/volume)Ordered By: Shravan Gonzalez on 07-23-2023 Calcium [Mass/Vol] 9.3 mg/dL 8.5-10.1 [facility] Serum or plasma creatinine m easurement (mass/volume)Ordered By: Shravan Gonzalez 07-23-2023 Creatinine [Mass/Vol] 0.99 mg/dL 0.70-1.30 [facility] Comment on above: The validity of the calculated GFR & GFRAA in patients over 70 years has not been determined. Clinical correlation is essential. Serum or plasma thyroid stim ulating hormone (TSH) measurement (units/volume)Ordered By: Shravan Gonzalez on 07-23-2023 TSH Qn 1.46 uIU/mL 0.358-3.74 [facility] Serum or plasma urea nitroge n measurement (mass/volume)Ordered By: Shravan Gonzalez 07-23-2023 Urea nitrogen [Mass/Vol] 17 mg/dL 7-18 [facility] Thin prep Papanicolaou smear with manual screeningOrdered By: Shravan Gonzalez 07-23-2023 Thin prep Papanicolaou smear with manual screening 3.4 g/dL 3.2-5.0 [facility] Thin prep Papanicolaou smear with manual screening 19 U/L 15-37 [facility] Thin prep Papanicolaou smear with manual screening 2 5-15 [facility] Laboratory - Microbiology an d Antimicrobial susceptibilityOrdered By: Shravan Gonzalez on 05-21-2023 SARS-CoV-2 (COVID-19) RNA RAMON+probe Ql (Unsp spec) [facility] Basophil percentageOrdered B y: Naheed Russ on 05-11-2023 Glucose [Mass/Vol] 156 mg/dL 74-106 [facility] Comment on above: Fasting Glucose resu lt greater than or equal to 126 mg/dL suggests DIABETES MELLITUS per A.D.A. criteria. No Panel InformationOrdered By: Naheed Russ on 05-11-2023 C-Peptide < 0.1 ng/mL 1.1-4.4 [facility] Comment on above: C-Peptide reference interval is for fasting patients.Performed at: [facility] [place] [id number] Director: Garrett Beckwith PhD, Phone: [phone] Basophil percentageOrdered B y: Naheed Russ on 05-09-2023 Bilirubin [Mass/Vol] 0.70 mg/dL 0.20-1.00 [facility] Comment on above: For patients on eltr ombopag therapy, use of Dimension [place] TBIL is not recommended. Chloride [Moles/Vol] 106 mmol/L 98-107 [facility] Glucose [Mass/Vol] 88 mg/dL 74-106 [facility] Potassium [Moles/Vol] 3.9 mmol/L 3.5-5.1 [facility] Protein [Mass/Vol] 7.1 g/dL 6.4-8.2 [facility] Sodium [Moles/Vol] 139 mmol/L 136-145 [facility] Laboratory - Chemistry and C hemistry - challengeOrdered By: Naheed Russ on 05-09-2023 ALP [Catalytic activity/Vol] 86 U/L 45-117 [facility] ALT [Catalytic activity/Vol] 22 U/L 16-61 [facility] CO2 [Moles/Vol] 33.0 mmol/L 21.0-32.0 [facility] Globulin (S) [Mass/Vol] 3.6 g/dL 2.2-4.[address] [facility] Urea nitrogen/Creatinine [Mass ratio] 23.6 mg/mg 10-20 [facility] Laboratory - Hematology and Cell countson 05-09-2023 HbA1c (Bld) [Mass fraction] 7.8 % 4.2-6.3 [facility] No Panel InformationOrdered By: Naheed Russ on 05-09-2023 Estimated GFR (MDRD) Amer 109 mL/min >60 [facility] Comment on above: GFR Calc Estimated GFR (MDRD) Non-Af Amer 90 mL/min >60 [facility] Comment on above: Non- GFR Calc Serum or plasma albumin dylon urement (mass/volume)Ordered By: Naheed Russ on 05-09-2023 Albumin [Mass/Vol] 3.5 g/dL 3.2-5.0 [facility] Serum or plasma albumin/glob ulin mass ratioOrdered By: Naheed Russ on 05-09-2023 Albumin/Globulin [Mass ratio] 1.0 {ratio} 0.9-2.4 [facility] Serum or plasma calcium dylon urement (mass/volume)Ordered By: Naheed Russ on 05-09-2023 Calcium [Mass/Vol] 9.6 mg/dL 8.5-10.1 [facility] Serum or plasma creatinine m easurement (mass/volume)Ordered By: Naheed Russ on 05-09-2023 Creatinine [Mass/Vol] 0.89 mg/dL 0.70-1.30 [facility] Comment on above: The validity of the calculated GFR & GFRAA in patients over 70 years has not been determined. Clinical correlation is essential. Serum or plasma urea nitroge n measurement (mass/volume)Ordered By: Naheed Russ on 05-09-2023 Urea nitrogen [Mass/Vol] 21 mg/dL 7-18 [facility] Thin prep Papanicolaou smear with manual screeningOrdered By: Naheed Russ on 05-09-2023 Thin prep Papanicolaou smear with manual screening 10 U/L 15-37 [facility] Thin prep Papanicolaou smear with manual screening 0 5-15 [facility] Absolute lymphocyte countOrd ered By: Shravan Gonzalez on 02-08-2023 Lymphocytes Auto (Unsp spec) [#/Vol] 1.63 10*3/uL 0.83-4.51 [facility] Basophil percentageOrdered B y: Shravan Gonzalez on 02-08-2023 Basophils/100 WBC (Bld) 0.1 % 0-[address] [facility] Bilirubin [Mass/Vol] 0.80 mg/dL 0.20-1.00 [facility] Comment on above: For patients on eltr ombopag therapy, use of Dim[place] TBIL is not recommended. Chloride [Moles/Vol] 107 mmol/L 98-107 [facility] Eosinophils/100 WBC (Bld) 2.8 % 0-5 [facility] Glucose [Mass/Vol] 67 mg/dL 74-106 [facility] Neutrophils (Bld) [#/Vol] 5.0 10*3/uL 2.0-7.7 [facility] Neutrophils/100 WBC (Bld) 63.8 % 47-70 [facility] Potassium [Moles/Vol] 4.4 mmol/L 3.5-5.1 [facility] Protein [Mass/Vol] 7.6 g/dL 6.4-8.2 [facility] Sodium [Moles/Vol] 141 mmol/L 136-145 [facility] WBC (Bld) [#/Vol] 7.9 10*3/uL 4.4-11.0 [facility] Blood erythrocytes count (nu mber/volume)Ordered By: Shravan Gonzalez on 02-08-2023 RBC (Bld) [#/Vol] 4.93 10*6/uL 4.6-6.2 [facility] Blood hemoglobin measurement (mass/volume)Ordered By: Shravan Gonzalez on 02-08-2023 Hemoglobin (Bld) [Mass/Vol] 15.3 g/dL 13.0-16.5 [facility] Blood lymphocytes/100 leukoc ytesOrdered By: Shravan Gonzalez on 02-08-2023 Lymphocytes/100 WBC (Bld) 20.6 % 19-41 [facility] Blood monocytes/100 leukocyt esOrdered By: Shravan Gonzalez on 02-08-2023 Monocytes/100 WBC (Bld) 12.2 % 0-[address] [facility] Blood platelet mean volumeOr dered By: Shravan Gonzalez on 02-08-2023 Platelet mean volume (Bld) [Entitic vol] 13.9 fL 6.2-12.0 [facility] Determination of erythrocyte mean corpuscular volume (MCV)Ordered By: Shravan Payam on 02-08-2023 MCV (RBC) [Entitic vol] 96.8 fL 80-[address] [facility] Hematocrit Auto (Bld) [Volum e fraction]Ordered By: [facility] on 02-08-2023 Hematocrit (Bld) [Volume fraction] 47.7 % 40-54 [facility] Laboratory - Chemistry and C hemistry - challengeOrdered By: [facility] on 02-08-2023 ALP [Catalytic activity/Vol] 86 U/L 45-117 [facility] ALT [Catalytic activity/Vol] 28 U/L 16-61 [facility] CO2 [Moles/Vol] 30.0 mmol/L 21.0-32.0 [facility] Globulin (S) [Mass/Vol] 3.7 g/dL 2.2-4.[address] [facility] Urea nitrogen/Creatinine [Mass ratio] 19.7 mg/mg 10-20 [facility] Laboratory - Hematology and Cell countsOrdered By: [facility] on 02-08-2023 Erythrocyte distribution width (RBC) [Entitic vol] 44.1 fL 35.1-43.9 [facility] Erythrocyte distribution width (RBC) [Ratio] 12.4 % 11.6-14.6 [facility] Immature granulocytes/100 WBC (Bld) 0.500 % 0.0-0.9 [facility] Comment on above: IG% - Immature Granu locytes (promyelocytes, myelocytes and metamyelocytes) > 1% indicates that a LEFT SHIFT is Present. MCH (RBC) [Entitic mass] 31.0 pg 27.0-32.0 [facility] Nucleated RBC/100 WBC (Bld) [Ratio] 0 % 0-5 [facility] MCHC Auto (RBC) [Mass/Vol]Or dered By: [facility] on 02-08-2023 MCHC (RBC) [Mass/Vol] 32.1 g/dL 32-36 [facility] No Panel InformationOrdered By: Shravan Gonzalez on 02-08-2023 Estimated GFR (MDRD) Amer 100 mL/min >60 [facility] Comment on above: GFR Calc Estimated GFR (MDRD) Non-Af Amer 83 mL/min >60 [facility] Comment on above: Non- GFR Calc Thyroid Stimulating Hormone (TSH) 1.63 uIU/mL 0.358-3.74 [facility] Vitamin D 25-Hydroxy 41.4 ng/mL [facility] Comment on above: Vitamin D 25(OH) Sta tus Range Deficiency <20 ng/mL (50nmol/L) Insufficiency 20 - 30 ng/mL (50 - 75 nmol/L) Sufficiency 30 - 100 ng/mL (75 - 250 nmol/L) Toxicity >100 ng/mL (>250 nmol/L) Platelets bldOrdered By: Shravan Gonzalez on 02-08-2023 Platelets (Bld) [#/Vol] 140 10*3/uL 150-450 [facility] Serum or plasma albumin dylon urement (mass/volume)Ordered By: Shravan Gonzalez on 02-08-2023 Albumin [Mass/Vol] 3.9 g/dL 3.2-5.0 [facility] Serum or plasma albumin/glob ulin mass ratioOrdered By: Shravan Gonzalez on 02-08-2023 Albumin/Globulin [Mass ratio] 1.1 {ratio} 0.9-2.4 [facility] Serum or plasma calcium dylon urement (mass/volume)Ordered By: Shravan Gonzalez on 02-08-2023 Calcium [Mass/Vol] 9.7 mg/dL 8.5-10.1 [facility] Serum or plasma creatinine m easurement (mass/volume)Ordered By: Shravan Gonzalez on 02-08-2023 Creatinine [Mass/Vol] 0.96 mg/dL 0.70-1.30 [facility] Comment on above: The validity of the calculated GFR & GFRAA in patients over 70 years has not been determined. Clinical correlation is essential. Serum or plasma urea nitroge n measurement (mass/volume)Ordered By: Shravan Gonzalez on 02-08-2023 Urea nitrogen [Mass/Vol] 19 mg/dL 7-18 [facility] Thin prep Papanicolaou smear with manual screeningOrdered By: Shravan Gonzalez on 02-08-2023 Thin prep Papanicolaou smear with manual screening 18 U/L 15-37 [facility] Thin prep Papanicolaou smear with manual screening 4 5-15 [facility] XR SPINE LUMBAR W/OBLIQUES 4 VIEWSon 10-16-2022 XR SPINE LUMBAR W/OBLIQUES 4 VIEWS ORIGINAL EXAMINATION: 5 XRAY VIEWS OF THE LUMBAR SPINE10/13/2022 1:29 pm LUMBAR SPINE W/ OBLIQUES COMPARISON: None HISTORY: ORDERING SYSTEM PROVIDED HISTORY: Reason for Exam: somatic dysfunction other lumbar region FINDINGS: 5 lumbar vertebral bodies visualized. There are mild marginal disc osteophytes. Mild loss of disc height seen at L1-2. Facet arthropathy is most prevalent in the lower lumbar spine. There is a right upper quadrant calcification which is likely cholelithiasis. Degenerative changes seen in both hips. IMPRESSION: Overall, mild degenerative changes. No compression deformities Suspect a laminated gallstone in the right upper quadrant Interpreted by: Antonio Stoner MD Preliminary Report By: Antonio Stoner MD Electronically signed By Antonio Stoner MD Dictated Date: 10/16/2022 12:57:11 PM Prelim Date: 10/16/2022 12:58:14 PM Sign Date: 10/16/2022 12:58:14 PM Ordering Provider: JUSTIN Mtz [facility] ([place]) .Auto Diffon 09-11-2022 Basophil, Absolute 0.0 10 3/mcL Normal 0.0-0.2 [facility] ([place]) Comment on above: Performed By: #### A 1C, ADIFF, CBC, BMP, MG, LIPID, GFR, ANEU #### [address] [address] Basophils/100 WBC (Bld) 0.1 % Normal 0.0-2.5 A [facility] ([place]) Comment on above: Performed By: #### A 1C, ADIFF, CBC, BMP, MG, LIPID, GFR, ANEU #### [place] [address] [place], [place] [address] Eosinophil, Absolute 0.0 10 3/mcL Normal 0.0-0.4 [facility] ([place]) Comment on above: Performed By: #### A 1C, ADIFF, CBC, BMP, MG, LIPID, GFR, ANEU #### [address] [address] Eosinophils/100 WBC (Bld) 0.0 % Normal 0.0-7.0 [facility] ([place]) Comment on above: Performed By: #### A 1C, ADIFF, CBC, BMP, MG, LIPID, GFR, ANEU #### [address] [address] Lymphocyte, Absolute 0.4 10 3/mcL Low 0.8-3.9 [facility] ([place]) Comment on above: Performed By: #### A 1C, ADIFF, CBC, BMP, MG, LIPID, GFR, ANEU #### [address] [address] Lymphocytes/100 WBC (Bld) 3.0 % Low 10.0-50.0 [facility] ([place]) Comment on above: Performed By: #### A 1C, ADIFF, CBC, BMP, MG, LIPID, GFR, ANEU #### [address] [address] Monocyte, Absolute 0.8 10 3/mcL Normal 0.2-1.0 [facility] ([place]) Comment on above: Performed By: #### A 1C, ADIFF, CBC, BMP, MG, LIPID, GFR, ANEU #### [address] [address] Monocytes/100 WBC (Bld) 5.6 % Normal 1.7-13.0 [facility] ([place]) Comment on above: Performed By: #### A 1C, ADIFF, CBC, BMP, MG, LIPID, GFR, ANEU #### [address] [address] Neutrophils/100 WBC (Bld) 91.3 % High 37.0-80.0 [facility] ([place]) Comment on above: Performed By: #### A 1C, ADIFF, CBC, BMP, MG, LIPID, GFR, ANEU #### [address] [address] .GFRon 05-01-2023 GFR 72 ml/min/1.73sqm Normal [facility] ([place]) Comment on above: Result Comment: GFR Population mean for , Non- Americans Ages 20-29 = 116 mL/min/1.73 sq.m. Ages 30-39 = 107 mL/min/1.73 sq.m. Ages 40-49 = 99 mL/min/1.73 sq.m. Ages 50-59 = 93 mL/min/1.73 sq.m. Ages 60-69 = 85 mL/min/1.73 sq.m. Ages 70+ = 75 mL/min/1.73 sq.m. Chronic Kidney Disease: Less than 60 mL/min/1.73 square meters End Stage Renal Disease: Less than 15 mL/min/1.73 square meters Performed By: #### A 1C, ADIFF, CBC, BMP, MG, LIPID, GFR, ANEU ####[address] [place], [place] [address] GFR Non- 59 ml/min/1.73sqm Normal [facility] ([place]) Comment on above: Result Comment: GFR Population mean for , Non- Americans Ages 20-29 = 116 mL/min/1.73 sq.m. Ages 30-39 = 107 mL/min/1.73 sq.m. Ages 40-49 = 99 mL/min/1.73 sq.m. Ages 50-59 = 93 mL/min/1.73 sq.m. Ages 60-69 = 85 mL/min/1.73 sq.m. Ages 70+ = 75 mL/min/1.73 sq.m. Chronic Kidney Disease: Less than 60 mL/min/1.73 square meters End Stage Renal Disease: Less than 15 mL/min/1.73 square meters Performed By: #### A 1C, ADIFF, CBC, BMP, MG, LIPID, GFR, ANEU ####[address] [place], [place] [address] .NEUABSon 09-11-2022 Neutrophil, Absolute 13.1 10 3/mcL High 2.9-6.2 A [facility] ([place]) Comment on above: Performed By: #### A 1C, ADIFF, CBC, BMP, MG, LIPID, GFR, ANEU #### [address] [address] A1Con 09-11-2022 HbA1c (Bld) [Mass fraction] 8.3 % High 4.3-6.4 [facility] ([place]) Comment on above: Performed By: #### A 1C, ADIFF, CBC, BMP, MG, LIPID, GFR, ANEU #### [address] [address] BMPon 09-11-2022 BUN/Creatinine Ratio 19 ratio Normal 7-27 [facility] ([place]) Comment on above: Performed By: #### A 1C, ADIFF, CBC, BMP, MG, LIPID, GFR, ANEU #### [address] [address] Calcium [Mass/Vol] 9.0 mg/dL Normal 8.4-10.2 [facility] ([place]) Comment on above: Performed By: #### A 1C, ADIFF, CBC, BMP, MG, LIPID, GFR, ANEU #### [address] [address] Chloride [Moles/Vol] 103 mmol/L Normal 98-107 [facility] ([place]) Comment on above: Performed By: #### A 1C, ADIFF, CBC, BMP, MG, LIPID, GFR, ANEU #### [address] [address] CO2 [Moles/Vol] 26 mmol/L Normal 23-31 [facility] ([place]) Comment on above: Performed By: #### A 1C, ADIFF, CBC, BMP, MG, LIPID, GFR, ANEU #### [address] [address] Creatinine [Mass/Vol] 1.22 mg/dL Normal 0.70-1.30 [facility] ([place]) Comment on above: Performed By: #### A 1C, ADIFF, CBC, BMP, MG, LIPID, GFR, ANEU #### [address] [address] Electrolyte Balance 11.0 mEq/L Normal 4.0-15.0 [facility] Comment on above: Performed By: #### A 1C, ADIFF, CBC, BMP, MG, LIPID, GFR, ANEU #### [address] [address] Glucose [Mass/Vol] 257 mg/dL High 80-115 [facility] ([place]) Comment on above: Performed By: #### A 1C, ADIFF, CBC, BMP, MG, LIPID, GFR, ANEU #### [address] [address] Potassium [Moles/Vol] 5.0 mmol/L Normal 3.5-5.1 [facility] ([place]) Comment on above: Performed By: #### A 1C, ADIFF, CBC, BMP, MG, LIPID, GFR, ANEU #### [address] [address] Sodium [Moles/Vol] 140 mmol/L Normal 136-145 [facility] ([place]) Comment on above: Performed By: #### A 1C, ADIFF, CBC, BMP, MG, LIPID, GFR, ANEU #### [address] [address] Urea nitrogen [Mass/Vol] 23 mg/dL High 7-18 [facility] ([place]) Comment on above: Performed By: #### A 1C, ADIFF, CBC, BMP, MG, LIPID, GFR, ANEU #### [address] [address] CBCon 09-11-2022 Erythrocyte distribution width (RBC) [Ratio] 13.0 % Normal 11.5-14.5 [facility] ([place]) Comment on above: Performed By: #### A 1C, ADIFF, CBC, BMP, MG, LIPID, GFR, ANEU #### [address] [address] Hematocrit (Bld) [Volume fraction] 40.9 % Low 42.0-52.0 [facility] ([place]) Comment on above: Performed By: #### A 1C, ADIFF, CBC, BMP, MG, LIPID, GFR, ANEU #### [address] [address] Hgb 13.5 G/dL Low 14.0-18.0 [facility] ([place]) Comment on above: Performed By: #### A 1C, ADIFF, CBC, BMP, MG, LIPID, GFR, ANEU #### [place] [address] MCH (RBC) [Entitic mass] 30.8 pg Normal 27.0-31.2 [facility] ([place]) Comment on above: Performed By: #### A 1C, ADIFF, CBC, BMP, MG, LIPID, GFR, ANEU #### [place] [address] MCHC 33.1 G/dL Normal 31.8-35.4 [facility] ([place]) Comment on above: Performed By: #### A 1C, ADIFF, CBC, BMP, MG, LIPID, GFR, ANEU #### [place] [address] MCV (RBC) [Entitic vol] 93.1 fL Normal 80.0-94.0 A [facility] ([place]) Comment on above: Performed By: #### A 1C, ADIFF, CBC, BMP, MG, LIPID, GFR, ANEU #### [place] [id number] Platelet 113 10 3/mcL Low 130-400 [facility] ([place]) Comment on above: Performed By: #### A 1C, ADIFF, CBC, BMP, MG, LIPID, GFR, ANEU #### [place] [id number] Platelet mean volume (Bld) [Entitic vol] 12.6 fL High 7.4-10.4 [facility] ([place]) Comment on above: Performed By: #### A 1C, ADIFF, CBC, BMP, MG, LIPID, GFR, ANEU #### [place] [id number] RBC 4.39 10 6/mcL Normal 4.04-6.13 [facility] ([place]) Comment on above: Performed By: #### A 1C, ADIFF, CBC, BMP, MG, LIPID, GFR, ANEU #### [address] [place], [place] [address] WBC 14.3 10 3/mcL High 4.6-10.8 [facility] ([place]) Comment on above: Performed By: #### A 1C, ADIFF, CBC, BMP, MG, LIPID, GFR, ANEU #### [address] [place], [place] [address] CT ANGIOGRAPHY HEAD W/ CONTR Vishal 09-11-2022 CT ANGIOGRAPHY HEAD W/ CONTRAST ORIGINAL EXAMINATION: CTA OF THE HEAD WITH [...] Date: 09/10/2022 10:02:52 PM Ordering Provider: PIERRE Mtz [facility] ([place]) CT ANGIOGRAPHY NECK W/CONTRA STon 09-11-2022 CT ANGIOGRAPHY NECK W/CONTRAST ORIGINAL EXAMINATION: CTA OF THE NECK 09/10/2022 [...] Date: 09/10/2022 10:06:27 PM Ordering Provider: PIERRE Mtz [facility] ([place]) LABORATORYOrdered By: Catrachita Schultz on 09-11-2022 Blood Glucose Testing Reason Routine (09/11/22 11:47 AM) [facility] Work Phone: Glucose [Mass/Vol] 299 mg/dL Invalid Interpretation Code 82 - 115 mg/dL [facility] Work Phone: Blood Glucose Testing Reason Routine (09/11/22 7:10 AM) [facility] Work Phone: Glucose [Mass/Vol] 279 mg/dL Invalid Interpretation Code 82 - 115 mg/dL [facility] Work Phone: LABORATORYOrdered By: Maranda Guzman on 09-11-2022 Basophil, Absolute 0.0 103/mcL Invalid Interpretation Code 0.0 - 0.2 10^3/mcL AO Workflow SS Basophils/100 WBC (Bld) 0.1 % Invalid Interpretation Code 0.0 - 2.5 % AO Workflow SS Cholesterol [Mass/Vol] 208 mg/dL Invalid Interpretation Code 0 - 200 mg/dL AO ADM SS Cholesterol in HDL [Mass/Vol] 91 mg/dL Invalid Interpretation Code 40 - 60 mg/dL AO ADM SS Cholesterol in LDL [Mass/Vol] 109 mg/dL Invalid Interpretation Code 0 - 130 mg/dL AO ADM SS Eosinophil, Absolute 0.0 103/mcL Invalid Interpretation Code 0.0 - 0.4 10^3/mcL AO Workflow SS Eosinophils/100 WBC (Bld) 0.0 % Invalid Interpretation Code 0.0 - 7.0 % AO Workflow SS Erythrocyte distribution width (RBC) [Ratio] 13.0 % Invalid Interpretation Code 11.5 - 14.5 % AO Workflow SS Hematocrit (Bld) [Volume fraction] 40.9 % Invalid Interpretation Code 42.0 - 52.0 % AO Workflow SS Hemoglobin (Bld) [Mass/Vol] 13.5 G/dL Invalid Interpretation Code 14.0 - 18.0 G/dL AO Workflow SS Lymphocyte, Absolute 0.4 103/mcL Invalid Interpretation Code 0.8 - 3.9 10^3/mcL AO Workflow SS Lymphocytes/100 WBC (Bld) 3.0 % Invalid Interpretation Code 10.0 - 50.0 % AO Workflow SS MCH (RBC) [Entitic mass] 30.8 pg Invalid Interpretation Code 27.0 - 31.2 pg AO Workflow SS MCHC 33.1 G/dL Invalid Interpretation Code 31.8 - 35.4 G/dL AO Workflow SS MCV (RBC) [Entitic vol] 93.1 fL Invalid Interpretation Code 80.0 - 94.0 fL AO Workflow SS Monocyte, Absolute 0.8 103/mcL Invalid Interpretation Code 0.2 - 1.0 10^3/mcL AO Workflow SS Monocytes/100 WBC (Bld) 5.6 % Invalid Interpretation Code 1.7 - 13.0 % AO Workflow SS Neutrophil, Absolute 13.1 103/mcL Invalid Interpretation Code 2.9 - 6.2 10^3/mcL AO Workflow SS Neutrophils/100 WBC (Bld) 91.3 % Invalid Interpretation Code 37.0 - 80.0 % AO Workflow SS Platelet mean volume (Bld) [Entitic vol] 12.6 fL Invalid Interpretation Code 7.4 - 10.4 fL AO Workflow SS Platelets (Bld) [#/Vol] 113 103/mcL Invalid Interpretation Code 130 - 400 10^3/mcL AO Workflow SS RBC (Bld) [#/Vol] 4.39 106/mcL Invalid Interpretation Code 4.04 - 6.13 10^6/mcL AO Workflow SS Triglyceride [Mass/Vol] 40 mg/dL Invalid Interpretation Code 0 - 150 mg/dL AO ADM SS WBC (Bld) [#/Vol] 14.3 103/mcL Invalid Interpretation Code 4.6 - 10.8 10^3/mcL AO Workflow SS LABORATORYOrdered By: SYSTEM SYSTEM on 09-11-2022 Calcium [Mass/Vol] 9.0 mg/dL Invalid Interpretation Code 8.4 - 10.2 mg/dL AO ADM SS Chloride [Moles/Vol] 103 mmol/L Invalid Interpretation Code 98 - 107 mmol/L AO ADM SS CO2 [Moles/Vol] 26 mmol/L Invalid Interpretation Code 23 - 31 mmol/L AO ADM SS Creatinine [Mass/Vol] 1.22 mg/dL Invalid Interpretation Code 0.70 - 1.30 mg/dL AO ADM SS Electrolyte Balance 11.0 mEq/L Invalid Interpretation Code 4.0 - 15.0 mEq/L AO ADM SS GFR/1.73 sq M.predicted among blacks MDRD (S/P/Bld) [Vol rate/Area] 72 ml/min/1.73sqm Invalid Interpretation Code AO Chemistry S GFR/1.73 sq M.predicted among non-blacks MDRD (S/P/Bld) [Vol rate/Area] 59 ml/min/1.73sqm Invalid Interpretation Code AO Chemistry S Glucose [Mass/Vol] 257 mg/dL Invalid Interpretation Code 80 - 115 mg/dL AO ADM SS HbA1c (Bld) [Mass fraction] 8.3 % Invalid Interpretation Code 4.3 - 6.4 % AO ADM SS Magnesium [Mass/Vol] 1.5 mg/dL Invalid Interpretation Code 1.8 - 2.4 mg/dL AO ADM SS Potassium [Moles/Vol] 5.0 mmol/L Invalid Interpretation Code 3.5 - 5.1 mmol/L AO ADM SS Sodium [Moles/Vol] 140 mmol/L Invalid Interpretation Code 136 - 145 mmol/L AO ADM SS Urea nitrogen [Mass/Vol] 23 mg/dL Invalid Interpretation Code 7 - 18 mg/dL AO ADM SS Urea nitrogen/Creatinine [Mass ratio] 19 ratio Invalid Interpretation Code 7 - 27 ratio AO ADM SS LABORATORYOrdered By: Karime Costello on 09-11-2022 Glucose [Mass/Vol] 330 mg/dL Invalid Interpretation Code 82 - 115 mg/dL [facility] Work Phone: LIPIDon 09-11-2022 Cholesterol [Mass/Vol] 208 mg/dL High 0-200 [facility] ([place]) Comment on above: Result Comment: Chol esterol Reference Interval: Less than 200 Desirable 200-239 Borderline high risk 240 and above High risk Performed By: #### A 1C, ADIFF, CBC, BMP, MG, LIPID, GFR, ANEU ####[id number] [place], [place] [address] Cholesterol in HDL [Mass/Vol] 91 mg/dL High 40-60 [facility] ([place]) Comment on above: Performed By: #### A 1C, ADIFF, CBC, BMP, MG, LIPID, GFR, ANEU ####[address] [place], [place] [address] Cholesterol in LDL [Mass/Vol] 109 mg/dL Normal 0-130 [facility] ([place]) Comment on above: Performed By: #### A 1C, ADIFF, CBC, BMP, MG, LIPID, GFR, ANEU ####[address] [place], [place] [address] Triglyceride [Mass/Vol] 40 mg/dL Normal 0-150 A [facility] ([place]) Comment on above: Result Comment: Trig lyceride Reference Interval: Less than 150 Normal 150-199 Borderline high risk 200-499 High risk 500 or higher Very high risk Performed By: #### A 1C, ADIFF, CBC, BMP, MG, LIPID, GFR, ANEU ####[facility] [place], [place] [address] MGon 09-11-2022 Magnesium [Mass/Vol] 1.5 mg/dL Low 1.8-2.4 [facility] ([place]) Comment on above: Performed By: #### A 1C, ADIFF, CBC, BMP, MG, LIPID, GFR, ANEU #### Yolanda [address] [place], [place] [address] MRI BRAIN W/O CONTRASTon MRI BRAIN W/O CONTRAST ORIGINAL HISTORY: Headaches, confusion, slurred speech COMPARISON: [...] Sign Date: 09/11/2022 9:34:19 AM Ordering Provider: DOMENICO Mtz [facility] ([place]) UAon 09-11-2022 Color (U) Yellow Normal [facility] ([place]) Comment on above: Performed By: #### U A ####[address]anda [address] [place], [place] [address] Glucose (U) [Mass/Vol] 500 mg/dL Abnormal Negative [facility] ([place]) Comment on above: Performed By: #### U A ####[address] [place], [place] [address] Ketones Ql (U) 80 mg/dL Abnormal Negative [facility] ([place]) Comment on above: Performed By: #### U A ####[address] [place], [place] [address] UA Appear Clear Normal Clear [facility] ([place]) Comment on above: Performed By: #### U A ####[address] [place], [place] [address] UA Blood Negative Normal Negative [facility] ([place]) Comment on above: Performed By: #### U A ####Y[address] [place] [address]37 UA Leuk Est Negative Normal Negative [facility] ([place]) Comment on above: Performed By: #### U A ####[address] [place] [id number] UA Nitrite Negative Normal Negative [facility] ([place]) Comment on above: Performed By: #### U A ####[address] [place] [address]37 UA pH 7.5 Normal 5.0 - 8.0 [facility] ([place]) Comment on above: Performed By: #### U A ####[address] [place] [address] UA Protein Negative Normal Negative [facility] ([place]) Comment on above: Performed By: #### U A ####[address] [place] [address] UA Spec Grav 1.015 Normal 1.015-1.025 [facility] ([place]) Comment on above: Performed By: #### U A ####[address] [place] [address] UA Specimen Type Clean Catch Normal [facility] ([place]) Comment on above: Performed By: #### U A ####[address] [place] [address] UA Urobilinogen 0.2 E.U./dL Normal 0.2-1.0 [facility] ([place]) Comment on above: Performed By: #### U A ####[address] [place] [address] Urobilinogen (U) [Mass/Vol] Negative Normal Negative [facility] ([place]) Comment on above: Performed By: #### U A ####[address] [place] [address]37 .Auto DiffOrdered By: Olman Fritz on 09-10-2022 Basophil, Absolute 0.0 103/mcL Normal 0.0-0.2 AO Wo rkflow SS Comment on above: Performed By: #### T ROPHS, GFR, CBC, APTT, ADIFF, MDW, ANEU, BMP, PRO ####Y[address]anda [address] [place], [place] [address] Basophils/100 WBC (Bld) 0.3 % Normal 0.0-2.5 A O Workflow SS Comment on above: Performed By: #### T ROPHS, GFR, CBC, APTT, ADIFF, MDW, ANEU, BMP, PRO ####[address]anda [address] [place], [place] [address] Eosinophil, Absolute 0.1 103/mcL Normal 0.0-0.4 AO Workflow SS Comment on above: Performed By: #### T ROPHS, GFR, CBC, APTT, ADIFF, MDW, ANEU, BMP, PRO ####[address]anda [address] [place], [place] [address] Eosinophils/100 WBC (Bld) 0.8 % Normal 0.0-7.0 AO Workflow SS Comment on above: Performed By: #### T ROPHS, GFR, CBC, APTT, ADIFF, MDW, ANEU, BMP, PRO ####[address] [place], [place] [address] Lymphocyte, Absolute 1.3 103/mcL Normal 0.8-3.9 AO Workflow SS Comment on above: Performed By: #### T ROPHS, GFR, CBC, APTT, ADIFF, MDW, ANEU, BMP, PRO ####Y[address]anda [address] [place], [place] [address] Lymphocytes/100 WBC (Bld) 12.7 % Normal 10.0-50.0 AO Workflow SS Comment on above: Performed By: #### T ROPHS, GFR, CBC, APTT, ADIFF, MDW, ANEU, BMP, PRO ####Y[address]anda [address] [place], [place] [address] Monocyte, Absolute 0.6 103/mcL Normal 0.2-1.0 AO Wo rkflow SS Comment on above: Performed By: #### T ROPHS, GFR, CBC, APTT, ADIFF, MDW, ANEU, BMP, PRO ####[address]anda [address] [place], [place] [address] Monocytes/100 WBC (Bld) 6.1 % Normal 1.7-13.0 A O Workflow SS Comment on above: Performed By: #### T LISA, GFR, CBC, APTT, ADIFF, MDW, ANEU, BMP, PRO ####Y[address]anda [address] [place], [place] [address] Neutrophils/100 WBC (Bld) 80.1 % High 37.0-80.0 AO Workflow SS Comment on above: Performed By: #### T LISA, GFR, CBC, APTT, ADIFF, MDW, ANEU, BMP, PRO ####Y[address]anda [address] [place], [place] [address] .GFRon 09-10-2022 GFR 83 ml/min/1.73sqm Normal [facility] ([place]) Comment on above: Result Comment: GFR Population mean for , Non- Americans Ages 20-29 = 116 mL/min/1.73 sq.m. Ages 30-39 = 107 mL/min/1.73 sq.m. Ages 40-49 = 99 mL/min/1.73 sq.m. Ages 50-59 = 93 mL/min/1.73 sq.m. Ages 60-69 = 85 mL/min/1.73 sq.m. Ages 70+ = 75 mL/min/1.73 sq.m. Chronic Kidney Disease: Less than 60 mL/min/1.73 square meters End Stage Renal Disease: Less than 15 mL/min/1.73 square meters Performed By: #### T LISA, GFR, CBC, APTT, ADIFF, MDW, ANEU, BMP, PRO ####Y[address] [place], [place] [address] GFR Non- 68 ml/min/1.73sqm Normal [facility] ([place]) Comment on above: Result Comment: GFR Population mean for , Non- Americans Ages 20-29 = 116 mL/min/1.73 sq.m. Ages 30-39 = 107 mL/min/1.73 sq.m. Ages 40-49 = 99 mL/min/1.73 sq.m. Ages 50-59 = 93 mL/min/1.73 sq.m. Ages 60-69 = 85 mL/min/1.73 sq.m. Ages 70+ = 75 mL/min/1.73 sq.m. Chronic Kidney Disease: Less than 60 mL/min/1.73 square meters End Stage Renal Disease: Less than 15 mL/min/1.73 square meters Performed By: #### T LISA, GFR, CBC, APTT, ADIFF, MDW, ANEU, BMP, PRO ####Y[address]anda [address] [place], [place] [address] .MDWon 09-10-2022 Monocyte Distribution Width 15.37 Normal 0.00-20.00 [facility] ([place]) Comment on above: Result Comment: For ED adult patients suspected of sepsis, MDW<=20.0 does not rule out sepsis or risk of sepsis Performed By: #### T LISA, GFR, CBC, APTT, ADIFF, MDW, ANEU, BMP, PRO ####Yolanda [address] [place], [place] [address] .NEUABSOrdered By: Shelley Fritz on 09-10-2022 Neutrophil, Absolute 7.9 103/mcL High 2.9-6.2 AO Workflow SS Comment on above: Performed By: #### T LISA, GFR, CBC, APTT, ADIFF, MDW, ANEU, BMP, PRO ####[address] [place], [place] [address] APTTon 09-10-2022 aPTT Coag (Bld) [Time] 34.8 s Normal 25.0-35.0 [facility] ([place]) Comment on above: Result Comment: For Heparin anticoagulation therapy, the recommended therapeutic range is: 50.6-87.4 seconds. Patients on heparin therapy may have an extreme result. Performed By: #### T LISA, GFR, CBC, APTT, ADIFF, MDW, ANEU, BMP, PRO ####[address] [place], [place] [address] Heparin dose (APTT) None [facility] ([place]) Comment on above: Performed By: #### T LISA, GFR, CBC, APTT, ADIFF, MDW, ANEU, BMP, PRO ####[address] [place], [place] [address] BMPon 09-10-2022 BUN/Creatinine Ratio 20 ratio Normal 7-27 [facility] ([place]) Comment on above: Performed By: #### T LISA, GFR, CBC, APTT, ADIFF, MDW, ANEU, BMP, PRO ####Yolanda [address] [place], [place] [address] BMPOrdered By: SYSTEM SYSTEM on 09-10-2022 Calcium [Mass/Vol] 9.5 mg/dL Normal 8.4-10.2 AO ADM SS Comment on above: Performed By: #### T LISA, GFR, CBC, APTT, ADIFF, MDW, ANEU, BMP, PRO ####Yolanda [address] [place], [place] [address] Chloride [Moles/Vol] 100 mmol/L Normal 98-107 AO A DM SS Comment on above: Performed By: #### T LISA, GFR, CBC, APTT, ADIFF, MDW, ANEU, BMP, PRO ####[address] [place], [place] [address] CO2 [Moles/Vol] 25 mmol/L Normal 23-31 AO ADM SS Comment on above: Performed By: #### T LISA, GFR, CBC, APTT, ADIFF, MDW, ANEU, BMP, PRO ####[address] [place], [place] [address] Creatinine [Mass/Vol] 1.08 mg/dL Normal 0.70-1.30 AO ADM SS Comment on above: Performed By: #### T LISA, GFR, CBC, APTT, ADIFF, MDW, ANEU, BMP, PRO ####[address] [place], [place] [address] Electrolyte Balance 13.0 mEq/L Normal 4.0-15.0 AO AD M SS Comment on above: Performed By: #### T LISA, GFR, CBC, APTT, ADIFF, MDW, ANEU, BMP, PRO ####[address] [place], [place] [address] Glucose [Mass/Vol] 290 mg/dL High 80-115 AO ADM SS Comment on above: Performed By: #### T LISA, GFR, CBC, APTT, ADIFF, MDW, ANEU, BMP, PRO ####[address] [place], [place] [address] Potassium [Moles/Vol] 4.2 mmol/L Normal 3.5-5.1 AO ADM SS Comment on above: Performed By: #### T LISA, GFR, CBC, APTT, ADIFF, MDW, ANEU, BMP, PRO ####[address] [place], [place] [address] Sodium [Moles/Vol] 138 mmol/L Normal 136-145 AO ADM SS Comment on above: Performed By: #### T LISA, GFR, CBC, APTT, ADIFF, MDW, ANEU, BMP, PRO ####[address] [place], [place] [address] Urea nitrogen [Mass/Vol] 22 mg/dL High 7-18 AO ADM SS Comment on above: Performed By: #### T LISA, GFR, CBC, APTT, ADIFF, MDW, ANEU, BMP, PRO ####Y[address]anda [address] [place], [place] [address] CBCOrdered By: Shelley franklin on 09-10-2022 Erythrocyte distribution width (RBC) [Ratio] 12.7 % Normal 11.5-14.5 AO Workflow SS Comment on above: Performed By: #### T LISA, GFR, CBC, APTT, ADIFF, MDW, ANEU, BMP, PRO ####Y[address]anda [address] [place], [place] [address] Hematocrit (Bld) [Volume fraction] 44.2 % Normal 42.0-52.0 AO Workflow SS Comment on above: Performed By: #### T LISA, GFR, CBC, APTT, ADIFF, MDW, ANEU, BMP, PRO ####[address] [place], [place] [address] MCH (RBC) [Entitic mass] 30.8 pg Normal 27.0-31.2 AO Workflow SS Comment on above: Performed By: #### T LISA, GFR, CBC, APTT, ADRADHA, MDW, ANEU, BMP, PRO ####Y[address] [place], [place] [address] MCHC 33.4 G/dL Normal 31.8-35.4 AO Workflow SS Comment on above: Performed By: #### T LISA, GFR, CBC, APTT, ADIFF, MDW, ANEU, BMP, PRO ####[address] [place], [place] [address] MCV (RBC) [Entitic vol] 92.2 fL Normal 80.0-94.0 A O Workflow SS Comment on above: Performed By: #### T LISA, GFR, CBC, APTT, ADIFF, MDW, ANEU, BMP, PRO ####[address] [place], [place] [address] Platelet mean volume (Bld) [Entitic vol] 12.1 fL High 7.4-10.4 AO Workflow SS Comment on above: Performed By: #### T LIAS, GFR, CBC, APTT, ADIFF, MDW, ANEU, BMP, PRO ####[address] [place], [place] [address] CBCon 09-10-2022 Hgb 14.7 G/dL Normal 14.0-18.0 [facility] ([place]) Comment on above: Performed By: #### T LISA, GFR, CBC, APTT, ADRADHA, MDW, ANEU, BMP, PRO ####[address] [place], [place] [address] Platelet 123 10 3/mcL Low 130-400 [facility] ([place]) Comment on above: Performed By: #### T LISA, GFR, CBC, APTT, ADRADHA, MDW, ANEU, BMP, PRO ####Y[address]anda [address] [place], [place] [address] RBC 4.79 10 6/mcL Normal 4.04-6.13 [facility] ([place]) Comment on above: Performed By: #### T LISA, GFR, CBC, APTT, ADIFF, MDW, ANEU, BMP, PRO ####[address]anda [address] [place], [place] [address] WBC 9.9 10 3/mcL Normal 4.6-10.8 [facility] ([place]) Comment on above: Performed By: #### T ROPHS, GFR, CBC, APTT, MAXIMILIAN CHAIREZ, ANEU, BMP, PRO ####Yolanda [address] [place], [place] [address] CT HEAD OR BRAIN W/O CONTRAS Ton 09-10-2022 CT HEAD OR BRAIN W/O CONTRAST ORIGINAL EXAMINATION: CT OF THE HEAD WITHOUT CONTRAST 09/10/2022 8:30 pm TECHNIQUE: CT of the head was performed without the administration of intravenous contrast. Automated exposure control, iterative reconstruction, and/or weight based adjustment of the mA/kV was utilized to reduce the radiation dose to as low as reasonably achievable. COMPARISON: None. HISTORY: ORDERING SYSTEM PROVIDED HISTORY: Reason for Exam: change in mental status/weakness/apha natividad FINDINGS: BRAIN/VENTRICLES: There is no acute intracranial [...] IMPRESSION: No acute intracranial abnormality. Interpreted by: Danny Collins MD Preliminary Report By: Danny Collins MD Electronically signed By Danny Collins MD Dictated Date: 09/10/2022 8:35:34 PM Prelim Date: 09/10/2022 8:37:23 PM Sign Date: 09/10/2022 8:37:23 PM Ordering Provider: PIERRE Mtz [facility] ([place]) LABORATORYOrdered By: Olman Fritz on 09-10-2022 Appearance (U) Clear (09/10/22 9:53 PM) Invalid Interpretation Code Clear AO Auto Urine SS Bilirubin Ql (U) Negative (09/10/22 9:53 PM) Invalid Interpretation Code Negative AO Auto Urine SS Color (U) Yellow (09/10/22 9:53 PM) Invalid Interpretation Code AO Auto Urine SS Glucose Test strip (U) [Mass/Vol] 500 mg/dL Invalid Interpretation Code Negativemg/dL AO Auto Urine SS Hemoglobin Auto test strip (U) [Mass/Vol] Negative (09/10/22 9:53 PM) Invalid Interpretation Code Negative AO Auto Urine SS Ketones Ql (U) 80 mg/dL Invalid Interpretation Code Negativemg/dL AO Auto Urine SS UA Leuk Est Negative (09/10/22 9:53 PM) Invalid Interpretation Code Negative AO Auto Urine SS UA Nitrite Negative (09/10/22 9:53 PM) Invalid Interpretation Code Negative AO Auto Urine SS UA pH 7.5 (09/10/22 9:53 PM) Invalid Interpretation Code 5.0 - 8.0 AO Auto Urine SS UA Protein Negative Invalid Interpretation Code Negativemg/dL AO Auto Urine SS UA Spec Grav 1.015 (09/10/22 9:53 PM) Invalid Interpretation Code 1.015-1.025 AO Auto Urine SS UA Specimen Type Clean Catch (09/10/22 9:53 PM) Invalid Interpretation Code AO Auto Urine SS UA Urobilinogen 0.2 E.U./dL Invalid Interpretation Code 0.2-1.0E.U./d L AO Auto Urine SS aPTT Coag (PPP) [Time] 34.8 s Invalid Interpretation Code 25.0 - 35.0 seconds AO HemoHub SS Hemoglobin (Bld) [Mass/Vol] 14.7 G/dL Invalid Interpretation Code 14.0 - 18.0 G/dL AO Workflow SS Heparin dose (APTT) None Invalid Interpretation Code AO HemoHub SS INR Coag (PPP) [Relative time] 1.0 {INR} Invalid Interpretation Code AO HemoHub SS Monocyte distribution width Auto (Bld) [Entitic vol] 15.37 Invalid Interpretation Code 0.00 - 20.00 AO Workflow SS Comment on above: Result Comment: For ED adult patients suspected of sepsis, MDW<=20.0 does not rule out sepsis or risk of sepsis Platelets (Bld) [#/Vol] 123 103/mcL Invalid Interpretation Code 130 - 400 10^3/mcL AO Workflow SS RBC (Bld) [#/Vol] 4.79 106/mcL Invalid Interpretation Code 4.04 - 6.13 10^6/mcL AO Workflow SS WBC (Bld) [#/Vol] 9.9 103/mcL Invalid Interpretation Code 4.6 - 10.8 10^3/mcL AO Workflow SS LABORATORYOrdered By: SYSTEM SYSTEM on 09-10-2022 GFR/1.73 sq M.predicted among blacks MDRD (S/P/Bld) [Vol rate/Area] 83 ml/min/1.73sqm Invalid Interpretation Code AO Chemistry S GFR/1.73 sq M.predicted among non-blacks MDRD (S/P/Bld) [Vol rate/Area] 68 ml/min/1.73sqm Invalid Interpretation Code AO Chemistry S Troponin I.cardiac DL <= 0.01 ng/mL [Mass/Vol] 6.7 ng/L Invalid Interpretation Code 0.0 - 76.2 ng/L AO ADM SS Urea nitrogen/Creatinine [Mass ratio] 20 ratio Invalid Interpretation Code 7 - 27 ratio AO ADM SS PROOrdered By: Shelley franklin on 09-10-2022 PT Coag (PPP) [Time] 10.8 s Normal 9.1-14.2 AO H emoHub SS Comment on above: Performed By: #### T LISA, GFR, CBC, APTT, MAXIMILIAN CHAIREZ, ANEU, BMP, PRO ####[address] [place], [place] [address] PROon 09-10-2022 PT International Ratio 1.0 Normal [facility] ([place]) Comment on above: Result Comment: The [employer] (CHEST, 1991, 102:312S-25S) recommended therapeutic range for oral anticoagulant therapy is: LOW RISK: Prophylaxis of venous thrombosis INR: 2.0-3.0 Treatment of pulmonary embolism 2.0-3.0 Prevention of systemic embolism 2.0-3.0 HIGH RISK: Mechanical prosthetic valves 2.5-3.5 Performed By: #### T LISA, GFR, CBC, APTT, MAXIMILIAN CHAIREZ, ANEU, BMP, PRO ####Y[address] [place], [place] [address] TROPHSon 09-10-2022 Troponin I High Sensitivity 6.7 ng/L Normal 0.0-76.2 [facility] ([place]) Comment on above: Performed By: #### T ROPHS, GFR, CBC, APTT, ADIFF, MDW, ANEU, BMP, PRO ####Yolanda [address] [place], [place] [address] XR CHEST 1 VIEWon 09-10-2022 XR CHEST 1 VIEW ORIGINAL EXAMINATION: ONE XRAY VIEW OF THE [...] Hypoventilatory findings. No acute abnormality. Interpreted by: Danny Collins MD Preliminary Report By: Danny Collins MD Electronically signed By Danny Collins MD Dictated Date: 09/10/2022 8:34:05 PM Prelim Date: 09/10/2022 8:35:15 PM Sign Date: 09/10/2022 8:35:15 PM Ordering Provider: PIERRE LANZA [facility] ([place]) Absolute lymphocyte countOrd ered By: Shravan Gonzalez on 07-19-2022 Lymphocytes Auto (Unsp spec) [#/Vol] 1.45 10*3/uL 0.83-4.51 [facility] Basophil percentageOrdered B y: Shravan Gonzalez on 07-19-2022 Basophils/100 WBC (Bld) 0.1 % 0-[address] [facility] Bilirubin [Mass/Vol] 0.50 mg/dL 0.20-1.00 [facility] Comment on above: For patients on eltr ombopag therapy, use of Dimension [place] TBIL is not recommended. Chloride [Moles/Vol] 102 mmol/L 98-107 [facility] Eosinophils/100 WBC (Bld) 1.9 % 0-5 [facility] Glucose [Mass/Vol] 154 mg/dL 74-106 [facility] Comment on above: Fasting Glucose resu lt greater than or equal to 126 mg/dL suggests DIABETES MELLITUS per A.D.A. criteria. Neutrophils (Bld) [#/Vol] 5.3 10*3/uL 2.0-7.7 [facility] Neutrophils/100 WBC (Bld) 67.6 % 47-70 [facility] Potassium [Moles/Vol] 4.3 mmol/L 3.5-5.1 [facility] Protein [Mass/Vol] 7.3 g/dL 6.4-8.2 [facility] Sodium [Moles/Vol] 140 mmol/L 136-145 [facility] WBC (Bld) [#/Vol] 7.9 10*3/uL 4.4-11.0 [facility] Blood erythrocytes count (nu mber/volume)Ordered By: Shravan Gonzalez on 07-19-2022 RBC (Bld) [#/Vol] 4.76 10*6/uL 4.6-6.2 [facility] Blood hemoglobin measurement (mass/volume)Ordered By: Shravan Gonzalez on 07-19-2022 Hemoglobin (Bld) [Mass/Vol] 14.7 g/dL 13.0-16.5 [facility] Blood lymphocytes/100 leukoc ytesOrdered By: Shravan Gonzalez on 07-19-2022 Lymphocytes/100 WBC (Bld) 18.5 % 19-41 [facility] Blood monocytes/100 leukocyt esOrdered By: Shravan Gonzalez on 07-19-2022 Monocytes/100 WBC (Bld) 11.5 % 0-[address] [facility] Blood platelet mean volumeOr dered By: Shravan Gonzalez on 07-19-2022 Platelet mean volume (Bld) [Entitic vol] 14.4 fL 6.2-12.0 [facility] Determination of erythrocyte mean corpuscular volume (MCV)Ordered By: Shravan Gonzalez on 07-19-2022 MCV (RBC) [Entitic vol] 96.2 fL 80-[address] [facility] Hematocrit Auto (Bld) [Volum e fraction]Ordered By: Shravan Gonzalez on 07-19-2022 Hematocrit (Bld) [Volume fraction] 45.8 % 40-54 [facility] Laboratory - Chemistry and C hemistry - challengeOrdered By: Shravan Gonzalez on 07-19-2022 ALP [Catalytic activity/Vol] 82 U/L 45-117 [facility] ALT [Catalytic activity/Vol] 29 U/L 16-61 [facility] CO2 [Moles/Vol] 31.0 mmol/L 21.0-32.0 [facility] Globulin (S) [Mass/Vol] 3.4 g/dL 2.2-4.2 [facility] Urea nitrogen/Creatinine [Mass ratio] 24.6 mg/mg 10-20 [facility] Laboratory - Hematology and Cell countsOrdered By: Shravan Gonzalez on 07-19-2022 Erythrocyte distribution width (RBC) [Entitic vol] 43.6 fL 35.1-43.9 [facility] Erythrocyte distribution width (RBC) [Ratio] 12.1 % 11.6-14.6 [facility] Immature granulocytes/100 WBC (Bld) 0.400 % 0.0-0.9 [facility] Comment on above: IG% - Immature Granu locytes (promyelocytes, myelocytes and metamyelocytes) > 1% indicates that a LEFT SHIFT is Present. MCH (RBC) [Entitic mass] 30.9 pg 27.0-32.0 [facility] Nucleated RBC/100 WBC (Bld) [Ratio] 0 % 0-5 [facility] MCHC Auto (RBC) [Mass/Vol]Or dered By: Shravan Gonzalez on 07-19-2022 MCHC (RBC) [Mass/Vol] 32.1 g/dL 32-36 [facility] No Panel InformationOrdered By: Shravan Gonzalez on 07-19-2022 Estimated GFR (MDRD) Amer 104 mL/min >60 [facility] Comment on above: GFR Calc Estimated GFR (MDRD) Non-Af Amer 86 mL/min >60 [facility] Comment on above: Non- GFR Calc Hepatitis C Antibody Non-Reactive Nonreactive [facility] Comment on above: Non Reactive: < 0.8 Equivocal: >/= 0.8 to < 1.0 Reactive: >/= 1.0The CDC recommends that a reactive/equivocal HCV antibody result be followed up by the HCV Nucleic Acid Amplificationtest (232691) Prostate Specific Antigen Screen 0.90 ng/mL 0.00-4.00 [facility] Comment on above: This test was perfor med using the TPSA assay method for theBluepay chemistry system. Values obtained with differentassay methods cannot be used interchangably.When changing PSA assays in the course of monitoring apatient, additional sequential testing should be carriedout to confirm baseline values. Thyroid Stimulating Hormone (TSH) 1.70 uIU/mL 0.358-3.74 [facility] Vitamin D 25-Hydroxy 54.6 ng/mL [facility] Comment on above: Vitamin D 25(OH) Sta tus Range Deficiency <20 ng/mL (50nmol/L) Insufficiency 20 - 30 ng/mL (50 - 75 nmol/L) Sufficiency 30 - 100 ng/mL (75 - 250 nmol/L) Toxicity >100 ng/mL (>250 nmol/L) Platelets bldOrdered By: Shravan Gonzalez on 07-19-2022 Platelets (Bld) [#/Vol] 145 10*3/uL 150-450 [facility] Serum or plasma albumin dylon urement (mass/volume)Ordered By: Shravan Gonzalez on 07-19-2022 Albumin [Mass/Vol] 3.9 g/dL 3.2-5.0 [facility] Serum or plasma albumin/glob ulin mass ratioOrdered By: Shravan Gonzalez on 07-19-2022 Albumin/Globulin [Mass ratio] 1.1 {ratio} 0.9-2.4 [facility] Serum or plasma calcium dylon urement (mass/volume)Ordered By: Shravan Gonzalez on 07-19-2022 Calcium [Mass/Vol] 9.7 mg/dL 8.5-10.1 [facility] Serum or plasma creatinine m easurement (mass/volume)Ordered By: Shravan Gonzalez on 07-19-2022 Creatinine [Mass/Vol] 0.94 mg/dL 0.70-1.30 [facility] Comment on above: The validity of the calculated GFR & GFRAA in patients over 70 years has not been determined. Clinical correlation is essential. Serum or plasma urea nitroge n measurement (mass/volume)Ordered By: Shravan Gonzalez on 07-19-2022 Urea nitrogen [Mass/Vol] 23 mg/dL 7-18 [facility] Thin prep Papanicolaou smear with manual screeningOrdered By: Shravan Gonzalez 07-19-2022 Thin prep Papanicolaou smear with manual screening 20 U/L 15-37 [facility] Thin prep Papanicolaou smear with manual screening 7 5-15 [facility] Brittnee 08-17-2021 FERR 185.0 NG/ML Normal 24.0-388.0 [facility] Comment on above: Performed By: #### L 500.20675, L500.92273, L500.87911, L500.40130 #### [facility] [address] [place] [address] IRON PANELon 08-17-2021 Iron [Mass/Vol] 104 ug/dL Normal 65-175 [facility] Comment on above: Result Comment: Kailee ents treated with metal-binding drugs (e.g.deferoxamine) may have depressed iron values, as chelated iron may not properly react in the Siemens iron assay. Performed By: #### L 500.55903, L500.18088, L500.97615, L500.22910 #### [facility] [address] [place] [address] IRON SAT 40 % Normal 30-44 [facility] Comment on above: Performed By: #### L 500.33049, L500.98167, L500.18470, L500.81687 #### [facility] [address] [place] [address] TIBC 260 UG/DL Normal 221-481 [facility] Comment on above: Performed By: #### L 500.75596, L500.19070, L500.88603, L500.56733 #### [facility] [address] [place] [address] MAGNESIUMon 08-17-2021 Magnesium [Mass/Vol] 1.8 mg/dL Normal 1.6-2.6 [facility] Comment on above: Performed By: #### L 500.34602, L500.03754, L500.80761, L500.99992 #### [facility] [address] [place] [address] PHOSon 08-17-2021 Phosphate [Mass/Vol] 2.90 mg/dL Normal 2.5-4.9 [facility] Comment on above: Result Comment: Elev ated m-protein (paraprotein) levels in the serum may be exhibited in patients with monoclonal gammopathies, causing falsely elevated inorganic phosphorus results. Performed By: #### L 500.98069, L500.62256, L500.47577, L500.89097 #### [facility] [place] [address] PTH INTACTon 08-17-2021 PTH INTACT 14.9 PG/ML Normal 14-72 [facility] Comment on above: Performed By: #### L 550.18062 #### [facility] [address] [place] [id number] Vital Signs Date Time Vital Sign Value Performing Clinician Facility 01-26-2025 08:37-0400 Body height 167.[address] Shravan Gonzalez MD Work Phone: [facility] 01-26-2025 08:37-0400 Body mass index (BMI) [Ratio] 26 kg/m2 Dr. Shravan Gonzalez MD Work Phone: [facility] 01-26-2025 08:37-0400 Body weight 73.[address] Shravan Gonzalez MD Work Phone: [facility] 01-26-2025 08:37-0400 Diastolic blood pressure 78 mm[Hg] Dr. Shravan Gonzalez MD Work Phone: [facility] 01-26-2025 08:37-0400 Heart rate 66 /min Dr. Shravan Gonzalez MD Work Phone: [facility] 01-26-2025 08:37-0400 SaO2% (BldA) [Mass fraction] 97 % Dr. Shravan Gonzalez MD Work Phone: [facility] 01-26-2025 08:37-0400 Systolic blood pressure 149 mm[Hg] Dr. Shravan Gonzalez MD Work Phone: 2(371)558-214598 [address] 10-13-2024 08:38-0400 Body height 167.[address] Shravan Gonzalez MD Work Phone: 6(441)427-591300 [place] [address] 10-13-2024 08:38-0400 Body mass index (BMI) [Ratio] 25.8 kg/m2 Dr. Shravan Gonzalez MD Work Phone: 6(421)004-177000 [place] [address] 10-13-2024 08:38-0400 Body weight 72.[address] Shravan Gonzalez MD Work Phone: 6(815)915-747400 [place] [address] 10-13-2024 08:38-0400 Diastolic blood pressure 75 mm[Hg] Dr. Shravan Gonzalez MD Work Phone: 7(332)382-777700 [place] [address] 10-13-2024 08:38-0400 Heart rate 54 /min Dr. Shravan Gonzalez MD Work Phone: 8(003)675-198300 [place] [address] 10-13-2024 08:38-0400 SaO2% (BldA) [Mass fraction] 97 % Dr. Shravan Gonzalez MD Work Phone: 1(413)273-820400 [place] [address] 10-13-2024 08:38-0400 Systolic blood pressure 148 mm[Hg] Dr. Shravan Gonzalez MD Work Phone: 5(356)971-643900 [place] [address] 07-10-2024 08:36-0500 Body height 167.[address] Shravan Gonzalez MD Work Phone: 2(726)083-648900 [place] [address] 07-10-2024 08:36-0500 Body mass index (BMI) [Ratio] 26 kg/m2 Dr. Shravan Gonzalez MD Work Phone: 6(545)965-367000 [place] [address] 07-10-2024 08:36-0500 Body weight 73.[address] Shravan Gonzalez MD Work Phone: 4(942)144-936900 [place] [address] 07-10-2024 08:36-0500 Diastolic blood pressure 83 mm[Hg] Dr. Shravan Gonzalez MD Work Phone: 9(539)188-043500 [place] [address] 07-10-2024 08:36-0500 Heart rate 62 /min Dr. Shravan Gonzalez MD Work Phone: 8(934)267-762400 [place] [address] 07-10-2024 08:36-0500 SaO2% (BldA) [Mass fraction] 96 % Dr. Shravan Gonzalez MD Work Phone: 5(031)856-626224 [place] [address] 07-10-2024 08:36-0500 Systolic blood pressure 150 mm[Hg] Dr. Shravan Gonzalez MD Work Phone: 2(718)641-327200 [place] [address] 03-31-2024 08:05-0500 Body mass index (BMI) [Ratio] 25.7 kg/m2 Dr. Shravan Gonzalez MD Work Phone: 9(965)158-115000 [place] [address] 03-31-2024 08:05-0500 Body weight 72.[address] Shravan Gonzalez MD Work Phone: 4(177)682-155100 [place] [address] 03-31-2024 08:05-0500 Diastolic blood pressure 75 mm[Hg] Dr. Shravan Gonzalez MD Work Phone: 2(507)455-586700 [place] [address] 03-31-2024 08:05-0500 Heart rate 60 /min Dr. Shravan Gonzalez MD Work Phone: 7(958)890-170200 [place] [address] 03-31-2024 08:05-0500 SaO2% (BldA) [Mass fraction] 96 % Dr. Shravan Gonzalez MD Work Phone: 8(061)492-416700 [place] [address] 03-31-2024 08:05-0500 Systolic blood pressure 150 mm[Hg] Dr. Shravan Gonzalez MD Work Phone: 2(586)639-795800 [place] [address] 05-15-2023 11:07-0500 Body height 167.[address] Shravan Gonzalez Work Phone: 0(900)749-926100 [place] [address] 05-15-2023 11:07-0500 Body mass index (BMI) [Ratio] 25.8 kg/m2 Dr. Shravan Gonzalez Work Phone: 8(262)148-096524 [place] [address] 05-15-2023 11:07-0500 Body temperature 98.6 [degF] Dr. Shravan Gonzalez Work Phone: 1(638)093-356624 [place] [address] 05-15-2023 11:07-0500 Body weight 72.[address] Shravan Gonzalez Work Phone: 5(802)536-161624 [place] [address] 05-15-2023 11:07-0500 Diastolic blood pressure 90 mm[Hg] Dr. Shravan Gonzalez Work Phone: 9(821)184-452524 [place] [address] 05-15-2023 11:07-0500 Heart rate 85 /min Dr. Shravan Gonzalez Work Phone: 0(691)450-336024 [place] [address] 05-15-2023 11:07-0500 Respiratory rate 16 /min Dr. Shravan Gonzalez Work Phone: 4(693)671-055524 [place] [address] 05-15-2023 11:07-0500 SaO2% (BldA) [Mass fraction] 97 % Dr. Shravan Gonzalez Work Phone: 1(205)910-893424 [place] [address] 05-15-2023 11:07-0500 Systolic blood pressure 130 mm[Hg] Dr. Shravan Gonzalez Work Phone: 6(678)566-244500 [place] [address] 05-09-2023 08:40-0500 Body mass index (BMI) [Ratio] 26.1 kg/m2 Dr. Shravan Gonzalez Work Phone: 2(824)787-663700 [place] [address] 05-09-2023 08:40-0500 Body temperature 98.9 [degF] Dr. Shravan Gonzalez Work Phone: 7(078)115-811800 [place] [address] 05-09-2023 08:40-0500 Body weight 73.[address] Shravan Gonzalez Work Phone: 6(783)332-653200 [place] [address] 05-09-2023 08:40-0500 Diastolic blood pressure 64 mm[Hg] Dr. Shravan Gonzalez Work Phone: 1(854)451-798400 [place] [address] 05-09-2023 08:40-0500 Heart rate 70 /min Dr. Shravan Gonzalez Work Phone: 4(929)690-904124 [place] [address] 05-09-2023 08:40-0500 Respiratory rate 16 /min Dr. Shravan Gonzalez Work Phone: 9(276)465-747624 [place] [address] 05-09-2023 08:40-0500 SaO2% (BldA) [Mass fraction] 98 % Dr. Shravan Gonzalez Work Phone: 4(918)299-879024 [place] [address] 05-09-2023 08:40-0500 Systolic blood pressure 152 mm[Hg] Dr. Shravan Gonzalez Work Phone: [facility] 02-05-2023 09:07-0400 Body mass index (BMI) [Ratio] 26.5 kg/m2 Dr. Shravan Gonzalez Work Phone: [facility] 02-05-2023 09:07-0400 Body temperature 98 [degF] Dr. Shravan Gonzalez Work Phone: [facility] 02-05-2023 09:07-0400 Body weight 74.[address] Shravan Gonzalez Work Phone: [facility] 02-05-2023 09:07-0400 Diastolic blood pressure 80 mm[Hg] Dr. Shravan Gonzalez Work Phone: [facility] 02-05-2023 09:07-0400 Heart rate 80 /min Dr. Shravan Gonzalez Work Phone: [facility] 02-05-2023 09:07-0400 Respiratory rate 18 /min Dr. hSravan Gonzalez Work Phone: [facility] 02-05-2023 09:07-0400 SaO2% (BldA) [Mass fraction] 97 % Dr. Shravan Gonzalez Work Phone: [facility] 02-05-2023 09:07-0400 Systolic blood pressure 150 mm[Hg] Dr. 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[employer] [facility] 09-11-2022 11:46-0400 Respiratory rate 18 /min AUGUST [place] [employer]ELOPER[employer] [facility] 09-11-2022 11:46-0400 Systolic Blood Pressure Non-Invasive 135 1 [facility] [place] [employer] [facility] 09-11-2022 11:03-0400 Heart rate 92 /min [facility] [place] [employer] [facility] 09-11-2022 07:48-0400 Heart rate 106 /min [facility] [place] [employer]EL[employer] [facility] 09-11-2022 07:09-0400 Body temperature 98.6 [degF] [facility] [employer] [facility] 09-11-2022 07:09-0400 Diastolic Blood Pressure Non-Invasive 54 1 [facility] [place] [employer] [facility] 09-11-2022 07:09-0400 Reason For Taking VItal Signs [facility] [place] [employer] DEVELOPER[employer] [facility] 09-11-2022 07:09-0400 Respiratory rate 18 /min A[facility]UST [place] [employer]ELOPER[employer] [facility] 09-11-2022 07:09-0400 Systolic Blood Pressure Non-Invasive 130 1 [facility] [place] [employer] [facility] 09-11-2022 04:08-0400 Respiratory rate 18 /min A[facility] [place] [employer] [facility] 09-11-2022 02:32-0400 Body height 167.6 cm [facility] [employer] [facility] 09-11-2022 02:32-0400 Body weight 77.3 kg [facility] [employer] [facility] 09-11-2022 02:32-0400 Body weight 27.52 kg/m2 [facility] [employer] [facility] 09-11-2022 02:11-0400 Body temperature 97.88 [degF] [facility] [employer] [facility] 09-11-2022 02:11-0400 Diastolic Blood Pressure Non-Invasive 51 1 [facility] [place] [employer] [facility] 09-11-2022 02:11-0400 Heart rate 92 /min A[facility]UST [place] BACK [employer] DEVELOPER[employer] [facility] 09-11-2022 02:11-0400 Systolic Blood Pressure Non-Invasive 141 1 [facility] [place] [employer]EL[employer] [facility] 09-11-2022 01:36-0400 Heart rate 76 /min [facility] [employer] [facility] 09-11-2022 01:36-0400 Reason For Taking VItal Signs [facility] [place] [employer] [facility] 09-11-2022 01:18-0400 Heart rate 108 /min [facility] [employer] [facility] 09-11-2022 00:29-0400 Heart rate 88 /min DOMENICO AUSTIN BACK [employer] DEVELOPER[employer] [facility] 09-10-2022 19:50-0400 Blood Pressure Location A[facility] [employer] [facility] 09-10-2022 19:50-0400 Body weight 76.4 kg AUGUST ALEXIA BACK [employer] [facility] Encounters Encounter Date Encounter Type Care Provider Facility Start: 03-16-2025 End: 03-16-2025 ambulatory Dewey Pastor Facility:[facility] Start: 02-04-2025 End: 02-04-[address] Shravan Gonzalez MD Work Phone: -Laboratory Phy Office 3rd Flr Start: 02-04-2025 End: 02-04-[address] Shravan Gonzalez MD -Laboratory Phy Office 3rd Flr Start: 02-04-2025 End: 02-04-2025 ambulatory Shravan Gonzalez Facility:[facility] Start: 01-26-2025 End: 01-26-2025 Patient encounter procedure Naheed Russ NP-C -[facility] Work Phone: Start: 01-26-2025 End: 01-26-[address] Shravan Gonzalez MD Work Phone: -[facility] Start: 01-05-2025 End: 01-05-[address] Shravan Gonzalez MD Work Phone: -Laboratory Phy Office 3rd Flr Start: 01-05-2025 End: 01-05-[address] Shravan Gonzalez MD -Laboratory Phy Office 3rd Flr Start: 01-05-2025 End: 01-05-2025 ambulatory Shravan Gonzalez Facility:[facility] Start: 12-24-2024 Non-patient / Non-visit Dr. Hima CAMPOS -[facility] Start: 12-24-2024 End: 12-24-[address] Shravan Gonzalez MD Work Phone: -Pulmonary Services/Neurology Start: 12-24-2024 End: 12-24-[address] Shravan Gonzalez MD -Pulmonary Services/Neurology Work Phone: Start: 12-24-2024 End: 12-24-2024 ambulatory Shravan Gonzalez Facility:[facility] Start: 12-22-2024 Non-patient / Non-visit Dr. Hima CAMPOS -[facility] Work Phone: Start: 12-22-[address] Shravan Gonzalez MD -Cat Scan [facility] Work Phone: Start: 12-22-2024 ambulatory Wil Youssef Facility:[facility] Start: 10-13-2024 End: 10-13-2024 Patient encounter procedure Naheed Russ NP-C -[facility] Work Phone: Start: 10-13-2024 End: 10-13-[address] Shravan Gonzalez MD Work Phone: [facility] Work Phone: Start: 07-23-2024 End: 07-23-[address] Shravan Gonzalez MD Work Phone: [facility] Work Phone: Start: 07-23-2024 End: 07-23-[address] Shravan Gonzalez MD -Laboratory, Phy Office 3rd [facility] Start: 07-23-2024 End: 07-23-2024 ambulatory Shravan Gonzalez Facility:[facility] Start: 07-16-2024 End: 07-16-[address] Shravan Gonzalez MD Work Phone: [facility] Work Phone: Start: 07-16-2024 End: 07-16-[address] Garrett Elena MD -Radiology, [facility] Work Phone: Start: 07-16-2024 End: 07-16-2024 ambulatory Garrett Elena Facility:[facility] Start: 07-10-2024 End: 07-10-2024 Patient encounter procedure Naheed Russ SEARCH ENGINEER-C -[facility] Work Phone: Start: 07-10-2024 End: 07-10-2024 ambulatory Naheed Russ Facility:[facility] Start: 03-31-2024 End: 03-31-2024 Patient encounter procedure Naheed MADRIGALC -[facility] Work Phone: Start: 03-31-2024 End: 03-31-2024 ambulatory Naheed Jeb Facility:[facility] Start: 07-23-2023 End: 07-23-[address] Shravan Gonzalez Work Phone: [facility] Work Phone: Start: 07-23-2023 End: 07-23-[address] [facility] Start: 05-21-2023 End: 05-21-[address] [facility] Start: 05-15-2023 End: 05-15-[address] Shravan Gonzalez Work Phone: [facility] Work Phone: Start: 05-11-2023 End: 05-11-[address] Shravan Gonzalez Work Phone: [facility] Work Phone: Start: 05-11-2023 End: 05-11-[address] [facility]azlez [facility] Start: 05-09-2023 End: 05-09-[address] Shravan Gonzalez Work Phone: [facility] Work Phone: Start: 02-08-2023 End: 02-08-[address] [facility] Start: 02-05-2023 End: 02-05-[address] 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 Shravan Gonzalez MD Work Phone: Comment on above: Vitamin D StatusDefi ciency: <20 ng/mL (50nmol/L)Insufficiency: 20-30 ng/mL (50-75 nmol/L)Sufficiency: 30-100 ng/mL (75-250 nmol/L)Toxicity: >100 ng/mL (>250 nmol/L) Start: 01-05-[address] Shravan lopez MD Work Phone: Start: 12-22-2024 CT angiography of co ronary arteries Dr. Shravan Gonzalez MD Work Phone: Start: 07-23-2024 Prostate specific an tigen measurement Dr. Shravan Gonzalez MD Work Phone: Comment on above: This test was perfor med using the [employer] tPSA method. Measured values of a patient sample can vary depending on the testing procedure used. PSA values determined on patient samples by different testing procedures cannot be used interchangeably. If there is a change in PSA assays while monitoring therapy, sequential testing should be performed to confirm baseline values. Start: 07-23-2024 Vitamin D, 25-hydrox y measurement Dr. Shravan Gonzalez MD Work Phone: Comment on above: Vitamin D StatusDefi ciency: <20 ng/mL (50nmol/L)Insufficiency: 20-30 ng/mL (50-75 nmol/L)Sufficiency: 30-100 ng/mL (75-250 nmol/L)Toxicity: >100 ng/mL (>250 nmol/L) Start: 07-16-2024 X-ray of esophagus w ith double contrast Dr. Shravan Gonzalez MD Work Phone: Start: 05-21-2023 SARS-CoV-2, Influenz a & RSV (PCR) Dr. 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 [employer] Plan of Treatment Date Care Activity Detail Author Start: 01-12-2022 Influenza [facility] Start: 05-14-2021 ADVANCE DIRECTIVE DISCUSSION ADVANCE DIRECTIVE DISCUSSION [facility] Start: 12-19-2020 PNEUMOVAX AGE 65 AND OVER WITH 5YR LOOKBACK (#1) PNEUMOVAX AGE 65 AND OVER WITH 5YR LOOKBACK (#1) [facility] Start: 01-03-2017 Hepatitis B screening URINE ALBUMIN:CREATININE RATIO [facility] Start: 01-03-2017 Hepatitis B surface antibody level LDL CHOLESTEROL [facility] Start: 07-06-2016 Hemoglobin A1c/Hemoglobin.total in Blood HBA1C [facility] Start: 11-25-2015 Hepatitis C antibody, confirmatory test DILATED RETINAL EXAM [facility] Start: 08-27-2015 3 comp foot exam completed DIABETIC FOOT EXAM [facility] Start: 03-10-2015 PROSTATE CANCER SCREENING DISCUSSION PROSTATE CANCER SCREENING DISCUSSION [facility] Start: 12-19-2005 SHINGRIX VACCINE (1 of 2) SHINGRIX VACCINE (1 of 2) [facility] Start: 12-19-2000 COLOGUARD (FIT-DNA) COLOGUARD (FIT-DNA) [facility] Start: 12-19-2000 Colonoscopy COLONOSCOPY [facility] Start: 12-19-2000 COLORECTAL CANCER SCREENING COLORECTAL CANCER SCREENING [facility] Start: 12-19-[address] COLONOGRAPHY [facility] Start: 12-19-2000 FECAL OCCULT BLOOD FECAL OCCULT BLOOD [facility] Start: 12-19-2000 SIGMOIDOSCOPY SIGMOIDOSCOPY [facility] Start: 12-19-1974 Urine microalbumin profile DTAP,TDAP,TD (1 - Tdap) [facility] Start: 12-19-1973 ANNUAL PCP TEAM CHRONIC DISEASE VISIT ANNUAL PCP TEAM CHRONIC DISEASE VISIT [facility] Start: 12-19-1973 HEPATITIS C SCREENING HEPATITIS C SCREENING [facility] Start: 12-19-1973 HIV SCREENING HIV SCREENING [facility] Start: 1967 Adult depression screening assessment DEPRESSION SCREENING [facility] Start: 12-19-1960 COVID-19 VACCINE (1) COVID-19 VACCINE (1) [facility] Lipid 1996 panel - S eloina or Plasma [facility] Urine microalbumin/creatinine ratio measurement [facility] Immunizations Immunization Date Immunization Notes Care Provider Fa cili 03-20-2022 influenza virus vacc ine, unspecified formulation [facility] [employer] [facility] 12-13-2020 SARS-CoV-2 (COVID-19 ) mRNA-1273 vaccine [facility] [employer] [facility] Comment on above: Result Comment: 2020: [id number] 11-17-2020 SARS-CoV-2 (COVID-19 ) mRNA-1273 vaccine [facility] [employer] [facility] Comment on above: Result Comment: 2020: [id number] 10-18-2020 pneumococcal conjuga te vaccine, 13 valent; Translations: [Prevnar 13] [facility] [employer] [facility] 10-27-2019 tetanus toxoid, redu shaheen diphtheria toxoid, and acellular pertussis vaccine, adsorbed; Translations: [Boostrix (Tdap)] [facility] 04-07-2019 zoster vaccine recombinant [facility] 02-24-2018 influenza virus vacc ine, unspecified formulation [facility] 08-03-2016 zoster vaccine, live [facility] 06-29-2016 pneumococcal polysaccharide vaccine, 23 valent [facility] 02-12-2016 influenza virus vacc ine, unspecified formulation [facility] 03-13-2015 influenza virus vacc ine, unspecified formulation [facility] 03-12-2011 influenza virus vacc ine, unspecified formulation Candice Corea MD Work Phone: [facility] Work Phone: 03-02-2009 influenza virus vacc ine, unspecified formulation Candice Corea MD Work Phone: [facility] 08-20-2007 pneumococcal polysaccharide vaccine, 23 valent Candice Corea MD Work Phone: [facility] Work Phone: Payers Date Payer Category Payer Unknown 2023 Self-pay [id number] 2021 Medicare [id number] 2021 Unknown [id number] 2013 Private Health Insurance [employer]ET[employer] A ETNA CHOICE POS II [id number] 2013-Present [phone] [address] [place] [address] POS [id number] 1955 Unknown [id number] [id number] 27 1955 Unknown [id number] [id number] 27 Private Health Insurance [id number] Unknown [id number] 2.16.840.1.267070.3.579.2.4 62 Unknown [id number] 2.16.840.1.649629.3.579.2.4 62 Unknown [id number] 2.16.840.1.121384.3.579.2.4 62 Unknown [id number] 2.16.840.1.574130.3.579.2.4 62 Unknown [id number] 2.16.840.1.698118.3.579.2.4 62 Unknown [id number] 2.16.840.1.573973.3.579.2.4 62 Unknown [id number] 2.16.840.1.152101.3.579.2.4 62 Unknown [id number] 2.16.840.1.178556.3.579.2.4 62 Unknown [id number] 2.16.840.1.854032.3.579.2.4 62 Unknown [id number] 2.16.840.1.313251.3.579.2.4 62 Unknown [id number] 2.16.840.1.117659.3.579.2.4 62 Unknown [id number] 2.16.840.1.347044.3.579.2.4 62 Unknown [id number] 2.16.840.1.114203.3.579.2.4 62 Unknown [id number] [id number] 62 Social History Date Type Detail Facility Start: 01-04-2019 End: 08-13-2023 Tobacco smoking status NHIS Never smoked tobacco [facility] Start: 01-12-2016 Alcohol intake Current drinke r of alcohol (finding) [facility] Start: 1955 Sex Assigned At Not on file C [facility] Start: 04-27-2020 End: 05-15-2023 Tobacco smoking status SDIS Unknown if ever smoked [facility] Start: 1955 Sex Assigned At Male W [facility] Start: 07-29-2024 End: 08-01-2024 Sex Male (finding) [facility] Sex Male [facility] Medical Equipment Procedure Code Equipment Code Equipment Origin al Text Equipment Identifier Dates Start: 01-12-2016 Comment on above: Use as instructed te sting up to 8 times daily 1 Each four times da tammy. See Instructions , Accu check Guide test strips, #270, use 1 strip 3 times daily to test blood sugar; frequent testing due to fluctuating blood sugars. Dx: E10.9, # 270 EA, 3 Refill(s), Diabetes type 1, controlled Start: 05-30-2022 See Instructions , Patient tests 6 times daily. Please give enough for 3 months with 3 refills. Accu-Chek fast clix, # 1 EA, 3 Refill(s) Start: 05-30-2022 See Instructions , Accu check Guide test strips, #270, use 1 strip 3 times daily to test blood sugar; frequent testing due to fluctuating blood sugars. Dx: E10.9, # 270 EA, 3 Refill(s), Diabetes type 1, controlled Start: 05-30-2022 See Instructions , Patient tests 6 times daily. Please give enough for 3 months with 3 refills. Accu-Chek fast clix, # 1 EA, 3 Refill(s) Start: 05-30-2022 Blood Sugar Diagnostic (Accu-Chek Guide Test Strips) strip Start: 07-16-2023 Blood Sugar Diagnostic (Accu-Chek Guide Test Strips) strip Start: 07-10-2024 Blood Sugar Diagnostic (Accu-Chek Guide Test Strips) strip Start: 07-16-2023 End: 07-10-2024 Blood Sugar Diagnostic (Accu-Chek Guide Test Strips) strip Start: 07-10-2024 Blood Sugar Diagnostic (Accu-Chek Guide Test Strips) strip Start: 07-16-2023 End: 07-10-2024 Blood Sugar Diagnostic (Accu-Chek Guide Test Strips) strip Start: 07-10-2024 Blood Sugar Diagnostic (Accu-Chek Guide Test Strips) strip Start: 07-16-2023 End: 07-10-2024 Blood Sugar Diagnostic (Accu-Chek Guide Test Strips) strip Start: 07-10-2024 Blood Sugar Diagnostic (Accu-Chek Guide Test Strips) strip Start: 07-16-2023 End: 07-10-2024 Blood Sugar Diagnostic (Accu-Chek Guide Test Strips) strip Start: 07-10-2024 Blood Sugar Diagnostic (Accu-Chek Guide Test Strips) strip Start: 07-16-2023 End: 07-10-2024 Blood Sugar Diagnostic (Accu-Chek Guide Test Strips) strip Start: 07-10-2024 Blood Sugar Diagnostic (Accu-Chek Guide Test Strips) strip Start: 07-16-2023 End: 07-10-2024 Blood Sugar Diagnostic (Accu-Chek Guide Test Strips) strip Start: 07-10-2024 Blood Sugar Diagnostic (Accu-Chek Guide Test Strips) strip Start: 07-16-2023 End: 07-10-2024 Functional Status Date Assessment Result Facility 09-11-2022 Functional Status Door open, Room check performed [facility] 09-11-2022 Functional Status [facility] 09-11-2022 Functional Status Independent [facility] 09-11-2022 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, 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, 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, Personal ADL, Social participation [facility] 09-11-2022 Functional Status N/A [facility] 09-10-2022 Functional Status Yolanda jacobson [facility] Mental Status Date Assessment Result Facility 09-11-2022 Mental Status [facility]ed x [facility] 09-10-2022 Mental Status Yolanda [facility] Clinical Notes 05-16-2022 to 01-26-2025 Note Date & Type Note Facility 01-26-2025 Evaluation note Diagnosis Onset Date Resolution High cholesterol chronic Septembe r 2024 8:35am Hypertension chronic January 262024 8:35am Insulin pump titration chronic Se ptember 2024 8:35am Overweight chronic January 8:35am Presence of insulin pump chronic January 26, 2025 8:35am Type 1 diabetes mellitus with hyperglycemia chronic January 8:35am [facility] Work Phone: 1(415) 167-152606-02-2025 Evaluation note* Diagnosis Onset Date Resolution Status Admit Date High cholesterol chronic October 8:40am Hypertension chronic October 13 8:40am Insulin pump titration chronic Ju 2024 8:40am Overweight chronic October 13, 2024 8:40am Presence of insulin pump chronic October 13, 2024 8:40am Type 1 diabetes mellitus wit h hyperglycemia chronic October 13, 2024 8 :40am [facility] Work Phone: 1(938) 482-724703-05-2025 Radiology Diagnostic study note [facility] Imaging Services [address] [place] [address] [id number] Esophagus Dual Contrast MR#: [id number] Acct: [id number] Name: CARLYN EVANGELISTA Rep #: [id number] : 1955 M 68 From: Caridad Koch MD PCP: Dr. Shravan Gonzalez MD Status: DAHLIA FELDMAN Study:Esophagus Dual Contrast Date of Exam: 07/16/24 Exam# [id number] Ordering Dr: Rupal Elena MD PROCEDURE: ESOPHAGUS DUAL CONTRAST REASON FOR EXAM: Dysphagia. TECHNIQUE: Following the ingestion of effervescent granules, high density barium and a barium pill, routine fluoroscopic imaging was performed with image documentation. FLUOROSCOPIC TIME: 72 seconds. DOSE: 8.2 mGy. FLUOROGRAPHIC IMAGES: 6 sequences. COMPARISON: None. FINDINGS: No abnormalities were noted in the hypopharynx. Esophagus contractility was normal. No constricting or obstructing lesions were identified. No intraluminal filling defects. No ulcerations are identified. A small Schatzki's ring is demonstrated. No signs of gastroesophageal reflux. RAD/Esophagus Dual Contrast IMPRESSION: 1. A small Schatzki's ring was demonstrated during this study. 2. No signs of gastroesophageal reflux or other abnormalities. Reading Location: [place] [address] CC: Dr. Shravan Gonzalez MD; Dr. Garrett Elena MD ~ Exchange Operator: Signed [facility]02-27-2025 Evaluation note* Diagnosis Onset Date Resolution Status Admit Date High cholesterol chronic July 10, 2024 8:35am Hypertension chronic June 8:35am Insulin pump titration chronic 2024 8:35am Overweight chronic July 10, 2024 8:35am Presence of insulin pump chronic July 10, 2024 8:35am Type 1 diabetes mellitus wit h hyperglycemia July 10 025 8:35am [facility] Work Phone: 1(255) 385-525211-18-2024 Evaluation note* Diagnosis Onset Date Resolution Status Admit Date High cholesterol chronic March 31, 2024 8:02am Hypertension chronic March 8:02am Insulin pump titration chronic No [facility]2023 8:02am Overweight chronic March 31, 2024 8:02am Presence of insulin pump chronic March 31, 2024 8:02am Type 1 diabetes mellitus wit h hyperglycemia March 31, 024 8:02am High cholesterol chronic July 10, 2024 8:35am Hypertension chronic June 8:35am Insulin pump titration chronic 2024 8:35am Overweight chronic July 10, 2024 8:35am Presence of insulin pump chronic July 10, 2024 8:35am Type 1 diabetes mellitus wit h hyperglycemia chronic July 10 025 8:35am [facility] Work Phone: 1([phone]) 992-436405-01-2023 Note Date of Service 09/11/2022 Chief Complaint Arrives from home with c/o headache 01/21 with some confusion with his words per family. Family states patient laid down about [id number] and woke up confused History of Present Illness 66-year-old male with past medical history significant for type 1 diabetes mellitus, BPH, neuropathy, ED, osteoarthritis, hypothyroidism. Patient presented to [facility] emergency department 09/10/2022 With altered mental status andheadache. Last seen normal at 12:30 PM. Arrived [...] Result Date: September 10, 2022 Verified By: DANNY COLLINS MD CLINICAL STATEMENT: IMPRESSION: Hypoventilatory findings. No acute abnormality. CT Head or Brain w/o Contrast Result Date: September 10, 2022 Verified By: DANNY COLLINS MD CLINICAL STATEMENT: IMPRESSION: No acute intracranial abnormality. Assessment/Plan 1. Altered mental status 2. History of migraine headaches 3. Type 1 diabetes mellitus with albuminuria Altered mental status patient reports that he was having a very severe migraine yesterday describesthis as pain behind his left eye. This is typical for how he normally experiences migraines. He hashad migraines since childhood. He does report that [...] regularly. He used to follow with an glass block bender and no longer does so. I recommended [...] See Instructions DME MISCellaneous See Instructions Freestyle Millwood See Instructions Freestyle Millwood 14 day sensor See Instructions Insulin Syringes [...] month., 02/24/2019 Employment/School Status: Retired. 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, lives with spouse, Tere 2 grown [...] SARS-CoV-2 (COVID-19) mRNA-1273 vaccine: 0.5 unknown unit (12/13/20) SARS-CoV-2 (COVID-19) mRNA-1273 vaccine: 0.5 unknown unit (11/17/20) tetanus/diphth/pertuss (Tdap) adult/adol: 0.5 mL (10/27/19) zoster vaccine live: 0 unknown unit (08/03/16) zoster vaccine, inactivated: 0.5 unknown unit (04/07/19) Code Status Full code Digitally Signed by SAKSHI REYES on 09/11/2022 03:01 PM [facility]05-01-2023 Hospital Discharge instructions Patient Education 09/11/2022 12:55:40 Transient Ischemic Attack, Qyvj-ys-Pdxt Transient Ischemic Attack A transient ischemic attack (TIA) is a "warning stroke" that causes stroke-like symptoms that go away [...] Follow these instructions at home: Medicines Take xgzf-tqp-plzypig and prescription medicines only as told by your doctor. If you were told to take aspirin or another medicine to thin your blood, take it exactly as told byyour doctor. ?Taking too much of the medicine [...] if: You have any signs of stroke. "BE FAST" is an easy way to remember the main warning signs: ?B - Balance. Signs are dizziness, sudden trouble walking, or loss of balance. ?E - Eyes. Signs are trouble seeing or a sudden change in how you see. ?F - Face. Signs are sudden weakness or loss of feeling of the face, or the face or eyelid droopingon one side. ?A - Arms. Signs are [...] A transient ischemic attack (TIA) is a "warning stroke" that causes stroke-like symptoms that go away [...] 02/06/2009 Document Revised: 01/24/2019 Document Reviewed: 08/01/2017 [employer] Patient Education 2020 [employer] Follow Up Care 09/10/2022 19:39:51 With:FAIZA URIAS MD Address: [facility] [facility][1] [place] [address] [phone] When:3-5 days Comments:Call to establish as new patient. With:ELBA GONZALEZ MD Address: [facility] [address] [place] [address]- When:3-5 days Comments:Please call to schedule your post-hospital follow-up appointment. [facility] 05-01-2023 Evaluation + Plan noteExtracted from: Title:History and Physical Author:SAKSHI REYES APRN-MARBLE CARVER Date:09/11/22 1. Altered mental status 2. History of [...] regularly. He used to follow with an glass block bender and no longer does so. I recommended [...] Level 05/16/22 * Complete Metabolic Panel 05/16/22 [facility] Yolandalucila Martinez 05-01-2023 Note Discharge Instructions Thank you for allowing [facility] to assist you with your healthcare needs. [...] with endocrinology for assisting in better control ofyour diabetes. Follow Up Appointments Follow Up with FAIZA URIAS MD When Within 3-5 days Why: Call to establish as new patient. Where: [address] [facility][1] [place] [address] [phone] Follow Up with ELBA GONZALEZ MD When Within 3-5 days Why: Please call to schedule your post-hospital follow-up appointment. Where: [facility] [address] [place] [address] [address] [place] [address]- The Following Activity and Diet Have Been [...] by mouth Once a day Pickup at [facility]/pharmacy #[id number] none today Changed insulin detemir (Levemir) (Levemir) [...] Dx: E11.9 Diabetes Provider Unchanged DME (Freestyle Millwood 14 day sensor) See instructions 1 month supply Unchanged DME (Freestyle Millwood) See instructions Glucose level checks Unchanged DME (Insulin Syringes (orange cap)) See instructions Diabetes type 1, controlled Use 1 syringe as directed 5 times daily to inject insulin. Unchanged DME (Lancets) See instructions Patient tests 6 times daily. Please give enough for 3 months with 3 refills. Accu-Chek fast clix Unchanged DME (Pen needles) See instructions " pen needles, dispense #100 with three refills. DX E10.9 Unchanged famotidine (Pepcid 40 mg oral tablet) 1 tab(s) by mouth Every day 09/11/22 at 1054am Unchanged insulin aspart (Novolog) (NovoLOG FlexPen 100 units/ mL injectable solution) 10 unit(s) Subcutaneous Three (3) times a day before meals Enough for 3 months please 09/11/22 at 0830 and 1155am Pharmacy Information [facility]/pharmacy #[id number]: [address], [place] [phone] What How Much When Comments Stop Taking [...] A transient ischemic attack (TIA) is a "warning stroke" that causes stroke-like symptoms that go away [...] Follow these instructions at home: Medicines Take mtvs-fbb-yugvjrs and prescription medicines only as told by [...] if: You have any signs of stroke. "BE FAST" is an easy way to remember the [...] A transient ischemic attack (TIA) is a "warning stroke" that causes stroke-like symptoms that go away [...] 02/06/2009 Document Revised: 01/24/2019 Document Reviewed: 08/01/2017 [employer] Patient Education 2020 [employer] Additional Information VACCINATE! IT SAVES LIVES! Members of the community who have not yet received the COVID-19 vaccine and would like to receive it can visit one of [facility] vaccine clinics. There are many vaccine clinic locations within the [facility]. For locations and available times, please visit https://gettheshot.coronavirus.[place].gov/. It is important to note that some COVID mobile vaccine clinics are held outdoors and may be canceled in rainy or stormy conditions. To learn more about pediatric vaccinations (ages 5-11), we invite you to visit the [facility] webpage. https://www.[facility].org/pages/3639-Ilsdy-Twwbjlrmnhh-Yuknjzipye-Rfehb-Gae stions.htmlTo learn more about the COVID-19 vaccine, we invite you to visit the CDC website for a list of frequently asked questions. https://www.cdc.gov/coronavirus/2019-ncov/vaccines/faq.html [facility] Patient Portal Access Instructions: Stay connected with your healthcare team and access your personal medical information anytime with the [facility] Patient Portal.If you would like a full copy of your medical records, please contact the [facility] Medical Records Department, Sunday through Sunday between 8a.m. and 4:30p.m. Please follow the directions below to access the portal: 1.Access the email account you provided upon registration to the [facility].2.Look for an invitation email from [facility].3.Open the email and access the invitation link: Accept Invitation to [facility]4.Fill in the required ramirez to create your account. Sign into www.[employer] with your username and password that you [...] you will allow to register on the [facility] Patient Portal for access to your information. You can also access the [facility] Patient Portal on the [employer]. Simply click on "Health Records" under "HealthData" and then click on the [employer] logo. HOW TO SAFELY DISPOSE OF PRESCRIPTION [...] Call your local pharmacy or go to http://bit.ly/7S1Qn5a to find one close to you.3.Make use of household items: Use cat litter or old coffee grounds to dispose medications if other options arenot available. Mix your drugs with these household products, seal them in an airtight container andthrow it into the garbage. Call [facility]: [phone] to be sure your drugs can be [...] Signatures Patient Education Materials Transient Ischemic Attack, Bsqw-hl-Ytig Medication Leaflets My discharge plan and instructions have been reviewed and explained to me and I,CARLYN EVANGELISTAtand my current condition and have read and understand these discharge instructions. I have received a written copy of the plan/instructions. If I have questions, I am aware that I should contact my doctor. 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04-30-2023 Note ORIGINAL EXAMINATION: CTA OF THE [...] Date: 09/10/2022 10:06:27 PM [facility]ing Provider[facility] Note ORIGINAL EXAMINATION: CTA OF THE HEAD [...] Interpreted by: Iker Velazquez Preliminary Report By: Ikre Velazquez Electronically signed By Iker Velazquez Dictated Date: 09/10/2022 9:59:22 PM Prelim Date: 09/10/2022 10:02:52 PM Sign Date: 09/10/2022 10:02:52 PM Ordering Provider: PIERRE [facility]04-30-2023 Note ORIGINAL EXAMINATION: CTA OF [...] Sign Date: 09/10/2022 10:06:27 PM Ordering Provider: [facility]04-30-2023 Note ORIGINAL EXAMINATION: CTA OF THE HEAD [...] Sign Date: 09/10/2022 10:02:52 PM Ordering Provider: [facility] Note ORIGINAL EXAMINATION: CT OF THE HEAD [...] IMPRESSION: No acute intracranial abnormality. Interpreted by: Danny Collins MD Preliminary Report By: Danny Collins MD Electronically signed By Danny Collins MD Dictated Date: 09/10/2022 8:35:34 PM Prelim Date: 09/10/2022 8:37:23 PM Sign Date: 09/10/2022 8:37:23 PM Ordering Provider: [address]30-2023 Note ORIGINAL EXAMINATION: ONE XRAY VIEW OF [...] Hypoventilatory findings. No acute abnormality. Interpreted by: Danny Collins MD Preliminary Report By: Danny Collins MD Electronically signed By Danny Collins MD Dictated Date: 09/10/2022 8:34:05 PM Prelim Date: 09/10/2022 8:35:15 PM Sign Date: 09/10/2022 8:35:15 PM Ordering Provider: PIERRE [address]30-2023 Note ORIGINAL EXAMINATION: CT OF THE HEAD [...] IMPRESSION: No acute intracranial abnormality. Interpreted by: Danny Collins MD Preliminary Report By: Danny Collins MD Electronically signed By Danny Collins MD Dictated Date: 09/10/2022 8:35:34 PM Prelim Date: 09/10/2022 8:37:23 PM Sign Date: 09/10/2022 8:37:23 PM Ordering Provider: [facility]04-30-2023 Note ORIGINAL EXAMINATION: ONE XRAY VIEW [...] Hypoventilatory findings. No acute abnormality. Interpreted by: Danny Collins MD Preliminary Report By: Danny Collins MD Electronically signed By Danny Collins MD Dictated Date: 09/10/2022 8:34:05 PM Prelim Date: 09/10/2022 8:35:15 PM Sign Date: 09/10/2022 8:35:15 PM Ordering Provider: [facility]01-03-2023 Evaluation + Plan note Future Scheduled Tests Laboratory* Glutamic Acid Decarboxylase 05/16/22 * Prostate Specific Antigen 05/16/22 * Thyroid Stimulating Hormone 05/16/22 * Free T4 05/16/22 * A1C Hemoglobin 05/16/22 * Complete Blood Count 05/16/22 * C-Peptide 05/16/22 * Lipid Profile 05/16/22 * Hepatitis C Antibody IgG 05/16/22 * Microalbumin Level Urine 05/16/22 * Vitamin D Level 05/16/22 * Complete Metabolic Panel 05/16/22 [facility] Evaluation noteNo assessment information available [facility] Work Phone: Evaluation note* Diagnosis Onset Date Resolution Status High cholesterol chronic Hypertension chronic Type 1 diabetes mellitus with hyperglycemia chronic Hypertension chronic Type 1 diabetes mellitus with hyperglycemia [facility] Work Phone: Evaluation note* Diagnosis Onset Date Resolution Status Hypertension chronic Type 1 diabetes mellitus with hyperglycemia [facility] Work Phone: Hospital course Narrative No data available for this section [facility] Hospital Discharge instructions No data available for this section [facility] Progress note No data available for this section [facility] Reason for referral (narrative)No reason for referral information availableWMercy Health St[facility] Work Phone: Summary Purpose Family History No Family History Records Found Relationship Condition Age at Onset Recorded Date/T ellen father Myocardial infarction Unknown Cardiac disease Unknown mother Malignant neoplasm of breast Unknown Advance Directives No Advanced Directives Records Found Advance Directive Response Recorded Date/ Time Living Will Yes April 27, 020 2:33pm Power of Chain Hooker Yes April 27, 2020 2:33pm Advance Directive Response Recorded Date/ Time Living Will Yes April 27, 020 1:33pm Power of Chain Hooker Yes April 27, 2020 1:33pm Chief Complaint and Reason for Visit Chief Complaint 2 M FU 3 M FU E-ORDER INT LABS CHEST CONGESTION/COUGH Reason for Visit High cholesterol Hypertension Type 1 diabetes mellitus with hyperglycemia Hypertension Type 1 diabetes mellitus with hyperglycemia Chief Complaint 3 M FU E-ORDER INT LABS CHEST CONGESTION/COUGH SCREENING Reason for Visit Hypertension Type 1 diabetes mellitus with hyperglycemia Chief Complaint Admit Date 3 M FU March 31, 2024 8:02am 3 M FU July 10, 2024 8:35am DYSPHAGIA July 16, 2024 7:59 am Reason for Visit Admit Date High cholesterol March 31, 2024 8:02am Hypertension March 31, 2024 8:02am Insulin pump titration March 31 8:02am Overweight March 31, 2024 8:02am Presence of insulin pump March 31, 2024 8:02am Type 1 diabetes mellitus with hyperglyce carin March 31, 2024 8:02am High cholesterol July 10, 2024 8:35am Hypertension July 10, 2024 8:35am Insulin pump titration July 10 8:35am Overweight July 10, 2024 8:35am Presence of insulin pump July 10, 2024 8:35am Type 1 diabetes mellitus with hyperglyce carin July 10, 2024 8:35am Chief Complaint Admit Date 3 M FU July 10, 2024 8:35am DYSPHAGIA July 16, 2024 7:59 am Reason for Visit Admit Date High cholesterol July 10, 2024 8:35am Hypertension July 10, 2024 8:35am Insulin pump titration July 10 8:35am Overweight July 10, 2024 8:35am Presence of insulin pump July 10, 2024 8:35am Type 1 diabetes mellitus with hyperglyce carin July 10, 2024 8:35am Chief Complaint Admit Date 3 M FU July 10, 2024 8:35am DYSPHAGIA July 16, 2024 7:59 am 3 M FU October 13, 2024 8:40a m Chief Complaint Admit Date 3 M FU October 13, 2024 8:40a m SOB December 22, 2024 6: 37am CT CALCIUM SCORING December 22, 2024 6: 38am SOB December 24, 2024 12 :26pm Reason for Visit Admit Date High cholesterol October 13, 2024 8:40a m Hypertension October 13, 2024 8:40a m Insulin pump titration October 13, 2024 8: 40am Overweight October 13, 2024 8:40a m Presence of insulin pump October 13, 2024 8:40am Type 1 diabetes mellitus with hyperglyce carin October 13, 2024 8:40am Chief Complaint Admit Date 3 M FU October 13, 2024 8:40a m SOB December 22, 2024 6: 37am CT CALCIUM SCORING December 22, 2024 6: 38am SOB December 24, 2024 12 :26pm 3 M FU January 26, 2025 8:35am Chief Complaint Admit Date SOB December 22, 2024 6: 37am CT CALCIUM SCORING December 22, 2024 6: 38am SOB December 24, 2024 12 :26pm 3 M FU Danae 15th, 2025 8:35am Reason for Visit Admit Date High cholesterol January 26, 2025 8:35am Hypertension January 26, 2025 8:35am Insulin pump titration January 26, 2 025 8:35am Overweight January 26, 2025 8:35am Presence of insulin pump January 26, 2025 8:35am Type 1 diabetes mellitus with hyperglyce carin January 26, 2025 8:35am Additional Source Comments Source Comments (unrecognize d section and content) In the event this informatio n is protected by the Federal Confidentiality of Alcohol and Drug Abuse Patient Records regulations: The Federal rules restrict any use of the information to criminally investigate or prosecute any alcohol or drug abuse patient.[facility] Care Teams (unrecognized sec tion and content) Rcis Relationship Specialty Start Date End Date Mihir Iyer PCP - General 09/17/09 Team Status: Active Member Role Status Dates Dr. Mihir Iyer MD Primary Care Provider Active Team Status: Inactive Member Role Status Dates Dr. Mihir Iyer MD Primary Care Provider Active Shravan PARSON MD Attending Provider Active Team Status: Active Member Role Status Dates Dr. Shravan Gonzalez MD Primary Care Provider Active Team Status: Inactive Member Role Status Dates Dr. Shravan Gonzalez MD Primary Care Provider, Referring Provider Active MAGALIS Faulkner Attending Provider Active Team Status: Inactive Member Role Status Dates Dr. Shravan Gonzalez MD Primary Care Provider, Referring Provider Active [place], [place] Attending Provider Active Team Status: Inactive Member Role Status Dates Dr. Shravan Gonzalez MD Primary Care Provider Active MAGALIS Faulkner Attending Provider, Referring Pr ovider Active Team Status: Inactive Member Role Status Dates Dr. Shravan Gonzalez MD Primary Care Provi stella, Attending Provider, Referring Provider Active Team Status: Inactive Member Role Status Dates Dr. Shravan Gonzalez MD Primary Care Provider Active Start: March 31, 2024 End: March 31, 2024 Dr. Shravan Gonzalez MD Referring Provider Active Start: March 31, 2024 End: March 31, 2024 MAGALIS Faulkner Attending Provider Active Start: March 31, 2024 End: March 31, 2024 Team Status: Inactive Member Role Status Dates Dr. Shravan Gonzalez MD Primary Care Provider Active Start: July 10, 2024 End: July 10, 2024 Dr. Shravan Gonzalez MD Referring Provider Active Start: July 10, 2024 End: July 10, 2024 MAGALIS Faulkner Attending Provider Active Start: July 10, 2024 End: July 10, 2024 Team Status: Inactive Member Role Status Dates Dr. Shravan Gonzalez MD Primary Care Provider Active Start: July 16, 2024 End: July 16, 2024 Dr. Garrett Elena MD Attending Provider Active Start: July 16, 2024 End: July 16, 2024 Dr. Garrett Elena MD Referring Provider Active Start: July 16, 2024 End: July 16, 2024 Team Status: Active Member Role Status Dates Dr. Shravan Gonzalez MD Primary Care Provider Active Start: July 23, 2024 Dr. Shravan Gonzalez MD Attending Provider Active Start: July 23, 2024 Team Status: Inactive Member Role Status Dates Dr. Shravan Gonzalez MD Primary Care Provider Active Start: July 23, 2024 End: July 23, 2024 Dr. Shravan Gonzalez MD Attending Provider Active Start: July 23, 2024 End: July 23, 2024 Team Status: Inactive Member Role Status Dates Dr. Shravan Gonzalez MD Primary Care Provider Active Start: October 13, 2024 End: October 13, 2024 Dr. Shravan Gonzalez MD Referring Provider Active Start: October 13, 2024 End: October 13, 2024 MAGALIS Faulkner Attending Provider Active Start: October 13, 2024 End: October 13, 2024 Team Status: Active Member Role/Relationship Status Dates Dr. Shravan Gonzalez MD Primary Care Provider Active Team Status: Inactive Member Role/Relationship Status Dates Dr. Shravan Gonzalez MD Primary Care Provider Active Start: October 13, 2024 End: October 13, 2024 Dr. Shravan Gonzalez MD Referring Provider Active Start: October 13, 2024 End: October 13, 2024 MAGALIS Faulkner Attending Provider Active Start: October 13, 2024 End: October 13, 2024 Team Status: Active Member Role/Relationship Status Dates Dr. Shravan Gonzalez MD Primary Care Provider Active Start: December 22, 2024 Dr. Shravan Gonzalez MD Attending Provider Active Start: December 22, 2024 Dr. Shravan Gonzalez MD Referring Provider Active Start: December 22, 2024 Team Status: Active Member Role/Relationship Status Dates Dr. Shravan Gonzalez MD Primary Care Provider Active Start: December 22, 2024 Dr. Shravan Gonzalez MD Referring Provider Active Start: December 22, 2024 Dr. Wil Youssef MD Attending Provider Active S tart: December 22, 2024 Team Status: Inactive Member Role/Relationship Status Dates Dr. Shravan Gonzalez MD Primary Care Provider Active Start: December 24, 2024 End: December 24, 2024 Dr. Shravan Gonzalez MD Attending Provider Active Start: December 24, 2024 End: December 24, 2024 Dr. Shravan Gonzalez MD Referring Provider Active Start: December 24, 2024 End: December 24, 2024 Team Status: Active Member Role/Relationship Status Dates Dr. Shravan Gonzalez MD Primary Care Provider Active Start: December 24, 2024 Dr. Wil Youssef MD Attending Provider Active S tart: December 24, 2024 Team Status: Inactive Member Role/Relationship Status Dates Dr. Shravan Gonzalez MD Primary Care Provider Active Start: January 05, 2025 End: January 05, 2025 Dr. Shravan Gonzalez MD Attending Provider Active Start: January 05, 2025 End: January 05, 2025 Team Status: Inactive Member Role/Relationship Status Dates Dr. Shravan Gonzalez MD Primary Care Provider Active Start: January 26, 2025 End: January 26, 2025 Dr. Shravan Gonzalez MD Referring Provider Active Start: January 26, 2025 End: January 26, 2025 MAGALIS Faulkner Attending Provider Active Start: January 26, 2025 End: January 26, 2025 Team Status: Active Member Role/Relationship Status Dates Dr. Shravan Gonzalez MD Primary care physician Active Team Status: Active Member Role/Relationship Status Dates Dr. Shravan Gonzalez MD Primary care physician Active Start: December 22, 2024 Dr. Shravan Gonzalez MD Attending physician Active Start: December 22, 2024 Dr. Shravan Gonzalez MD Referring Provider Active Start: December 22, 2024 Team Status: Active Member Role/Relationship Status Dates Dr. Shravan Gonzalez MD Primary care physician Active Start: December 22, 2024 Dr. Shravan Gonzalez MD Referring Provider Active Start: December 22, 2024 Dr. Wil Youssef MD Attending physician Active Start: December 22, 2024 Team Status: Inactive Member Role/Relationship Status Dates Dr. Shravan Gonzalez MD Primary care physician Active Start: December 24, 2024 End: December 24, 2024 Dr. Shravan Gonzalez MD Attending physician Active Start: December 24, 2024 End: December 24, 2024 Dr. Shravan Gonzalez MD Referring Provider Active Start: December 24, 2024 End: December 24, 2024 Team Status: Active Member Role/Relationship Status Dates Dr. Shravan Gonzalez MD Primary care physician Active Start: December 24, 2024 Dr. Wil Youssef MD Attending physician Active Start: December 24, 2024 Team Status: Inactive Member Role/Relationship Status Dates Dr. Shravan Gonzalez MD Primary care physician Active Start: January 05, 2025 End: January 05, 2025 Dr. Shravan Gonzalez MD Attending physician Active Start: January 05, 2025 End: January 05, 2025 Team Status: Inactive Member Role/Relationship Status Dates Dr. Shravan Gonzalez MD Primary care physician Active Start: January 26, 2025 End: January 26, 2025 Dr. Shravan Gonzalez MD Referring Provider Active Start: January 26, 2025 End: January 26, 2025 MAGALIS Faulkner Attending physician Active Start: January 26, 2025 End: January 26, 2025 Team Status: Inactive Member Role/Relationship Status Dates Dr. Shravan Gonzalez MD Primary care physician Active Start: February 04, 2025 End: February 04, 2025 Dr. Shravan Gonzalez MD Attending physician Active Start: February 04, 2025 End: Danae 24th, 2025 (unrecognized sect ion and content) No Status Records FoundNo Status Records FoundNo Status Records Found INFORMATION SOURCE (unrecogn ized section and content) DATE CREATED AUTHOR 08/23/2021 [facility] Kristi abraham Suarez DATE CREATED AUTHOR AUTHOR'S ORGANIZ ATION 10/24/2022 [facility] ([place]) DATE CREATED AUTHOR AUTHOR'S ORGANIZ ATION 03/16/2025 [facility] Goals (unrecognized section and content) Goals may be documented in a n alternate section No data available for this section No data available for this sectionGoals may be documented in an alternate sectionGoals may be documented in an alternate sectionGoals may be documented in an alternate sectionGoals may be documented in an alternate sectionGoals may be documented in an alternate sectionGoals may be documented in an alternate sectionGoals may be documented in an alternate sectionGoals may be documented in an alternate sectionGoals may be documented in an alternate section FOR RECORDS PERTAINING TO PATIENTS WHO ARE [...] BE BASED ON THE PRIMARY CLINICAL RECORDS. [email or web address] [facility]. provides no warranty or guarantee of the accuracy or completeness of information in this document.
[2025-03-17 09:03] LABS: AST(SGOT) 19 U/L (<=37); Alanine Aminotransfer ALT/SGPT 15 U/L (<=46); Albumin, Serum 4.2 g/dL (3.4-4.8); Alkaline Phosphatase 82 U/L (40-129); Anion Gap 9 (5-15); BUN 23 mg/dL (4-19); BUN/Creat Ratio 25.1 RATIO (10-20); Calcium,Total 9.6 mg/dL (7.6-11.0); Carbon Dioxide 28.8 mmol/L (21.0-32.0); Chloride 104 mmol/L (98-108); Cholesterol 224 mg/dL (<=200); Globulin 2.8 g/dL (2.2-4.2); Glucose 131 mg/dL (70-99); Low Density Lipoprotein Calc. 127 mg/dL; Potassium 4.3 mmol/L (3.3-5.1); Triglycerides 68 mg/dL; Very Low Density Lipoprotein 14 mg/dL (5-40); cholesterol:hdl ratio screen 2.61
== END | disposition home or self-care (01) ==
LOC: LAB 07:09
PROVIDERS: PCP Family Medicine Geriatric Medicine; Referring Provider Internal Medicine Cardiovascular Disease; Visit Provider Internal Medicine Cardiovascular Disease
DX: Z12.5 Encounter for screening for malignant neoplasm of prostate (principal); I25.10 Atherosclerotic heart disease of native coronary artery without angina pectoris
CPT/HCPCS: 36415; 80053; 80061

== ENCOUNTER → 2025-03-23 | Outpatient (CLI) | payer MEDICARE, OTHER, SELFPAY ==
--- OUTSIDE RECORDS SUMMARY | 2025-03-23 06:37 | XMS RPT_ITS | CCD ---
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 Shravan Bledsoe Chi Primary Care Provider Dr. Shravan Gonzalez Chi Referring Provider MAGALIS Russ Attending Provider RAJEEV Gutierrez Attending Provider Dr. Shravan Gonzalez Chi Primary Care Provider Dr. Shravan Gonzalez Chi Referring Provider [phone] MAGALIS Russ Attending Provider RAJEEV Gutierrez Attending Provider Dr. Shravan Gonzalez MD, Chi Primary Care Provider Dr. Shravan Gonzalez MD, Chi Referring Provider Naheed Awan Attending Provider Kassy CAMPOS, Dr. Tucker Attending Provider Dr. Garrett Elena MD Referring Provider Payam CAMPOS, Dr. Shravan Rivas Attending Provider Payam CAMPOS, Dr. Shravan Rivas Primary Care Provider Payam CAMPOS, Dr. Shravan Rivas Referring Provider Jeb TIPPLE OPERATOR-CNaheed Attending Provider Payam CAMPOS, Dr. Shravan Rivas Primary Care Provider Payam CAMPOS, Dr. Shravan Rivas Referring Provider Jeb TIPPLE OPERATOR-C, Naheed Attending Provider Payam CAMPOS, Dr. Shravan Rivas Attending Provider Domonique CAMPOS, Dr. De La Torre Attending Provider Payam CAMPOS, Dr. Shravan Rivas Primary Care Physician Payam CAMPOS, Dr. Shravan Rivas Attending Physician Payam CAMPOS, Dr. Shravan Rivas Referring Provider Domonique CAMPOS, Dr. De La Torre Attending Physician Jeb TIPPLE OPERATOR-CNaheed Attending Physician Payam, Shravan Chi Primary Care Unavailable Payam, Shravan Chi Referring Unavailable Joey Youssefl Attending Unavailable Payam, Shravan Chi Primary Care Unavailable Payam, Shravan Chi Attending Unavailable Dawit, Dewey Referring Unavailable Dawit, Dewey Attending Unavailable Tj Hutchins Unavailable Payam, Shravan Chi Primary Care Unavailable Dawit, Dewey Referring Unavailable Dawit, Dewey Attending Unavailable Payam, Shravan Chi Primary Care Unavailable Payam, Shravan Chi Referring Unavailable Payam, Shravan Chi Attending Unavailable Payam, Shravan Chi Primary Care Unavailable DomoniqueJoey moral Attending Unavailable Payam, Shravan Chi Primary Care Unavailable Payam, Shravan Chi Primary Care Unavailable Payam, Shravan Chi Referring Unavailable Heron Graham Attending Unavailable Payam, Shravan Chi Referring Unavailable JebNaheed Attending Unavailable Payam, Shravan Chi Primary Care Unavailable Payam, Shravan Chi Primary Care Unavailable JebNaheed Attending Unavailable Payam, Shravan Chi Referring Unavailable Dawit, Dewey Attending Unavailable Payam, Shravan Chi Primary Care Unavailable Payam, Shravan Chi Referring Unavailable Payam, Shravan Chi Referring Unavailable JebNaheed Attending Unavailable Payam, Shravan Chi Primary Care Unavailable Payam, Shravan Chi Referring Unavailable JebNaheed Attending Unavailable Payam, Shravan Chi Primary Care Unavailable Payam, Shravan Chi Primary Care Unavailable Payam, Shravan Chi Attending Unavailable Payam, Shravan Chi Primary Care Unavailable Garrett Elena Referring Unavailable Garrett Elena Attending Unavailable Payam, Shravan Chi Attending Unavailable Payam, Shravan Chi Attending Unavailable Payam, Shravan Chi Primary Care Unavailable Allergies Allergy Classification Reported Allergen(s) Allergy Type Date of Onset Reaction(s) Facility (1 source) Enalapril Drug Allergy 9 [facility] Work Phone: (1 source) Non-steroidal anti-inflammator y agent Propensity to adverse reactions 5 [facility] Work Phone: (1 source) oxyCODONE Drug Allergy 1 Other: See Comments [facility] Work Phone: (1 source) Salicylic Acid Drug Allergy 5 [facility] Work Phone: (1 source) Simvastatin Drug Allergy 9 [facility] Work Phone: (1 source) valsartan Drug Allergy 0 Cough [facility] (12 sources) Aspirin; Translations: [aspirin] Drug Allergy 0 Unknown, Hives [facility] (10 sources) Nonsteroidal Anti-inflammator y Compounds Propensity to adverse reactions 0 Nausea/Vom/Diar [facility] (2 sources) diphenhydrAMINE; Translations: [diphenhydramine ] Drug Allergy [facility] Comment on above: Hives (2 sources) Naproxen; Translations: [naproxen] Drug Allergy Nausea and vomiting (disorder) [facility] (1 source) Aspirin Drug Allergy 5 [facility] (1 source) NSAIDs Drug allergy (disorder) 5 [facility] Rep[facility] Medications Current Medications Medication Drug Class(es) [...] G7 Sensor) device Active 0 .Route 9 December 03, 2022 11:00pm 1 sensor q 10 days [facility] (6 sources) Start: 07-10-2022 DME MISCellane ous See Instructions, Dexcom G6 Sensors use as directed # 1 box of 3 x 2 refills Dx: E11.9 Diabetes Provider , # 3 EA, 2 Refill(s), Pharmacy: [facility]/pharmacy #[id number], 173, cm, 05/16/22 10:21:00 EST, [...] 74 Start Date: 06/02/22 Status: Ordered Freestyle [place] (2 sources) Start: 05-16-2022 Freestyle Read er See Instructions, Glucose level checks, # 1 EA, 0 Refill(s) Start Date: 05/16/22 Status: Ordered Freestyle [place] Pool 14 day sensor (2 sources) Start: 04-19-2020 [...] Start: 10-24-2021 Pen needles Se e Instructions, 09/26 pen needles, dispense #100 with three refills. DX E10.9, # 1 EA, 3 Refill(s) Start Date: 10/24/21 Status: Ordered rosuvastatin calcium 20 mg oral tablet (2 sources) HMG-CoA Reductase Inhibitor Start: 09-11-2022 rosuvastatin 20 mg oral tablet Dose : 20 mg = 1 tab(s), Oral, qDay, # 30 tab(s), 0 Refill(s), Pharmacy: [facility]/pharmacy #[id number], 167.6, cm, 09/11/22 2:32:00 EDT, Height [...] A DAY as needed for cough 20 0 May 15, 2023 1:00am August 13, 2023 9:18am ezetimibe 10 mg oral tablet (9 sources) Dietary Cholesterol Absorption Inhibitor Start: 12-04-2022 End: 02-05-2023 take 1 tablet by mouth once daily Ezetimibe 10 mg tablet Discontinued 10 mg PO DAILY 30 5 December 04, 2022 12:00am February 05, 2023 [...] 40 U continuous subcutaneous infusion .continuous 36 1 January 18, 2024 9:09am October 30, 2024 [...] Chronic Coronary atherosclerosis and other heart disease (2 sources) Atherosclerotic heart disease of [place] coronary artery without angina pectoris; Translations: [Atherosclerotic heart disease of [place] coronary artery without angina pectoris] Onset: 03-16-2025 [...] (15 sources) Overweight; Translations: [Overweight] 12-17-2023 Episodic Other screening for suspected conditions (not mental disorders or infectious disease) (2 sources) Encounter for screening for malignant neoplasm of prostate; Translations: [Encounter for screening for malignant neoplasm of prostate] Onset: 08-01-2024 Episodic Residual codes; unclassified (2 sources) Sleep [...] unspecified; Translations: [Dysphagia, unspecified] Onset: 07-29-2024 Episodic Results Test Name Value Interpretation Reference Range Facility [facility] bob 03-17-2025 Albumin [Mass/Vol] 4.2 g/dL Normal 3.4-4.8 [facility] Comment on above: Performed By: #### M 100.2200 #### [facility] [address] [place], [address] Albumin/Globulin [Mass ratio] 1.5 {ratio} Normal 0.9-2.4 [facility] Comment on above: Performed By: #### M 100.2200 #### [facility] [address] [place], [address] ALK PHOS 82 U/L Normal 40-129 [facility] Comment on above: Performed By: #### M 100.2200 #### [facility] [address] [place], [address] ALT [Catalytic activity/Vol] 15 U/L Normal <=46 [facility] Comment on above: Performed By: #### M 100.2200 #### [facility] [address] [place], [address] AST [Catalytic activity/Vol] 19 U/L Normal <=37 [facility] Comment on above: Performed By: #### M 100.2200 #### [facility] [address] [place], [address] Bilirubin [Mass/Vol] 0.69 mg/dL Normal 0.00-1.30 [facility] Comment on above: Performed By: #### M 100.2200 #### [facility] [address] [place], [address] BUN/CRE 25.1 RATIO High 10-20 [facility] Comment on above: Performed By: #### M 100.2200 #### [facility] [address] [place], [address] Calcium [Mass/Vol] 9.6 mg/dL Normal 7.6-11.0 [facility] Comment on above: Performed By: #### M 100.2200 #### [facility] [address] [place], [address] Chloride [Moles/Vol] 104 mmol/L Normal 98-108 [facility] Comment on above: Performed By: #### M 100.2200 #### [facility] [address] [place], [address] CO2 [Moles/Vol] 28.8 mmol/L Normal 21.0-32.0 [facility] Comment on above: Performed By: #### M 100.2200 #### [facility] [address] [place], [address] Creatinine [Mass/Vol] 0.92 mg/dL Normal 0.70-1.20 [facility] Comment on above: Performed By: #### M 100.2200 #### [facility] [address] [place], [address] GAP 9 Normal 5-15 [facility] Comment on above: Performed By: #### M 100.2200 #### [facility] [address] [place], [address] GFR/1.73 sq M.predicted among non-blacks MDRD (S/P/Bld) [Vol rate/Area] 90 mL/min/{1.73_m2} Normal >60 [facility] Comment on above: Result Comment: mL/m in/1.73m2 CKD-EPI Creatinine Equation (2020) Performed By: #### M 100.2200 #### [facility] [address] [place], [address] Globulin (S) [Mass/Vol] 2.8 g/dL Normal 2.2-4.2 [facility] Comment on above: Performed By: #### M 100.2200 #### [facility] [address] [place], [address] Glucose [Mass/Vol] 131 mg/dL High 70-99 [facility] Comment on above: Performed By: #### M 100.2200 #### [facility] [address] [place], [address] Potassium [Moles/Vol] 4.3 mmol/L Normal 3.3-5.1 [facility] Comment on above: Performed By: #### M 100.2200 #### [facility] [address] [place], [address] Sodium [Moles/Vol] 141 mmol/L Normal 133-145 [facility] Comment on above: Performed By: #### M 100.2200 #### [facility] [address] [place], [address] T PROT 7.0 g/dL Normal 5.9-8.4 [facility] Comment on above: Performed By: #### M 100.2200 #### [facility] [address] [place], [address] Urea nitrogen [Mass/Vol] 23 mg/dL High 4-19 [facility] Comment on above: Performed By: #### M 100.2200 #### [facility] [address] [place], [address] Lipid Profileon 03-17-2025 CHOL:HDL 2.61 Normal [facility] Comment on above: Performed By: #### M 100.2200 #### [facility] [address] [place], [address] Cholesterol [Mass/Vol] 224 mg/dL High <=200 [facility] Comment on above: Result Comment: Chol esterol level, Desirable <200 mg/dL Borderline high cholesterol 200-239 mg/dL High cholesterol >=240 mg/dL Recommendations of the NCEP Adult Treatment Panel for the following risk-cutoff thresholds for the [place] population. Performed By: #### M 100.2200 #### [facility] [address] [place], [address] Cholesterol in HDL [Mass/Vol] 86 mg/dL Normal [facility] Comment on above: Result Comment: Tessy onal Cholesterol Education Program (NCEP) guidelines: <40 mg/dL: Low HDL-cholesterol (major risk factor for CHD) >= 60 mg/dL: High HDL-cholesterol (negative risk factor for CHD) HDL-cholesterol is affected by a number of factors, e.g. smoking, exercise, hormones, sex and age. Performed By: #### M 100.2200 #### [facility] [address] [place], [address] Cholesterol in LDL [Mass/Vol] 127 mg/dL Normal [facility] Comment on above: Result Comment: Bord nsbbej=703-302 mg/dL Higher Kknn=354 mg/dL or greater [place] Equation 2020 for LDL-C Performed By: #### M 100.2200 #### [facility] [address] [place], [address] Cholesterol in VLDL [Mass/Vol] 14 mg/dL Normal 5-40 [facility] Comment on above: Performed By: #### M 100.2200 #### [facility] [address] [place], [address] Triglyceride [Mass/Vol] 68 mg/dL Normal [facility] Comment on above: Result Comment: The drugs N-Acetylcysteine and Metamizole may falsely depress this assay. Normal range: <150 mg/dL Borderline High: 150-199 mg/dL High: 200-499 mg/dL Very High: >500 mg/dL Performed By: #### M 100.2200 #### [facility] [address] [place], [address] Cardiology Visit Reporton Cardiology Visit Report [facility] [address] [place] [address] OFFICE VISIT Date of Service: 03/16/25 MR#: [id number] Acct: [id number] Name: CARLYN EVANGELISTA Rep #: [id number] : 1955 Provider: Dr. Dewey Pastor MD Age/Sex: 69/M Location[place] [facility] [place] Status: Signed HPI HPI History of Present [...] air Intake Visit Reasons: CORONARY CALCIFICATIONS (PAYAM) Engagement Lead Required: No Accompanied by: Self Is patient in pain?: No Allergies aspirin Allergy (Severe, Verified 03/16/25 08:22) Unknown NSAIDS (Non-Steroidal Anti-Inflamma Adverse Reaction (Verified 03/16/25 08:22) Nausea/Vom/Diarrhea Medications ???Medication ???Instructions ???Recorded ???Confirmed ???Type blood-glucose sensor ([employer] G7 #9 ea 05/23/23 07/10/24 Rx Sensor [...] reports allergy to aspirin with hives and swelling as a child. Start on clopidogrel 75 mg daily. Check exercise stress Myoview to [employer] (more content not included)... Normal [facility] Absolute lymphocyte countOrd ered By: Shravan Gonzalez on 02-04-2025 Lymphocytes Auto (Unsp spec) [#/Vol] 1.15 10*3/uL 0.83-4.51 [facility] Absolute neutrophil countOrd ered By: Shravan Payam on 02-04-2025 Neutrophils (Bld) [#/Vol] 4.9 10*3/uL 2.0-7.7 [facility] Anion gap in Serum or Plasma Ordered By: Shravan Gonzalez on 02-04-2025 Anion gap [Moles/Vol] 11 mmol/L 5-15 [facility] Automated lymphocyte count a s percentage of total leukocytesOrdered By: Shravan Gonzalez on 02-04-2025 Lymphocytes/100 WBC Auto (Unsp spec) 16.6 % Low 19-41 [facility] BUN/creatinine ratioOrdered By: [facility]-2025 Urea nitrogen/Creatinine [Mass ratio] 20.1 mg/mg High 10-20 [facility] Basophil percentageOrdered B y: Shravan Payam on 02-04-2025 Basophils/100 WBC (Bld) 0.1 % 0-1 [facility] Bilirubin, totalOrdered By: Shravan Gonzalez on 02-04-2025 Bilirubin [Mass/Vol] 0.81 mg/dL 0.00-1.30 [facility] CBC W/Diff, Automatedon 01-13 Absolute Lymph 1.15 X10 3/uL Normal 0.83-4.51 [facility] Comment on above: Performed By: #### M 100.0 #### [facility] [address] [place], [place], [address] Absolute Neut 4.9 X10 3/uL Normal 2.0-7.7 [facility] Comment on above: Performed By: #### M 100.2200 #### [facility] [address] [place], [address] Basophils/100 WBC (Bld) 0.1 % Normal 0-1 [facility] Comment on above: Performed By: #### M 100.2200 #### [facility] [address] [place], [address] Eosinophils/100 WBC (Bld) 3.0 % Normal 0-5 [facility] Comment on above: Performed By: #### M 100.2200 #### [facility] [address] [place], [address] Erythrocyte distribution width (RBC) [Ratio] 12.5 % Normal 11.6-14.6 [facility] Comment on above: Performed By: #### M 100.2200 #### [facility] [address] [place], [address] Hematocrit (Bld) [Volume fraction] 42.8 % Normal 40-54 [facility] Comment on above: Performed By: #### M 100.2200 #### [facility] [address] [place], [address] Hemoglobin (Bld) [Mass/Vol] 14.3 g/dL Normal 13.0-16.5 [facility] Comment on above: Performed By: #### M 100.2200 #### [facility] [address] [place], [address] IG% 0.600 Normal 0.0-0.9 [facility] Comment on above: Result Comment: IG% - Immature Granulocytes (promyelocytes, myelocytes and metamyelocytes) > 1% indicates that a LEFT SHIFT is Present. Performed By: #### M 100.2200 #### [facility] [address] [place], [address] Lymphocytes/100 WBC (Bld) 16.6 % Low 19-41 [facility] Comment on above: Performed By: #### M 100.2200 #### [facility] [address] [place], [address] MCH (RBC) [Entitic mass] 31.6 pg Normal 27.0-32.0 [facility] Comment on above: Performed By: #### M 100.2200 #### [facility] [address] [place], [address] MCHC (RBC) [Mass/Vol] 33.4 g/dL Normal 32-36 [facility] Comment on above: Performed By: #### M 100.2200 #### [facility] [address] [place], [address] MCV (RBC) [Entitic vol] 94.7 fL High 80-94 [facility] Comment on above: Performed By: #### M 100.2200 #### [facility] [address] [place], [address] Monocytes/100 WBC (Bld) 9.5 % Normal 0-10 [facility] Comment on above: Performed By: #### M 100.2200 #### [facility] [place], [address] Neutrophils/100 WBC (Bld) 70.2 % High 47-70 [facility] Comment on above: Performed By: #### M 100.2200 #### [facility] [address] [place], [address] Nucleated RBC (Bld) [#/Vol] 0 10*3/uL Normal 0-5 [facility] Comment on above: Performed By: #### M 100.2200 #### [facility] [address] [place], [address] Platelet mean volume (Bld) [Entitic vol] 13.4 fL High 6.2-12.0 [facility] Comment on above: Performed By: #### M 100.2200 #### [facility] [address] [place], [address] Platelets (Bld) [#/Vol] 138 10*3/uL Low 150-450 [facility] Comment on above: Performed By: #### M 100.2200 #### [facility] [address] [place], [address] RBC (Bld) [#/Vol] 4.52 10*6/uL Low 4.6-6.2 [facility] Comment on above: Performed By: #### M 100.2200 #### [facility] [address] [place], [address] RDW SD 43.2 fl Normal 35.1-43.9 [facility] Comment on above: Performed By: #### M 100.2200 #### [facility] [address] [place], [address] WBC (Bld) [#/Vol] 6.9 10*3/uL Normal 4.4-11.0 [facility] Comment on above: Performed By: #### M 100.2200 #### [facility] [address] [place], [address] Carbon dioxide, total [Moles /volume] in Central venous bloodOrdered By: Shravan Gonzalez on 02-04-2025 CO2 [Moles/Vol] 25.5 mmol/L 21.0-32.0 [facility] Chloride assayOrdered By: Konrad Gonzalez on 02-04-2025 Chloride [Moles/Vol] 103 mmol/L 98-108 [facility] Comprehensive Metabolic Prof ilon 02-04-2025 Albumin [Mass/Vol] 3.9 g/dL Normal 3.4-4.8 [facility] Comment on above: Performed By: #### M 100.2200 #### [facility] [address] [place], [address] Albumin/Globulin [Mass ratio] 1.6 {ratio} Normal 0.9-2.4 [facility] Comment on above: Performed By: #### M 100.2200 #### [facility] [address] [place], [address] ALK PHOS 76 U/L Normal 40-129 [facility] Comment on above: Performed By: #### M 100.2200 #### [facility] [address] [place], [address] ALT [Catalytic activity/Vol] 17 U/L Normal <=46 [facility] Comment on above: Performed By: #### M 100.2200 #### [facility] [address] [place], [address] AST [Catalytic activity/Vol] 17 U/L Normal <=37 [facility] Comment on above: Performed By: #### M 100.2200 #### [facility] [address] [place], [address] Bilirubin [Mass/Vol] 0.81 mg/dL Normal 0.00-1.30 [facility] Comment on above: Performed By: #### M 100.2200 #### [facility] [address] [place], [address] BUN/CRE 20.1 RATIO High 10-20 [facility] Comment on above: Performed By: #### M 100.2200 #### [facility] [address] [place], [address] Calcium [Mass/Vol] 9.0 mg/dL Normal 7.6-11.0 [facility] Comment on above: Performed By: #### M 100.2200 #### [facility] [address] [place], [address] Chloride [Moles/Vol] 103 mmol/L Normal 98-108 [facility] Comment on above: Performed By: #### M 100.2200 #### [facility] [address] [place], [address] CO2 [Moles/Vol] 25.5 mmol/L Normal 21.0-32.0 [facility] Comment on above: Performed By: #### M 100.2200 #### [facility] [address] [place], [address] Creatinine [Mass/Vol] 0.99 mg/dL Normal 0.70-1.20 [facility] Comment on above: Performed By: #### M 100.2200 #### [facility] [address] [place], [address] GAP 11 Normal 5-15 [facility] Comment on above: Performed By: #### M 100.2200 #### [facility] [address] [place], [address] GFR/1.73 sq M.predicted among non-blacks MDRD (S/P/Bld) [Vol rate/Area] 82 mL/min/{1.73_m2} Normal >60 [facility] Comment on above: Result Comment: mL/m in/1.73m2 CKD-EPI Creatinine Equation (2020) Performed By: #### M 100.2200 #### [facility] [address] [place], [address] Globulin (S) [Mass/Vol] 2.5 g/dL Normal 2.2-4.2 [facility] Comment on above: Performed By: #### M 100.2200 #### [facility] [address] [place], [address] Glucose [Mass/Vol] 220 mg/dL High 70-99 [facility] Comment on above: Performed By: #### M 100.2200 #### [facility] [address] [place], [address] Potassium [Moles/Vol] 4.2 mmol/L Normal 3.3-5.1 [facility] Comment on above: Performed By: #### M 100.2200 #### [facility] [address] [place], [place], [id number] Sodium [Moles/Vol] 139 mmol/L Normal 133-145 [facility] Comment on above: Performed By: #### M 100.2200 #### [facility] [address] [place], [address] T PROT 6.4 g/dL Normal 5.9-8.4 [facility] Comment on above: Performed By: #### M 100.2200 #### [facility] [address] [place], [place], [id number] Urea nitrogen [Mass/Vol] 20 mg/dL High 4-19 [facility] Comment on above: Performed By: #### M 100.2200 #### [facility] [address] [place], [place], [id number] Eosinophil percentageOrdered By: Shravan Gonzalez on 02-04-2025 Eosinophils/100 WBC (Bld) 3.0 % 0-5 [facility] Erythrocyte distribution wid th ratioOrdered By: Shravan Gonzalez on 02-04-2025 Erythrocyte distribution width (RBC) [Ratio] 12.5 % 11.6-14.6 [facility] Erythrocyte distribution wid th standard deviationOrdered By: Shravan Gonzalez on 02-04-2025 Erythrocyte distribution width (RBC) [Ratio] 43.2 fl 35.1-43.9 [facility] Glomerular filtration rate ( GFR) estimation/1.73 sq m using serum, plasma, or whole bOrdered By: Shravan Gonzalez on 02-04-2025 GFR/1.73 sq M.predicted among non-blacks MDRD (S/P/Bld) [Vol rate/Area] 82 mL/min/{1.73_m2} >60 [facility] Comment on above: mL/min/1.73m2 CKD-EP I Creatinine Equation (2020) Hematocrit Auto (Bld) [Volum e fraction]Ordered By: Shravan Gonzalez on 02-04-2025 Hematocrit (Bld) [Volume fraction] 42.8 % 40-54 [facility] Hemoglobin measurementOrdere d By: Shravan Gonzalez on 02-04-2025 Hemoglobin (Bld) [Mass/Vol] 14.3 g/dL 13.0-16.5 [facility] Immature granulocytes/100 WB C Auto (Bld)Ordered By: Shravan Gonzalez 02-04-2025 Immature granulocytes/100 WBC (Bld) 0.600 % 0.0-0.9 [facility] Comment on above: IG% - Immature Granu locytes (promyelocytes, myelocytes and metamyelocytes) > 1% indicates that a LEFT SHIFT is Present. Laboratory - Chemistry and C hemistry - challengeOrdered By: Shravan Gonzalez on 02-04-2025 AST [Catalytic activity/Vol] 17 U/L <38 [facility] MCV (mean corpuscular volume ) determinationOrdered By: Shravan Gonzalez 02-04-2025 MCV (RBC) [Entitic vol] 94.7 fL High 80-94 [facility] Mean corpuscular hemoglobin (MCH) determinationOrdered By: Shravan Payam 02-04-2025 MCH (RBC) [Entitic mass] 31.6 pg 27.0-32.0 [facility] Mean corpuscular hemoglobin concentration (MCHC) determinationOrdered By: Shravan Gonzalez 02-04-2025 MCHC (RBC) [Mass/Vol] 33.4 g/dL 32-36 [facility] Mean platelet volume determi nationOrdered By: Shravan Gonzalez 02-04-2025 Platelet mean volume (Bld) [Entitic vol] 13.4 fL High 6.2-12.0 [facility] Monocyte percentageOrdered B y: Shravan Gonzalez on 02-04-2025 Monocytes/100 WBC (Bld) 9.5 % 0-10 [facility] Neutrophil percentageOrdered By: Shravan Gonzalez on 02-04-2025 Neutrophils/100 WBC (Bld) 70.2 % High 47-70 [facility] Nucleated red blood cell per centageOrdered By: Shravan Gonzalez 02-04-2025 Nucleated RBC/100 WBC (Bld) [Ratio] 0 % 0-5 [facility] Platelet countOrdered By: Konrad Gonzalez on 02-04-2025 Platelets (Bld) [#/Vol] 138 10*3/uL Low 150-450 [facility] Potassium measurement (mass/ volume)Ordered By: Shravan Gonzalez on 02-04-2025 Potassium (Unsp spec) [Mass/Vol] 4.2 mmol/L 3.3-5.1 [facility] RBC Auto (Bld) [#/Vol]Ordere d By: Shravan Gonzalez on 02-04-2025 RBC (Bld) [#/Vol] 4.52 10*6/uL Low 4.6-6.2 [facility] Serum creatinine measurement (mass/volume)Ordered By: Shravan Gonzalez on 02-04-2025 Creatinine [Mass/Vol] 0.99 mg/dL 0.70-1.20 [facility] Serum globulin measurementOr dered By: Shravan Gonzalez on 02-04-2025 Globulin (S) [Mass/Vol] 2.5 g/dL 2.2-4.2 [facility] Serum glucose measurement (m ass/volume)Ordered By: Shravan Gonzalez on 02-04-2025 Glucose [Mass/Vol] 220 mg/dL High 70-99 [facility] Serum or plasma alanine mejia otransferase (ALT) measurementOrdered By: Shravan Gonzalez on 02-04-2025 ALT [Catalytic activity/Vol] 17 U/L <47 [facility] Serum or plasma albumin dylon urement (mass/volume)Ordered By: Shravan Gonzalez on 02-04-2025 Albumin [Mass/Vol] 3.9 g/dL 3.4-4.8 [facility] Serum or plasma albumin/glob ulin mass ratioOrdered By: Shravan Gonzalez on 02-04-2025 Albumin/Globulin [Mass ratio] 1.6 {ratio} 0.9-2.4 [facility] Serum or plasma alkaline hannah sphatase measurementOrdered By: Shravan Gonzalez on 02-04-2025 ALP [Catalytic activity/Vol] 76 U/L 40-129 [facility] Serum or plasma calcium dylon urement (mass/volume)Ordered By: Shravan Gonzalez on 02-04-2025 Calcium [Mass/Vol] 9.0 mg/dL 7.6-11.0 [facility] Serum or plasma urea nitroge n measurement (mass/volume)Ordered By: Shravan Gonzalez on 02-04-2025 Urea nitrogen [Mass/Vol] 20 mg/dL High 4-19 [facility] Sodium levelOrdered By: Shravan Gonzalez on 02-04-2025 Sodium [Moles/Vol] 139 mmol/L 133-145 [facility] TSH DL <= 0.005 mIU/L QnOrde red By: Shravan Gonzalez on 02-04-2025 TSH Qn 1.670 uIU/mL 0.300-4.200 [facility] Thyroid Stim Hormone (TSH)on 02-04-2025 TSH 1.670 uIU/mL Normal 0.300-4.200 [facility] Comment on above: Performed By: #### M 100.2200 #### [facility] [address] [place], [place], [id number] Total proteinOrdered By: Shravan Gonzalez on 02-04-2025 Protein [Mass/Vol] 6.4 g/dL 5.9-8.4 [facility] Vitamin D,25 Hydroxyon 02-04 Vitamin D 25-OH 33.4 ng/mL Normal 30-100 [facility] Comment on above: Result Comment: Melvina min D Status Deficiency: <20 ng/mL (50nmol/L) Insufficiency: 20-30 ng/mL (50-75 nmol/L) Sufficiency: 30-100 ng/mL (75-250 nmol/L) Toxicity: >100 ng/mL (>250 nmol/L) Performed By: #### M 100.2200 #### [facility] [address] [place], [place], [id number] White blood cell (WBC) count Ordered By: Shravan Gonzalez on 02-04-2025 WBC (Bld) [#/Vol] 6.9 10*3/uL 4.4-11.0 [facility] Endocrinology Visit Reporton 01-26-2025 Endocrinology Visit Report [facility] [address] [place] [address]. [address] [place], [place] [address] OFFICE VISIT Date of Service: 01/26/25 MR#: [id number] Acct: [id number] Name: CARLYN EVANGELISTA Rep #: [id number] : 1955 Provider: MAGALIS govea Age/Sex: 69/M Location[place] [facility] [place] Status: Signed Intake Vital Signs 10/13/24 08:38 [...] at 6.9%. Weight is stable. Currently using FTRANS 780g with Guardian CGM. Insulin pump downloaded and reviewed- he is having elevations during the afternoon, his pump is alarming at 250 and he is addressing with corrections and/or fake carbohydrates. This will typically result in a low prior to supper time, this is very irritating to him. BP is slightly elevated. Reports BP always low with PCP. He has upcoming appt with [...] normal cogniti (more content not included)... Normal [facility] - Hematology and Cell countsOrdered By: Naheed Russ on 01-26-2025 HbA1c (Bld) [Mass fraction] 6.7 % High 4.2-6.3 [facility] Urine Cultureon 01-06-2025 URC Culture exhibits no growth. Normal [facility] Comment on above: Performed By: #### M 100.2200 #### [facility] [address] [place], [address] Urine cultureOrdered By: Shravan Gonzalez on 01-05-2025 Bacteria identified Cx Nom (U) Culture exhibits no growth. [facility] Echo Completeon 12-24-2024 Echo Complete [facility] [address] [place] [address] Echo Complete 12/24/24 1326 MR#: [id number] Acct: [id number] Name: CARLYN EVANGELISTA Rep #: [id number] : 1955 69 From: Wil Youssef MD Attending Dr: Dr. Shravan Gonzalez MD Status: REG [facility] Ordering Dr: Shravan Gonzalez MD Date: 12/24/24 Location: [facility] Sex: M C Admitted: Reason For Study [...] Performed By: Zulay Krishna, MELA, RVT 12/24/24 7966 Date Wil Youssef MD CC: Dr. Shravan Gonzalez MD Date Dictated: 12/24/24 1326 Date Transcribed: 12/24/24 163 Meat Lugger: Signed [facility] Echocardiogram study reportO rdered By: Wil Youssef on 12-24-2024 Study report [facility] [place] [address] Echo Complete 12/24/24 1326 MR#: [id number] Acct: [id number] Name: CARLYN EVANGELISTA Rep #:[id number] : 1955 69 From: Wil Leiva Attending Dr: Dr. Shravan Gonzalez MD Status: REG CLI Ordering Dr: Shravan Gonzalez MD Date: Location: [facility] Sex: M C Admitted: Reason For Study [...] Performed By: Zulay Krishna, RDCS, RVT 12/24/24 1636 Date _ Wil Youssef MD CC: Dr. Shravan Gonzalez MD ~ Date Dictated: 12/24/24 1326 Date Transcribed: 12/24/24 163 Meat Lugger: Signed [facility] Work Phone: Coronary Angiography CTon Coronary Angiography CT [facility] Imaging Services [address] [place] [address] 12/22/24 1759 MR#: [id number] Acct: [id number] Name: CARLYN EVANGELISTA Rep #: [id number] : 1955 69 From: Wil Youssef MD [...] MD; Dr. Shravan Gonzalez MD Signed Normal [facility] Limited Chest CT Cardiac Onl yon 12-22-[address] Cardiac Only [facility] Imaging Services [address] [place], [place] [id number] Limited Chest CT Cardiac Only MR#: [id number] Acct: [id number] Name: CARLYN EVANGELISTA Rep #: [id number] : 1955 M 69 From: Miguel Angel sims MD PCP: Dr. Shravan Gonzalez MD Status: REG REF Study: Limited Chest CT Cardiac Only Date of Exam: Exam# [id number] Ordering Dr: Shravan Gonzalez MD PROCEDURE: LIMITED [...] Only IMPRESSION: Coronary artery calcification. Reading Location: [place] [address] CC: Dr. Shravan Gonzalez MD Meat Lugger: Signed Normal [facility] Endocrinology Visit Reporton 10-13-2024 Endocrinology Visit Report [facility] [facility] [place] [address] OFFICE VISIT Date of Service: 10/13/24 MR#: [id number] Acct: [id number] Name: CARLYN EVANGELISTA Rep #: [id number] : 1955 Provider: MAGALIS govea Age/Sex: 68/M Location[place] [facility] [place] Status: Signed Intake Vital Signs 07/10/24 08:36 [...] overweight Orientation: alert, awake and oriented x3 [facility] Head: normal to inspection Ears: hearing grossly [...] Extrem Gen (more content not included)... Normal [facility] - Hematology and Cell countsOrdered By: Naheed Russ on 10-13-2024 HbA1c (Bld) [Mass fraction] 6.9 % High 4.2-6.3 [facility] Absolute lymphocyte countOrd ered By: Shravan Gonzalez on 07-23-2024 Lymphocytes Auto (Unsp spec) [#/Vol] 1.18 10*3/uL 0.83-4.51 [facility] Absolute neutrophil countOrd ered By: Shravan Gonzalez on 07-23-2024 Neutrophils (Bld) [#/Vol] 3.4 10*3/uL 2.0-7.7 [facility] Anion gap in Serum or Plasma Ordered By: Shravan Gonzalez on 07-23-2024 Anion gap [Moles/Vol] 7 mmol/L 5-15 [facility] Automated lymphocyte count a s percentage of total leukocytesOrdered By: Shravan Gonzalez on 07-23-2024 Lymphocytes/100 WBC Auto (Unsp spec) 21.5 % 19-41 [facility] BUN/creatinine ratioOrdered By: Shravan Gonzalez on 07-23-2024 Urea nitrogen/Creatinine [Mass ratio] 20.2 mg/mg High 10-20 [facility] Basophil percentageOrdered B y: Shravan Gonzalez on 07-23-2024 Basophils/100 WBC (Bld) 0.2 % 0-1 [facility] Bilirubin, totalOrdered By: Shravan Gonzalez on 07-23-2024 Bilirubin [Mass/Vol] 0.69 mg/dL 0.00-1.30 [facility] Blood manual differential co mment interpretation (narrative result)Ordered By: Shravan Gonzalez on 07-23-2024 Manual differential comment David (Bld) [Interp] Not Reportable [facility] CBC W/Diff, Automatedon 07-12 Absolute Lymph 1.18 X10 3/uL Normal 0.83-4.51 [facility] Comment on above: Performed By: #### L 501.9910, L506.1001, L500.4050, L100.0100, L501.9520 #### [facility] [address] [place], [address] Absolute Neut 3.4 X10 3/uL Normal 2.0-7.7 [facility] Comment on above: Performed By: #### L 501.9910, L506.1001, L500.4050, L100.0100, L501.9520 #### [facility] [address] [place], [address] Basophils/100 WBC (Bld) 0.2 % Normal 0-1 [facility] Comment on above: Performed By: #### L 501.9910, L506.1001, L500.4050, L100.0100, L501.9520 #### [facility] [address] [place], [address] Eosinophils/100 WBC (Bld) 4.2 % Normal 0-5 [facility] Comment on above: Performed By: #### L 501.9910, L506.1001, L500.4050, L100.0100, L501.9520 #### [facility] [address] [place], [address] Erythrocyte distribution width (RBC) [Ratio] 12.5 % Normal 11.6-14.6 [facility] Comment on above: Performed By: #### L 501.9910, L506.1001, L500.4050, L100.0100, L501.9520 #### [facility] [address] [place], [address] Hematocrit (Bld) [Volume fraction] 44.2 % Normal 40-54 [facility] Comment on above: Performed By: #### L 501.9910, L506.1001, L500.4050, L100.0100, L501.9520 #### [facility] [address] [place], [address] Hemoglobin (Bld) [Mass/Vol] 14.1 g/dL Normal 13.0-16.5 [facility] Comment on above: Performed By: #### L 501.9910, L506.1001, L500.4050, L100.0100, L501.9520 #### [facility] [address] [place], [address] IG% 0.700 Normal 0.0-0.9 [facility] Comment on above: Result Comment: IG% - Immature Granulocytes (promyelocytes, myelocytes and metamyelocytes) > 1% indicates that a LEFT SHIFT is Present. Performed By: #### L 501.9910, L506.1001, L500.4050, L100.0100, L501.9520 #### [facility] [address] [place], [address] Lymphocytes/100 WBC (Bld) 21.5 % Normal 19-41 [facility] Comment on above: Performed By: #### L 501.9910, L506.1001, L500.4050, L100.0100, L501.9520 #### [facility] [address] [place], [address] MCH (RBC) [Entitic mass] 30.3 pg Normal 27.0-32.0 [facility] Comment on above: Performed By: #### L 501.9910, L506.1001, L500.4050, L100.0100, L501.9520 #### [facility] [address] [place], [address] MCHC (RBC) [Mass/Vol] 31.9 g/dL Low 32-36 [facility] Comment on above: Performed By: #### L 501.9910, L506.1001, L500.4050, L100.0100, L501.9520 #### [facility] [address] [place], [address] MCV (RBC) [Entitic vol] 94.8 fL High 80-94 [facility] Comment on above: Performed By: #### L 501.9910, L506.1001, L500.4050, L100.0100, L501.9520 #### [facility] [address] [place], [address] Monocytes/100 WBC (Bld) 12.2 % High 0-10 [facility] Comment on above: Performed By: #### L 501.9910, L506.1001, L500.4050, L100.0100, L501.9520 #### [facility] [address] [place], [address] Neutrophils/100 WBC (Bld) 61.2 % Normal 47-70 [facility] Comment on above: Performed By: #### L 501.9910, L506.1001, L500.4050, L100.0100, L501.9520 #### [facility] [address] [place], [address] Nucleated RBC (Bld) [#/Vol] 0 10*3/uL Normal 0-5 [facility] Comment on above: Performed By: #### L 501.9910, L506.1001, L500.4050, L100.0100, L501.9520 #### [facility] [address] [place], [address] Platelet mean volume (Bld) [Entitic vol] 13.7 fL High 6.2-12.0 [facility] Comment on above: Performed By: #### L 501.9910, L506.1001, L500.4050, L100.0100, L501.9520 #### [facility] [address] [place], [address] Platelets (Bld) [#/Vol] 143 10*3/uL Low 150-450 [facility] Comment on above: Performed By: #### L 501.9910, L506.1001, L500.4050, L100.0100, L501.9520 #### [facility] [address] [place], [address] RBC (Bld) [#/Vol] 4.66 10*6/uL Normal 4.6-6.2 [facility] Comment on above: Performed By: #### L 501.9910, L506.1001, L500.4050, L100.0100, L501.9520 #### [facility] [address] [place], [address] RDW SD 43.4 fl Normal 35.1-43.9 [facility] Comment on above: Performed By: #### L 501.9910, L506.1001, L500.4050, L100.0100, L501.9520 #### [facility] [address] [place], [address] WBC (Bld) [#/Vol] 5.5 10*3/uL Normal 4.4-11.0 [facility] Comment on above: Performed By: #### L 501.9910, L506.1001, L500.4050, L100.0100, L501.9520 #### [facility] [address] [place], [address] Carbon dioxide, total [Moles /volume] in Central venous bloodOrdered By: Shravan Gonzalez on 07-23-2024 CO2 [Moles/Vol] 29.2 mmol/L 21.0-32.0 [facility] Chloride assayOrdered By: Konrad Gonzalez on 07-23-2024 Chloride [Moles/Vol] 102 mmol/L 98-108 [facility] Comprehensive Metabolic Prof ilon 07-23-2024 Albumin [Mass/Vol] 4.0 g/dL Normal 3.4-4.8 [facility] Comment on above: Performed By: #### L 501.9910, L506.1001, L500.4050, L100.0100, L501.9520 #### [facility] [address] [place], [address] Albumin/Globulin [Mass ratio] 1.6 {ratio} Normal 0.9-2.4 [facility] Comment on above: Performed By: #### L 501.9910, L506.1001, L500.4050, L100.0100, L501.9520 #### [facility] [address] [place], [address] ALK PHOS 74 U/L Normal 40-129 [facility] Comment on above: Performed By: #### L 501.9910, L506.1001, L500.4050, L100.0100, L501.9520 #### [facility] [address] [place], [address] ALT [Catalytic activity/Vol] 16 U/L Normal <=46 [facility] Comment on above: Performed By: #### L 501.9910, L506.1001, L500.4050, L100.0100, L501.9520 #### [facility] [address] [place], [address] AST [Catalytic activity/Vol] 21 U/L Normal <=37 [facility] Comment on above: Performed By: #### L 501.9910, L506.1001, L500.4050, L100.0100, L501.9520 #### [facility] [address] [place], [address] Bilirubin [Mass/Vol] 0.69 mg/dL Normal 0.00-1.30 [facility] Comment on above: Performed By: #### L 501.9910, L506.1001, L500.4050, L100.0100, L501.9520 #### [facility] [address] [place], [address] BUN/CRE 20.2 RATIO High 10-20 [facility] Comment on above: Performed By: #### L 501.9910, L506.1001, L500.4050, L100.0100, L501.9520 #### [facility] [address] [place], [address] Calcium [Mass/Vol] 9.7 mg/dL Normal 7.6-11.0 [facility] Comment on above: Performed By: #### L 501.9910, L506.1001, L500.4050, L100.0100, L501.9520 #### [facility] [address] [place], [address] Chloride [Moles/Vol] 102 mmol/L Normal 98-108 [facility] Comment on above: Performed By: #### L 501.9910, L506.1001, L500.4050, L100.0100, L501.9520 #### [facility] [address] [place], [address] CO2 [Moles/Vol] 29.2 mmol/L Normal 21.0-32.0 [facility] Comment on above: Performed By: #### L 501.9910, L506.1001, L500.4050, L100.0100, L501.9520 #### [facility] [address] [place], [address] Creatinine [Mass/Vol] 1.01 mg/dL Normal 0.70-1.20 [facility] Comment on above: Performed By: #### L 501.9910, L506.1001, L500.4050, L100.0100, L501.9520 #### [facility] [address] [place], [address] GAP 7 Normal 5-15 [facility] Comment on above: Performed By: #### L 501.9910, L506.1001, L500.4050, L100.0100, L501.9520 #### [facility] [address] [place], [address] GFR/1.73 sq M.predicted among non-blacks MDRD (S/P/Bld) [Vol rate/Area] 81 mL/min/{1.73_m2} Normal >60 [facility] Comment on above: Result Comment: mL/m in/1.73m2 CKD-EPI Creatinine Equation (2020) Performed By: #### L 501.9910, L506.1001, L500.4050, L100.0100, L501.9520 #### [facility] [address] [place], [address] Globulin (S) [Mass/Vol] 2.6 g/dL Normal 2.2-4.2 [facility] Comment on above: Performed By: #### L 501.9910, L506.1001, L500.4050, L100.0100, L501.9520 #### [facility] [address] [place], [address] Glucose [Mass/Vol] 154 mg/dL High 70-99 [facility] Comment on above: Performed By: #### L 501.9910, L506.1001, L500.4050, L100.0100, L501.9520 #### [facility] [address] [place], [address] Potassium [Moles/Vol] 4.6 mmol/L Normal 3.3-5.1 [facility] Comment on above: Performed By: #### L 501.9910, L506.1001, L500.4050, L100.0100, L501.9520 #### [facility] [address] [place], [address] Sodium [Moles/Vol] 139 mmol/L Normal 133-145 [facility] Comment on above: Performed By: #### L 501.9910, L506.1001, L500.4050, L100.0100, L501.9520 #### [facility] [address] [place], [address] T PROT 6.6 g/dL Normal 5.9-8.4 [facility] Comment on above: Performed By: #### L 501.9910, L506.1001, L500.4050, L100.0100, L501.9520 #### [facility] [address] [place], [address] Urea nitrogen [Mass/Vol] 20 mg/dL High 4-19 [facility] Comment on above: Performed By: #### L 501.9910, L506.1001, L500.4050, L100.0100, L501.9520 #### [facility] [address] [place], [address] Eosinophil percentageOrdered By: Shravan Gonzalez 07-23-2024 Eosinophils/100 WBC (Bld) 4.2 % 0-5 [facility] Erythrocyte distribution wid th ratioOrdered By: Shravan Gonzalez 07-23-2024 Erythrocyte distribution width (RBC) [Ratio] 12.5 % 11.6-14.6 [facility] Erythrocyte distribution wid th standard deviationOrdered By: Shravan Gonzalez 07-23-2024 Erythrocyte distribution width (RBC) [Entitic vol] 43.4 fL 35.1-43.9 [facility] Erythrocyte distribution width (RBC) [Ratio] 43.4 fl 35.1-43.9 [facility] GFR/1.73 sq M.predicted sammy g non-blacks MDRD (S/P/Bld) [Vol rate/Area]Ordered By: Shravan Gonzalez 07-23-2024 Estimated GFR (MDRD) Non-Af Amer 81 >60 [facility] Comment on above: mL/min/1.73m2 CKD-EP I Creatinine Equation (2020) Glomerular filtration rate ( GFR) estimation/1.73 sq m using serum, plasma, or whole bOrdered By: Shravan Gonzalez 07-23-2024 GFR/1.73 sq M.predicted among non-blacks MDRD (S/P/Bld) [Vol rate/Area] 81 mL/min/{1.73_m2} >60 [facility] Comment on above: mL/min/1.73m2 CKD-EP I Creatinine Equation (2020) Hematocrit Auto (Bld) [Volum e fraction]Ordered By: Shravan Gonzalez 07-23-2024 Hematocrit (Bld) [Volume fraction] 44.2 % 40-54 [facility] Hemoglobin measurementOrdere d By: Shravan Gonzalez 07-23-2024 Hemoglobin (Bld) [Mass/Vol] 14.1 g/dL 13.0-16.5 [facility] Immature granulocytes/100 WB C Auto (Bld)Ordered By: Shravan Gonzalez 07-23-2024 Immature granulocytes/100 WBC (Bld) 0.700 % 0.0-0.9 [facility] Comment on above: IG% - Immature Granu locytes (promyelocytes, myelocytes and metamyelocytes) > 1% indicates that a LEFT SHIFT is Present. L506.1001on 07-23-2024 Vitamin D 25-OH 34.1 ng/mL Normal 30-100 [facility] Comment on above: Result Comment: Melvina min D Status Deficiency: <20 ng/mL (50nmol/L) Insufficiency: 20-30 ng/mL (50-75 nmol/L) Sufficiency: 30-100 ng/mL (75-250 nmol/L) Toxicity: >100 ng/mL (>250 nmol/L) Performed By: #### L 501.9910, L506.1001, L500.4050, L100.0100, L501.9520 #### [facility] Laboratory [address] [place], [place], [id number] Laboratory - Chemistry and C hemistry - challengeOrdered By: Shravan Gonzalez on 07-23-2024 AST [Catalytic activity/Vol] 21 U/L <38 [facility] Lymphocytes Auto (Unsp spec) [#/Vol]Ordered By: Shravan Gonzalez on 07-23-2024 Lymphocytes (Bld) [#/Vol] 1.18 10*3/uL 0.83-4.51 [facility] Lymphocytes/100 WBC Auto (Un sp spec)Ordered By: Shravan Gonzalez on 07-23-2024 Lymphocytes/100 WBC (Bld) 21.5 % 19-41 [facility] MCV (mean corpuscular volume ) determinationOrdered By: Shravan Gonzalez on 07-23-2024 MCV (RBC) [Entitic vol] 94.8 fL High 80-94 [facility] Manual differential comment David (Bld) [Interp]Ordered By: Shravan Gonzalez on 07-23-2024 Differential Comment Not Reportable [facility] Mean corpuscular hemoglobin (MCH) determinationOrdered By: Shravan Gonzalez on 07-23-2024 MCH (RBC) [Entitic mass] 30.3 pg 27.0-32.0 [facility] Mean corpuscular hemoglobin concentration (MCHC) determinationOrdered By: Shravan Gonzalez on 07-23-2024 MCHC (RBC) [Mass/Vol] 31.9 g/dL Low 32-36 [facility] Mean platelet volume determi nationOrdered By: Shravan Gonzalez on 07-23-2024 Platelet mean volume (Bld) [Entitic vol] 13.7 fL High 6.2-12.0 [facility] Monocyte percentageOrdered B y: Shravan Gonzalez on 07-23-2024 Monocytes/100 WBC (Bld) 12.2 % High 0-10 [facility] Neutrophil percentageOrdered By: Shravan Gonzalez on 07-23-2024 Neutrophils/100 WBC (Bld) 61.2 % 47-70 [facility] Nucleated red blood cell per centageOrdered By: Shravan Gonzalez on 07-23-2024 Nucleated RBC/100 WBC (Bld) [Ratio] 0 % 0-5 [facility] PSA, total screeningOrdered By: Shravan Gonzalez on 07-23-2024 Prostate Specific Antigen Screen 0.83 ng/mL 0.02-4.00 [facility] Comment on above: This test was perfor med using the [employer] tPSA method. Measured values of a patient sample can vary depending on the testing procedure used. PSA values determined on patient samples by different testing procedures cannot be used interchangeably. If there is a change in PSA assays while monitoring therapy, sequential testing should be performed to confirm baseline values. PSA,Total - Annual Screenon 07-23-2024 PSA,TOT SCREEN 0.83 ng/mL Normal 0.02-4.00 [facility] Comment on above: Result Comment: This test was performed using the [employer] tPSA method. Measured values of a patient??sample can vary depending on the testing procedure used. PSA values determined on patient samples by different testing procedures cannot be used interchangeably. If there is a change in PSA assays while monitoring therapy, sequential testing should be performed to confirm baseline values. Performed By: #### L 501.9910, L506.1001, L500.4050, L100.0100, L501.9520 #### [facility] [address] [place], [address] Platelet countOrdered By: Konrad Gonzalez on 07-23-2024 Platelets (Bld) [#/Vol] 143 10*3/uL Low 150-450 [facility] Potassium (Unsp spec) [Mass/ Vol]Ordered By: Shravan Gonzalez on 07-23-2024 Potassium [Moles/Vol] 4.6 mmol/L 3.3-5.1 [facility] Potassium measurement (mass/ volume)Ordered By: Shravan Gonzalez on 07-23-2024 Potassium (Unsp spec) [Mass/Vol] 4.6 mmol/L 3.3-5.1 [facility] RBC Auto (Bld) [#/Vol]Ordere d By: Shravan Gonzalez on 07-23-2024 RBC (Bld) [#/Vol] 4.66 10*6/uL 4.6-6.2 [facility] Serum creatinine measurement (mass/volume)Ordered By: Shravan Gonzalez on 07-23-2024 Creatinine [Mass/Vol] 1.01 mg/dL 0.70-1.20 [facility] Serum globulin measurementOr dered By: Shravan Gonzalez 07-23-2024 Globulin (S) [Mass/Vol] 2.6 g/dL 2.2-4.2 [facility] Serum glucose measurement (m ass/volume)Ordered By: Shravan Gonzalez 07-23-2024 Glucose [Mass/Vol] 154 mg/dL High 70-99 [facility] Serum or plasma alanine mejia otransferase (ALT) measurementOrdered By: Shravan Gonzalez 07-23-2024 ALT [Catalytic activity/Vol] 16 U/L <47 [facility] Serum or plasma albumin dylon urement (mass/volume)Ordered By: Shravan Gonzalez 07-23-2024 Albumin [Mass/Vol] 4.0 g/dL 3.4-4.8 [facility] Serum or plasma albumin/glob ulin mass ratioOrdered By: Shravan Gonzalez 07-23-2024 Albumin/Globulin [Mass ratio] 1.6 {ratio} 0.9-2.4 [facility] Serum or plasma alkaline hannah sphatase measurementOrdered By: Shravan Gonzalez 07-23-2024 ALP [Catalytic activity/Vol] 74 U/L 40-129 [facility] Serum or plasma calcium dylon urement (mass/volume)Ordered By: Shravan Gonzalez 07-23-2024 Calcium [Mass/Vol] 9.7 mg/dL 7.6-11.0 [facility] Serum or plasma urea nitroge n measurement (mass/volume)Ordered By: Shravan Gonzalez on 07-23-2024 Urea nitrogen [Mass/Vol] 20 mg/dL High 4-19 [facility] Sodium levelOrdered By: Shravan Gonzalez on 07-23-2024 Sodium [Moles/Vol] 139 mmol/L 133-145 [facility] TSH DL <= 0.005 mIU/L QnOrde red By: Shravan Gonzalez on 07-23-2024 Thyroid Stimulating Hormone (TSH) 2.140 uIU/mL 0.300-4.200 [facility] TSH Qn 2.140 uIU/mL 0.300-4.200 [facility] Thyroid Stim Hormone (TSH)on 07-23-2024 TSH 2.140 uIU/mL Normal 0.300-4.200 [facility] Comment on above: Performed By: #### L 501.9910, L506.1001, L500.4050, L100.0100, L501.9520 #### [facility] [address] [place], [address] Total proteinOrdered By: Shravan Gonzalez on 07-23-2024 Protein [Mass/Vol] 6.6 g/dL 5.9-8.4 [facility] Vitamin D, 25-hydroxyOrdered By: Shravan Gonzalez on 07-23-2024 Vitamin D 25-Hydroxy 34.1 ng/mL 30-100 [facility] Comment on above: Vitamin D StatusDefi ciency: <20 ng/mL (50nmol/L)Insufficiency: 20-30 ng/mL (50-75 nmol/L)Sufficiency: 30-100 ng/mL (75-250 nmol/L)Toxicity: >100 ng/mL (>250 nmol/L) White blood cell (WBC) count Ordered By: Shravan Gonzalez on 07-23-2024 WBC (Bld) [#/Vol] 5.5 10*3/uL 4.4-11.0 [facility] Esophagus Dual Contraston Esophagus Dual Contrast [facility] Imaging Services [address] [place], [place] [id number] Esophagus Dual Contrast MR#: [id number] Acct: [id number] Name: CARLYN EVANGELISTA Rep #: [id number] : 1955 M 68 From: Cortez Koch MD PCP: Dr. Shravan Gonzalez MD Status: REG CLI Study: Esophagus Dual Contrast Date of Exam: 07/16/24 Exam# [id number] Ordering Dr: Garrett Elena MD PROCEDURE: ESOPHAGUS [...] gastroesophageal reflux or other abnormalities. Reading Location: [place] [address] CC: Dr. Shravan Gonzalez MD; Dr. Garrett Elena MD Meat Lugger: Signed Normal [facility] Endocrinology Visit Reporton 07-10-2024 Endocrinology Visit Report [facility] [address] [place] [address] [address] [place] [address] OFFICE VISIT Date of Service: 07/10/24 MR#: [id number] Acct: [id number] Name: CARLYN EVANGELISTA Rep #: [id number] : 1955 Provider: MAGALIS govea Age/Sex: 68/M [facility] [facility] Status: Signed Intake Vital Signs 03/31/24 08:05 [...] DAILY 10/19/22 07/10/24 Hi story blood-glucose sensor (TickPick G7 #9 ea 05/23/23 07/10/24 Rx Sensor [...] 2 lbs since that time. Currently using Medtronic 780g with Guardian CGM. [...] with exertion, shortness of breath or palpitations [facility] [place]: Positive for joint pain and back [...] S2 normal GI Inspection: normal to inspection [facility] [place] Cervical Spine: normal cervical lordos (more content not included)... Normal [facility] Laboratory - Hematology and Cell countsOrdered By: Naheed Russ on 07-10-2024 HbA1c (Bld) [Mass fraction] 7.5 % High 4.2-6.3 [facility] Endocrinology Visit Reporton 03-31-2024 Endocrinology Visit Report [facility] [address] [place] [address]. [address] [place] [address] OFFICE VISIT Date of Service: 03/31/24 MR#: [id number] Acct: [id number] Name: CARLYN EVANGELISTA Rep #: [id number] : 1955 Provider: MAGALIS govea Age/Sex: 68/M [place] [facility] [place]: Signed Intake Vital Signs 12/17/23 08:37 [...] normal gait (more content not included)... Normal [facility] Laboratory - Hematology and Cell countson 03-31-2024 HbA1c (Bld) [Mass fraction] 7.2 % High 4.2-6.3 [facility] Absolute lymphocyte countOrd ered By: Shravan Gonzalez on 07-23-2023 Lymphocytes Auto (Unsp spec) [#/Vol] 1.24 10*3/uL 0.83-4.51 [facility] Automated lymphocyte count a s percentage of total leukocytesOrdered By: Shravan Gonzalez on 07-23-2023 Lymphocytes/100 WBC Auto (Unsp spec) 16.4 % 19-41 [facility] Basophil percentageOrdered B y: Shravan Izaguirreok on 07-23-2023 Basophils/100 WBC (Bld) 0.4 % 0-1 [facility] Bilirubin [Mass/Vol] 0.60 mg/dL 0.20-1.00 [facility] Comment on above: For patients on eltr ombopag therapy, use of Dim[place] TBIL is not recommended. Chloride [Moles/Vol] 105 mmol/L 98-107 [facility] Eosinophils/100 WBC (Bld) 3.2 % 0-5 [facility] Glucose [Mass/Vol] 246 mg/dL 74-106 [facility] Comment on above: Glucose result great er than or equal to 200 mg/dLsuggests DIABETES MELLITUS per A.D.A. criteria. Hemoglobin (Bld) [Mass/Vol] 14.6 g/dL 13.0-16.5 [facility] Monocytes/100 WBC (Bld) 9.8 % 0-10 [facility] Neutrophils (Bld) [#/Vol] 5.3 10*3/uL 2.0-7.7 [facility] Neutrophils/100 WBC (Bld) 69.7 % 47-70 [facility] Potassium [Moles/Vol] 4.4 mmol/L 3.5-5.1 [facility] Protein [Mass/Vol] 7.0 g/dL 6.4-8.2 [facility] Sodium [Moles/Vol] 137 mmol/L 136-145 [facility] WBC (Bld) [#/Vol] 7.6 10*3/uL 4.4-11.0 [facility] Blood manual differential co mment interpretation (narrative result)Ordered By: Shravan Gonzalez on 07-23-2023 Manual differential comment David (Bld) [Interp] SCANNED [facility] Determination of erythrocyte mean corpuscular volume (MCV)Ordered By: Shravan Gonzalez on 07-23-2023 MCV (RBC) [Entitic vol] 95.0 fL 80-94 [facility] Erythrocyte distribution wid th ratioOrdered By: Shravan Gonzalez on 07-23-2023 Erythrocyte distribution width (RBC) [Ratio] 12.4 % 11.6-14.6 [facility] Erythrocyte distribution wid th standard deviationOrdered By: Shravan Gonzalez on 07-23-2023 Erythrocyte distribution width (RBC) [Entitic vol] 43.5 fL 35.1-43.9 [facility] Hematocrit Auto (Bld) [Volum e fraction]Ordered By: Shravan Gonzalez on 07-23-2023 Hematocrit (Bld) [Volume fraction] 45.9 % 40-54 [facility] Immature granulocytes/100 WB C Auto (Bld)Ordered By: Shravan Gonzalez on 07-23-2023 Immature granulocytes/100 WBC (Bld) 0.500 % 0.0-0.9 [facility] Comment on above: IG% - Immature Granu locytes (promyelocytes, myelocytes and metamyelocytes) > 1% indicates that a LEFT SHIFT is Present. Laboratory - Chemistry and C hemistry - challengeOrdered By: Shravan Gonzalez on 07-23-2023 Albumin/Globulin [Mass ratio] 0.9 {ratio} 0.9-2.4 [facility] ALP [Catalytic activity/Vol] 79 U/L 45-117 [facility] ALT [Catalytic activity/Vol] 21 U/L 16-61 [facility] CO2 [Moles/Vol] 30.0 mmol/L 21.0-32.0 [facility] Globulin (S) [Mass/Vol] 3.6 g/dL 2.2-4.2 [facility] Urea nitrogen/Creatinine [Mass ratio] 17.1 mg/mg 10-20 [facility] Laboratory - Hematology and Cell countsOrdered By: Shravan Gonzalez on 07-23-2023 MCH (RBC) [Entitic mass] 30.2 pg 27.0-32.0 [facility] MCHC (RBC) [Mass/Vol] 31.8 g/dL 32-36 [facility] Nucleated RBC/100 WBC (Bld) [Ratio] 0 % 0-5 [facility] Platelet mean volume (Bld) [Entitic vol] 14.1 fL 6.2-12.0 [facility] Platelets (Bld) [#/Vol] 151 10*3/uL 150-450 [facility] No Panel InformationOrdered By: Shravan Gonzalez on 07-23-2023 Estimated GFR (MDRD) Amer 97 mL/min >60 [facility] Comment on above: GFR Calc Estimated GFR (MDRD) Non-Af Amer 80 mL/min >60 [facility] Comment on above: Non- GFR Calc Prostate Specific Antigen Screen 0.97 ng/mL 0.00-4.00 [facility] Comment on above: This test was perfor med using the TPSA assay method for the[facility]. Values obtained with differentassay methods cannot be used interchangably.When changing PSA assays in the course of monitoring apatient, additional sequential testing should be carriedout to confirm baseline values. Vitamin D 25-Hydroxy 44.9 ng/mL [facility] Comment on above: Vitamin D 25(OH) Sta tus Range Deficiency <20 ng/mL (50nmol/L) Insufficiency 20 - 30 ng/mL (50 - 75 nmol/L) Sufficiency 30 - 100 ng/mL (75 - 250 nmol/L) Toxicity >100 ng/mL (>250 nmol/L) RBC Auto (Bld) [#/Vol]Ordere d By: Shravan Gonzalez on 07-23-2023 RBC (Bld) [#/Vol] 4.83 10*6/uL 4.6-6.2 [facility] Serum or plasma calcium dylon urement (mass/volume)Ordered By: Shravan Gonzalez on 07-23-2023 Calcium [Mass/Vol] 9.3 mg/dL 8.5-10.1 [facility] Serum or plasma creatinine m easurement (mass/volume)Ordered By: Shravan Gonzalez on 07-23-2023 Creatinine [Mass/Vol] 0.99 mg/dL 0.70-1.30 [facility] Comment on above: The validity of the calculated GFR & GFRAA in patients over 70 years has not been determined. Clinical correlation is essential. Serum or plasma thyroid stim ulating hormone (TSH) measurement (units/volume)Ordered By: Shravan Gonzalez on 07-23-2023 TSH Qn 1.46 uIU/mL 0.358-3.74 [facility] Serum or plasma urea nitroge n measurement (mass/volume)Ordered By: Shravan Gonzalez on 07-23-2023 Urea nitrogen [Mass/Vol] 17 mg/dL 7-18 [facility] Thin prep Papanicolaou smear with manual screeningOrdered By: Shravan Gonzalez on 07-23-2023 Thin prep Papanicolaou smear with manual screening 3.4 g/dL 3.2-5.0 [facility] Thin prep Papanicolaou smear with manual screening 19 U/L 15-37 [facility] Thin prep Papanicolaou smear with manual screening 2 5-15 [facility] Laboratory - Microbiology an d Antimicrobial susceptibilityOrdered By: Shravan Gonzalez on 05-21-2023 SARS-CoV-2 (COVID-19) RNA RAMON+probe Ql (Unsp spec) [facility] Basophil percentageOrdered B y: Naheed Russ on 05-11-2023 Glucose [Mass/Vol] 156 mg/dL 74-106 [facility] Comment on above: Fasting Glucose resu lt greater than or equal to 126 mg/dL suggests DIABETES MELLITUS per A.D.A. criteria. No Panel InformationOrdered By: Naheed Russ on 05-11-2023 C-Peptide < 0.1 ng/mL 1.1-4.4 [facility] Comment on above: C-Peptide reference interval is for fasting patients.Performed at: [address] [id number] Director: Garrett Beckwith PhD, Phone: [phone] Basophil percentageOrdered B y: Naheed Russ on 05-09-2023 Bilirubin [Mass/Vol] 0.70 mg/dL 0.20-1.00 [facility] Comment on above: For patients on eltr ombopag therapy, use of [place] TBIL is not recommended. Chloride [Moles/Vol] 106 mmol/L 98-107 [facility] Glucose [Mass/Vol] 88 mg/dL 74-106 [facility] Potassium [Moles/Vol] 3.9 mmol/L 3.5-5.1 [facility] Protein [Mass/Vol] 7.1 g/dL 6.4-8.2 [facility] Sodium [Moles/Vol] 139 mmol/L 136-145 [facility] Laboratory - Chemistry and C hemistry - challengeOrdered By: Naheed Russ on 05-09-2023 ALP [Catalytic activity/Vol] 86 U/L 45-117 [facility] ALT [Catalytic activity/Vol] 22 U/L 16-61 [facility] CO2 [Moles/Vol] 33.0 mmol/L 21.0-32.0 [facility] Globulin (S) [Mass/Vol] 3.6 g/dL 2.2-4.2 [facility] Urea nitrogen/Creatinine [Mass ratio] 23.6 mg/mg 10-20 [facility] Laboratory - Hematology and Cell countson 05-09-2023 HbA1c (Bld) [Mass fraction] 7.8 % 4.2-6.3 [facility] No Panel InformationOrdered By: Naheed Russ on 05-09-2023 Estimated GFR (MDRD) Amer 109 mL/min >60 [facility] Comment on above: GFR Calc Estimated GFR (MDRD) Non-Af Amer 90 mL/min >60 [facility] Comment on above: Non- GFR Calc Serum or plasma albumin dylon urement (mass/volume)Ordered By: Naheed Russ on 05-09-2023 Albumin [Mass/Vol] 3.5 g/dL 3.2-5.0 [facility] Serum or plasma albumin/glob ulin mass ratioOrdered By: Naheed Russ on 05-09-2023 Albumin/Globulin [Mass ratio] 1.0 {ratio} 0.9-2.4 [facility] Serum or plasma calcium dylon urement (mass/volume)Ordered By: Naheed Russ on 05-09-2023 Calcium [Mass/Vol] 9.6 mg/dL 8.5-10.1 [facility] Serum or plasma creatinine m easurement (mass/volume)Ordered By: Naheed Russ on 05-09-2023 Creatinine [Mass/Vol] 0.89 mg/dL 0.70-1.30 [facility] Comment on above: The validity of the calculated GFR & GFRAA in patients over 70 years has not been determined. Clinical correlation is essential. Serum or plasma urea nitroge n measurement (mass/volume)Ordered By: Naheed Russ on 05-09-2023 Urea nitrogen [Mass/Vol] 21 mg/dL 7-18 [facility] Thin prep Papanicolaou smear with manual screeningOrdered By: Naheed Russ on 05-09-2023 Thin prep Papanicolaou smear with manual screening 10 U/L 15-37 [facility] Thin prep Papanicolaou smear with manual screening 0 5-15 [facility] Absolute lymphocyte countOrd ered By: Shravan Gonzalez on 02-08-2023 Lymphocytes Auto (Unsp spec) [#/Vol] 1.63 10*3/uL 0.83-4.51 [facility] Basophil percentageOrdered B y: Shravan Gonzalez on 02-08-2023 Basophils/100 WBC (Bld) 0.1 % 0-1 [facility] Bilirubin [Mass/Vol] 0.80 mg/dL 0.20-1.00 [facility] Comment on above: For patients on eltr ombopag therapy, use of [employer] TBIL is not recommended. Chloride [Moles/Vol] 107 mmol/L 98-107 [facility] Eosinophils/100 WBC (Bld) 2.8 % 0-5 [facility] Glucose [Mass/Vol] 67 mg/dL 74-106 [facility] Neutrophils (Bld) [#/Vol] 5.0 10*3/uL 2.0-7.7 [facility] Neutrophils/100 WBC (Bld) 63.8 % 47-70 [facility] Potassium [Moles/Vol] 4.4 mmol/L 3.5-5.1 [facility] Protein [Mass/Vol] 7.6 g/dL 6.4-8.2 [facility] Sodium [Moles/Vol] 141 mmol/L 136-145 [facility] WBC (Bld) [#/Vol] 7.9 10*3/uL 4.4-11.0 [facility] Blood erythrocytes count (nu mber/volume)Ordered By: Shravan Gonzalez on 02-08-2023 RBC (Bld) [#/Vol] 4.93 10*6/uL 4.6-6.2 [facility] Blood hemoglobin measurement (mass/volume)Ordered By: Shravan Gonzalez on 02-08-2023 Hemoglobin (Bld) [Mass/Vol] 15.3 g/dL 13.0-16.5 [facility] Blood lymphocytes/100 leukoc ytesOrdered By: Shravan Goznalez on 02-08-2023 Lymphocytes/100 WBC (Bld) 20.6 % 19-41 [facility] Blood monocytes/100 leukocyt esOrdered By: Shravan Gonzalez on 02-08-2023 Monocytes/100 WBC (Bld) 12.2 % 0-10 [facility] Blood platelet mean volumeOr dered By: Shravan Gonzalez on 02-08-2023 Platelet mean volume (Bld) [Entitic vol] 13.9 fL 6.2-12.0 [facility] Determination of erythrocyte mean corpuscular volume (MCV)Ordered By: Shravan Gonzalez on 02-08-2023 MCV (RBC) [Entitic vol] 96.8 fL 80-94 [facility] Hematocrit Auto (Bld) [Volum e fraction]Ordered By: Shravan Gonzalez on 02-08-2023 Hematocrit (Bld) [Volume fraction] 47.7 % 40-54 [facility] Laboratory - Chemistry and C hemistry - challengeOrdered By: Shravan Gonzalez on 02-08-2023 ALP [Catalytic activity/Vol] 86 U/L 45-117 [facility] ALT [Catalytic activity/Vol] 28 U/L 16-61 [facility] CO2 [Moles/Vol] 30.0 mmol/L 21.0-32.0 [facility] Globulin (S) [Mass/Vol] 3.7 g/dL 2.2-4.2 [facility] Urea nitrogen/Creatinine [Mass ratio] 19.7 mg/mg 10-20 [facility] Laboratory - Hematology and Cell countsOrdered By: Shravan Gonzalez on 02-08-2023 Erythrocyte distribution width (RBC) [Entitic vol] 44.1 fL 35.1-43.9 [facility] Erythrocyte distribution width (RBC) [Ratio] 12.4 % 11.6-14.6 [facility] Immature granulocytes/100 WBC (Bld) 0.500 % 0.0-0.9 [facility] Comment on above: IG% - Immature Granu locytes (promyelocytes, myelocytes and metamyelocytes) > 1% indicates that a LEFT SHIFT is Present. MCH (RBC) [Entitic mass] 31.0 pg 27.0-32.0 [facility] Nucleated RBC/100 WBC (Bld) [Ratio] 0 % 0-5 [facility] MCHC Auto (RBC) [Mass/Vol]Or dered By: Shravan Gonzalez on 02-08-2023 MCHC (RBC) [Mass/Vol] 32.1 g/dL 32-36 [facility] No Panel InformationOrdered By: Shravan Gonzalez on 02-08-2023 Estimated GFR (MDRD) Amer 100 mL/min >60 [facility] Comment on above: GFR Calc Estimated GFR (MDRD) Non-Af Amer 83 mL/min >60 [facility] Comment on above: Non- GFR Calc Thyroid Stimulating Hormone (TSH) 1.63 uIU/mL 0.358-3.74 [facility] Vitamin D 25-Hydroxy 41.4 ng/mL [facility] Comment on above: Vitamin D 25(OH) Sta tus Range Deficiency <20 ng/mL (50nmol/L) Insufficiency 20 - 30 ng/mL (50 - 75 nmol/L) Sufficiency 30 - 100 ng/mL (75 - 250 nmol/L) Toxicity >100 ng/mL (>250 nmol/L) Platelets bldOrdered By: Shravan Gonzalez on 02-08-2023 Platelets (Bld) [#/Vol] 140 10*3/uL 150-450 [facility] Serum or plasma albumin dylon urement (mass/volume)Ordered By: Shravan Gonzalez on 02-08-2023 Albumin [Mass/Vol] 3.9 g/dL 3.2-5.0 [facility] Serum or plasma albumin/glob ulin mass ratioOrdered By: Shravan Gonzalez on 02-08-2023 Albumin/Globulin [Mass ratio] 1.1 {ratio} 0.9-2.4 [facility] Serum or plasma calcium dylon urement (mass/volume)Ordered By: Shravan Gonzalez on 02-08-2023 Calcium [Mass/Vol] 9.7 mg/dL 8.5-10.1 [facility] Serum or plasma creatinine m easurement (mass/volume)Ordered By: Shravan Gonzalez on 02-08-2023 Creatinine [Mass/Vol] 0.96 mg/dL 0.70-1.30 [facility] Comment on above: The validity of the calculated GFR & GFRAA in patients over 70 years has not been determined. Clinical correlation is essential. Serum or plasma urea nitroge n measurement (mass/volume)Ordered By: Shravan Gonzalez on 02-08-2023 Urea nitrogen [Mass/Vol] 19 mg/dL 7-18 [facility] Thin prep Papanicolaou smear with manual screeningOrdered By: Shravan Payam on 02-08-2023 Thin prep Papanicolaou smear with manual screening 18 U/L 15-37 [facility] Thin prep Papanicolaou smear with manual screening 4 5-15 [facility] XR SPINE LUMBAR W/OBLIQUES 4 VIEWSon 10-16-2022 [...] 10/16/2022 12:58:14 PM Ordering Provider: JUSTIN Mtz [facility] ([place]) .Auto Diffon 09-11-2022 Basophil, Absolute 0.0 10 3/mcL Normal 0.0-0.2 [facility] ([place]) Comment on above: Performed By: #### A 1C, ADIFF, CBC, BMP, MG, LIPID, GFR, ANEU #### [address] [address] Basophils/100 WBC (Bld) 0.1 % Normal 0.0-2.5 A [facility] ([place]) Comment on above: Performed By: #### A 1C, ADIFF, CBC, BMP, MG, LIPID, GFR, ANEU #### [address] [address] Eosinophil, Absolute 0.0 10 3/mcL Normal 0.0-0.4 [facility] ([place]) Comment on above: Performed By: #### A 1C, ADIFF, CBC, BMP, MG, LIPID, GFR, ANEU #### [address] [address] Eosinophils/100 WBC (Bld) 0.0 % Normal 0.0-7.0 [facility] ([place]) Comment on above: Performed By: #### A 1C, ADIFF, CBC, BMP, MG, LIPID, GFR, ANEU #### [address] [address] Lymphocyte, Absolute 0.4 10 3/mcL Low 0.8-3.9 [facility] ([place]) Comment on above: Performed By: #### A 1C, ADIFF, CBC, BMP, MG, LIPID, GFR, ANEU #### [address] [address] Lymphocytes/100 WBC (Bld) 3.0 % Low 10.0-50.0 [facility] ([place]) Comment on above: Performed By: #### A 1C, ADIFF, CBC, BMP, MG, LIPID, GFR, ANEU #### [address] [address] Monocyte, Absolute 0.8 10 3/mcL Normal 0.2-1.0 [facility] ([place]) Comment on above: Performed By: #### A 1C, ADIFF, CBC, BMP, MG, LIPID, GFR, ANEU #### [address] [address] Monocytes/100 WBC (Bld) 5.6 % Normal 1.7-13.0 A [facility] ([place]) Comment on above: Performed By: #### A 1C, ADIFF, CBC, BMP, MG, LIPID, GFR, ANEU #### [address] [address] Neutrophils/100 WBC (Bld) 91.3 % High 37.0-80.0 [facility] ([place] Comment on above: Performed By: #### A 1C, ADIFF, CBC, BMP, MG, LIPID, GFR, ANEU #### [address] [address] .GFRon 09-11-2022 GFR 72 ml/min/1.73sqm Normal [facility] ([place]) Comment on above: Result Comment: GFR Population [...] ADIFF, CBC, BMP, MG, LIPID, GFR, ANEU ####[address] [address] GFR Non- 59 ml/min/1.73sqm Normal [facility] ([place]) Comment on above: Result Comment: GFR Population [...] ADIFF, CBC, BMP, MG, LIPID, GFR, ANEU ####[address] [address] .NEUABSon 09-11-2022 Neutrophil, Absolute 13.1 10 3/mcL High 2.9-6.2 A [facility] ([place]) Comment on above: Performed By: #### A 1C, ADIFF, CBC, BMP, MG, LIPID, GFR, ANEU #### [address] [address] A1Con 09-11-2022 HbA1c (Bld) [Mass fraction] 8.3 % High 4.3-6.4 [facility] ([place]) Comment on above: Performed By: #### A 1C, ADIFF, CBC, BMP, MG, LIPID, GFR, ANEU #### [address] [address] BMPon 09-11-2022 BUN/Creatinine Ratio 19 ratio Normal 7-27 [facility] ([place]) Comment on above: Performed By: #### A 1C, ADIFF, CBC, BMP, MG, LIPID, GFR, ANEU #### [address] [address] Calcium [Mass/Vol] 9.0 mg/dL Normal 8.4-10.2 [facility] ([place]) Comment on above: Performed By: #### A 1C, ADIFF, CBC, BMP, MG, LIPID, GFR, ANEU #### [address] [address] Chloride [Moles/Vol] 103 mmol/L Normal 98-107 [facility] ([place]) Comment on above: Performed By: #### A 1C, ADIFF, CBC, BMP, MG, LIPID, GFR, ANEU #### [address] [address] CO2 [Moles/Vol] 26 mmol/L Normal 23-31 [facility] ([place] Comment on above: Performed By: #### A 1C, ADIFF, CBC, BMP, MG, LIPID, GFR, ANEU #### [address] [address] Creatinine [Mass/Vol] 1.22 mg/dL Normal 0.70-1.30 [facility] ([place]) Comment on above: Performed By: #### A 1C, ADIFF, CBC, BMP, MG, LIPID, GFR, ANEU #### [address] [address] Electrolyte Balance 11.0 mEq/L Normal 4.0-15.0 [facility] ([place]) Comment on above: Performed By: #### A 1C, ADIFF, CBC, BMP, MG, LIPID, GFR, ANEU #### [address] [address] Glucose [Mass/Vol] 257 mg/dL High 80-115 [facility] ([place] Comment on above: Performed By: #### A 1C, ADIFF, CBC, BMP, MG, LIPID, GFR, ANEU #### [address] [address] Potassium [Moles/Vol] 5.0 mmol/L Normal 3.5-5.1 [facility] ([place]) Comment on above: Performed By: #### A 1C, ADIFF, CBC, BMP, MG, LIPID, GFR, ANEU #### [address] [address] Sodium [Moles/Vol] 140 mmol/L Normal 136-145 [facility] [place] Comment on above: Performed By: #### A 1C, ADIFF, CBC, BMP, MG, LIPID, GFR, ANEU #### [place] [address] Urea nitrogen [Mass/Vol] 23 mg/dL High 7-18 [facility] ([place] Comment on above: Performed By: #### A 1C, ADIFF, CBC, BMP, MG, LIPID, GFR, ANEU #### [place] [address] CBCon 09-11-2022 Erythrocyte distribution width (RBC) [Ratio] 13.0 % Normal 11.5-14.5 [facility] ([place] Comment on above: Performed By: #### A 1C, ADIFF, CBC, BMP, MG, LIPID, GFR, ANEU #### [place] [address] Hematocrit (Bld) [Volume fraction] 40.9 % Low 42.0-52.0 [facility] ([place] Comment on above: Performed By: #### A 1C, ADIFF, CBC, BMP, MG, LIPID, GFR, ANEU #### [place] [address] Hgb 13.5 G/dL Low 14.0-18.0 [facility] ([place] Comment on above: Performed By: #### A 1C, ADIFF, CBC, BMP, MG, LIPID, GFR, ANEU #### [place] [address] MCH (RBC) [Entitic mass] 30.8 pg Normal 27.0-31.2 [facility] ([place] Comment on above: Performed By: #### A 1C, ADIFF, CBC, BMP, MG, LIPID, GFR, ANEU #### [place] [address] MCHC 33.1 G/dL Normal 31.8-35.4 [facility] ([place] Comment on above: Performed By: #### A 1C, ADIFF, CBC, BMP, MG, LIPID, GFR, ANEU #### [address] [address] MCV (RBC) [Entitic vol] 93.1 fL Normal 80.0-94.0 A [facility] ([place]) Comment on above: Performed By: #### A 1C, ADIFF, CBC, BMP, MG, LIPID, GFR, ANEU #### [address] [address] Platelet 113 10 3/mcL Low 130-400 [facility] ([place]) Comment on above: Performed By: #### A 1C, ADIFF, CBC, BMP, MG, LIPID, GFR, ANEU #### [address] [address] Platelet mean volume (Bld) [Entitic vol] 12.6 fL High 7.4-10.4 [facility] ([place] Comment on above: Performed By: #### A 1C, ADIFF, CBC, BMP, MG, LIPID, GFR, ANEU #### [address] [address] RBC 4.39 10 6/mcL Normal 4.04-6.13 [facility] ([place] Comment on above: Performed By: #### A 1C, ADIFF, CBC, BMP, MG, LIPID, GFR, ANEU #### [address] [address] WBC 14.3 10 3/mcL High 4.6-10.8 [facility] ([place]) Comment on above: Performed By: #### A 1C, ADIFF, CBC, BMP, MG, LIPID, GFR, ANEU #### [address] [address] [address] ANGIOGRAPHY HEAD W/ CONTR Vishal 09-11-2022 [...] Date: 09/10/2022 10:02:52 PM Ordering Provider: PIERRE LANZA [facility] ([place]) CT ANGIOGRAPHY NECK W/CONTRA STon 09-11-2022 CT [...] Date: 09/10/2022 10:06:27 PM Ordering Provider: PIERRE LANZA [facility] ([place]) LABORATORYOrdered By: Catrachita Schultz on 09-11-2022 Blood Glucose Testing Reason Routine (09/11/22 11:47 AM) [facility] Work Phone: Glucose [Mass/Vol] 299 mg/dL Invalid Interpretation Code 82 - 115 mg/dL [facility] Work Phone: Blood Glucose Testing Reason Routine (09/11/22 7:10 AM) [facility] Work Phone: Glucose [Mass/Vol] 279 mg/dL Invalid Interpretation Code 82 - 115 mg/dL [facility] Work Phone: LABORATORYOrdered By: Maranda Guzman on [...] Invalid Interpretation Code 82 - 115 mg/dL [facility] Work Phone: LIPIDon 09-11-2022 Cholesterol [Mass/Vol] 208 mg/dL High 0-200 [facility] ([place]) Comment on above: Result Comment: Chol esterol Reference Interval: Less than 200 Desirable 200-239 Borderline high risk 240 and above High risk Performed By: #### A 1C, ADIFF, CBC, BMP, MG, LIPID, GFR, ANEU ####[address], [place] [address] Cholesterol in HDL [Mass/Vol] 91 mg/dL High 40-60 [facility] ([place]) Comment on above: Performed By: #### A 1C, ADIFF, CBC, BMP, MG, LIPID, GFR, ANEU ####[facility] [place], [place] [address] Cholesterol in LDL [Mass/Vol] 109 mg/dL Normal 0-130 [facility] ([place]) Comment on above: Performed By: #### A 1C, ADIFF, CBC, BMP, MG, LIPID, GFR, ANEU ####[facility] [place], [place] [address] Triglyceride [Mass/Vol] 40 mg/dL Normal 0-150 A [facility] ([place]) Comment on above: Result Comment: Trig lyceride Reference Interval: Less than 150 Normal 150-199 Borderline high risk 200-499 High risk 500 or higher Very high risk Performed By: #### A 1C, ADIFF, CBC, BMP, MG, LIPID, GFR, ANEU ####[facility] [place], [place] [address] MGon 09-11-2022 Magnesium [Mass/Vol] 1.5 mg/dL Low 1.8-2.4 [facility] ([place]) Comment on above: Performed By: #### A 1C, ADIFF, CBC, BMP, MG, LIPID, GFR, ANEU #### [place] [address] [place], [place] [address] MRI BRAIN W/O CONTRASTon MRI BRAIN W/O [...] Date: 09/11/2022 9:34:19 AM Ordering Provider: DOMENICO HALE [facility] ([place]) UAmichael 09-11-2022 Color (U) Yellow Normal [facility] ([place]) Comment on above: Performed By: #### U A ####[address] [place] [address] Glucose (U) [Mass/Vol] 500 mg/dL Abnormal Negative [facility] ([place]) Comment on above: Performed By: #### U A ####[address] [place] [address] Ketones Ql (U) 80 mg/dL Abnormal Negative [facility] ([place] Comment on above: Performed By: #### U A ####[address] [place] [address] UA Appear Clear Normal Clear [facility] ([place] Comment on above: Performed By: #### U A ####[address] [place], [place] [address] UA Blood Negative Normal Negative [facility] ([place] Comment on above: Performed By: #### U A ####[address] [place], [place] [address] UA Leuk Est Negative Normal Negative [facility] ([place] Comment on above: Performed By: #### U A ####[address] [place], [place] [address] UA Nitrite Negative Normal Negative [facility] ([place] Comment on above: Performed By: #### U A ####[address] [place], [place] [address] UA pH 7.5 Normal 5.0 - 8.0 [facility] ([place] Comment on above: Performed By: #### U A ####[address] [place], [place] [address] UA Protein Negative Normal Negative [facility] ([place]) Comment on above: Performed By: #### U A ####[address] [place], [place] [address] UA Spec Grav 1.015 Normal 1.015-1.025 [facility] ([place] Comment on above: Performed By: #### U A ####[address] [place], [place] [address] UA Specimen Type Clean Catch Normal [facility] ([place] Comment on above: Performed By: #### U A ####[address] [place], [place] [address] UA Urobilinogen 0.2 E.U./dL Normal 0.2-1.0 [facility] ([place] Comment on above: Performed By: #### U A ####[address] [place], [place] [address] Urobilinogen (U) [Mass/Vol] Negative Normal Negative [facility] ([place] Comment on above: Performed By: #### U A ####[address] [place], [place] [address] .Auto DiffOrdered By: Olman Fritz on 09-10-2022 Basophil, Absolute 0.0 103/mcL Normal 0.0-0.2 AO Wo rkflow SS Comment on above: Performed By: #### T ROPHS, GFR, CBC, APTT, ADIFF, MDW, ANEU, BMP, PRO ####[address] [place], [place] [address] Basophils/100 WBC (Bld) 0.3 % Normal 0.0-2.5 A O Workflow SS Comment on above: Performed By: #### T ROPHS, GFR, CBC, APTT, ADIFF, MDW, ANEU, BMP, PRO ####[address] [place], [place] [address] Eosinophil, Absolute 0.1 103/mcL Normal 0.0-0.4 AO Workflow SS Comment on above: Performed By: #### T ROPHS, GFR, CBC, APTT, ADIFF, MDW, ANEU, BMP, PRO ####[address] [place], [place] [address] Eosinophils/100 WBC (Bld) 0.8 % Normal 0.0-7.0 AO Workflow SS Comment on above: Performed By: #### T ROPHS, GFR, CBC, APTT, ADIFF, MDW, ANEU, BMP, PRO ####[address] [place], [place] [address] Lymphocyte, Absolute 1.3 103/mcL Normal 0.8-3.9 AO Workflow SS Comment on above: Performed By: #### T ROPHS, GFR, CBC, APTT, ADIFF, MDW, ANEU, BMP, PRO ####[address] [place], [place] [address] Lymphocytes/100 WBC (Bld) 12.7 % Normal 10.0-50.0 AO Workflow SS Comment on above: Performed By: #### T GEOVANNIHS, GFR, CBC, APTT, ADIFF, MDW, ANEU, BMP, PRO ####[address] [place], [place] [address] Monocyte, Absolute 0.6 103/mcL Normal 0.2-1.0 AO Wo rkflow SS Comment on above: Performed By: #### T LISA, GFR, CBC, APTT, ADIFF, MDW, ANEU, BMP, PRO ####[address] [place], [place] [address] Monocytes/100 WBC (Bld) 6.1 % Normal 1.7-13.0 A O Workflow SS Comment on above: Performed By: #### T LISA, GFR, CBC, APTT, ADIFF, MDW, ANEU, BMP, PRO ####[address] [place], [place] [address] Neutrophils/100 WBC (Bld) 80.1 % High 37.0-80.0 AO Workflow SS Comment on above: Performed By: #### T LISA, GFR, CBC, APTT, ADIFF, MDW, ANEU, BMP, PRO ####[address] [place], [place] [address] .GFRon 09-10-2022 GFR 83 ml/min/1.73sqm Normal [facility] ([place]) Comment on above: Result Comment: GFR Population [...] #### T LISA, GFR, CBC, APTT, ADRADHA, MAXIMILIAN, ANEU, BMP, PRO ####[address] [place], [place] [address] GFR Non- 68 ml/min/1.73sqm Normal [facility] ([place]) Comment on above: Result Comment: GFR Population [...] CBC, APTT, ADIFF, MDW, ANEU, BMP, PRO ####[address] [place], [place] [address] .Won 09-10-2022 Monocyte Distribution Width 15.37 Normal 0.00-20.00 [facility] ([place]) Comment on above: Result Comment: For ED adult patients suspected of sepsis, MDW<=20.0 does not rule out sepsis or risk of sepsis Performed By: #### T LISA, GFR, CBC, APTT, ADIFF, MDW, ANEU, BMP, PRO ####[address] [place], [place] [address] .NEUABSOrdered By: Shelley Fritz on 09-10-2022 Neutrophil, Absolute 7.9 103/mcL High 2.9-6.2 AO Workflow SS Comment on above: Performed By: #### T LISA, GFR, CBC, APTT, MAXIMILIAN CHAIREZ, ANEU, BMP, PRO ####[address] [place], [place] [address] APTTon 09-10-2022 aPTT Coag (Bld) [Time] 34.8 s Normal 25.0-35.0 [facility] ([place]) Comment on above: Result Comment: For Heparin anticoagulation therapy, the recommended therapeutic range is: 50.6-87.4 seconds. Patients on heparin therapy may have an extreme result. Performed By: #### T LISA, GFR, CBC, APTT, MAXIMILIAN CHAIREZ, ANEU, BMP, PRO ####[address] [place], [place] [address] Heparin dose (APTT) None Normal [facility] ([place]) Comment on above: Performed By: #### T LISA, GFR, CBC, APTT, MAXIMILIAN CHAIREZ, ANEU, BMP, PRO ####[address] [place], [place] [address] BMPon 09-10-2022 BUN/Creatinine Ratio 20 ratio Normal 7-27 [facility] ([place]) Comment on above: Performed By: #### T LISA, GFR, CBC, APTT, MAXIMILIAN CHAIREZ, ANEU, BMP, PRO ####[address] [place], [place] [address] BMPOrdered By: SYSTEM SYSTEM on 09-10-2022 Calcium [Mass/Vol] 9.5 mg/dL Normal 8.4-10.2 AO ADM SS Comment on above: Performed By: #### T LISA, GFR, CBC, APTT, MAXIMILIAN CHAIREZ, ANEU, BMP, PRO ####[address] [place], [place] [address] Chloride [Moles/Vol] 100 mmol/L Normal 98-107 AO A DM SS Comment on above: Performed By: #### T LISA, GFR, CBC, APTT, ADIFF, MDW, ANEU, BMP, PRO ####[address] [place], [place] [address] CO2 [Moles/Vol] 25 mmol/L Normal 23-31 AO ADM SS Comment on above: Performed By: #### T LISA, GFR, CBC, APTT, ADIFF, MDW, ANEU, BMP, PRO ####[address] [place], [place] [address] Creatinine [Mass/Vol] 1.08 mg/dL Normal 0.70-1.30 AO ADM SS Comment on above: Performed By: #### T LISA, GFR, CBC, APTT, ADIFF, MDW, ANEU, BMP, PRO ####[address] [place], [place] [address] Electrolyte Balance 13.0 mEq/L Normal 4.0-15.0 AO AD M SS Comment on above: Performed By: #### T LISA, GFR, CBC, APTT, ADIFF, MDW, ANEU, BMP, PRO ####[address] [place], [place] [address] Glucose [Mass/Vol] 290 mg/dL High 80-115 AO ADM SS Comment on above: Performed By: #### T LISA, GFR, CBC, APTT, ADIFF, MDW, ANEU, BMP, PRO ####[address] [place], [place] [address] Potassium [Moles/Vol] 4.2 mmol/L Normal 3.5-5.1 AO ADM SS Comment on above: Performed By: #### T LISA, GFR, CBC, APTT, ADIFF, MDW, ANEU, BMP, PRO ####[address] [place], [place] [address] Sodium [Moles/Vol] 138 mmol/L Normal 136-145 AO ADM SS Comment on above: Performed By: #### T LISA, GFR, CBC, APTT, ADIFF, MDW, ANEU, BMP, PRO ####[address] [place] [id number] Urea nitrogen [Mass/Vol] 22 mg/dL High 7-18 AO ADM SS Comment on above: Performed By: #### T GEOVANNIHS, GFR, CBC, APTT, ADIFF, MDW, ANEU, BMP, PRO ####[address] [place], [place] [address] CBCOrdered By: Shelley franklin on 09-10-2022 Erythrocyte distribution width (RBC) [Ratio] 12.7 % Normal 11.5-14.5 AO Workflow SS Comment on above: Performed By: #### T GEOVANNIHS, GFR, CBC, APTT, ADIFF, MDW, ANEU, BMP, PRO ####[address] [place], [place] [address] Hematocrit (Bld) [Volume fraction] 44.2 % Normal 42.0-52.0 AO Workflow SS Comment on above: Performed By: #### T LISA, GFR, CBC, APTT, ADIFF, MDW, ANEU, BMP, PRO ####[address] [place], [place] [address] MCH (RBC) [Entitic mass] 30.8 pg Normal 27.0-31.2 AO Workflow SS Comment on above: Performed By: #### T LISA, GFR, CBC, APTT, ADIFF, MDW, ANEU, BMP, PRO ####[address] [place], [place] [address] MCHC 33.4 G/dL Normal 31.8-35.4 AO Workflow SS Comment on above: Performed By: #### T LISA, GFR, CBC, APTT, ADIFF, MDW, ANEU, BMP, PRO ####[address] [place], [place] [address] MCV (RBC) [Entitic vol] 92.2 fL Normal 80.0-94.0 A O Workflow SS Comment on above: Performed By: #### T ROPHS, GFR, CBC, APTT, ADIFF, MDW, ANEU, BMP, PRO ####[address] [place], [place] [address] Platelet mean volume (Bld) [Entitic vol] 12.1 fL High 7.4-10.4 AO Workflow SS Comment on above: Performed By: #### T LISA, GFR, CBC, APTT, ADIFF, MDW, ANEU, BMP, PRO ####[address] [place], [place] [address] CBCon 09-10-2022 Hgb 14.7 G/dL Normal 14.0-18.0 [facility] ([place]) Comment on above: Performed By: #### T LISA, GFR, CBC, APTT, ADIFF, MDW, ANEU, BMP, PRO ####[address] [place], [place] [address] Platelet 123 10 3/mcL Low 130-400 [facility] ([place]) Comment on above: Performed By: #### T LISA, GFR, CBC, APTT, ADIFF, MDW, ANEU, BMP, PRO ####[address] [place], [place] [address] RBC 4.79 10 6/mcL Normal 4.04-6.13 [facility] ([place]) Comment on above: Performed By: #### T LISA, GFR, CBC, APTT, ADIFF, MDW, ANEU, BMP, PRO ####[address] [place], [place] [address] WBC 9.9 10 3/mcL Normal 4.6-10.8 [facility] ([place]) Comment on above: Performed By: #### T LISA, GFR, CBC, APTT, ADIFF, MDW, ANEU, BMP, PRO ####[address] [place], [place] [address] CT HEAD OR BRAIN W/O CONTRAS Ton [...] No acute intracranial abnormality. Interpreted by: Danny Mills MD Preliminary Report By: Danny Mills MD Electronically signed By Danny Mills MD Dictated Date: 09/10/2022 8:35:34 PM Prelim Date: 09/10/2022 8:37:23 PM Sign Date: 09/10/2022 8:37:23 PM Ordering Provider: PIERRE LANZA [facility] ([place]) LABORATORYOrdered By: Olman Fritz on 09-10-2022 Appearance [...] CBC, APTT, MAXIMILIAN CHAIREZ, ANEU, BMP, PRO ####[address] [place], [place] [address] PROon 09-10-2022 PT International Ratio 1.0 Normal [facility] ([place]) Comment on above: Result Comment: The [employer] (CHEST, 1992, 102:[id number]) recommended therapeutic range for oral anticoagulant therapy is: LOW RISK: Prophylaxis of venous thrombosis INR: 2.0-3.0 Treatment of pulmonary embolism 2.0-3.0 Prevention of systemic embolism 2.0-3.0 HIGH RISK: Mechanical prosthetic valves 2.5-3.5 Performed By: #### T LISA, GFR, CBC, APTT, CONTRERAS, MAXIMILIAN, ANEU, BMP, PRO ####[address] [place], [place] [address] TROPHSon 09-10-2022 Troponin I High Sensitivity 6.7 ng/L Normal 0.0-76.2 [facility] ([place]) Comment on above: Performed By: #### T LISA, GFR, CBC, APTT, MAXIMILIAN CHAIREZ, ANEU, BMP, PRO ####[address] [place], [place] [address] XR CHEST 1 VIEWon 09-10-2022 XR CHEST [...] findings. No acute abnormality. Interpreted by: Danny Mills MD Preliminary Report By: Danny Mills MD Electronically signed By Danny Mills MD Dictated Date: 09/10/2022 8:34:05 PM Prelim Date: 09/10/2022 8:35:15 PM Sign Date: 09/10/2022 8:35:15 PM Ordering Provider: PIERRE LANZA [facility] ([place]) Absolute lymphocyte countOrd ered By: Shravan Gonzalez on 07-19-2022 Lymphocytes Auto (Unsp spec) [#/Vol] 1.45 10*3/uL 0.83-4.51 [facility] Basophil percentageOrdered B y: Shravan Gonzalez on 07-19-2022 Basophils/100 WBC (Bld) 0.1 % 0-1 [facility] Bilirubin [Mass/Vol] 0.50 mg/dL 0.20-1.00 [facility] Comment on above: For patients on eltr ombopag therapy, use of Dimension [place] TBIL is not recommended. Chloride [Moles/Vol] 102 mmol/L 98-107 [facility] Eosinophils/100 WBC (Bld) 1.9 % 0-5 [facility] Glucose [Mass/Vol] 154 mg/dL 74-106 [facility] Comment on above: Fasting Glucose resu lt greater than or equal to 126 mg/dL suggests DIABETES MELLITUS per A.D.A. criteria. Neutrophils (Bld) [#/Vol] 5.3 10*3/uL 2.0-7.7 [facility] Neutrophils/100 WBC (Bld) 67.6 % 47-70 [facility] Potassium [Moles/Vol] 4.3 mmol/L 3.5-5.1 [facility] Protein [Mass/Vol] 7.3 g/dL 6.4-8.2 [facility] Sodium [Moles/Vol] 140 mmol/L 136-145 [facility] WBC (Bld) [#/Vol] 7.9 10*3/uL 4.4-11.0 [facility] Blood erythrocytes count (nu mber/volume)Ordered By: Shravan Gonzalez on 07-19-2022 RBC (Bld) [#/Vol] 4.76 10*6/uL 4.6-6.2 [facility] Blood hemoglobin measurement (mass/volume)Ordered By: Shravan Gonzalez on 07-19-2022 Hemoglobin (Bld) [Mass/Vol] 14.7 g/dL 13.0-16.5 [facility] Blood lymphocytes/100 leukoc ytesOrdered By: [facility] on 07-19-2022 Lymphocytes/100 WBC (Bld) 18.5 % 19-41 [facility] Blood monocytes/100 leukocyt esOrdered By: [facility] Monocytes/100 WBC (Bld) 11.5 % 0-10 [facility] Blood platelet mean volumeOr dered By: [facility] 07-[facility]-2022 Platelet mean volume (Bld) [Entitic vol] 14.4 fL 6.2-12.0 [facility] Determination of erythrocyte mean corpuscular volume (MCV)Ordered By: [facility] on 07-19-2022 MCV (RBC) [Entitic vol] 96.2 fL 80-94 [facility] Hematocrit Auto (Bld) [Volum e fraction]Ordered By: [facility] on 07-19-2022 Hematocrit (Bld) [Volume fraction] 45.8 % 40-54 [facility] Laboratory - Chemistry and C hemistry - challengeOrdered By: [facility] on 07-19-2022 ALP [Catalytic activity/Vol] 82 U/L 45-117 [facility] ALT [Catalytic activity/Vol] 29 U/L 16-61 [facility] CO2 [Moles/Vol] 31.0 mmol/L 21.0-32.0 [facility] Globulin (S) [Mass/Vol] 3.4 g/dL 2.2-4.2 [facility] Urea nitrogen/Creatinine [Mass ratio] 24.6 mg/mg 10-20 [facility] Laboratory - Hematology and Cell countsOrdered By: [facility] on 07-19-[facility]22 Erythrocyte distribution width (RBC) [Entitic vol] 43.6 fL 35.1-43.9 [facility] Erythrocyte distribution width (RBC) [Ratio] 12.1 % 11.6-14.6 [facility] Immature granulocytes/100 WBC (Bld) 0.400 % 0.0-0.9 [facility] Comment on above: IG% - Immature Granu locytes (promyelocytes, myelocytes and metamyelocytes) > 1% indicates that a LEFT SHIFT is Present. MCH (RBC) [Entitic mass] 30.9 pg 27.0-32.0 [facility] Nucleated RBC/100 WBC (Bld) [Ratio] 0 % 0-5 [facility] MCHC Auto (RBC) [Mass/Vol]Or dered By: Shravan Gonzalez on 07-19-2022 MCHC (RBC) [Mass/Vol] 32.1 g/dL 32-36 [facility] No Panel InformationOrdered By: Shravan Gonzalez on 07-19-2022 Estimated GFR (MDRD) Amer 104 mL/min >60 [facility] Comment on above: GFR Calc Estimated GFR (MDRD) Non-Af Amer 86 mL/min >60 [facility] Comment on above: Non- GFR Calc Hepatitis C Antibody Non-Reactive Nonreactive [facility] Comment on above: Non Reactive: < 0.8 Equivocal: >/= 0.8 to < 1.0 Reactive: >/= 1.0The CDC recommends that a reactive/equivocal HCV antibody result be followed up by the HCV Nucleic Acid Amplificationtest (501313) Prostate Specific Antigen Screen 0.90 ng/mL 0.00-4.00 [facility] Comment on above: This test was perfor med using the TPSA assay method for theChange Lane chemistry system. Values obtained with differentassay methods cannot be used interchangably.When changing PSA assays in the course of monitoring apatient, additional sequential testing should be carriedout to confirm baseline values. Thyroid Stimulating Hormone (TSH) 1.70 uIU/mL 0.358-3.74 [facility] Vitamin D 25-Hydroxy 54.6 ng/mL [facility] Comment on above: Vitamin D 25(OH) Sta tus Range Deficiency <20 ng/mL (50nmol/L) Insufficiency 20 - 30 ng/mL (50 - 75 nmol/L) Sufficiency 30 - 100 ng/mL (75 - 250 nmol/L) Toxicity >100 ng/mL (>250 nmol/L) Platelets bldOrdered By: Shravan Gonzalez on 07-19-2022 Platelets (Bld) [#/Vol] 145 10*3/uL 150-450 [facility] Serum or plasma albumin dylon urement (mass/volume)Ordered By: Shravan Gonzalez on 07-19-2022 Albumin [Mass/Vol] 3.9 g/dL 3.2-5.0 [facility] Serum or plasma albumin/glob ulin mass ratioOrdered By: Shravan Gonzalez on 07-19-2022 Albumin/Globulin [Mass ratio] 1.1 {ratio} 0.9-2.4 [facility] Serum or plasma calcium dylon urement (mass/volume)Ordered By: Shravan Gonzalez on 07-19-2022 Calcium [Mass/Vol] 9.7 mg/dL 8.5-10.1 [facility] Serum or plasma creatinine m easurement (mass/volume)Ordered By: Shravan Gonzalez on 07-19-2022 Creatinine [Mass/Vol] 0.94 mg/dL 0.70-1.30 [facility] Comment on above: The validity of the calculated GFR & GFRAA in patients over 70 years has not been determined. Clinical correlation is essential. Serum or plasma urea nitroge n measurement (mass/volume)Ordered By: Shravan Gonzalez on 07-19-2022 Urea nitrogen [Mass/Vol] 23 mg/dL 7-18 [facility] Thin prep Papanicolaou smear with manual screeningOrdered By: Shravan Gonzalez on 07-19-2022 Thin prep Papanicolaou smear with manual screening 20 U/L 15-37 [facility] Thin prep Papanicolaou smear with manual screening 7 5-15 [facility] Brittnee 08-17-2021 FERR 185.0 NG/ML Normal 24.0-388.0 [facility] Comment on above: Performed By: #### L 500.23034, L500.75116, L500.20458, L500.49155 #### [facility] [address] [place] [address] IRON PANELon 08-17-2021 Iron [Mass/Vol] 104 ug/dL Normal 65-175 [facility] Comment on above: Result Comment: Kailee ents treated with metal-binding drugs (e.g.deferoxamine) may have depressed iron values, as chelated iron may not properly react in the Siemens iron assay. Performed By: #### L 500.22564, L500.72868, L500.04878, L500.61954 #### [facility] [address] [place] [address] IRON SAT 40 % Normal 30-44 [facility] Comment on above: Performed By: #### L 500.84950, L500.88257, L500.74007, L500.28838 #### [facility] [address] [place] [address] TIBC 260 UG/DL Normal 221-481 [facility] Comment on above: Performed By: #### L 500.94452, L500.97572, L500.15135, L500.71403 #### [facility] [place] [address] MAGNESIUMon 08-17-2021 Magnesium [Mass/Vol] 1.8 mg/dL Normal 1.6-2.6 [facility] Comment on above: Performed By: #### L 500.49997, L500.83586, L500.21142, L500.22824 #### [facility] [address] [place] [address] PHOSon 08-17-2021 Phosphate [Mass/Vol] 2.90 mg/dL Normal 2.5-4.9 [facility] Comment on above: Result Comment: Elev ated m-protein (paraprotein) levels in the serum may be exhibited in patients with monoclonal gammopathies, causing falsely elevated inorganic phosphorus results. Performed By: #### L 500.91036, L500.32129, L500.64075, L500.99743 #### [facility] [address] [place] [address] PTH INTACTon 08-17-2021 PTH INTACT 14.9 PG/ML Normal 14-72 [facility] Comment on above: Performed By: #### L 550.18174 #### [facility] [address] [place] [address] Vital Signs Date Time Vital Sign Value Performing Clinician Facility 01-26-2025 08:37-0400 Body height 167.[address] Shravan Gonzalez MD Work Phone: 0(404)785-261218 [place] [address] 01-26-2025 08:37-0400 Body mass index (BMI) [Ratio] 26 kg/m2 Dr. Shravan Gonzalez MD Work Phone: 3(344)649-202218 [place] [address] 01-26-2025 08:37-0400 Body weight 73.[address] Shravan Gonzalez MD Work Phone: 6(510)217-475118 [place] [address] 01-26-2025 08:37-0400 Diastolic blood pressure 78 mm[Hg] Dr. Shravan Gonzalez MD Work Phone: 0(662)011-946418 [place] [address] 01-26-2025 08:37-0400 Heart rate 66 /min Dr. Shravan Gonzalez MD Work Phone: 0(143)184-972118 [place] [address] 01-26-2025 08:37-0400 SaO2% (BldA) [Mass fraction] 97 % Dr. Shravan Gonzalez MD Work Phone: 8(058)909-367718 [place] [address] 01-26-2025 08:37-0400 Systolic blood pressure 149 mm[Hg] Dr. Shravan Gonzalez MD Work Phone: 7(450)938-075818 [place] [address] 10-13-2024 08:38-0400 Body height 167.[address] Shravan Gonzalez MD Work Phone: 9(623)707-992418 [place] [address] 10-13-2024 08:38-0400 Body mass index (BMI) [Ratio] 25.8 kg/m2 Dr. Shravan Gonzalez MD Work Phone: 9(715)879-319618 [place] [address] 10-13-2024 08:38-0400 Body weight 72.[address] Shravan Gonzalez MD Work Phone: 2(927)990-553418 [place] [address] 10-13-2024 08:38-0400 Diastolic blood pressure 75 mm[Hg] Dr. Shravan Gonzalez MD Work Phone: 5(092)310-061818 [place] [address] 10-13-2024 08:38-0400 Heart rate 54 /min Dr. Shravan Gonzalez MD Work Phone: 5(211)348-869318 [place] [address] 10-13-2024 08:38-0400 SaO2% (BldA) [Mass fraction] 97 % Dr. Shravan Gonzalez MD Work Phone: 7(311)075-683976 [place] [address] 10-13-2024 08:38-0400 Systolic blood pressure 148 mm[Hg] Dr. Shravan Gonzalez MD Work Phone: 6(004)495-832318 [place] [address] 07-10-2024 08:36-0500 Body height 167.[address] Shravan Gonzalez MD Work Phone: 2(045)950-944518 [place] [address] 07-10-2024 08:36-0500 Body mass index (BMI) [Ratio] 26 kg/m2 Dr. Shravan Gonzalez MD Work Phone: 8(144)868-555218 [place] [address] 07-10-2024 08:36-0500 Body weight 73.[address] Shravan Gonzalez MD Work Phone: 3(360)522-355118 [place] [address] 07-10-2024 08:36-0500 Diastolic blood pressure 83 mm[Hg] Dr. Shravan Gonzalez MD Work Phone: 5(207)422-217418 [place] [address] 07-10-2024 08:36-0500 Heart rate 62 /min Dr. Shravan Gonzalez MD Work Phone: 7(348)431-707518 [place] [address] 07-10-2024 08:36-0500 SaO2% (BldA) [Mass fraction] 96 % Dr. Shravan Gonzalez MD Work Phone: 3(635)787-346618 [place] [address] 07-10-2024 08:36-0500 Systolic blood pressure 150 mm[Hg] Dr. Shravan Gonzalez MD Work Phone: 7(635)156-618718 [place] [address] 03-31-2024 08:05-0500 Body mass index (BMI) [Ratio] 25.7 kg/m2 Dr. Shravan Gonzalez MD Work Phone: 9(451)269-214318 [place] [address] 03-31-2024 08:05-0500 Body weight 72.[address] Shravan Gonzalez MD Work Phone: 4(492)699-327018 [place] [address] 03-31-2024 08:05-0500 Diastolic blood pressure 75 mm[Hg] Dr. Shravan Gonzalez MD Work Phone: 8(921)956-630518 [place] [address] 03-31-2024 08:05-0500 Heart rate 60 /min Dr. Shravan Gonzalez MD Work Phone: [facility] 03-31-2024 08:05-0500 SaO2% (BldA) [Mass fraction] 96 % Dr. Shravan Gonzalez MD Work Phone: 8(593)737-602676 [place] [address] 03-31-2024 08:05-0500 Systolic blood pressure 150 mm[Hg] Dr. Shravan Gonzalez MD Work Phone: 2(771)257-854218 [place] [address] 05-15-2023 11:07-0500 Body height 167.[address] Shravan Gonzalez Work Phone: 4(919)204-663618 [place] [address] 05-15-2023 11:07-0500 Body mass index (BMI) [Ratio] 25.8 kg/m2 Dr. Shravan Gonzalez Work Phone: 5(969)583-262918 [place] [address] 05-15-2023 11:07-0500 Body temperature 98.6 [degF] Dr. Shravan Gonzalez Work Phone: 4(856)525-278618 [place] [address] 05-15-2023 11:07-0500 Body weight 72.[address] Shravan Gonzalez Work Phone: 0(743)755-644018 [place] [address] 05-15-2023 11:07-0500 Diastolic blood pressure 90 mm[Hg] Dr. Shravan Gonzalez Work Phone: 6(430)897-369318 [place] [address] 05-15-2023 11:07-0500 Heart rate 85 /min Dr. Shravan Gonzalez Work Phone: 0(691)640-463376 [place] [address] 05-15-2023 11:07-0500 Respiratory rate 16 /min Dr. Shravan Gonzalez Work Phone: 0(536)912-620276 [place] [address] 05-15-2023 11:07-0500 SaO2% (BldA) [Mass fraction] 97 % Dr. Shravan Gonzalez Work Phone: 8(421)692-461076 [place] [address] 05-15-2023 11:07-0500 Systolic blood pressure 130 mm[Hg] Dr. Shravan Gonzalez Work Phone: 2(703)632-829218 [place] [address] 05-09-2023 08:40-0500 Body mass index (BMI) [Ratio] 26.1 kg/m2 Dr. Shravan Gonzalez Work Phone: [facility] 05-09-2023 08:40-0500 Body temperature 98.9 [degF] Dr. Shravan Gonzalez Work Phone: [facility] 05-09-2023 08:40-0500 Body weight 73.[address] Shravan Gonzalez Work Phone: [facility] 05-09-2023 08:40-0500 Diastolic blood pressure 64 mm[Hg] Dr. Shravan Gonzalez Work Phone: [facility] 05-09-2023 08:40-0500 Heart rate 70 /min Dr. Shravan Gonzalez Work Phone: [facility] 05-09-2023 08:40-0500 Respiratory rate 16 /min Dr. Shravan Gonzalez Work Phone: [facility] 05-09-2023 08:40-0500 SaO2% (BldA) [Mass fraction] 98 % Dr. Shravan Gonzalez Work Phone: [facility] 05-09-2023 08:40-0500 Systolic blood pressure 152 mm[Hg] Dr. Shravan Gonzalez Work Phone: 2(391)647-550133 [address] 02-05-2023 09:07-0400 Body mass index (BMI) [Ratio] 26.5 kg/m2 Dr. Shravan Gonzalez Work Phone: 4(896)249-037076 [place] [address] 02-05-2023 09:07-0400 Body temperature 98 [degF] Dr. Shravan Gonzalez Work Phone: [facility] 02-05-2023 09:07-0400 Body weight 74.[address] Shravan Gonzalez Work Phone: [facility] 02-05-2023 09:07-0400 Diastolic blood pressure 80 mm[Hg] Dr. Shravan Gonzalez Work Phone: 3(937)960-508376 [place] [address] 02-05-2023 09:07-0400 Heart rate 80 /min Dr. Shravan Gonzalez Work Phone: 8(994)683-803976 [place] [address] 02-05-2023 09:07-0400 Respiratory rate 18 /min Dr. Shravan Gonzalez Work Phone: [facility] 02-05-2023 09:07-0400 SaO2% (BldA) [Mass fraction] 97 % Dr. Shravan Gonzalez Work Phone: [facility] 02-05-2023 09:07-0400 Systolic blood pressure 150 mm[Hg] Dr. Shravan Gonzalez Work Phone: [facility] 09-11-2022 11:46-0400 Body temperature 97.88 [degF] AUGUST SHAWBORO COOKER SODA-HEMSTITCHING MACHINE OPERATOR [facility] 09-11-2022 11:46-0400 Diastolic Blood Pressure Non-Invasive 52 1 AUGUST SHAWBORO COOKER [employer]-HEMSTITCHING MACHINE OPERATOR [facility] 09-11-2022 11:46-0400 Heart rate 94 /min AUGUST SHAWBORO COOKER SODA-HEMSTITCHING MACHINE OPERATOR [facility] 09-11-2022 11:46-0400 Reason For Taking VItal Signs AUGUST SHAWBORO COOKER SODA-HEMSTITCHING MACHINE OPERATOR [facility] 09-11-2022 11:46-0400 Respiratory rate 18 /min AUGUST SHAWBORO COOKER SODA-HEMSTITCHING MACHINE OPERATOR [facility] 09-11-2022 11:46-0400 Systolic Blood Pressure Non-Invasive 135 1 AUGUST SHAWBORO COOKER SODA-HEMSTITCHING MACHINE OPERATOR [facility] 09-11-2022 11:03-0400 Heart rate 92 /min AUGUST SHAWBORO COOKER [employer]A-HEMSTITCHING MACHINE OPERATOR [facility] 09-11-2022 07:48-0400 Heart rate 106 /min AUGUST SHAWBORO COOKER [employer]A-HEMSTITCHING MACHINE OPERATOR [facility] 09-11-2022 07:09-0400 Body temperature 98.6 [degF] AUGUST SHAWBORO COOKER [employer]A-HEMSTITCHING MACHINE OPERATOR [facility] 09-11-2022 07:09-0400 Diastolic Blood Pressure Non-Invasive 54 1 AUGUST SHAWBORO COOKER [employer]-HEMSTITCHING MACHINE OPERATOR [facility] 09-11-2022 07:09-0400 Reason For Taking VItal Signs AUGUST SHAWBORO COOKER [employer]A-HEMSTITCHING MACHINE OPERATOR [facility] 09-11-2022 07:09-0400 Respiratory rate 18 /min AUGUST SHAWBORO COOKER SODA-HEMSTITCHING MACHINE OPERATOR [facility] 09-11-2022 07:09-0400 Systolic Blood Pressure Non-Invasive 130 1 AUGUST SHAWBORO COOKER SODA-HEMSTITCHING MACHINE OPERATOR [facility] 09-11-2022 04:08-0400 Respiratory rate 18 /min AUGUST SHAWBORO COOKER SODA-HEMSTITCHING MACHINE OPERATOR [facility] 09-11-2022 02:32-0400 Body height 167.6 cm AUGUST SHAWBORO COOKER [employer]-HEMSTITCHING MACHINE OPERATOR [address] [place] [address] 09-11-2022 02:32-0400 Body weight 77.3 kg AUGUST SHAWBORO COOKER [employer]-HEMSTITCHING MACHINE OPERATOR [address] [place] [address] 09-11-2022 02:32-0400 Body weight 27.52 kg/m2 AUGUST SHAWBORO COOKER [employer]-HEMSTITCHING MACHINE OPERATOR [facility] 09-11-2022 02:11-0400 Body temperature 97.88 [degF] AUGUST SHAWBORO COOKER [employer]-HEMSTITCHING MACHINE OPERATOR [address] [place] [address] 09-11-2022 02:11-0400 Diastolic Blood Pressure Non-Invasive 51 1 AUGUST SHAWBORO COOKER [employer]-HEMSTITCHING MACHINE OPERATOR [facility] 09-11-2022 02:11-0400 Heart rate 92 /min AUGUST SHAWBORO COOKER [employer]-HEMSTITCHING MACHINE OPERATOR [facility] 09-11-2022 02:11-0400 Systolic Blood Pressure Non-Invasive 141 1 AUGUST SHAWBORO COOKER [employer]-HEMSTITCHING MACHINE OPERATOR [facility] 09-11-2022 01:36-0400 Heart rate 76 /min AUGUST SHAWBORO COOKER [employer]-HEMSTITCHING MACHINE OPERATOR [facility] 09-11-2022 01:36-0400 Reason For Taking VItal Signs AUGUST SHAWBORO COOKER [employer]A-HEMSTITCHING MACHINE OPERATOR [facility] 09-11-2022 01:18-0400 Heart rate 108 /min AUGUST SHAWBORO COOKER [employer]A-HEMSTITCHING MACHINE OPERATOR [facility] 09-11-2022 00:29-0400 Heart rate 88 /min AUGUST SHAWBORO COOKER SOD[employer]-HEMSTITCHING MACHINE OPERATOR [facility] 09-10-2022 19:50-0400 Blood Pressure Location AUGUST SHAWBORO COOKER [employer]-HEMSTITCHING MACHINE OPERATOR [facility] 09-10-2022 19:50-0400 Body weight 76.4 kg AUGUST SHAWBORO COOKER [employer]-HEMSTITCHING MACHINE OPERATOR [facility] Encounters Encounter Date Encounter Type Care Provider Facility Start: 03-30-2025 ambulatory Dewey Dawit Facility:[facility] Start: 03-17-2025 ambulatory Dewey Dawit Facility:[facility] Start: 03-16-2025 End: 03-16-2025 ambulatory Dewey Dawit Facility[place] Start: 02-04-2025 End: 02-04-[address] Shravan Gonzalez MD Work Phone: -Laboratory Transave Office 3rd Flr Start: 02-04-2025 End: 02-04-[address] Shravan Gonzalez MD -Laboratory Phy Office 3rd Flr Start: 02-04-2025 End: 02-04-2025 ambulatory Shravan Gonzalez Facility:[facility] Start: 01-26-2025 End: 01-26-2025 Patient encounter procedure Naheed Russ TIPPLE OPERATOR-C -[facility] Work Phone: Start: 01-26-2025 End: 01-26-[address] Shravan Gonzalez MD Work Phone: -[facility] Start: 01-05-2025 End: 01-05-[address] Shravan Gonzalez MD Work Phone: -Laboratory Phy Office 3rd Flr Start: 01-05-2025 End: 01-05-[address] Shravan Gonzalez MD -Laboratory Phy Office 3rd Flr Start: 01-05-2025 End: 01-05-2025 ambulatory Shravan Gonzalez Facility:[facility] Start: 12-24-2024 Non-patient / Non-visit Dr. De La Torre Of abby [facility]AMP[facility] -[facility] Start: 12-24-2024 End: 12-24-[address] Shravan Gonzalez MD Work Phone: -Pulmonary Services/Neurology Start: 12-24-2024 End: 12-24-[address] Shravan Gonzalez MD -Pulmonary Services/Neurology Work Phone: Start: 12-24-2024 End: 12-24-2024 ambulatory Shravan Gonzalez Facility:[facility] Start: 12-22-2024 Non-patient / Non-visit Dr. De La Torre Of abby [facility] -[facility] Work Phone: Start: 12-22-[address] Shravan Gonzalez MD -[facility] Work Phone: Start: 12-22-2024 ambulatory Shravan Gonzalez Facility:[facility] Start: 10-13-2024 End: 10-13-2024 Patient encounter procedure Naheed Russ TIPPLE OPERATOR-C -[facility] Work Phone: Start: 10-13-2024 End: 10-13-[address] Shravan Gonzalez MD Work Phone: [facility] Work Phone: Start: 07-23-2024 End: 07-23-[address] Shravan Gonzalez MD Work Phone: [facility] Work Phone: Start: 07-23-2024 End: 07-23-[address] Shravan Gonzalez MD -Laboratory, [facility] Office 3rd Der Start: 07-23-2024 End: 07-23-2024 ambulatory [facility] Facility:[facility] Start: 07-16-2024 End: 07-16-[address] Shravan Gonzalez MD Work Phone: [facility] Work Phone: Start: 07-16-2024 End: 07-16-[address] Garrett Elena MD -Radiology, [facility] Work Phone: Start: 07-16-2024 End: 07-16-2024 [facility] Facility:[facility] Start: 07-10-2024 End: 07-10-2024 Patient encounter procedure Naheed Russ NP-C -[facility] Work Phone: Start: 07-10-2024 End: 07-10-2024 ambulatory [facility] Facility:[facility] Start: 03-31-2024 End: 03-31-2024 Patient encounter procedure Naheed Russ NP-C -[facility] Work Phone: Start: 03-31-2024 End: 03-31-2024 ambulatory [facility] Facility:[facility] Start: 07-23-2023 End: 07-23-[address] Shravan Gonzalez Work Phone: [facility] Work Phone: Start: 07-23-2023 End: 07-23-[address] Shravan Gonzalez Work Phone: [facility]-Laboratory Work Phone: Start: 05-21-2023 End: 05-21-[address] Shravan Gonzalez Work Phone: [facility]-Pulmonary Services/Neurology Work Phone: Start: 05-15-2023 End: 05-15-[address] Shravan Gonzalez Work Phone: [facility] Work Phone: Start: 05-11-2023 End: 05-11-[address] Shravan Gonzalez Work Phone: [facility] Work Phone: Start: 05-11-2023 End: 05-11-[address] Shravan Gonzalez Work Phone: [facility]-Laboratory Work Phone: Start: 05-09-2023 End: 05-09-[address] Shravan Gonzalez Work Phone: [facility] Work Phone: Start: 02-08-2023 End: 02-08-[address] [facility] Start: 02-05-2023 End: 02-05-[address] Shravan Gonzalez Work Phone: [facility] Work Phone: Start: 10-13-2022 End: 10-14-2022 ambulatory JUSTIN SOTELO Facility:[facility] Start: 10-13-2022 End: 10-13-[address] JUSTIN SOTELO [facility] Start: 09-10-2022 End: 09-11-2022 ambulatory DOMENICO Ding ALEXIA VILLEGAS-HEMSTITCHING MACHINE OPERATOR Facility:[facility] Start: 09-10-2022 End: 09-11-2022 Observation DOMENICO Toña ALEXIA COOKER SODA-HEMSTITCHING MACHINE OPERATOR [facility] Start: 07-19-2022 End: 07-19-2022 ambulatory [facility] Work Phone: Start: 07-19-2022 End: 07-19-2022 Patient encounter procedure [facility]-Laboratory, Phy Office 3rd Flr Start: 08-16-2021 End: 08-16-2021 Subsequent hospital visit by physician Candice Corea MD Work Phone: [facility] Comment on above: M25.59 Procedures Date Procedure [...] Start: 04-05-2009 Anal sphincterotomy APR [place] ALEXIA COOKER SODA-HEMSTITCHING MACHINE OPERATOR Plan of Treatment Date Care Activity Detail Author Start: 01-12-2022 [facility] Start: 05-14-2021 ADVANCE DIRECTIVE DISCUSSION ADVANCE DIRECTIVE DISCUSSION [facility] Start: 12-19-2020 PNEUMOVAX AGE 65 AND OVER WITH 5YR LOOKBACK (#1) PNEUMOVAX AGE 65 AND OVER WITH 5YR LOOKBACK (#1) [facility] Start: 01-03-2017 Hepatitis B screening URINE ALBUMIN:CREATININE RATIO [facility] Start: 01-03-2017 Hepatitis B surface antibody level LDL CHOLESTEROL [facility] Start: 07-06-2016 Hemoglobin A1c/Hemoglobin.total in Blood HBA1C [facility] Start: 11-25-2015 Hepatitis C antibody, confirmatory test DILATED RETINAL EXAM [facility] Start: 08-27-2015 3 comp foot exam completed DIABETIC FOOT EXAM [facility] Start: 03-10-2015 PROSTATE CANCER SCREENING DISCUSSION PROSTATE CANCER SCREENING DISCUSSION [facility] Start: 12-19-2005 SHINGRIX VACCINE (1 of 2) SHINGRIX VACCINE (1 of 2) [facility] Start: 12-19-2000 COLOGUARD (FIT-DNA) COLOGUARD (FIT-DNA) [facility] Start: 12-19-2000 Colonoscopy COLONOSCOPY [facility] Start: 12-19-2000 COLORECTAL CANCER SCREENING COLORECTAL CANCER SCREENING [facility] Start: 12-19-[address] COLONOGRAPHY [facility] Start: 12-19-2000 FECAL OCCULT BLOOD FECAL OCCULT BLOOD [facility] Start: 12-19-2000 SIGMOIDOSCOPY SIGMOIDOSCOPY [facility] Start: 12-19-1974 Urine microalbumin profile DTAP,TDAP,TD (1 - Tdap) [facility] Start: 12-19-1973 ANNUAL PCP TEAM CHRONIC DISEASE VISIT ANNUAL PCP TEAM CHRONIC DISEASE VISIT [facility] Start: 12-19-1973 HEPATITIS C SCREENING HEPATITIS C SCREENING [facility] Start: 12-19-1973 HIV SCREENING HIV SCREENING [facility] [facility] Adult depression screening assessment DEPRESSION SCREENING [facility] Start: 12-19-1960 COVID-19 VACCINE (1) COVID-19 VACCINE (1) [facility] Lipid 1996 panel - S eloina or Plasma [facility] Urine microalbumin/creatinine ratio measurement [facility] Immunizations Immunization Date Immunization Notes Care Provider Pipo leong 03-20-2022 influenza virus vacc ine, unspecified formulation [facility] 12-13-2020 SARS-CoV-2 (COVID-19 ) mRNA-1273 vaccine [facility] Comment on above: Result Comment: 2020: TPV60 11-17-2020 SARS-CoV-2 (COVID-19 ) mRNA-1273 vaccine [facility] Comment on above: Result Comment: 2020: TPV60 10-18-2020 pneumococcal conjuga te vaccine, 13 valent; Translations: [Prevnar 13] [facility] 10-27-2019 tetanus toxoid, redu shaheen diphtheria toxoid, and acellular pertussis vaccine, adsorbed; Translations: [Boostrix (Tdap)] [facility] 04-07-2019 zoster vaccine recombinant [facility] 02-24-2018 influenza virus vacc ine, unspecified formulation [facility] 08-03-2016 zoster vaccine, live [facility] 06-29-2016 pneumococcal polysaccharide vaccine, 23 valent [facility] 02-12-2016 influenza virus vacc ine, unspecified formulation [facility] [employer]-HEMSTITCHING MACHINE OPERATOR [facility] 03-13-2015 influenza virus vacc ine, unspecified formulation [facility] [employer] [employer]-HEMSTITCHING MACHINE OPERATOR [facility] 03-12-2011 influenza virus vacc ine, unspecified formulation Candice Corea MD Work Phone: [facility] Work Phone: 03-02-2009 influenza virus vacc ine, unspecified formulation Candice Corea MD Work Phone: [facility] 08-20-2007 pneumococcal polysaccharide vaccine, 23 valent Candice Corea MD Work Phone: [facility] Work Phone: Payers Date Payer Category Payer Unknown 2023 Self-pay [id number] 2021 Medicare [id number] 2021 Unknown [id number] 2013 Private Health Insurance AETNA A ETNA CHOICE POS II [id number] 2013-Present [phone] [address] [place] [address] POS [id number] 1955 Unknown [id number] 27 1955 Unknown [id number] 2.16.840.1.796429.3.579.2.6 27 Private Health Insurance [id number] Unknown [id number] 2.16.840.1.727278.3.579.2.4 62 Unknown [id number] 2.16.840.1.039801.3.579.2.4 62 Unknown [id number] 2.16.840.1.596187.3.579.2.4 62 Unknown [id number] 2.16.840.1.987831.3.579.2.4 62 Unknown [id number] 2.16.840.1.458227.3.579.2.4 62 Unknown [id number] 2.16.840.1.830482.3.579.2.4 62 Unknown [id number] 2.16.840.1.479854.3.579.2.4 62 Unknown [id number] 2.16.840.1.095086.3.579.2.4 62 Unknown [id number] 2.16.840.1.282679.3.579.2.4 62 Unknown [id number] 2.16.840.1.408574.3.579.2.4 62 Unknown [id number] 2.16.840.1.727837.3.579.2.4 62 Unknown [id number] 2.16.840.1.710807.3.579.2.4 62 Unknown [id number] 2.16.840.1.294669.3.579.2.4 62 Unknown [id number] 2.16.840.1.768343.3.579.2.4 62 Unknown [id number] 2.16.840.1.748160.3.579.2.4 62 Unknown [id number] 2.16.840.1.071749.3.579.2.4 62 Social History Date Type Detail Facility Start: 01-04-2019 End: 08-13-2023 Tobacco smoking status NHIS Never smoked tobacco [facility] Start: 01-12-2016 Alcohol intake Current drinke r of alcohol (finding) [facility] Start: 1955 Sex Assigned At Not on file [facility] Start: 04-27-2020 End: 05-15-2023 Tobacco smoking status NHIS Unknown if ever smoked [facility] Start: 1955 Sex Assigned At Male [facility] Start: 07-29-2024 End: 08-01-2024 Sex Male (finding) [facility] Sex Male [facility] Medical Equipment Procedure Code Equipment Code [...] Functional Status Door open, Room check performed [facility] 09-11-2022 Functional Status [facility] 09-11-2022 Functional Status Independent [facility] 09-11-2022 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, 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, 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, Personal ADL, Social participation [facility] 09-11-2022 Functional Status N/A [facility] 09-10-2022 Functional Status [facility] Mental Status Date Assessment Result Facility 09-11-2022 Mental Status Oriented x 4 [facility] 09-10-2022 Mental Status [facility] Clinical Notes 05-16-2022 to 01-26-2025 Note Date & Type Note Facility 01-26-2025 Evaluation note Diagnosis Onset Date Resolution High cholesterol chronic Septembe r 2024 8:35am Hypertension chronic January 262024 8:35am Insulin pump titration chronic Se ptember 2024 8:35am Overweight chronic January 8:35am Presence of insulin pump chronic January 26, 2025 8:35am Type 1 diabetes mellitus with hyperglycemia january 8:35am [facility] Work Phone: 1(869) 478-811906-02-2025 Evaluation note* Diagnosis Onset Date Resolution Status Admit Date High cholesterol chronic October 8:40am Hypertension chronic October 13 8:40am Insulin pump titration chronic 2024 8:40am Overweight chronic October 13, 2024 8:40am Presence of insulin pump chronic October 13, 2024 8:40am Type 1 diabetes mellitus wit h hyperglycemia chronic October 13, 2024 8 :40am [facility] Work Phone: 1(402) 323-197903-05-2025 Radiology Diagnostic study note [facility] Imaging Services [address] [place], [place] [address] Esophagus Dual Contrast MR#: [id number] Acct: [id number] Name: CARLYN EVANGELISTA Rep #: [id number] : 1955 M 68 From: Caridad Koch MD PCP: Dr. Shravan Gonzalez MD Status: DAHLIA FELDMAN Study:Esophagus Dual Contrast Date of Exam: 07/16/24 Exam# [id number] Ordering Dr: Rupal Elena MD PROCEDURE: ESOPHAGUS [...] gastroesophageal reflux or other abnormalities. Reading Location: [facility] CC: Dr. Shravan Gonzalez MD; Dr. Garrett Elena MD ~ Meat Lugger: Signed [facility]02-27-2025 Evaluation note* Diagnosis Onset Date Resolution Status Admit Date High cholesterol chronic July 10, 2024 8:35am Hypertension chronic June 8:35am Insulin pump titration chronic 2024 8:35am Overweight chronic July 10, 2024 8:35am Presence of insulin pump chronic July 10, 2024 8:35am Type 1 diabetes mellitus wit h hyperglycemia chronic July 10 025 8:35am [facility] Work Phone: 1(612) 260-198811-18-2024 Evaluation note* Diagnosis Onset Date Resolution Status Admit Date High cholesterol chronic March 31, 2024 8:02am Hypertension chronic March 8:02am Insulin pump titration chronic No vember 2023 8:02am Overweight chronic March 31, 2024 8:02am Presence of insulin pump chronic March 31, 2024 8:02am Type 1 diabetes mellitus wit h hyperglycemia chronic March 31, 024 8:02am High cholesterol chronic July 10, 2024 8:35am Hypertension chronic June 8:35am Insulin pump titration chronic 2024 8:35am Overweight chronic July 10, 2024 8:35am Presence of insulin pump chronic July 10, 2024 8:35am Type 1 diabetes mellitus wit h hyperglycemia chronic July 10 025 8:35am [facility] Work Phone: 1(893) 443-535405-01-2023 Note Date of Service 09/11/2022 Chief Complaint Arrives from home with c/o headache 01/21 with some confusion with his words per family. Family states patient laid down about [phone] and woke up confused History of Present Illness 66-year-old male with past medical history significant for type 1 diabetes mellitus, BPH, neuropathy, ED, osteoarthritis, hypothyroidism. Patient presented to [facility] emergency department 09/10/2022 With altered mental [...] He did have confusion. NIH 1 for milddysarthria. He was out of the window for [...] (Oral) HR: 94(Monitored) RR: 18 BP: 135/52 SpO2:96% HT: 167.6 cm WT: 77.3 kg BMI: [...] Date: September 10, 2022 Verified By: DANNY MILLS MD CLINICAL STATEMENT: IMPRESSION: Hypoventilatory findings. No acute abnormality. CT Head or Brain w/o Contrast Result Date: September 10, 2022 Verified By: DANNY MILLS MD CLINICAL STATEMENT: IMPRESSION: No acute intracranial [...] regularly. He used to follow with an agronomy instructor and no longer does so. I recommended [...] See Instructions DME MISCellaneous See Instructions Freestyle Biddeford Pool See Instructions Freestyle Biddef[place] Pool 14 day sensor See Instructions Insulin Syringes [...] month., 02/24/2019 Employment/School Status: Retired. 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 Follow Up Care 09/10/2022 19:39:51 With:FAIZA URIAS MD Address: [address] [place] [address] [place] [address]- [phone] When:3-5 days Comments:Call to establish as new patient. With:ELBA GONZALEZ MD Address: [facility] [address] [place] [address] [address] [place] [address]- When:3-5 days Comments:Please call to schedule your post-hospital follow-up appointment. [facility] 05-01-2023 Evaluation + Plan noteExtracted from: Title:History and Physical Author:SAKSHI REYES APRN-HEMSTITCHING MACHINE OPERATOR Date:09/11/22 1. Altered mental status 2. History [...] regularly. He used to follow with an agronomy instructor and no longer does so. I recommended [...] Level 05/16/22 * Complete Metabolic Panel 05/16/22 [facility] 05-01-2023 Note Discharge Instructions Thank you for allowing [facility] [facility] to assist you with your healthcare needs. [...] to establish as new patient. Where: [address] [facility] [place] [address]- [phone] Follow Up with ELBA GONZALEZ MD When Within 3-5 days Why: Please call to schedule your post-hospital follow-up appointment. Where: [facility] [address] [place] [address]- The Following Activity and Diet Have Been [...] by mouth Once a day Pickup at [id number] none today Changed insulin detemir (Levemir) (Levemir) [...] Dx: E11.9 Diabetes Provider Unchanged DME (Freestyle Biddeford Pool 14 day sensor) See instructions 1 month supply Unchanged DME (Freestyle Biddeford Pool) See instructions Glucose level checks Unchanged DME (Insulin Syringes (orange cap)) See instructions Diabetes type 1, controlled Use 1 syringe as directed 5 times daily to inject insulin. Unchanged DME (Lancets) See instructions Patient tests 6 times daily. Please give enough for 3 months with 3 refills. Accu-Chek fast clix Unchanged DME (Pen needles) See instructions 16 pen needles, dispense #100 with three refills. DX E10.9 Unchanged famotidine (Pepcid 40 mg oral tablet) 1 tab(s) by mouth Every day 09/11/22 at 1054am Unchanged insulin aspart (Novolog) (NovoLOG FlexPen 100 units/ mL injectable solution) 10 unit(s) Subcutaneous Three (3) times a day before meals Enough for 3 months please 09/11/22 at 0830 and 1155am Pharmacy Information [id number]: [address], [place] [phone] What How Much When Comments Stop Taking [...] Follow these instructions at home: Medicines Take isrn-imr-fdirado and prescription medicines only as told by [...] 02/06/2009 Document Revised: 01/24/2019 Document Reviewed: 08/01/2017 [employer] Patient Education 2020 [employer] Additional Information VACCINATE! IT SAVES LIVES! Members of the community who have not yet received the COVID-19 vaccine and would like to receive it can visit one of [facility] vaccine clinics. There are many vaccine clinic locations within the [facility]. For locations and available times, please visit https://gettheshot.coronavirus.[place].gov/. It is important to note that some COVID mobile vaccine clinics are held outdoors and may be canceled in rainy or stormy conditions. To learn more about pediatric vaccinations (ages 5-11), we invite you to visit the [facility] webpage. [email or web address]/[email or web address] stions.htmlTo learn more about the COVID-19 vaccine, we invite you to visit the CDC website for a list of frequently asked questions. https://www.cdc.gov/coronavirus/2019-ncov/vaccines/faq.html [facility] [employer] Patient Portal Access Instructions: Stay connected with your healthcare team and access your personal medical information anytime with the [facility] [employer] Patient Portal.If you would like a full copy of your medical records, please contact the [facility] Medical Records Department, Sunday through Sunday between 8a.m. and 4:30p.m. Please follow the directions below to access the portal: 1.Access the email account you provided upon registration to the [facility].2.Look for an invitation email from [facility].3.Open the email and access the invitation link: Accept Invitation to [employer]4.Fill in the required ramirez to create your account. Sign into [email or web address] with your username and password that you [...] you will allow to register on the [facility] [employer] Patient Portal for access to your information. You can also access the [employer] Patient Portal on the [facility]. Simply click on Health Records under [employer] and then click on the [employer] logo. HOW TO SAFELY DISPOSE OF PRESCRIPTION [...] Call your local pharmacy or go to http://iSOCO.Elementum/0Z1Ti6r to find one close to you.3.Make use of household items: Use cat litter or old coffee grounds to dispose medications if other options arenot available. Mix your drugs with these household products, seal them in an airtight container andthrow it into the garbage. Call [facility]: [phone] to be sure your drugs can be [...] Signatures Patient Education Materials Transient Ischemic Attack, Eopg-ee-Gslj Medication Leaflets My discharge plan and instructions have been reviewed and explained to me and I,SHMUEL EVANGELISTAE Denisetand my current condition and have read and understand these discharge instructions. I have received a written copy of the plan/instructions. If I have questions, I am aware that I should contact my doctor. 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 Signature: Date/Time: Relationship to Patient: Witness Name/Signature: Date/Time: [facility]05-01-2023 Note ORIGINAL HISTORY: Headaches, confusion, slurred speech [...] Sign Date: 09/11/2022 9:34:19 AM Ordering Provider: [facility]05-01-2023 Note ORIGINAL HISTORY: Headaches, confusion, [...] Sign Date: 09/11/2022 9:34:19 AM Ordering Provider: [facility]04-30-2023 Note ORIGINAL EXAMINATION: CTA OF [...] Date: 09/10/2022 10:06:27 PM Ordering Provider: [facility]04-30-2023 Note ORIGINAL EXAMINATION: CTA OF THE HEAD [...] Date: 09/10/2022 10:02:52 PM Ordering Provider: PIERRE [facility]04-30-2023 Note ORIGINAL EXAMINATION: CTA OF THE NECK [...] Sign Date: 09/10/2022 10:06:27 PM Ordering Provider: [facility]04-30-2023 Note ORIGINAL EXAMINATION: CTA OF [...] Sign Date: 09/10/2022 10:02:52 PM Ordering Provider: [facility]04-30-2023 Note ORIGINAL EXAMINATION: CT OF [...] No acute intracranial abnormality. Interpreted by: Danny Mills MD Preliminary Report By: Danny Mills MD Electronically signed By Danny Mills MD Dictated Date: 09/10/2022 8:35:34 PM Prelim Date: 09/10/2022 8:37:23 PM Sign Date: 09/10/2022 8:37:23 PM Ordering Provider: [facility]04-30-2023 Note ORIGINAL EXAMINATION: ONE XRAY VIEW [...] findings. No acute abnormality. Interpreted by: Danny Mills MD Preliminary Report By: Danny Mills MD Electronically signed By Danny Mills MD Dictated Date: 09/10/2022 8:34:05 PM Prelim Date: 09/10/2022 8:35:15 PM Sign Date: 09/10/2022 8:35:15 PM Ordering Provider: [facility]04-30-2023 Note ORIGINAL EXAMINATION: CT OF THE [...] No acute intracranial abnormality. Interpreted by: Danny Mills MD Preliminary Report By: Danny Mills MD Electronically signed By Danny Mills MD Dictated Date: 09/10/2022 8:35:34 PM Prelim Date: 09/10/2022 8:37:23 PM Sign Date: 09/10/2022 8:37:23 PM Ordering Provider: [facility]04-30-2023 Note ORIGINAL EXAMINATION: ONE XRAY [...] findings. No acute abnormality. Interpreted by: Danny Mills MD Preliminary Report By: Danny Mills MD Electronically signed By Danny Mills MD Dictated Date: 09/10/2022 8:34:05 PM Prelim Date: 09/10/2022 8:35:15 PM Sign Date: 09/10/2022 8:35:15 PM [facility]ing [facility] + Plan note Future Scheduled Tests Laboratory* Glutamic Acid Decarboxylase 05/16/22 * Prostate Specific Antigen 05/16/22 * Thyroid Stimulating Hormone 05/16/22 * Free T4 05/16/22 * A1C Hemoglobin 05/16/22 * Complete Blood Count 05/16/22 * C-Peptide 05/16/22 * Lipid Profile 05/16/22 * Hepatitis C Antibody IgG 05/16/22 * Microalbumin Level Urine 05/16/22 * Vitamin D Level 05/16/22 * Complete Metabolic Panel 05/16/22 [facility] Evaluation noteNo assessment information available [facility] Work Phone: Evaluation note* Diagnosis Onset Date Resolution Status High cholesterol chronic Hypertension chronic Type 1 diabetes mellitus with hyperglycemia chronic Hypertension chronic Type 1 diabetes mellitus with hyperglycemia [facility] Work Phone: Evaluation note* Diagnosis Onset Date Resolution Status Hypertension chronic Type [address] diabetes mellitus with hyperglycemia [facility] Work Phone: Hospital course Narrative No data available for this section [facility] Discharge instructions No data available for this section [facility] Progress note No data available for this section [facility] Reason for referral (narrative)No reason for [facility] Work Phone: Summary Purpose Family History No Family History Records Found Relationship Condition Age at Onset Recorded Date/T ellen father Myocardial infarction Unknown Cardiac disease Unknown mother Malignant neoplasm of breast Unknown Advance Directives No Advanced Directives Records Found Advance Directive Response Recorded Date/ Time Living Will Yes April 27, 020 2:33pm Power of Bulb Filler Yes April 27, 2020 2:33pm Advance Directive Response Recorded Date/ Time Living Will Yes April 27, 020 1:33pm Power of Bulb Filler Yes April 27, 2020 1:33pm Chief Complaint [...] 8:02am Type 1 diabetes mellitus with hyperglyce rust March 31, 2024 8:02am High cholesterol July 10, 2024 8:35am Hypertension July 10, 2024 8:35am Insulin pump titration July 10 8:35am Overweight July 10, 2024 8:35am Presence of insulin pump July 10, 2024 8:35am Type 1 diabetes mellitus with hyperglyce rust July 10, 2024 8:35am Chief Complaint Admit [...] 3 M FU January 26, 2025 8:35am Reason for Visit Admit Date [...] or prosecute any alcohol or drug abuse patient.[facility] Care Teams (unrecognized sec tion and content) Gripper Attacher Relationship Specialty Start Date End Date Mihir Iyer Tulio PCP - General 09/17/09 Team Status: Active [...] February 04, 2025 End: February 04, 2025 (unrecognized sect ion and content) No Status Records FoundNo Status Records FoundNo Status Records Found INFORMATION SOURCE (unrecogn ized section and content) DATE CREATED AUTHOR 08/23/2021 [facility] [place] DATE CREATED AUTHOR AUTHOR'S ORGANIZ ATION 10/24/2022 [facility] ([place]) DATE CREATED AUTHOR AUTHOR'S ORGANIZ ATION 03/18/2025 [facility] Goals (unrecognized section and content) Goals may [...] BE BASED ON THE PRIMARY CLINICAL RECORDS. [facility] [employer] [facility]. provides no warranty or guarantee of the accuracy or completeness of information in this document.
[2025-03-23 07:40] LABS: AST(SGOT) 18 U/L (<=37); Alanine Aminotransfer ALT/SGPT 14 U/L (<=46); Albumin, Serum 3.8 g/dL (3.4-4.8); Alkaline Phosphatase 69 U/L (40-129); Anion Gap 8 (5-15); BUN 19 mg/dL (4-19); BUN/Creat Ratio 19.6 RATIO (10-20); Calcium,Total 9.5 mg/dL (7.6-11.0); Carbon Dioxide 28.6 mmol/L (21.0-32.0); Chloride 104 mmol/L (98-108); Globulin 2.2 g/dL (2.2-4.2); Glucose 146 mg/dL (70-99); Potassium 4.5 mmol/L (3.3-5.1)
[2025-03-23 08:42] LABS: Cholesterol 201 mg/dL (<=200); Low Density Lipoprotein Calc. 112 mg/dL; Triglycerides 48 mg/dL; Very Low Density Lipoprotein 10 mg/dL (5-40); cholesterol:hdl ratio screen 2.52
== END | disposition home or self-care (01) ==
PROVIDERS: PCP Family Medicine Geriatric Medicine; Referring Provider Internal Medicine Cardiovascular Disease; Visit Provider Internal Medicine Cardiovascular Disease
DX: I25.10 Atherosclerotic heart disease of native coronary artery without angina pectoris (principal); E11.9 Type 2 diabetes mellitus without complications; I10 Essential (primary) hypertension; E78.5 Hyperlipidemia, unspecified
CPT/HCPCS: 36415; 80053; 80061

== ENCOUNTER → 2025-03-30 | Outpatient (CLI) | payer MEDICARE, OTHER, SELFPAY ==
--- OUTSIDE RECORDS SUMMARY | 2025-03-30 06:21 | XMS RPT_ITS | CCD ---
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 Shravan Rivas Primary Care Provider [phone] Payam CAMPOS, Dr. Shravan Rivas Referring Provider Jeb MAINTENANCE SPECIALIST-CNaheed Attending Provider Payam CAMPOS, Dr. Shravan Rivas Primary Care Provider Payam CAMPOS, Dr. Shravan Rivas Referring Provider Jeb MAINTENANCE SPECIALIST-C, Naheed Attending Provider Payam CAMPOS, Dr. Shravan Rivas Attending Provider Domonique CAMPOS, Dr. De La Torre Attending Provider Payam CAMPOS, Dr. Shravan Rivas Primary Care Physician Payam CAMPOS, Dr. Shravan Rivas Attending Physician Payam CAMPOS, Dr. Shravan Rivas Referring Provider Domonique CAMPOS, Dr. De La Torre Attending Physician Jeb MAINTENANCE SPECIALIST-CNaheed Attending Physician Dawit, Dewey Referring Unavailable Dawit, Dewey Attending Unavailable Payam, Shravan Chi Primary Care Unavailable Payam, Shravan Chi Referring Unavailable Payam, Shravan Chi Attending Unavailable Payam, Shravan Chi Primary Care Unavailable Dawit, Dewey Referring Unavailable Dawit, Dewey Attending Unavailable Tj Hutchins Unavailable Payam, Shravan Chi Primary Care Unavailable Payam, Shravan Chi Primary Care Unavailable Wil Youssef Attending Unavailable Payam, Shravan Chi Referring Unavailable Naheed Russ Attending Unavailable Payam, Shravan [...] Heron Graham Attending Unavailable Payam, Shravan Chi Attending Unavailable Payam, Shravan Chi Primary Care Unavailable Garrett Elena Referring Unavailable Garrett Elena Attending Unavailable Payam, Shravan Chi Attending Unavailable Payam, Shravan Chi Primary Care Unavailable Payam, Shravan Chi Primary Care Unavailable Payam, Shravan Chi Attending Unavailable Payam, Shravan Chi Primary Care Unavailable Payam, Shravan Chi Attending Unavailable Dewey Pastor Referring Unavailable Dewey Pastor Attending Unavailable Payam, Shravan Chi Primary Care Unavailable Allergies Allergy Classification Reported Allergen(s) Allergy Type Date of Onset Reaction(s) Facility (1 source) Enalapril Drug Allergy 9 [facility] Work Phone: (1 source) Non-steroidal anti-inflammator y agent Propensity to adverse reactions 5 [facility] Work Phone: (1 source) oxyCODONE Drug Allergy 1 Other: See Comments [facility] Work Phone: (1 source) Salicylic Acid Drug Allergy 5 [facility] Work Phone: (1 source) Simvastatin Drug Allergy 9 [facility] Work Phone: (1 source) valsartan Drug Allergy 0 Cough [facility] (12 sources) Aspirin; Translations: [aspirin] Drug Allergy 0 [facility], [facility] (10 sources) Nonsteroidal Anti-inflammator y Compounds Propensity to adverse reactions 0 Nausea/Vom/[facility] (2 sources) diphenhydrAMINE; Translations: [diphenhydramine ] Drug Allergy [facility] Comment on above: Hives (2 sources) Naproxen; Translations: [naproxen] Drug Allergy Nausea and vomiting (disorder) [facility] [place] (1 source) Aspirin Drug Allergy 5 [facility] (1 source) NSAIDs Drug allergy (disorder) 5 [facility] Medications Current Medications Medication [...] , # 3 EA, 2 Refill(s), Pharmacy: [facility]/pharmacy #[id number], 173, cm, 05/16/22 10:21:00 EST, [...] 74 Start Date: 06/02/22 Status: Ordered Freestyle [place] (2 sources) Start: 05-16-2022 Freestyle Read er See Instructions, Glucose level checks, # 1 EA, 0 Refill(s) Start Date: 05/16/22 Status: Ordered Freestyle [place] 14 day sensor (2 sources) Start: 04-19-2020 [...] mg tablet Discontinued 25 mg PO DAILY 30 June 04, 2023 1:38pm September 21, 2023 10:00am [...] qDay, # 30 tab(s), 0 Refill(s), Pharmacy: [facility]/pharmacy #[id number], 167.6, cm, 09/11/22 2:32:00 EDT, Height [...] SC 3 TIMES DAILY WITH MEALS 15 May 15, 2017 1:00am October 19, 2022 [...] Start: 04-27-2020 take 1 tablet by boris once daily Multivit with Iron,Minerals Active 1 [...] disease (2 sources) Atherosclerotic heart disease of [place] coronary artery without angina pectoris; Translations: [Atherosclerotic heart disease of [place] coronary artery without angina pectoris] Onset: 03-16-2025 [...] Test Name Value Interpretation Reference Range Facility Comprehensive Metabolic Prof bob 03-23-2025 Albumin [Mass/Vol] 3.8 g/dL Normal 3.4-4.8 [facility] Comment on above: Performed By: #### L 500.4050, L500.4100 ####[facility] [address] [place], [address] Albumin/Globulin [Mass ratio] 1.7 {ratio} Normal 0.9-2.4 [facility] Comment on above: Performed By: #### L 500.4050, L500.4100 ####[facility] [address] [place], [address] ALK PHOS 69 U/L Normal 40-129 [facility] Comment on above: Performed By: #### L 500.4050, L500.4100 ####[facility] [address] [place], [address] ALT [Catalytic activity/Vol] 14 U/L Normal <=46 [facility] Comment on above: Performed By: #### L 500.4050, L500.4100 ####[facility] [address] [place], [address] AST [Catalytic activity/Vol] 18 U/L Normal <=37 [facility] Comment on above: Performed By: #### L 500.4050, L500.4100 ####[facility] [address] [place], [address] Bilirubin [Mass/Vol] 0.57 mg/dL Normal 0.00-1.30 [facility] Comment on above: Performed By: #### L 500.4050, L500.4100 ####[facility] [address] [place], [address] BUN/CRE 19.6 RATIO Normal 10-20 [facility] Comment on above: Performed By: #### L 500.4050, L500.4100 ####[facility] [address] [place], [address] Calcium [Mass/Vol] 9.5 mg/dL Normal 7.6-11.0 [facility] Comment on above: Performed By: #### L 500.4050, L500.4100 ####[facility] [address] [place], [address] Chloride [Moles/Vol] 104 mmol/L Normal 98-108 [facility] Comment on above: Performed By: #### L 500.4050, L500.4100 ####[facility] [address] [place], [address] CO2 [Moles/Vol] 28.6 mmol/L Normal 21.0-32.0 [facility] Comment on above: Performed By: #### L 500.4050, L500.4100 ####[facility] [address] [place], [address] Creatinine [Mass/Vol] 0.96 mg/dL Normal 0.70-1.20 [facility] Comment on above: Performed By: #### L 500.4050, L500.4100 ####[facility] [address] [place], [address] GAP 8 Normal 5-15 [facility] Comment on above: Performed By: #### L 500.4050, L500.4100 ####[facility] [address] [place], [address] GFR/1.73 sq M.predicted among non-blacks MDRD (S/P/Bld) [Vol rate/Area] 85 mL/min/{1.73_m2} Normal >60 [facility] Comment on above: Result Comment: mL/m in/1.73m2 CKD-EPI Creatinine Equation (2020) Performed By: #### L 500.4050, L500.4100 ####[facility] [address] [place], [address] Globulin (S) [Mass/Vol] 2.2 g/dL Normal 2.2-4.2 [facility] Comment on above: Performed By: #### L 500.4050, L500.4100 ####[facility] [address] [place], [address] Glucose [Mass/Vol] 146 mg/dL High 70-99 [facility] Comment on above: Performed By: #### L 500.4050, L500.4100 ####[facility] [address] [place], [address] Potassium [Moles/Vol] 4.5 mmol/L Normal 3.3-5.1 [facility] Comment on above: Performed By: #### L 500.4050, L500.4100 ####[facility] [address] [place], [address] Sodium [Moles/Vol] 140 mmol/L Normal 133-145 [facility] Comment on above: Performed By: #### L 500.4050, L500.4100 ####[facility] [address] [place], [address] T PROT 5.9 g/dL Normal 5.9-8.4 [facility] Comment on above: Performed By: #### L 500.4050, L500.4100 ####[facility] [address] [place], [address] Urea nitrogen [Mass/Vol] 19 mg/dL Normal 4-19 [facility] Comment on above: Performed By: #### L 500.4050, L500.4100 ####[facility] [address] [place], [address] Lipid Profileon 03-23-2025 CHOL:HDL 2.52 Normal [facility] Comment on above: Performed By: #### L 500.4050, L500.4100 ####[facility] [address] [place], [address] Cholesterol [Mass/Vol] 201 mg/dL Normal <=200 [facility] Comment on above: Result Comment: Chol esterol level, Desirable <200 mg/dL Borderline high cholesterol 200-239 mg/dL High cholesterol >=240 mg/dL Recommendations of the NCEP Adult Treatment Panel for the following risk-cutoff thresholds for the [place] population. Performed By: #### L 500.4050, L500.4100 ####[facility] [address] [place], [address] Cholesterol in HDL [Mass/Vol] 80 mg/dL Normal [facility] Comment on above: Result Comment: Tessy onal Cholesterol Education Program (NCEP) guidelines: <40 mg/dL: Low HDL-cholesterol (major risk factor for CHD) >= 60 mg/dL: High HDL-cholesterol (negative risk factor for CHD) HDL-cholesterol is affected by a number of factors, e.g. smoking, exercise, hormones, sex and age. Performed By: #### L 500.4050, L500.4100 ####[facility] [address] [place], [address] Cholesterol in LDL [Mass/Vol] 112 mg/dL Normal [facility] Comment on above: Result Comment: Bord htddpo=048-682 mg/dL Higher Fwml=660 mg/dL or greater Arenas Equation 2020 for LDL-C Performed By: #### L 500.4050, L500.4100 ####[facility] [address] [place], [address] Cholesterol in VLDL [Mass/Vol] 10 mg/dL Normal 5-40 [facility] Comment on above: Performed By: #### L 500.4050, L500.4100 ####[facility] [address] [place], [address] Triglyceride [Mass/Vol] 48 mg/dL Normal [facility] Comment on above: Result Comment: The drugs N-Acetylcysteine and Metamizole may falsely depress this assay. Normal range: <150 mg/dL Borderline High: 150-199 mg/dL High: 200-499 mg/dL Very High: >500 mg/dL Performed By: #### L 500.4050, L500.4100 ####[facility] [address] [place], [address] Microalb:Creat Ratio,Random URon 03-23-2025 MALB:CREAT Normal <30 mg/g CRE [facility] Comment on above: Result Comment: PT S AID THESE WERE PREVIOUSLY COMPLETED Performed By: #### L 502.0250 ####[facility] [address] [place], [address] MICROALBUMIN,UR Normal <20 mg/L [facility] Comment on above: Result Comment: PT S AID THESE WERE PREVIOUSLY COMPLETED Performed By: #### L 502.0250 ####[facility] [address] [place], [address] UR CREAT Normal 39.00-259.00 [facility] Comment on above: Result Comment: PT S AID THESE WERE PREVIOUSLY COMPLETED Performed By: #### L 502.0250 ####[facility] [address] [place], [address] Comprehensive Metabolic Prof ilon 03-17-2025 Albumin [Mass/Vol] 4.2 g/dL Normal 3.4-4.8 [facility] Comment on above: Performed By: #### L 500.4050, L500.4100 ####[facility] [address] [place], [address] Albumin/Globulin [Mass ratio] 1.5 {ratio} Normal 0.9-2.4 [facility] Comment on above: Performed By: #### L 500.4050, L500.4100 ####[facility] [address] [place], [address] ALK PHOS 82 U/L Normal 40-129 [facility] Comment on above: Performed By: #### L 500.4050, L500.4100 ####[facility] [address] [place], [address] ALT [Catalytic activity/Vol] 15 U/L Normal <=46 [facility] Comment on above: Performed By: #### L 500.4050, L500.4100 ####[facility] [address] [place], [address] AST [Catalytic activity/Vol] 19 U/L Normal <=37 [facility] Comment on above: Performed By: #### L 500.4050, L500.4100 ####[facility] [address] [place], [address] Bilirubin [Mass/Vol] 0.69 mg/dL Normal 0.00-1.30 [facility] Comment on above: Performed By: #### L 500.4050, L500.4100 ####[facility] [address] [place], [address] BUN/CRE 25.1 RATIO High 10-20 [facility] Comment on above: Performed By: #### L 500.4050, L500.4100 ####[facility] [address] [place], [address] Calcium [Mass/Vol] 9.6 mg/dL Normal 7.6-11.0 [facility] Comment on above: Performed By: #### L 500.4050, L500.4100 ####[facility] [address] [place], [address] Chloride [Moles/Vol] 104 mmol/L Normal 98-108 [facility] Comment on above: Performed By: #### L 500.4050, L500.4100 ####[facility] [address] [place], [address] CO2 [Moles/Vol] 28.8 mmol/L Normal 21.0-32.0 [facility] Comment on above: Performed By: #### L 500.4050, L500.4100 ####[facility] [address] [place], [address] Creatinine [Mass/Vol] 0.92 mg/dL Normal 0.70-1.20 [facility] Comment on above: Performed By: #### L 500.4050, L500.4100 ####[facility] [address] [place], [address] GAP 9 Normal 5-15 [facility] Comment on above: Performed By: #### L 500.4050, L500.4100 ####[facility] [address] [place], [address] GFR/1.73 sq M.predicted among non-blacks MDRD (S/P/Bld) [Vol rate/Area] 90 mL/min/{1.73_m2} Normal >60 [facility] Comment on above: Result Comment: mL/m in/1.73m2 CKD-EPI Creatinine Equation (2020) Performed By: #### L 500.4050, L500.4100 ####[facility] [address] [place], [address] Globulin (S) [Mass/Vol] 2.8 g/dL Normal 2.2-4.2 [facility] Comment on above: Performed By: #### L 500.4050, L500.4100 ####[facility] [address] [place], [address] Glucose [Mass/Vol] 131 mg/dL High 70-99 [facility] Comment on above: Performed By: #### L 500.4050, L500.4100 ####[facility] [address] [place], [address] Potassium [Moles/Vol] 4.3 mmol/L Normal 3.3-5.1 [facility] Comment on above: Performed By: #### L 500.4050, L500.4100 ####[facility] [address] [place], [address] Sodium [Moles/Vol] 141 mmol/L Normal 133-145 [facility] Comment on above: Performed By: #### L 500.4050, L500.4100 ####[facility] [address] [place], [address] T PROT 7.0 g/dL Normal 5.9-8.4 [facility] Comment on above: Performed By: #### L 500.4050, L500.4100 ####[facility] [address] [place], [address] Urea nitrogen [Mass/Vol] 23 mg/dL High 4-19 [facility] Comment on above: Performed By: #### L 500.4050, L500.4100 ####[facility] [address] [place], [address] Lipid Profileon 03-17-2025 CHOL:HDL 2.61 Normal [facility] Comment on above: Performed By: #### L 500.4050, L500.4100 ####[facility] [address] [place], [address] Cholesterol [Mass/Vol] 224 mg/dL High <=200 [facility] Comment on above: Result Comment: Chol esterol level, Desirable <200 mg/dL Borderline high cholesterol 200-239 mg/dL High cholesterol >=240 mg/dL Recommendations of the NCEP Adult Treatment Panel for the following risk-cutoff thresholds for the [place] population. Performed By: #### L 500.4050, L500.4100 ####[facility] [address] [place], [address] Cholesterol in HDL [Mass/Vol] 86 mg/dL Normal [facility] Comment on above: Result Comment: Tessy onal Cholesterol Education Program (NCEP) guidelines: <40 mg/dL: Low HDL-cholesterol (major risk factor for CHD) >= 60 mg/dL: High HDL-cholesterol (negative risk factor for CHD) HDL-cholesterol is affected by a number of factors, e.g. smoking, exercise, hormones, sex and age. Performed By: #### L 500.4050, L500.4100 ####[facility] [address] [place], [address] Cholesterol in LDL [Mass/Vol] 127 mg/dL Normal [facility] Comment on above: Result Comment: Bord hptzzm=484-207 mg/dL Higher Vqct=545 mg/dL or greater Arenas Equation 2020 for LDL-C Performed By: #### L 500.4050, L500.4100 ####[facility] [address] [place], [address] Cholesterol in VLDL [Mass/Vol] 14 mg/dL Normal 5-40 [facility] Comment on above: Performed By: #### L 500.4050, L500.4100 ####[facility] [address] [place], [address] Triglyceride [Mass/Vol] 68 mg/dL Normal [facility] Comment on above: Result Comment: The drugs N-Acetylcysteine and Metamizole may falsely depress this assay. Normal range: <150 mg/dL Borderline High: 150-199 mg/dL High: 200-499 mg/dL Very High: >500 mg/dL Performed By: #### L 500.4050, L500.4100 ####[facility] [address] [place], [address] Cardiology Visit Reporton Cardiology Visit Report [facility] [address] [place] [address] OFFICE VISIT Date of Service: 03/16/25 MR#: [id number] Acct: [id number] Name: CARLYN EVANGELISTA Rep #: [id number] : 1955 Provider: Dr. 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 Normal [facility] Absolute lymphocyte countOrd ered By: Shravan Gonzalez on 02-04-2025 Lymphocytes Auto (Unsp spec) [#/Vol] 1.15 10*3/uL 0.83-4.51 [facility] Absolute neutrophil countOrd ered [facility] Neutrophils (Bld) [#/Vol] 4.9 10*3/uL 2.0-7.7 [facility] Anion gap in Serum or Plasma Ordered By: Shravan Gonzalez on 02-04-2025 Anion gap [Moles/Vol] 11 mmol/L 5-15 [facility] Automated lymphocyte count a s percentage of total leukocytesOrdered By: Shravan Gonzalez on 02-04-2025 Lymphocytes/100 WBC Auto (Unsp spec) 16.6 % Low 19-41 [facility] BUN/creatinine ratioOrdered By: [facility]-2025 Urea nitrogen/Creatinine [Mass ratio] 20.1 mg/mg High 10-20 [facility] Basophil percentageOrdered B y: Shravan Gonzalez on 02-04-2025 Basophils/100 WBC (Bld) 0.1 % 0-1 [facility] Bilirubin, totalOrdered By: Shravan Gonzalez on 02-04-2025 Bilirubin [Mass/Vol] 0.81 mg/dL 0.00-1.30 [facility] CBC W/Diff, Automatedon 01-13 Absolute Lymph 1.15 X10 3/uL Normal 0.83-4.51 [facility] Comment on above: Performed By: #### L 501.9550, L506.1001, L100.0100, L500.4050 #### [facility] [address] [place], [place] [address] [place], [address] Absolute Neut 4.9 X10 3/uL Normal 2.0-7.7 [facility] Comment on above: Performed By: #### L 501.9520, L506.1001, L100.0100, L500.4050 #### [facility] [address] [place], [address] Basophils/100 WBC (Bld) 0.1 % Normal 0-1 [facility] Comment on above: Performed By: #### L 501.9520, L506.1001, L100.0100, L500.4050 #### [facility] [address] [place], [address] Eosinophils/100 WBC (Bld) 3.0 % Normal 0-5 [facility] Comment on above: Performed By: #### L 501.9520, L506.1001, L100.0100, L500.4050 #### [facility] [address] [place], [address] Erythrocyte distribution width (RBC) [Ratio] 12.5 % Normal 11.6-14.6 [facility] Comment on above: Performed By: #### L 501.9520, L506.1001, L100.0100, L500.4050 #### [facility] [address] [place], [address] Hematocrit (Bld) [Volume fraction] 42.8 % Normal 40-54 [facility] Comment on above: Performed By: #### L 501.9520, L506.1001, L100.0100, L500.4050 #### [facility] [address] [place], [address] Hemoglobin (Bld) [Mass/Vol] 14.3 g/dL Normal 13.0-16.5 [facility] Comment on above: Performed By: #### L 501.9520, L506.1001, L100.0100, L500.4050 #### [facility] [address] [place], [address] IG% 0.600 Normal 0.0-0.9 [facility] Comment on above: Result Comment: IG% - Immature Granulocytes (promyelocytes, myelocytes and metamyelocytes) > 1% indicates that a LEFT SHIFT is Present. Performed By: #### L 501.9520, L506.1001, L100.0100, L500.4050 #### [facility] [address] [place], [address] Lymphocytes/100 WBC (Bld) 16.6 % Low 19-41 [facility] Comment on above: Performed By: #### L 501.9520, L506.1001, L100.0100, L500.4050 #### [facility] [address] [place], [address] MCH (RBC) [Entitic mass] 31.6 pg Normal 27.0-32.0 [facility] Comment on above: Performed By: #### L 501.9520, L506.1001, L100.0100, L500.4050 #### [facility] [address] [place], [address] MCHC (RBC) [Mass/Vol] 33.4 g/dL Normal 32-36 [facility] Comment on above: Performed By: #### L 501.9520, L506.1001, L100.0100, L500.4050 #### [facility] [address] [place], [address] MCV (RBC) [Entitic vol] 94.7 fL High 80-94 [facility] Comment on above: Performed By: #### L 501.9520, L506.1001, L100.0100, L500.4050 #### [facility] [address] [place], [address] Monocytes/100 WBC (Bld) 9.5 % Normal 0-10 [facility] Comment on above: Performed By: #### L 501.9520, L506.1001, L100.0100, L500.4050 #### [facility] [address] [place], [address] Neutrophils/100 WBC (Bld) 70.2 % High 47-70 [facility] Comment on above: Performed By: #### L 501.9520, L506.1001, L100.0100, L500.4050 #### [facility] [address] [place], [address] Nucleated RBC (Bld) [#/Vol] 0 10*3/uL Normal 0-5 [facility] Comment on above: Performed By: #### L 501.9520, L506.1001, L100.0100, L500.4050 #### [facility] [address] [place], [address] Platelet mean volume (Bld) [Entitic vol] 13.4 fL High 6.2-12.0 [facility] Comment on above: Performed By: #### L 501.9520, L506.1001, L100.0100, L500.4050 #### [facility] [address] [place], [address] Platelets (Bld) [#/Vol] 138 10*3/uL Low 150-450 [facility] Comment on above: Performed By: #### L 501.9520, L506.1001, L100.0100, L500.4050 #### [facility] [address] [place], [address] RBC (Bld) [#/Vol] 4.52 10*6/uL Low 4.6-6.2 [facility] Comment on above: Performed By: #### L 501.9520, L506.1001, L100.0100, L500.4050 #### [facility] [address] [place], [address] RDW SD 43.2 fl Normal 35.1-43.9 [facility] Comment on above: Performed By: #### L 501.9520, L506.1001, L100.0100, L500.4050 #### [facility] [address] [place], [address] WBC (Bld) [#/Vol] 6.9 10*3/uL Normal 4.4-11.0 [facility] Comment on above: Performed By: #### L 501.9520, L506.1001, L100.0100, L500.4050 #### [facility] [address] [place], [address] Carbon dioxide, total [Moles /volume] in Central venous bloodOrdered By: Shravan Gonzalez on 02-04-2025 CO2 [Moles/Vol] 25.5 mmol/L 21.0-32.0 [facility] Chloride assayOrdered By: Konrad Gonzalez on 02-04-2025 Chloride [Moles/Vol] 103 mmol/L 98-108 [facility] Comprehensive Metabolic Prof ilon 02-04-2025 Albumin [Mass/Vol] 3.9 g/dL Normal 3.4-4.8 [facility] Comment on above: Performed By: #### L 501.9520, L506.1001, L100.0100, L500.4050 #### [facility] [address] [place], [address] Albumin/Globulin [Mass ratio] 1.6 {ratio} Normal 0.9-2.4 [facility] Comment on above: Performed By: #### L 501.9520, L506.1001, L100.0100, L500.4050 #### [facility] [address] [place], [address] ALK PHOS 76 U/L Normal 40-129 [facility] Comment on above: Performed By: #### L 501.9520, L506.1001, L100.0100, L500.4050 #### [facility] [address] [place], [address] ALT [Catalytic activity/Vol] 17 U/L Normal <=46 [facility] Comment on above: Performed By: #### L 501.9520, L506.1001, L100.0100, L500.4050 #### [facility] [address] [place], [address] AST [Catalytic activity/Vol] 17 U/L Normal <=37 [facility] Comment on above: Performed By: #### L 501.9520, L506.1001, L100.0100, L500.4050 #### [facility] [address] [place], [address] Bilirubin [Mass/Vol] 0.81 mg/dL Normal 0.00-1.30 [facility] Comment on above: Performed By: #### L 501.9520, L506.1001, L100.0100, L500.4050 #### [facility] [address] [place], [address] BUN/CRE 20.1 RATIO High 10-20 [facility] Comment on above: Performed By: #### L 501.9520, L506.1001, L100.0100, L500.4050 #### [facility] [address] [place], [address] Calcium [Mass/Vol] 9.0 mg/dL Normal 7.6-11.0 [facility] Comment on above: Performed By: #### L 501.9520, L506.1001, L100.0100, L500.4050 #### [facility] [address] [place], [address] Chloride [Moles/Vol] 103 mmol/L Normal 98-108 [facility] Comment on above: Performed By: #### L 501.9520, L506.1001, L100.0100, L500.4050 #### [facility] [address] [place], [address] CO2 [Moles/Vol] 25.5 mmol/L Normal 21.0-32.0 [facility] Comment on above: Performed By: #### L 501.9520, L506.1001, L100.0100, L500.4050 #### [facility] [address] [place], [address] Creatinine [Mass/Vol] 0.99 mg/dL Normal 0.70-1.20 [facility] Comment on above: Performed By: #### L 501.9520, L506.1001, L100.0100, L500.4050 #### [facility] [address] [place], [address] GAP 11 Normal 5-15 [facility] Comment on above: Performed By: #### L 501.9520, L506.1001, L100.0100, L500.4050 #### [facility] [address] [place], [address] GFR/1.73 sq M.predicted among non-blacks MDRD (S/P/Bld) [Vol rate/Area] 82 mL/min/{1.73_m2} Normal >60 [facility] Comment on above: Result Comment: mL/m in/1.73m2 CKD-EPI Creatinine Equation (2020) Performed By: #### L 501.9520, L506.1001, L100.0100, L500.4050 #### [facility] [address] [place], [address] Globulin (S) [Mass/Vol] 2.5 g/dL Normal 2.2-4.2 [facility] Comment on above: Performed By: #### L 501.9520, L506.1001, L100.0100, L500.4050 #### [facility] [address] [place], [address] Glucose [Mass/Vol] 220 mg/dL High 70-99 [facility] Comment on above: Performed By: #### L 501.9520, L506.1001, L100.0100, L500.4050 #### [facility] [address] [place], [address] Potassium [Moles/Vol] 4.2 mmol/L Normal 3.3-5.1 [facility] Comment on above: Performed By: #### L 501.9520, L506.1001, L100.0100, L500.4050 #### [facility] [address] [place], [address] Sodium [Moles/Vol] 139 mmol/L Normal 133-145 [facility] Comment on above: Performed By: #### L 501.9520, L506.1001, L100.0100, L500.4050 #### [facility] [address] [place], [address] T PROT 6.4 g/dL Normal 5.9-8.4 [facility] Comment on above: Performed By: #### L 501.9520, L506.1001, L100.0100, L500.4050 #### [facility] [address] [place], [address] Urea nitrogen [Mass/Vol] 20 mg/dL High 4-19 [facility] Comment on above: Performed By: #### L 501.9520, L506.1001, L100.0100, L500.4050 #### [facility] [address] [place], [address] Eosinophil percentageOrdered By: Shravan Gonzalez on 02-04-2025 Eosinophils/100 WBC (Bld) 3.0 % 0-5 [facility] Erythrocyte distribution wid th ratioOrdered By: [facility] Erythrocyte distribution width (RBC) [Ratio] 12.5 % 11.6-14.6 [facility] Erythrocyte distribution wid th standard deviationOrdered By: [facility] 02-04-2025 Erythrocyte distribution width (RBC) [Ratio] 43.2 fl 35.1-43.9 [facility] Glomerular filtration rate ( GFR) estimation/1.73 sq m using serum, plasma, or whole bOrdered By: [facility] on 02-04-2025 GFR/1.73 sq M.predicted among non-blacks MDRD (S/P/Bld) [Vol rate/Area] 82 mL/min/{1.73_m2} >60 [facility] Comment on above: mL/min/1.73m2 CKD-EP I Creatinine Equation (2020) Hematocrit Auto (Bld) [Volum e fraction]Ordered By: [facility] 02-04-2025 Hematocrit (Bld) [Volume fraction] 42.8 % 40-54 [facility] Hemoglobin measurementOrdere d By: [facility] 02-04-2025 Hemoglobin (Bld) [Mass/Vol] 14.3 g/dL 13.0-16.5 [facility] Immature granulocytes/100 WB C Auto (Bld)Ordered By: Shravan Payam 02-04-2025 Immature granulocytes/100 WBC (Bld) 0.600 % 0.0-0.9 [facility] Comment on above: IG% - Immature Granu locytes (promyelocytes, myelocytes and metamyelocytes) > 1% indicates that a LEFT SHIFT is Present. Laboratory - Chemistry and C hemistry - challengeOrdered By: Shravan Payam 02-04-2025 AST [Catalytic activity/Vol] 17 U/L <38 [facility] MCV (mean corpuscular volume ) determinationOrdered By: Shravan Payam 02-04-2025 MCV (RBC) [Entitic vol] 94.7 fL High 80-94 [facility] Mean corpuscular hemoglobin (MCH) determinationOrdered By: Shravan [facility] 02-04-2025 MCH (RBC) [Entitic mass] 31.6 pg 27.0-32.0 [facility] Mean corpuscular hemoglobin concentration (MCHC) determinationOrdered By: Shravan Gonzalez on 02-04-2025 MCHC (RBC) [Mass/Vol] 33.4 g/dL 32-36 [facility] Mean platelet volume determi nationOrdered By: Shravan Gonzalez on 02-04-2025 Platelet mean volume (Bld) [Entitic vol] 13.4 fL High 6.2-12.0 [facility] Monocyte percentageOrdered B y: Shravan Gonzalez on 02-04-2025 Monocytes/100 WBC (Bld) 9.5 % 0-10 [facility] Neutrophil percentageOrdered By: Shravan Gonzalez on 02-04-2025 Neutrophils/100 WBC (Bld) 70.2 % High 47-70 [facility] Nucleated red blood cell per centageOrdered By: Shravan Gonzalez on 02-04-2025 Nucleated RBC/100 WBC (Bld) [Ratio] 0 % 0-5 [facility] Platelet countOrdered By: Konrad Gonzalez on 02-04-2025 Platelets (Bld) [#/Vol] 138 10*3/uL Low 150-450 [facility] Potassium measurement (mass/ volume)Ordered By: Shravan Gonzalez on 02-04-2025 Potassium (Unsp spec) [Mass/Vol] 4.2 mmol/L 3.3-5.1 [facility] RBC Auto (Bld) [#/Vol]Ordere d By: Shravan Gonzalez on 02-04-2025 RBC (Bld) [#/Vol] 4.52 10*6/uL Low 4.6-6.2 [facility] Serum creatinine measurement (mass/volume)Ordered By: Shravan Gonzalez on 02-04-2025 Creatinine [Mass/Vol] 0.99 mg/dL 0.70-1.20 [facility] Serum globulin measurementOr dered By: Shravan Gonzalez 02-04-2025 Globulin (S) [Mass/Vol] 2.5 g/dL 2.2-4.2 [facility] Serum glucose measurement (m ass/volume)Ordered By: Shravan Gonzalez on 02-04-2025 Glucose [Mass/Vol] 220 mg/dL High 70-99 [facility] Serum or plasma alanine mejia otransferase (ALT) measurementOrdered By: Shravan Gonzalez on 02-04-2025 ALT [Catalytic activity/Vol] 17 U/L <47 [facility] Serum or plasma albumin dylon urement (mass/volume)Ordered By: Shravan Gonzalez on 02-04-2025 Albumin [Mass/Vol] 3.9 g/dL 3.4-4.8 [facility] Serum or plasma albumin/glob ulin mass ratioOrdered By: Shravan Gonzalez on 02-04-2025 Albumin/Globulin [Mass ratio] 1.6 {ratio} 0.9-2.4 [facility] Serum or plasma alkaline hannah sphatase measurementOrdered By: Shravan Gonzalez on 02-04-2025 ALP [Catalytic activity/Vol] 76 U/L 40-129 [facility] Serum or plasma calcium dylon urement (mass/volume)Ordered By: Shravan Gonzalez on 02-04-2025 Calcium [Mass/Vol] 9.0 mg/dL 7.6-11.0 [facility] Serum or plasma urea nitroge n measurement (mass/volume)Ordered By: Shravan Gonzalez on 02-04-2025 Urea nitrogen [Mass/Vol] 20 mg/dL High 4-19 [facility] Sodium levelOrdered By: Shravan Gonzalez on 02-04-2025 Sodium [Moles/Vol] 139 mmol/L 133-145 [facility] TSH DL <= 0.005 mIU/L QnOrde red By: Shravan Gonzalez on 02-04-2025 TSH Qn 1.670 uIU/mL 0.300-4.200 [facility] Thyroid Stim Hormone (TSH)on 02-04-2025 TSH 1.670 uIU/mL Normal 0.300-4.200 [facility] Comment on above: Performed By: #### L 501.9520, L506.1001, L100.0100, L500.4050 ####[facility] [id number] [place], [address] Total proteinOrdered By: Shravan Gonzalez on 02-04-2025 Protein [Mass/Vol] 6.4 g/dL 5.9-8.4 [facility] Vitamin D,25 Hydroxyon 02-04 Vitamin D 25-OH 33.4 ng/mL Normal 30-100 [facility] Comment on above: Result Comment: Melvina min D Status Deficiency: <20 ng/mL (50nmol/L) Insufficiency: 20-30 ng/mL (50-75 nmol/L) Sufficiency: 30-100 ng/mL (75-250 nmol/L) Toxicity: >100 ng/mL (>250 nmol/L) Performed By: #### L 501.9520, L506.1001, L100.0100, L500.4050 ####[facility] [address] [place], [place], [address] White blood cell (WBC) count Ordered By: Shravan Gonzalez on 02-04-2025 WBC (Bld) [#/Vol] 6.9 10*3/uL 4.4-11.0 [facility] Endocrinology Visit Reporton 01-26-2025 Endocrinology Visit Report [facility] [address] [place] [address] OFFICE VISIT Date of Service: 01/26/25 MR#: [id number] Acct: [id number] Name: CARLYN EVANGELISTA Rep #: [id number] : 1955 Provider: MAGALIS govea Age/Sex: 69/M Location: [facility] [place] Status: Signed Intake Vital Signs 10/13/24 08:38 [...] at 6.9%. Weight is stable. Currently using [employer] ([employer]) 780g with [employer] CGM. Insulin pump downloaded [...] normal cogniti (more content not included)... Normal [facility] - Hematology and Cell countsOrdered By: Naheed Russ on 01-26-2025 HbA1c (Bld) [Mass fraction] 6.7 % High 4.2-6.3 [facility] Urine Cultureon 01-06-2025 URC Culture exhibits no growth. Normal [facility] Comment on above: Performed By: #### M 100.7620 ####[facility] [address] [place], [address] Urine cultureOrdered By: Shravan Gonzalez on 01-05-2025 Bacteria identified Cx Nom (U) Culture exhibits no growth. [facility] Echo Completeon 12-24-2024 Echo Complete [facility] [address] [place] [address] Echo Complete 12/24/24 1326 MR#: [id number] Acct: [id number] Name: CARLYN EVANGELISTA Rep #: [id number] : 1955 69 From: Wil Youssef MD Attending Dr: Dr. Shravan Gonzalez MD Status: REG [facility] Ordering Dr: Shravan Gonzalez MD Date: 12/24/24 Location: [facility] Sex: M C Admitted: Reason For Study [...] Shravan Gonzalez Chi Performed By: Zulay Krishna, BEATRIZCS, RVT 12/24/24 1636 Date Wil Youssef MD CC: Dr. Shravan Gonzalez MD Date Dictated: 12/24/24 132 Date Transcribed: 12/24/24 163 Physician Industrial: Signed Normal [facility] Echocardiogram study reportO rdered By: Wil Youssef on 12-24-2024 Study report [facility] [address] [place] [address] Echo Complete 12/24/241325 MR#: [id number] Acct: [id number] Name: CARLYN EVANGELISTA Rep #:[id number] : 1955 69 From: Wil Leiva Attending Dr: Dr. Shravan Gonzalez MD Status: REG CLI Ordering Dr: Shravan Gonzalez MD Date: Location: [facility] Sex: M C Admitted: Reason For Study [...] Zulay Krishna, MELA, RVT 12/24/24 1636 Date _ Wil Youssef MD CC: Dr. Shravan Gonzalez MD ~ Date Dictated: 12/24/24 1326 Date Transcribed: 12/24/24 1636 Physician Industrial: Signed [facility] Work Phone: Coronary Angiography CTon Coronary Angiography CT [facility] Imaging Services [address] [place] [address] 12/22/24 1759 MR#: [id number] Acct: [id number] Name: CARLYN EVANGELISTA Rep #: [id number] : 1955 69 From: Wil Youssef MD [...] MD; Dr. Shravan Gonzalez MD Signed Normal [facility] Limited Chest CT Cardiac Onl yon 12-22-[address] Cardiac Only [facility] Imaging Services [address] [place] [address] Cardiac Only MR#: [id number] Acct: [id number] Name: CARLYN EVANGELISTA Rep #: [id number] : 1955 M 69 From: Miguel Angel sims MD PCP: Dr. Shravan Gonzalez MD Status: REG REF Study: Limited Chest CT Cardiac Only Date of Exam: Exam# [id number] Ordering Dr: Shravan Gonzalez MD PROCEDURE: LIMITED [...] Only IMPRESSION: Coronary artery calcification. Reading Location: [place] [address] CC: Dr. Shravan Gonzalez MD Physician Industrial: Signed Normal [facility] Endocrinology Visit Reporton 10-13-2024 Endocrinology Visit Report [facility] [address] [place] [address]. [address] [place] [address] OFFICE VISIT Date of Service: 10/13/24 MR#: [id number] Acct: [id number] Name: CARLYN EVANGELISTA Rep #: [id number] : 1955 Provider: MAGALIS govea Age/Sex: 68/M Location: [facility] [place] Status: Signed Intake Vital Signs 07/10/24 08:36 [...] DAILY 10/19/22 10/13/24 Hi story blood-glucose sensor (bSafecom G7 #9 ea 05/23/23 07/10/24 Rx Sensor [...] Extrem Gen (more content not included)... Normal [facility] - Hematology and Cell countsOrdered By: Naheed Russ on 10-13-2024 HbA1c (Bld) [Mass fraction] 6.9 % High 4.2-6.3 [facility] Absolute lymphocyte countOrd ered By: Shravan Gonzalez on 07-23-2024 Lymphocytes Auto (Unsp spec) [#/Vol] 1.18 10*3/uL 0.83-4.51 [facility] Absolute neutrophil countOrd ered By: Shravan Gonzalez on 07-23-2024 Neutrophils (Bld) [#/Vol] 3.4 10*3/uL 2.0-7.7 [facility] Anion gap in Serum or Plasma Ordered By: Shravan Gonzalez on 07-23-2024 Anion gap [Moles/Vol] 7 mmol/L 5-15 [facility] Automated lymphocyte count a s percentage of total leukocytesOrdered By: Shravan Gonzalez on 07-23-2024 Lymphocytes/100 WBC Auto (Unsp spec) 21.5 % 19-41 [facility] BUN/creatinine ratioOrdered By: Shravan Gonzalez on 07-23-2024 Urea nitrogen/Creatinine [Mass ratio] 20.2 mg/mg High 10-20 [facility] Basophil percentageOrdered B y: Shrvaan Gonzalez on 07-23-2024 Basophils/100 WBC (Bld) 0.2 % 0-1 [facility] Bilirubin, totalOrdered By: Shravan Gonzalez on 07-23-2024 Bilirubin [Mass/Vol] 0.69 mg/dL 0.00-1.30 [facility] Blood manual differential co mment interpretation (narrative result)Ordered By: Shravan Gonzalez on 07-23-2024 Manual differential comment David (Bld) [Interp] Not Reportable [facility] CBC W/Diff, Automatedon 07-12 Absolute Lymph 1.18 X10 3/uL Normal 0.83-4.51 [facility] Comment on above: Performed By: #### L 501.9910, L506.1001, L500.4050, L100.0100, L501.9520 #### [facility] [address] [place], [address] Absolute Neut 3.4 X10 3/uL Normal 2.0-7.7 [facility] Comment on above: Performed By: #### L 501.9910, L506.1001, L500.4050, L100.0100, L501.9520 #### [facility] [address] [place], [address] Basophils/100 WBC (Bld) 0.2 % Normal 0-1 [facility] Comment on above: Performed By: #### L 501.9910, L506.1001, L500.4050, L100.0100, L501.9520 #### [facility] [address] [place], [address] Eosinophils/100 WBC (Bld) 4.2 % Normal 0-5 [facility] Comment on above: Performed By: #### L 501.9910, L506.1001, L500.4050, L100.0100, L501.9520 #### [facility] [address] [place], [address] Erythrocyte distribution width (RBC) [Ratio] 12.5 % Normal 11.6-14.6 [facility] Comment on above: Performed By: #### L 501.9910, L506.1001, L500.4050, L100.0100, L501.9520 #### [facility] [address] [place], [address] Hematocrit (Bld) [Volume fraction] 44.2 % Normal 40-54 [facility] Comment on above: Performed By: #### L 501.9910, L506.1001, L500.4050, L100.0100, L501.9520 #### [facility] [address] [place], [address] Hemoglobin (Bld) [Mass/Vol] 14.1 g/dL Normal 13.0-16.5 [facility] Comment on above: Performed By: #### L 501.9910, L506.1001, L500.4050, L100.0100, L501.9520 #### [facility] [address] [place], [address] IG% 0.700 Normal 0.0-0.9 [facility] Comment on above: Result Comment: IG% - Immature Granulocytes (promyelocytes, myelocytes and metamyelocytes) > 1% indicates that a LEFT SHIFT is Present. Performed By: #### L 501.9910, L506.1001, L500.4050, L100.0100, L501.9520 #### [facility] [address] [place], [address] Lymphocytes/100 WBC (Bld) 21.5 % Normal 19-41 [facility] Comment on above: Performed By: #### L 501.9910, L506.1001, L500.4050, L100.0100, L501.9520 #### [facility] [address] [place], [address] MCH (RBC) [Entitic mass] 30.3 pg Normal 27.0-32.0 [facility] Comment on above: Performed By: #### L 501.9910, L506.1001, L500.4050, L100.0100, L501.9520 #### [facility] [address] [place], [address] MCHC (RBC) [Mass/Vol] 31.9 g/dL Low 32-36 [facility] Comment on above: Performed By: #### L 501.9910, L506.1001, L500.4050, L100.0100, L501.9520 #### [facility] [address] [place], [address] MCV (RBC) [Entitic vol] 94.8 fL High 80-94 [facility] Comment on above: Performed By: #### L 501.9910, L506.1001, L500.4050, L100.0100, L501.9520 #### [facility] [address] [place], [address] Monocytes/100 WBC (Bld) 12.2 % High 0-10 [facility] Comment on above: Performed By: #### L 501.9910, L506.1001, L500.4050, L100.0100, L501.9520 #### [facility] [address] [place], [address] Neutrophils/100 WBC (Bld) 61.2 % Normal 47-70 [facility] Comment on above: Performed By: #### L 501.9910, L506.1001, L500.4050, L100.0100, L501.9520 #### [facility] [address] [place], [address] Nucleated RBC (Bld) [#/Vol] 0 10*3/uL Normal 0-5 [facility] Comment on above: Performed By: #### L 501.9910, L506.1001, L500.4050, L100.0100, L501.9520 #### [facility] [address] [place], [address] Platelet mean volume (Bld) [Entitic vol] 13.7 fL High 6.2-12.0 [facility] Comment on above: Performed By: #### L 501.9910, L506.1001, L500.4050, L100.0100, L501.9520 #### [facility] [address] [place], [address] Platelets (Bld) [#/Vol] 143 10*3/uL Low 150-450 [facility] Comment on above: Performed By: #### L 501.9910, L506.1001, L500.4050, L100.0100, L501.9520 #### [facility] [address] [place], [address] RBC (Bld) [#/Vol] 4.66 10*6/uL Normal 4.6-6.2 [facility] Comment on above: Performed By: #### L 501.9910, L506.1001, L500.4050, L100.0100, L501.9520 #### [facility] [address] [place], [address] RDW SD 43.4 fl Normal 35.1-43.9 [facility] Comment on above: Performed By: #### L 501.9910, L506.1001, L500.4050, L100.0100, L501.9520 #### [facility] [address] [place], [address] WBC (Bld) [#/Vol] 5.5 10*3/uL Normal 4.4-11.0 [facility] Comment on above: Performed By: #### L 501.9910, L506.1001, L500.4050, L100.0100, L501.9520 #### [facility] [address] [place], [address] Carbon dioxide, total [Moles /volume] in Central venous bloodOrdered By: Shravan Gonzalez on 07-23-2024 CO2 [Moles/Vol] 29.2 mmol/L 21.0-32.0 [facility] Chloride assayOrdered By: Konrad Gonzalez on 07-23-2024 Chloride [Moles/Vol] 102 mmol/L 98-108 [facility] Comprehensive Metabolic Prof ilon 07-23-2024 Albumin [Mass/Vol] 4.0 g/dL Normal 3.4-4.8 [facility] Comment on above: Performed By: #### L 501.9910, L506.1001, L500.4050, L100.0100, L501.9520 #### [facility] [address] [place], [address] Albumin/Globulin [Mass ratio] 1.6 {ratio} Normal 0.9-2.4 [facility] Comment on above: Performed By: #### L 501.9910, L506.1001, L500.4050, L100.0100, L501.9520 #### [facility] [address] [place], [address] ALK PHOS 74 U/L Normal 40-129 [facility] Comment on above: Performed By: #### L 501.9910, L506.1001, L500.4050, L100.0100, L501.9520 #### [facility] [address] [place], [address] ALT [Catalytic activity/Vol] 16 U/L Normal <=46 [facility] Comment on above: Performed By: #### L 501.9910, L506.1001, L500.4050, L100.0100, L501.9520 #### [facility] [address] [place], [address] AST [Catalytic activity/Vol] 21 U/L Normal <=37 [facility] Comment on above: Performed By: #### L 501.9910, L506.1001, L500.4050, L100.0100, L501.9520 #### [facility] [address] [place], [address] Bilirubin [Mass/Vol] 0.69 mg/dL Normal 0.00-1.30 [facility] Comment on above: Performed By: #### L 501.9910, L506.1001, L500.4050, L100.0100, L501.9520 #### [facility] [address] [place], [address] BUN/CRE 20.2 RATIO High 10-20 [facility] Comment on above: Performed By: #### L 501.9910, L506.1001, L500.4050, L100.0100, L501.9520 #### [facility] [address] [place], [address] Calcium [Mass/Vol] 9.7 mg/dL Normal 7.6-11.0 [facility] Comment on above: Performed By: #### L 501.9910, L506.1001, L500.4050, L100.0100, L501.9520 #### [facility] [address] [place], [address] Chloride [Moles/Vol] 102 mmol/L Normal 98-108 [facility] Comment on above: Performed By: #### L 501.9910, L506.1001, L500.4050, L100.0100, L501.9520 #### [facility] [address] [place], [address] CO2 [Moles/Vol] 29.2 mmol/L Normal 21.0-32.0 [facility] Comment on above: Performed By: #### L 501.9910, L506.1001, L500.4050, L100.0100, L501.9520 #### [facility] [address] [place], [address] Creatinine [Mass/Vol] 1.01 mg/dL Normal 0.70-1.20 [facility] Comment on above: Performed By: #### L 501.9910, L506.1001, L500.4050, L100.0100, L501.9520 #### [facility] [address] [place], [address] GAP 7 Normal 5-15 [facility] Comment on above: Performed By: #### L 501.9910, L506.1001, L500.4050, L100.0100, L501.9520 #### [facility] [address] [place], [address] GFR/1.73 sq M.predicted among non-blacks MDRD (S/P/Bld) [Vol rate/Area] 81 mL/min/{1.73_m2} Normal >60 [facility] Comment on above: Result Comment: mL/m in/1.73m2 CKD-EPI Creatinine Equation (2020) Performed By: #### L 501.9910, L506.1001, L500.4050, L100.0100, L501.9520 #### [facility] [address] [place], [address] Globulin (S) [Mass/Vol] 2.6 g/dL Normal 2.2-4.2 [facility] Comment on above: Performed By: #### L 501.9910, L506.1001, L500.4050, L100.0100, L501.9520 #### [facility] [address] [place], [address] Glucose [Mass/Vol] 154 mg/dL High 70-99 [facility] Comment on above: Performed By: #### L 501.9910, L506.1001, L500.4050, L100.0100, L501.9520 #### [facility] [address] [place], [address] Potassium [Moles/Vol] 4.6 mmol/L Normal 3.3-5.1 [facility] Comment on above: Performed By: #### L 501.9910, L506.1001, L500.4050, L100.0100, L501.9520 #### [facility] [address] [place], [address] Sodium [Moles/Vol] 139 mmol/L Normal 133-145 [facility] Comment on above: Performed By: #### L 501.9910, L506.1001, L500.4050, L100.0100, L501.9520 #### [facility] [address] [place], [address] T PROT 6.6 g/dL Normal 5.9-8.4 [facility] Comment on above: Performed By: #### L 501.9910, L506.1001, L500.4050, L100.0100, L501.9520 #### [facility] [address] [place], [address] Urea nitrogen [Mass/Vol] 20 mg/dL High 4-19 [facility] Comment on above: Performed By: #### L 501.9910, L506.1001, L500.4050, L100.0100, L501.9520 #### [facility] [address] [place], [address] Eosinophil percentageOrdered By: Shravan Gonzalez on 07-23-2024 Eosinophils/100 WBC (Bld) 4.2 % 0-5 [facility] Erythrocyte distribution wid th ratioOrdered By: Shravan Gonzalez on 07-23-2024 Erythrocyte distribution width (RBC) [Ratio] 12.5 % 11.6-14.6 [facility] Erythrocyte distribution wid th standard deviationOrdered By: Shravan Gonzalez on 07-23-2024 Erythrocyte distribution width (RBC) [Entitic vol] 43.4 fL 35.1-43.9 [facility] Erythrocyte distribution width (RBC) [Ratio] 43.4 fl 35.1-43.9 [facility] GFR/1.73 sq M.predicted sammy g non-blacks MDRD (S/P/Bld) [Vol rate/Area]Ordered By: Shravan Gonzalez on 07-23-2024 Estimated GFR (MDRD) Non-Af Amer 81 >60 [facility] Comment on above: mL/min/1.73m2 CKD-EP I Creatinine Equation (2020) Glomerular filtration rate ( GFR) estimation/1.73 sq m using serum, plasma, or whole bOrdered By: Shravan Gonzalez on 07-23-2024 GFR/1.73 sq M.predicted among non-blacks MDRD (S/P/Bld) [Vol rate/Area] 81 mL/min/{1.73_m2} >60 [facility] Comment on above: mL/min/1.73m2 CKD-EP I Creatinine Equation (2020) Hematocrit Auto (Bld) [Volum e fraction]Ordered By: Shravan Gonzalez on 07-23-2024 Hematocrit (Bld) [Volume fraction] 44.2 % 40-54 [facility] Hemoglobin measurementOrdere d By: Shravan Gonzalez on 07-23-2024 Hemoglobin (Bld) [Mass/Vol] 14.1 g/dL 13.0-16.5 [facility] Immature granulocytes/100 WB C Auto (Bld)Ordered By: Shravan Gonzalez on 07-23-2024 Immature granulocytes/100 WBC (Bld) 0.700 % 0.0-0.9 [facility] Comment on above: IG% - Immature Granu locytes (promyelocytes, myelocytes and metamyelocytes) > 1% indicates that a LEFT SHIFT is Present. L506.1001on 07-23-2024 Vitamin D 25-OH 34.1 ng/mL Normal 30-100 [facility] Comment on above: Result Comment: Melvina min D Status Deficiency: <20 ng/mL (50nmol/L) Insufficiency: 20-30 ng/mL (50-75 nmol/L) Sufficiency: 30-100 ng/mL (75-250 nmol/L) Toxicity: >100 ng/mL (>250 nmol/L) Performed By: #### L 501.9910, L506.1001, L500.4050, L100.0100, L501.9520 #### [facility] [address] [place], [address] Laboratory - Chemistry and C hemistry - challengeOrdered By: Shravan Gonzalez on 07-23-2024 AST [Catalytic activity/Vol] 21 U/L <38 [facility] Lymphocytes Auto (Unsp spec) [#/Vol]Ordered By: Shravan Gonzalez on 07-23-2024 Lymphocytes (Bld) [#/Vol] 1.18 10*3/uL 0.83-4.51 [facility] Lymphocytes/100 WBC Auto (Un sp spec)Ordered By: Shravan Gonzalez on 07-23-2024 Lymphocytes/100 WBC (Bld) 21.5 % 19-41 [facility] MCV (mean corpuscular volume ) determinationOrdered By: Shravan Gonzalez on 07-23-2024 MCV (RBC) [Entitic vol] 94.8 fL High 80-94 [facility] Manual differential comment David (Bld) [Interp]Ordered By: Shravan Gonzalez on 07-23-2024 Differential Comment Not Reportable [facility] Mean corpuscular hemoglobin (MCH) determinationOrdered By: Shravan Gonzalez on 07-23-2024 MCH (RBC) [Entitic mass] 30.3 pg 27.0-32.0 [facility] Mean corpuscular hemoglobin concentration (MCHC) determinationOrdered By: Shravan Gonzalez on 07-23-2024 MCHC (RBC) [Mass/Vol] 31.9 g/dL Low 32-36 [facility] Mean platelet volume determi nationOrdered By: Shravan Gonzalez on 07-23-2024 Platelet mean volume (Bld) [Entitic vol] 13.7 fL High 6.2-12.0 [facility] Monocyte percentageOrdered B y: Shravan Gonzalez on 07-23-2024 Monocytes/100 WBC (Bld) 12.2 % High 0-10 [facility] Neutrophil percentageOrdered By: Shravan Gonzalez 07-23-2024 Neutrophils/100 WBC (Bld) 61.2 % 47-70 [facility] Nucleated red blood cell per centageOrdered By: Shravan Gonzalez on 07-23-2024 Nucleated RBC/100 WBC (Bld) [Ratio] 0 % 0-5 [facility] PSA, total screeningOrdered By: Shravan Payam on 07-23-2024 Prostate Specific Antigen Screen 0.83 ng/mL 0.02-4.00 [facility] Comment on above: This test [...] 07-23-2024 PSA,TOT SCREEN 0.83 ng/mL Normal 0.02-4.00 [facility] Comment on above: Result Comment: [...] L 501.9910, L506.1001, L500.4050, L100.0100, L501.9520 #### [facility] [address] [place], [address] Platelet countOrdered By: Konrad Gonzalez on 07-23-2024 Platelets (Bld) [#/Vol] 143 10*3/uL Low 150-450 [facility] Potassium (Unsp spec) [Mass/ Vol]Ordered By: Shravan Gonzalez on 07-23-2024 Potassium [Moles/Vol] 4.6 mmol/L 3.3-5.1 [facility] Potassium measurement (mass/ volume)Ordered By: Shravan Gonzalez on 07-23-2024 Potassium (Unsp spec) [Mass/Vol] 4.6 mmol/L 3.3-5.1 [facility] RBC Auto (Bld) [#/Vol]Ordere d By: Shravan Gonzalez on 07-23-2024 RBC (Bld) [#/Vol] 4.66 10*6/uL 4.6-6.2 [facility] Serum creatinine measurement (mass/volume)Ordered By: Shravan Gonzalez on 07-23-2024 Creatinine [Mass/Vol] 1.01 mg/dL 0.70-1.20 [facility] Serum globulin measurementOr dered By: Shravan Gonzalez on 07-23-2024 Globulin (S) [Mass/Vol] 2.6 g/dL 2.2-4.2 [facility] Serum glucose measurement (m ass/volume)Ordered By: Shravan Gonzalez on 07-23-2024 Glucose [Mass/Vol] 154 mg/dL High 70-99 [facility] Serum or plasma alanine mejia otransferase (ALT) measurementOrdered By: Shravan Gonzalez on 07-23-2024 ALT [Catalytic activity/Vol] 16 U/L <47 [facility] Serum or plasma albumin dylon urement (mass/volume)Ordered By: Shravan Gonzalez on 07-23-2024 Albumin [Mass/Vol] 4.0 g/dL 3.4-4.8 [facility] Serum or plasma albumin/glob ulin mass ratioOrdered By: Shravan Gonzalez on 07-23-2024 Albumin/Globulin [Mass ratio] 1.6 {ratio} 0.9-2.4 [facility] Serum or plasma alkaline hannah sphatase measurementOrdered By: Shravan Gonzalez on 07-23-2024 ALP [Catalytic activity/Vol] 74 U/L 40-129 [facility] Serum or plasma calcium dylon urement (mass/volume)Ordered By: Shravan Gonzalez on 07-23-2024 Calcium [Mass/Vol] 9.7 mg/dL 7.6-11.0 [facility] Serum or plasma urea nitroge n measurement (mass/volume)Ordered By: Shravan Gonzalez on 07-23-2024 Urea nitrogen [Mass/Vol] 20 mg/dL High 4-19 [facility] Sodium levelOrdered By: Shravan oGnzalez on 07-23-2024 Sodium [Moles/Vol] 139 mmol/L 133-145 [facility] TSH DL <= 0.005 mIU/L QnOrde red By: Shravan Gonzalez on 07-23-2024 Thyroid Stimulating Hormone (TSH) 2.140 uIU/mL 0.300-4.200 [facility] TSH Qn 2.140 uIU/mL 0.300-4.200 [facility] Thyroid Stim Hormone (TSH)on 07-23-2024 TSH 2.140 uIU/mL Normal 0.300-4.200 [facility] Comment on above: Performed By: #### L 501.9910, L506.1001, L500.4050, L100.0100, L501.9520 #### [facility] [place], [address] Total proteinOrdered By: Shravan Izaguirreok on 07-23-2024 Protein [Mass/Vol] 6.6 g/dL 5.9-8.4 [facility] Vitamin D, 25-hydroxyOrdered By: Shravan Gonzalez on 07-23-2024 Vitamin D 25-Hydroxy 34.1 ng/mL 30-100 [facility] Comment on above: Vitamin D StatusDefi ciency: <20 ng/mL (50nmol/L)Insufficiency: 20-30 ng/mL (50-75 nmol/L)Sufficiency: 30-100 ng/mL (75-250 nmol/L)Toxicity: >100 ng/mL (>250 nmol/L) White blood cell (WBC) count Ordered By: Shravan Gonzalez on 07-23-2024 WBC (Bld) [#/Vol] 5.5 10*3/uL 4.4-11.0 [facility] Esophagus Dual Contraston Esophagus Dual Contrast [facility] [address] [place] [address] Esophagus Dual Contrast MR#: [id number] Acct: [id number] Name: CARLYN EVANGELISTA Rep #: [id number] : 1955 M 68 From: Cortez Koch MD PCP: Dr. Shravan Gonzalez MD Status: REG CLI Study: Esophagus Dual Contrast Date of Exam: 07/16/24 Exam# [id number] Ordering Dr: Garrett Elena MD PROCEDURE: ESOPHAGUS [...] gastroesophageal reflux or other abnormalities. Reading Location: [place] [address] CC: Dr. Shravan Gonzalez MD; Dr. Garrett Elena MD Physician Industrial: Signed Normal [facility] Endocrinology Visit Reporton 07-10-2024 Endocrinology Visit Report [facility] [address] [place] [address] OFFICE VISIT Date of Service: 07/10/24 MR#: [id number] Acct: [id number] Name: CARLYN EVANGELISTA Rep #: [id number] : 1955 Provider: MAGALIS govea Age/Sex: 68/M Location: [facility] [place] Status: Signed Intake Vital Signs 03/31/24 08:05 [...] DAILY 10/19/22 07/10/24 Hi story blood-glucose sensor ([employer] G7 #9 ea 05/23/23 07/10/24 Rx Sensor [...] 2 lbs since that time. Currently using [employer] ([employer]OO[employer]) 780g with [employer] CGM. Insulin pump downloaded [...] cervical lordos (more content not included)... Normal [facility] - Hematology and Cell countsOrdered By: Naheed Russ on 07-10-2024 HbA1c (Bld) [Mass fraction] 7.5 % High 4.2-6.3 [facility] Endocrinology Visit Reporton 03-31-2024 Endocrinology Visit Report [facility] [address] [place] [address] OFFICE VISIT Date of Service: 03/31/24 MR#: [id number] Acct: [id number] Name: CARLYN EVANGELISTA Rep #: [id number] : 1955 Provider: MAGALIS govea Age/Sex: 68/M Location: [facility] [place] Status: Signed Intake Vital Signs 12/17/23 08:37 [...] normal gait (more content not included)... Normal [facility] - Hematology and Cell countson 03-31-2024 HbA1c (Bld) [Mass fraction] 7.2 % High 4.2-6.3 [facility] Absolute lymphocyte countOrd ered By: Shravan Gonzalez on 07-23-2023 Lymphocytes Auto (Unsp spec) [#/Vol] 1.24 10*3/uL 0.83-4.51 [facility] Automated lymphocyte count a s percentage of total leukocytesOrdered By: Shravan Gonzalez on 07-23-2023 Lymphocytes/100 WBC Auto (Unsp spec) 16.4 % 19-41 [facility] Basophil percentageOrdered B y: Shravan Gonzalez on 07-23-2023 Basophils/100 WBC (Bld) 0.4 % 0-1 [facility] Bilirubin [Mass/Vol] 0.60 mg/dL 0.20-1.00 [facility] Comment on above: For patients on eltr ombopag therapy, use of [place] TBIL is not recommended. Chloride [Moles/Vol] 105 mmol/L 98-107 [facility] Eosinophils/100 WBC (Bld) 3.2 % 0-5 [facility] Glucose [Mass/Vol] 246 mg/dL 74-106 [facility] Comment on above: Glucose result great er than or equal to 200 mg/dLsuggests DIABETES MELLITUS per A.D.A. criteria. Hemoglobin (Bld) [Mass/Vol] 14.6 g/dL 13.0-16.5 [facility] Monocytes/100 WBC (Bld) 9.8 % 0-10 [facility] Neutrophils (Bld) [#/Vol] 5.3 10*3/uL 2.0-7.7 [facility] Neutrophils/100 WBC (Bld) 69.7 % 47-70 [facility] Potassium [Moles/Vol] 4.4 mmol/L 3.5-5.1 [facility] Protein [Mass/Vol] 7.0 g/dL 6.4-8.2 [facility] Sodium [Moles/Vol] 137 mmol/L 136-145 [facility] WBC (Bld) [#/Vol] 7.6 10*3/uL 4.4-11.0 [facility] Blood manual differential co mment interpretation (narrative result)Ordered By: Shravan Gonzalez on 07-23-2023 Manual differential comment David (Bld) [Interp] SCANNED [facility] Determination of erythrocyte mean corpuscular volume (MCV)Ordered By: Shravan Gonzalez on 07-23-2023 MCV (RBC) [Entitic vol] 95.0 fL 80-94 [facility] Erythrocyte distribution wid th ratioOrdered By: Shravan Gonzalez on 07-23-2023 Erythrocyte distribution width (RBC) [Ratio] 12.4 % 11.6-14.6 [facility] Erythrocyte distribution wid th standard deviationOrdered By: Shravan Gonzalez on 07-23-2023 Erythrocyte distribution width (RBC) [Entitic vol] 43.5 fL 35.1-43.9 [facility] Hematocrit Auto (Bld) [Volum e fraction]Ordered By: Shravan Gonzalez on 07-23-2023 Hematocrit (Bld) [Volume fraction] 45.9 % 40-54 [facility] Immature granulocytes/100 WB C Auto (Bld)Ordered By: Shravan Gonzalez on 07-23-2023 Immature granulocytes/100 WBC (Bld) 0.500 % 0.0-0.9 [facility] Comment on above: IG% - Immature Granu locytes (promyelocytes, myelocytes and metamyelocytes) > 1% indicates that a LEFT SHIFT is Present. Laboratory - Chemistry and C hemistry - challengeOrdered By: Shravan Gonzalez on 07-23-2023 Albumin/Globulin [Mass ratio] 0.9 {ratio} 0.9-2.4 [facility] ALP [Catalytic activity/Vol] 79 U/L 45-117 [facility] ALT [Catalytic activity/Vol] 21 U/L 16-61 [facility] CO2 [Moles/Vol] 30.0 mmol/L 21.0-32.0 [facility] Globulin (S) [Mass/Vol] 3.6 g/dL 2.2-4.2 [facility] Urea nitrogen/Creatinine [Mass ratio] 17.1 mg/mg 10-20 [facility] - Hematology and Cell countsOrdered By: Shravan Gonzalez on 07-23-2023 MCH (RBC) [Entitic mass] 30.2 pg 27.0-32.0 [facility] MCHC (RBC) [Mass/Vol] 31.8 g/dL 32-36 [facility] Nucleated RBC/100 WBC (Bld) [Ratio] 0 % 0-5 [facility] Platelet mean volume (Bld) [Entitic vol] 14.1 fL 6.2-12.0 [facility] Platelets (Bld) [#/Vol] 151 10*3/uL 150-450 [facility] No Panel InformationOrdered By: Shravan Gonzalez on 07-23-2023 Estimated GFR (MDRD) Amer 97 mL/min >60 [facility] Comment on above: GFR Calc Estimated GFR (MDRD) Non-Af Amer 80 mL/min >60 [facility] Comment on above: Non- GFR Calc Prostate Specific Antigen Screen 0.97 ng/mL 0.00-4.00 [facility] Comment on above: This test was perfor med using the TPSA assay method for the[employer] retargeting chemistry system. Values obtained with differentassay methods cannot be used interchangably.When changing PSA assays in the course of monitoring apatient, additional sequential testing should be carriedout to confirm baseline values. Vitamin D 25-Hydroxy 44.9 ng/mL [facility] Comment on above: Vitamin D 25(OH) Sta tus Range Deficiency <20 ng/mL (50nmol/L) Insufficiency 20 - 30 ng/mL (50 - 75 nmol/L) Sufficiency 30 - 100 ng/mL (75 - 250 nmol/L) Toxicity >100 ng/mL (>250 nmol/L) RBC Auto (Bld) [#/Vol]Ordere d By: Shravan Gonzalez on 07-23-2023 RBC (Bld) [#/Vol] 4.83 10*6/uL 4.6-6.2 [facility] Serum or plasma calcium dylon urement (mass/volume)Ordered By: Shravan Gonzalez on 07-23-2023 Calcium [Mass/Vol] 9.3 mg/dL 8.5-10.1 [facility] Serum or plasma creatinine m easurement (mass/volume)Ordered By: Shravan Gonzalez on 07-23-2023 Creatinine [Mass/Vol] 0.99 mg/dL 0.70-1.30 [facility] Comment on above: The validity of the calculated GFR & GFRAA in patients over 70 years has not been determined. Clinical correlation is essential. Serum or plasma thyroid stim ulating hormone (TSH) measurement (units/volume)Ordered By: Shravan Gonzalez on 07-23-2023 TSH Qn 1.46 uIU/mL 0.358-3.74 [facility] Serum or plasma urea nitroge n measurement (mass/volume)Ordered By: Shravan Gonzalez on 07-23-2023 Urea nitrogen [Mass/Vol] 17 mg/dL 7-18 [facility] Thin prep Papanicolaou smear with manual screeningOrdered By: Shravan Gonzalez on 07-23-2023 Thin prep Papanicolaou smear with manual screening 3.4 g/dL 3.2-5.0 [facility] Thin prep Papanicolaou smear with manual screening 19 U/L 15-37 [facility] Thin prep Papanicolaou smear with manual screening 2 5-15 [facility] - Microbiology an d Antimicrobial susceptibilityOrdered By: Shravan Gonzalez on 05-21-2023 SARS-CoV-2 (COVID-19) RNA RAMON+probe Ql (Unsp spec) [facility] Basophil percentageOrdered B y: Naheed Russ on 05-11-2023 Glucose [Mass/Vol] 156 mg/dL 74-106 [facility] Comment on above: Fasting Glucose resu lt greater than or equal to 126 mg/dL suggests DIABETES MELLITUS per A.D.A. criteria. No Panel InformationOrdered By: Naheed Russ on 05-11-2023 C-Peptide < 0.1 ng/mL 1.1-4.4 [facility] Comment on above: C-Peptide reference interval is for fasting patients.Performed at: [facility] Director: Garrett Beckwith PhD, Phone: [phone] Basophil percentageOrdered B y: Naheed Russ on 05-09-2023 Bilirubin [Mass/Vol] 0.70 mg/dL 0.20-1.00 [facility] Comment on above: For patients on eltr ombopag therapy, use of [place] TBIL is not recommended. Chloride [Moles/Vol] 106 mmol/L 98-107 [facility] Glucose [Mass/Vol] 88 mg/dL 74-106 [facility] Potassium [Moles/Vol] 3.9 mmol/L 3.5-5.1 [facility] Protein [Mass/Vol] 7.1 g/dL 6.4-8.2 [facility] Sodium [Moles/Vol] 139 mmol/L 136-145 [facility] Laboratory - Chemistry and C hemistry - challengeOrdered By: Naheed Russ on 05-09-2023 ALP [Catalytic activity/Vol] 86 U/L 45-117 [facility] ALT [Catalytic activity/Vol] 22 U/L 16-61 [facility] CO2 [Moles/Vol] 33.0 mmol/L 21.0-32.0 [facility] Globulin (S) [Mass/Vol] 3.6 g/dL 2.2-4.2 [facility] Urea nitrogen/Creatinine [Mass ratio] 23.6 mg/mg 10-20 [facility] - Hematology and Cell countson 05-09-2023 HbA1c (Bld) [Mass fraction] 7.8 % 4.2-6.3 [facility] No Panel InformationOrdered By: Naheed Russ on 05-09-2023 Estimated GFR (MDRD) Amer 109 mL/min >60 [facility] Comment on above: GFR Calc Estimated GFR (MDRD) Non-Af Amer 90 mL/min >60 [facility] Comment on above: Non- GFR Calc Serum or plasma albumin dylon urement (mass/volume)Ordered By: Naheed Russ on 05-09-2023 Albumin [Mass/Vol] 3.5 g/dL 3.2-5.0 [facility] Serum or plasma albumin/glob ulin mass ratioOrdered By: Naheed Russ on 05-09-2023 Albumin/Globulin [Mass ratio] 1.0 {ratio} 0.9-2.4 [facility] Serum or plasma calcium dylon urement (mass/volume)Ordered By: Naheed Russ on 05-09-2023 Calcium [Mass/Vol] 9.6 mg/dL 8.5-10.1 [facility] Serum or plasma creatinine m easurement (mass/volume)Ordered By: Naheed Russ on 05-09-2023 Creatinine [Mass/Vol] 0.89 mg/dL 0.70-1.30 [facility] Comment on above: The validity of the calculated GFR & GFRAA in patients over 70 years has not been determined. Clinical correlation is essential. Serum or plasma urea nitroge n measurement (mass/volume)Ordered By: Naheed Russ on 05-09-2023 Urea nitrogen [Mass/Vol] 21 mg/dL 7-18 [facility] Thin prep Papanicolaou smear with manual screeningOrdered By: Naheed Russ on 05-09-2023 Thin prep Papanicolaou smear with manual screening 10 U/L 15-37 [facility] Thin prep Papanicolaou smear with manual screening 0 5-15 [facility] Absolute lymphocyte countOrd ered By: Shravan Gonzalez on 02-08-2023 Lymphocytes Auto (Unsp spec) [#/Vol] 1.63 10*3/uL 0.83-4.51 [facility] Basophil percentageOrdered B y: Shravan Gonzalez on 02-08-2023 Basophils/100 WBC (Bld) 0.1 % 0-1 [facility] Bilirubin [Mass/Vol] 0.80 mg/dL 0.20-1.00 [facility] Comment on above: For patients on eltr ombopag therapy, use of [place] TBIL is not recommended. Chloride [Moles/Vol] 107 mmol/L 98-107 [facility] Eosinophils/100 WBC (Bld) 2.8 % 0-5 [facility] Glucose [Mass/Vol] 67 mg/dL 74-106 [facility] Neutrophils (Bld) [#/Vol] 5.0 10*3/uL 2.0-7.7 [facility] Neutrophils/100 WBC (Bld) 63.8 % 47-70 [facility] Potassium [Moles/Vol] 4.4 mmol/L 3.5-5.1 [facility] Protein [Mass/Vol] 7.6 g/dL 6.4-8.2 [facility] Sodium [Moles/Vol] 141 mmol/L 136-145 [facility] WBC (Bld) [#/Vol] 7.9 10*3/uL 4.4-11.0 [facility] Blood erythrocytes count (nu mber/volume)Ordered By: Shravan Gonzalez on 02-08-2023 RBC (Bld) [#/Vol] 4.93 10*6/uL 4.6-6.2 [facility] Blood hemoglobin measurement (mass/volume)Ordered By: Shravan Gonzalez on 02-08-2023 Hemoglobin (Bld) [Mass/Vol] 15.3 g/dL 13.0-16.5 [facility] Blood lymphocytes/100 leukoc ytesOrdered By: Shravan Gonzalez on 02-08-2023 Lymphocytes/100 WBC (Bld) 20.6 % 19-41 [facility] Blood monocytes/100 leukocyt esOrdered By: Shravan Gonzalez on 02-08-2023 Monocytes/100 WBC (Bld) 12.2 % 0-10 [facility] Blood platelet mean volumeOr dered By: Shravan Gonzalez on 02-08-2023 Platelet mean volume (Bld) [Entitic vol] 13.9 fL 6.2-12.0 [facility] Determination of erythrocyte mean corpuscular volume (MCV)Ordered By: Shravan Gonzalez on 02-08-2023 MCV (RBC) [Entitic vol] 96.8 fL 80-94 [facility] Hematocrit Auto (Bld) [Volum e fraction]Ordered By: Shravan Payam on 02-08-2023 Hematocrit (Bld) [Volume fraction] 47.7 % 40-54 [facility] Laboratory - Chemistry and C hemistry - challengeOrdered By: Shravan Gonzalez on 02-08-2023 ALP [Catalytic activity/Vol] 86 U/L 45-117 [facility] ALT [Catalytic activity/Vol] 28 U/L 16-61 [facility] CO2 [Moles/Vol] 30.0 mmol/L 21.0-32.0 [facility] Globulin (S) [Mass/Vol] 3.7 g/dL 2.2-4.2 [facility] Urea nitrogen/Creatinine [Mass ratio] 19.7 mg/mg 10-20 [facility] Laboratory - Hematology and Cell countsOrdered By: Shravan Gonzalez 02-08-2023 Erythrocyte distribution width (RBC) [Entitic vol] 44.1 fL 35.1-43.9 [facility] Erythrocyte distribution width (RBC) [Ratio] 12.4 % 11.6-14.6 [facility] Immature granulocytes/100 WBC (Bld) 0.500 % 0.0-0.9 [facility] Comment on above: IG% - Immature Granu locytes (promyelocytes, myelocytes and metamyelocytes) > 1% indicates that a LEFT SHIFT is Present. MCH (RBC) [Entitic mass] 31.0 pg 27.0-32.0 [facility] Nucleated RBC/100 WBC (Bld) [Ratio] 0 % 0-5 [facility] MCHC Auto (RBC) [Mass/Vol]Or dered By: Shravan Gonzalez on 02-08-2023 MCHC (RBC) [Mass/Vol] 32.1 g/dL 32-36 [facility] No Panel InformationOrdered By: Shravan Gonzalez on 02-08-2023 Estimated GFR (MDRD) Amer 100 mL/min >60 [facility] Comment on above: GFR Calc Estimated GFR (MDRD) Non-Af Amer 83 mL/min >60 [facility] Comment on above: Non- GFR Calc Thyroid Stimulating Hormone (TSH) 1.63 uIU/mL 0.358-3.74 [facility] Vitamin D 25-Hydroxy 41.4 ng/mL [facility] Comment on above: Vitamin D 25(OH) Sta tus Range Deficiency <20 ng/mL (50nmol/L) Insufficiency 20 - 30 ng/mL (50 - 75 nmol/L) Sufficiency 30 - 100 ng/mL (75 - 250 nmol/L) Toxicity >100 ng/mL (>250 nmol/L) Platelets bldOrdered By: Shravan Gonzalez on 02-08-2023 Platelets (Bld) [#/Vol] 140 10*3/uL 150-450 [facility] Serum or plasma albumin dylon urement (mass/volume)Ordered By: Shravan Gonzalez on 02-08-2023 Albumin [Mass/Vol] 3.9 g/dL 3.2-5.0 [facility] Serum or plasma albumin/glob ulin mass ratioOrdered By: Shravan Gonzalez on 02-08-2023 Albumin/Globulin [Mass ratio] 1.1 {ratio} 0.9-2.4 [facility] Serum or plasma calcium dylon urement (mass/volume)Ordered By: Shravan Gonzalez on 02-08-2023 Calcium [Mass/Vol] 9.7 mg/dL 8.5-10.1 [facility] Serum or plasma creatinine m easurement (mass/volume)Ordered By: Shravan Gonzalez on 02-08-2023 Creatinine [Mass/Vol] 0.96 mg/dL 0.70-1.30 [facility] Comment on above: The validity of the calculated GFR & GFRAA in patients over 70 years has not been determined. Clinical correlation is essential. Serum or plasma urea nitroge n measurement (mass/volume)Ordered By: Shravan Gonzalez on 02-08-2023 Urea nitrogen [Mass/Vol] 19 mg/dL 7-18 [facility] Thin prep Papanicolaou smear with manual screeningOrdered By: Shravan Gonzalez on 02-08-2023 Thin prep Papanicolaou smear with manual screening 18 U/L 15-37 [facility] Thin prep Papanicolaou smear with manual screening 4 5-15 [facility] XR SPINE LUMBAR W/OBLIQUES 4 [...] 10/16/2022 12:58:14 PM Ordering Provider: JUSTIN Mtz [facility] ([place]) .Auto Diffon 09-11-2022 Basophil, Absolute 0.0 10 3/mcL Normal 0.0-0.2 [facility]) Comment on above: Performed By: #### A 1C, ADIFF, CBC, BMP, MG, LIPID, GFR, ANEU #### [address] [address] Basophils/100 WBC (Bld) 0.1 % Normal 0.0-2.5 A [facility] ([place]) Comment on above: Performed By: #### A 1C, ADIFF, CBC, BMP, MG, LIPID, GFR, ANEU #### [id number] [place], [place] [address] Eosinophil, Absolute 0.0 10 3/mcL Normal 0.0-0.4 [facility] ([place]) Comment on above: Performed By: #### A 1C, ADIFF, CBC, BMP, MG, LIPID, GFR, ANEU #### [address] [address] Eosinophils/100 WBC (Bld) 0.0 % Normal 0.0-7.0 [facility] ([place]) Comment on above: Performed By: #### A 1C, ADIFF, CBC, BMP, MG, LIPID, GFR, ANEU #### [address] [address] Lymphocyte, Absolute 0.4 10 3/mcL Low 0.8-3.9 [facility] ([place]) Comment on above: Performed By: #### A 1C, ADIFF, CBC, BMP, MG, LIPID, GFR, ANEU #### [address] [address] Lymphocytes/100 WBC (Bld) 3.0 % Low 10.0-50.0 [facility] ([place] Comment on above: Performed By: #### A 1C, ADIFF, CBC, BMP, MG, LIPID, GFR, ANEU #### [address] [address] Monocyte, Absolute 0.8 10 3/mcL Normal 0.2-1.0 [facility] ([place]) Comment on above: Performed By: #### A 1C, ADIFF, CBC, BMP, MG, LIPID, GFR, ANEU #### [address] [address] Monocytes/100 WBC (Bld) 5.6 % Normal 1.7-13.0 [facility] ([place]) Comment on above: Performed By: #### A 1C, ADIFF, CBC, BMP, MG, LIPID, GFR, ANEU #### [address] [address] Neutrophils/100 WBC (Bld) 91.3 % High 37.0-80.0 [facility] ([place]) Comment on above: Performed By: #### A 1C, ADIFF, CBC, BMP, MG, LIPID, GFR, ANEU #### [id number] [place], [place] [address] .GFRon 09-11-2022 GFR 72 ml/min/1.73sqm Normal [facility] ([place]) Comment on above: Result Comment: GFR Population [...] BMP, MG, LIPID, GFR, ANEU ####[address] [place], [place] [address] GFR Non- 59 ml/min/1.73sqm Normal [facility] ([place]) Comment on above: Result Comment: GFR Population [...] CBC, BMP, MG, LIPID, GFR, ANEU ####[address] [place], [place] [address] .NEUABSon 09-11-2022 Neutrophil, Absolute 13.1 10 3/mcL High 2.9-6.2 A [facility] ([place]) Comment on above: Performed By: #### A 1C, ADIFF, CBC, BMP, MG, LIPID, GFR, ANEU #### [address] [address] A1Con 09-11-2022 HbA1c (Bld) [Mass fraction] 8.3 % High 4.3-6.4 [facility] ([place]) Comment on above: Performed By: #### A 1C, ADIFF, CBC, BMP, MG, LIPID, GFR, ANEU #### [address] [address] BMPon 09-11-2022 BUN/Creatinine Ratio 19 ratio Normal 7-27 [facility] ([place]) Comment on above: Performed By: #### A 1C, ADIFF, CBC, BMP, MG, LIPID, GFR, ANEU #### [address] [address] Calcium [Mass/Vol] 9.0 mg/dL Normal 8.4-10.2 [facility] ([place]) Comment on above: Performed By: #### A 1C, ADIFF, CBC, BMP, MG, LIPID, GFR, ANEU #### [address] [address] Chloride [Moles/Vol] 103 mmol/L Normal 98-107 [facility] ([place]) Comment on above: Performed By: #### A 1C, ADIFF, CBC, BMP, MG, LIPID, GFR, ANEU #### [address] [address] CO2 [Moles/Vol] 26 mmol/L Normal 23-31 [facility] ([place] Comment on above: Performed By: #### A 1C, ADIFF, CBC, BMP, MG, LIPID, GFR, ANEU #### [address] [address] Creatinine [Mass/Vol] 1.22 mg/dL Normal 0.70-1.30 [facility] ([place]) Comment on above: Performed By: #### A 1C, ADIFF, CBC, BMP, MG, LIPID, GFR, ANEU #### [address] [address] Electrolyte Balance 11.0 mEq/L Normal 4.0-15.0 [facility] ([place]) Comment on above: Performed By: #### A 1C, ADIFF, CBC, BMP, MG, LIPID, GFR, ANEU #### [address] [address] Glucose [Mass/Vol] 257 mg/dL High 80-115 [facility] ([place]) Comment on above: Performed By: #### A 1C, ADIFF, CBC, BMP, MG, LIPID, GFR, ANEU #### [address] [address] Potassium [Moles/Vol] 5.0 mmol/L Normal 3.5-5.1 [facility] ([place]) Comment on above: Performed By: #### A 1C, ADIFF, CBC, BMP, MG, LIPID, GFR, ANEU #### [address] [address] Sodium [Moles/Vol] 140 mmol/L Normal 136-145 [facility] ([place]) Comment on above: Performed By: #### A 1C, ADIFF, CBC, BMP, MG, LIPID, GFR, ANEU #### [address] [address] Urea nitrogen [Mass/Vol] 23 mg/dL High 7-18 [facility] ([place] Comment on above: Performed By: #### A 1C, ADIFF, CBC, BMP, MG, LIPID, GFR, ANEU #### [address] [address] CBCon 09-11-2022 Erythrocyte distribution width (RBC) [Ratio] 13.0 % Normal 11.5-14.5 [facility] ([place]) Comment on above: Performed By: #### A 1C, ADIFF, CBC, BMP, MG, LIPID, GFR, ANEU #### [address] [address] Hematocrit (Bld) [Volume fraction] 40.9 % Low 42.0-52.0 [facility] ([place] Comment on above: Performed By: #### A 1C, ADIFF, CBC, BMP, MG, LIPID, GFR, ANEU #### [address] [address] Hgb 13.5 G/dL Low 14.0-18.0 [facility] ([place] Comment on above: Performed By: #### A 1C, ADIFF, CBC, BMP, MG, LIPID, GFR, ANEU #### [id number] MCH (RBC) [Entitic mass] 30.8 pg Normal 27.0-31.2 [facility] ([place] Comment on above: Performed By: #### A 1C, ADIFF, CBC, BMP, MG, LIPID, GFR, ANEU #### [address] [address] MCHC 33.1 G/dL Normal 31.8-35.4 [facility] ([place] Comment on above: Performed By: #### A 1C, ADIFF, CBC, BMP, MG, LIPID, GFR, ANEU #### [address] [address] MCV (RBC) [Entitic vol] 93.1 fL Normal 80.0-94.0 A [facility] ([place] Comment on above: Performed By: #### A 1C, ADIFF, CBC, BMP, MG, LIPID, GFR, ANEU #### [address] [id number] Platelet 113 10 3/mcL Low 130-400 [facility] ([place] Comment on above: Performed By: #### A 1C, ADIFF, CBC, BMP, MG, LIPID, GFR, ANEU #### [address] [id number] Platelet mean volume (Bld) [Entitic vol] 12.6 fL High 7.4-10.4 [facility] ([place]) Comment on above: Performed By: #### A 1C, ADIFF, CBC, BMP, MG, LIPID, GFR, ANEU #### [address] [address] RBC 4.39 10 6/mcL Normal 4.04-6.13 [facility] ([place]) Comment on above: Performed By: #### A 1C, ADIFF, CBC, BMP, MG, LIPID, GFR, ANEU #### [facility] [address] [place], [place] [address] WBC 14.3 10 3/mcL High 4.6-10.8 [facility] ([place]) Comment on above: Performed By: #### A 1C, ADIFF, CBC, BMP, MG, LIPID, GFR, ANEU #### [address] [place], [place] [address] CT ANGIOGRAPHY HEAD W/ CONTR Vishal 09-11-2022 [...] 09/10/2022 10:02:52 PM Ordering Provider: PIERRE Mtz [facility] ([place]) CT ANGIOGRAPHY NECK W/CONTRA STon 09-11-2022 CT [...] 09/10/2022 10:06:27 PM Ordering Provider: PIERRE Mtz [facility] ([place] LABORATORYOrdered By: Catrachita Schultz on 09-11-2022 Blood Glucose Testing Reason Routine (09/11/22 11:47 AM) [facility] Work Phone: Glucose [Mass/Vol] 299 mg/dL Invalid Interpretation Code 82 - 115 mg/dL [facility] Work Phone: Blood Glucose Testing Reason Routine (09/11/22 7:10 AM) [facility] Work Phone: Glucose [Mass/Vol] 279 mg/dL Invalid Interpretation Code 82 - 115 mg/dL [facility] Work Phone: LABORATORYOrdered By: Maranda Guzman [...] Invalid Interpretation Code 82 - 115 mg/dL [facility] Work Phone: LIPIDon 09-11-2022 Cholesterol [Mass/Vol] 208 mg/dL High 0-200 [facility] ([place]) Comment on above: Result Comment: Chol esterol Reference Interval: Less than 200 Desirable 200-239 Borderline high risk 240 and above High risk Performed By: #### A 1C, ADIFF, CBC, BMP, MG, LIPID, GFR, ANEU ####[address] [place], [place] [address] Cholesterol in HDL [Mass/Vol] 91 mg/dL High 40-60 [facility] ([place] Comment on above: Performed By: #### A 1C, ADIFF, CBC, BMP, MG, LIPID, GFR, ANEU ####[address] [place], [place] [address] Cholesterol in LDL [Mass/Vol] 109 mg/dL Normal 0-130 [facility] ([place] Comment on above: Performed By: #### A 1C, ADIFF, CBC, BMP, MG, LIPID, GFR, ANEU ####[address] [place], [place] [address] Triglyceride [Mass/Vol] 40 mg/dL Normal 0-150 A [facility] ([place] Comment on above: Result Comment: Trig lyceride Reference Interval: Less than 150 Normal 150-199 Borderline high risk 200-499 High risk 500 or higher Very high risk Performed By: #### A 1C, ADIFF, CBC, BMP, MG, LIPID, GFR, ANEU ####[address] [place], [place] [address] MGon 09-11-2022 Magnesium [Mass/Vol] 1.5 mg/dL Low 1.8-2.4 [facility] ([place]) Comment on above: Performed By: #### A 1C, ADIFF, CBC, BMP, MG, LIPID, GFR, ANEU #### [address] [place], [place] [address] MRI BRAIN W/O CONTRASTon MRI BRAIN W/O [...] 09/11/2022 9:34:19 AM Ordering Provider: DOMENICO HALE Normal [facility] ([place]) UAon 09-11-2022 Color (U) Yellow Normal [facility] ([place] Comment on above: Performed By: #### U A ####[address] [place], [place] [address] Glucose (U) [Mass/Vol] 500 mg/dL Abnormal Negative [facility] ([place]) Comment on above: Performed By: #### U A ####[address] [place], [place] [address] Ketones Ql (U) 80 mg/dL Abnormal Negative [facility] ([place] Comment on above: Performed By: #### U A ####[address] [place], [place] [address] UA Appear Clear Normal Clear [facility] ([place] Comment on above: Performed By: #### U A ####[address] [place], [place] [address] UA Blood Negative Normal Negative [facility] ([place] Comment on above: Performed By: #### U A ####[address] [place], [place] [address] UA Leuk Est Negative Normal Negative [facility] ([place] Comment on above: Performed By: #### U A ####[address] [place] [address] UA Nitrite Negative Normal Negative [facility] ([place] Comment on above: Performed By: #### U A ####[address] [place] [address] UA pH 7.5 Normal 5.0 - 8.0 [facility] ([place] Comment on above: Performed By: #### U A ####[address] [place] [address] UA Protein Negative Normal Negative [facility] ([place] Comment on above: Performed By: #### U A ####[address] [place] [address] UA Spec Grav 1.015 Normal 1.015-1.025 [facility] ([place] Comment on above: Performed By: #### U A ####[address] [place], [place] [address] UA Specimen Type Clean Catch Normal [facility] ([place] Comment on above: Performed By: #### U A ####[address] [place] [address] UA Urobilinogen 0.2 E.U./dL Normal 0.2-1.0 [facility] ([place] Comment on above: Performed By: #### U A ####[address] [place] [address] Urobilinogen (U) [Mass/Vol] Negative Normal Negative [facility] ([place] Comment on above: Performed By: #### U A ####[address] [place] [address] .Auto DiffOrdered By: Olman Fritz on 09-10-2022 Basophil, Absolute 0.0 103/mcL Normal 0.0-0.2 AO Wo rkflow SS Comment on above: Performed By: #### T ROPHS, GFR, CBC, APTT, ADIFF, MDW, ANEU, BMP, PRO ####[address] [place], [place] [address] Basophils/100 WBC (Bld) 0.3 % Normal 0.0-2.5 A O Workflow SS Comment on above: Performed By: #### T ROPHS, GFR, CBC, APTT, ADIFF, MDW, ANEU, BMP, PRO ####[address] [place], [place] [address] Eosinophil, Absolute 0.1 103/mcL Normal 0.0-0.4 AO Workflow SS Comment on above: Performed By: #### T ROPHS, GFR, CBC, APTT, ADIFF, MDW, ANEU, BMP, PRO ####[address] [place], [place] [address] Eosinophils/100 WBC (Bld) 0.8 % Normal 0.0-7.0 AO Workflow SS Comment on above: Performed By: #### T ROPHS, GFR, CBC, APTT, ADIFF, MDW, ANEU, BMP, PRO ####[address] [place], [place] [address] Lymphocyte, Absolute 1.3 103/mcL Normal 0.8-3.9 AO Workflow SS Comment on above: Performed By: #### T ROPHS, GFR, CBC, APTT, ADIFF, MDW, ANEU, BMP, PRO ####[address] [place], [place] [address] Lymphocytes/100 WBC (Bld) 12.7 % Normal 10.0-50.0 AO Workflow SS Comment on above: Performed By: #### T ROPHS, GFR, CBC, APTT, ADIFF, MDW, ANEU, BMP, PRO ####[address] [place], [place] [address] Monocyte, Absolute 0.6 103/mcL Normal 0.2-1.0 AO Wo rkflow SS Comment on above: Performed By: #### T LISA, GFR, CBC, APTT, ADIFF, MDW, ANEU, BMP, PRO ####[address] [place], [place] [address] Monocytes/100 WBC (Bld) 6.1 % Normal 1.7-13.0 A O Workflow SS Comment on above: Performed By: #### T LISA, GFR, CBC, APTT, ADIFF, MDW, ANEU, BMP, PRO ####[address] [place], [place] [address] Neutrophils/100 WBC (Bld) 80.1 % High 37.0-80.0 AO Workflow SS Comment on above: Performed By: #### T LISA, GFR, CBC, APTT, ADIFF, MDW, ANEU, BMP, PRO ####[address] [place], [place] [address] .GFRon 09-10-2022 GFR 83 ml/min/1.73sqm Normal [facility] ([place]) Comment on above: Result Comment: GFR Population [...] APTT, ADIFF, MDW, ANEU, BMP, PRO ####[address] [place], [place] [address] GFR Non- 68 ml/min/1.73sqm Normal [facility] ([place]) Comment on above: Result Comment: GFR Population [...] ADIFF, MDW, ANEU, BMP, PRO ####[address] [place], [place] [address] .MDWon 09-10-2022 Monocyte Distribution Width 15.37 Normal 0.00-20.00 [facility] ([place]) Comment on above: Result Comment: For ED adult patients suspected of sepsis, MDW<=20.0 does not rule out sepsis or risk of sepsis Performed By: #### T LISA, GFR, CBC, APTT, ADIFF, MDW, ANEU, BMP, PRO ####[address] [place], [place] [address] .NEUABSOrdered By: Shelley Fritz on 09-10-2022 Neutrophil, Absolute 7.9 103/mcL High 2.9-6.2 AO Workflow SS Comment on above: Performed By: #### T LISA, GFR, CBC, APTT, ADIFF, MDW, ANEU, BMP, PRO ####[address] [place], [place] [address] APTTon 09-10-2022 aPTT Coag (Bld) [Time] 34.8 s Normal 25.0-35.0 [facility] ([place]) Comment on above: Result Comment: For Heparin anticoagulation therapy, the recommended therapeutic range is: 50.6-87.4 seconds. Patients on heparin therapy may have an extreme result. Performed By: #### T LISA, GFR, CBC, APTT, ADIFF, MDW, ANEU, BMP, PRO ####[address] [place], [place] [address] Heparin dose (APTT) None Normal [facility] ([place]) Comment on above: Performed By: #### T LISA, GFR, CBC, APTT, CONTRERAS, MAXIMILIAN, ANEU, BMP, PRO ####[address] [place], [place] [address] BMPon 09-10-2022 BUN/Creatinine Ratio 20 ratio Normal 7-27 [facility] ([place]) Comment on above: Performed By: #### T LISA, GFR, CBC, APTT, ADRADHA, MDW, ANEU, BMP, PRO ####[address] [place], [place] [address] BMPOrdered By: SYSTEM SYSTEM on 09-10-2022 Calcium [Mass/Vol] 9.5 mg/dL Normal 8.4-10.2 AO ADM SS Comment on above: Performed By: #### T LISA, GFR, CBC, APTT, ADRADHA, MAXIMILIAN, ANEU, BMP, PRO ####[address] [place], [place] [address] Chloride [Moles/Vol] 100 mmol/L Normal 98-107 AO A DM SS Comment on above: Performed By: #### T LISA, GFR, CBC, APTT, ADRADHA, MAXIMILIAN, ANEU, BMP, PRO ####[address] [place], [place] [address] CO2 [Moles/Vol] 25 mmol/L Normal 23-31 AO ADM SS Comment on above: Performed By: #### T LISA, GFR, CBC, APTT, ADRADHA, W, ANEU, BMP, PRO ####[address] [place], [place] [address] Creatinine [Mass/Vol] 1.08 mg/dL Normal 0.70-1.30 AO ADM SS Comment on above: Performed By: #### T LISA, GFR, CBC, APTT, ADRADHA, MDW, ANEU, BMP, PRO ####[address] [place], [place] [address] Electrolyte Balance 13.0 mEq/L Normal 4.0-15.0 AO AD M SS Comment on above: Performed By: #### T LISA, GFR, CBC, APTT, ADIFF, MDW, ANEU, BMP, PRO ####[address] [place], [place] [address] Glucose [Mass/Vol] 290 mg/dL High 80-115 AO ADM SS Comment on above: Performed By: #### T GEOVANNIHS, GFR, CBC, APTT, ADIFF, MDW, ANEU, BMP, PRO ####[address] [place], [place] [address] Potassium [Moles/Vol] 4.2 mmol/L Normal 3.5-5.1 AO ADM SS Comment on above: Performed By: #### T LISA, GFR, CBC, APTT, ADIFF, MDW, ANEU, BMP, PRO ####[address] [place], [place] [address] Sodium [Moles/Vol] 138 mmol/L Normal 136-145 AO ADM SS Comment on above: Performed By: #### T LISA, GFR, CBC, APTT, ADIFF, MDW, ANEU, BMP, PRO ####[address] [place], [place] [address] Urea nitrogen [Mass/Vol] 22 mg/dL High 7-18 AO ADM SS Comment on above: Performed By: #### T LISA, GFR, CBC, APTT, ADIFF, MDW, ANEU, BMP, PRO ####[address] [place], [place] [address] CBCOrdered By: Shelley franklin on 09-10-2022 Erythrocyte distribution width (RBC) [Ratio] 12.7 % Normal 11.5-14.5 AO Workflow SS Comment on above: Performed By: #### T LISA, GFR, CBC, APTT, ADIFF, MDW, ANEU, BMP, PRO ####[address] [place], [place] [address] Hematocrit (Bld) [Volume fraction] 44.2 % Normal 42.0-52.0 AO Workflow SS Comment on above: Performed By: #### T LISA, GFR, CBC, APTT, ADIFF, MDW, ANEU, BMP, PRO ####[address] [place], [place] [address] MCH (RBC) [Entitic mass] 30.8 pg Normal 27.0-31.2 AO Workflow SS Comment on above: Performed By: #### T LISA, GFR, CBC, APTT, ADRADHA, MDW, ANEU, BMP, PRO ####[address] [place], [place] [address] MCHC 33.4 G/dL Normal 31.8-35.4 AO Workflow SS Comment on above: Performed By: #### T LISA, GFR, CBC, APTT, ADRADHA, MDW, ANEU, BMP, PRO ####[address] [place], [place] [address] MCV (RBC) [Entitic vol] 92.2 fL Normal 80.0-94.0 A O Workflow SS Comment on above: Performed By: #### T LISA, GFR, CBC, APTT, ADRADHA, MDW, ANEU, BMP, PRO ####[address] [place], [place] [address] Platelet mean volume (Bld) [Entitic vol] 12.1 fL High 7.4-10.4 AO Workflow SS Comment on above: Performed By: #### T LISA, GFR, CBC, APTT, CONTRERAS, MAXIMILIAN, ANEU, BMP, PRO ####[address] [place], [place] [address] CBCon 09-10-2022 Hgb 14.7 G/dL Normal 14.0-18.0 [facility] ([place] Comment on above: Performed By: #### T LISA, GFR, CBC, APTT, CONTRERAS, MAXIMILIAN, ANEU, BMP, PRO ####[address] [place], [place] [address] Platelet 123 10 3/mcL Low 130-400 [facility] ([place] Comment on above: Performed By: #### T LISA, GFR, CBC, APTT, ADRADHA, W, ANEU, BMP, PRO ####[address] [place], [place] [address] RBC 4.79 10 6/mcL Normal 4.04-6.13 [facility] ([place] Comment on above: Performed By: #### T ROPELVIA, GFR, CBC, APTT, MAXIMILIAN CHAIREZ, ANEU, BMP, PRO ####[address] [place], [place] [address] WBC 9.9 10 3/mcL Normal 4.6-10.8 [facility] ([place] Comment on above: Performed By: #### T LISA, GFR, CBC, APTT, MAXIMILIAN CHAIREZ, ANEU, BMP, PRO ####Y[address]anda [address] [place], [place] [address] CT HEAD OR BRAIN W/O CONTRAS Ton [...] 09/10/2022 8:37:23 PM Ordering Provider: PIERRE Mtz [facility] ([place] LABORATORYOrdered By: Olman Fritz on 09-10-2022 Appearance [...] APTT, MAXIMILIAN CHAIREZ, ANEU, BMP, PRO ####[address] [place], [place] [address] PROon 09-10-2022 PT International Ratio 1.0 Normal [facility] ([place]) Comment on above: Result Comment: The [employer] (CHEST, 1991, 102:312S-25S) recommended therapeutic range for oral anticoagulant therapy is: LOW RISK: Prophylaxis of venous thrombosis INR: 2.0-3.0 Treatment of pulmonary embolism 2.0-3.0 Prevention of systemic embolism 2.0-3.0 HIGH RISK: Mechanical prosthetic valves 2.5-3.5 Performed By: #### T LISA, GFR, CBC, APTT, MAXIMILIAN CHAIREZ, ANEU, BMP, PRO ####Yolanda [id number] [place], [place] [address] TROPHSon 09-10-2022 Troponin I High Sensitivity 6.7 ng/L Normal 0.0-76.2 [facility] ([place]) Comment on above: Performed By: #### T ROPHS, GFR, CBC, APTT, MD CONTRERASW, ANEU, BMP, PRO ####Yolanda [address] [place], [place] [address] XR CHEST 1 VIEWon 09-10-2022 XR CHEST [...] Date: 09/10/2022 8:35:15 PM Ordering Provider: PIERRE Mtz [place] [facility] Absolute lymphocyte countOrd ered By: Shravan Gonzalez on 07-19-2022 Lymphocytes Auto (Unsp spec) [#/Vol] 1.45 10*3/uL 0.83-4.51 [facility] Basophil percentageOrdered B y: Shravan Gonzalez on 07-19-2022 Basophils/100 WBC (Bld) 0.1 % 0-1 [facility] Bilirubin [Mass/Vol] 0.50 mg/dL 0.20-1.00 [facility] Comment on above: For patients on eltr ombopag therapy, use of [place]ension [place] TBIL is not recommended. Chloride [Moles/Vol] 102 mmol/L 98-107 [facility] Eosinophils/100 WBC (Bld) 1.9 % 0-5 [facility] Glucose [Mass/Vol] 154 mg/dL 74-106 [facility] Comment on above: Fasting Glucose resu lt greater than or equal to 126 mg/dL suggests DIABETES MELLITUS per A.D.A. criteria. Neutrophils (Bld) [#/Vol] 5.3 10*3/uL 2.0-7.7 [facility] Neutrophils/100 WBC (Bld) 67.6 % 47-70 [facility] Potassium [Moles/Vol] 4.3 mmol/L 3.5-5.1 [facility] Protein [Mass/Vol] 7.3 g/dL 6.4-8.2 [facility] Sodium [Moles/Vol] 140 mmol/L 136-145 [facility] WBC (Bld) [#/Vol] 7.9 10*3/uL 4.4-11.0 [facility] Blood erythrocytes count (nu mber/volume)Ordered By: Shravan Gonzalez on 07-19-2022 RBC (Bld) [#/Vol] 4.76 10*6/uL 4.6-6.2 [facility] Blood hemoglobin measurement (mass/volume)Ordered By: Shravan Gonzalez on 07-19-2022 Hemoglobin (Bld) [Mass/Vol] 14.7 g/dL 13.0-16.5 [facility] Blood lymphocytes/100 leukoc ytesOrdered By: Shravan Gonzalez on 07-19-2022 Lymphocytes/100 WBC (Bld) 18.5 % 19-41 [facility] Blood monocytes/100 leukocyt esOrdered By: Shravan Gonzalez on 07-19-2022 Monocytes/100 WBC (Bld) 11.5 % 0-10 [facility] Blood platelet mean volumeOr dered By: Shravan Gonzalez on 07-19-2022 Platelet mean volume (Bld) [Entitic vol] 14.4 fL 6.2-12.0 [facility] Determination of erythrocyte mean corpuscular volume (MCV)Ordered By: Shravan Gonzalez on 07-19-2022 MCV (RBC) [Entitic vol] 96.2 fL 80-94 [facility] Hematocrit Auto (Bld) [Volum e fraction]Ordered By: Shravan Gonzalez on 07-19-2022 Hematocrit (Bld) [Volume fraction] 45.8 % 40-54 [facility] Laboratory - Chemistry and C hemistry - challengeOrdered By: Shravan Gonzalez on 07-19-2022 ALP [Catalytic activity/Vol] 82 U/L 45-117 [facility] ALT [Catalytic activity/Vol] 29 U/L 16-61 [facility] CO2 [Moles/Vol] 31.0 mmol/L 21.0-32.0 [facility] Globulin (S) [Mass/Vol] 3.4 g/dL 2.2-4.2 [facility] Urea nitrogen/Creatinine [Mass ratio] 24.6 mg/mg 10-20 [facility] Laboratory - Hematology and Cell countsOrdered By: Shravan Gonzalez on 07-19-2022 Erythrocyte distribution width (RBC) [Entitic vol] 43.6 fL 35.1-43.9 [facility] Erythrocyte distribution width (RBC) [Ratio] 12.1 % 11.6-14.6 [facility] Immature granulocytes/100 WBC (Bld) 0.400 % 0.0-0.9 [facility] Comment on above: IG% - Immature Granu locytes (promyelocytes, myelocytes and metamyelocytes) > 1% indicates that a LEFT SHIFT is Present. MCH (RBC) [Entitic mass] 30.9 pg 27.0-32.0 [facility] Nucleated RBC/100 WBC (Bld) [Ratio] 0 % 0-5 [facility] MCHC Auto (RBC) [Mass/Vol]Or dered By: Shravan Gonzalez on 07-19-2022 MCHC (RBC) [Mass/Vol] 32.1 g/dL 32-36 [facility] No Panel InformationOrdered By: Shravan Gonzalez on 07-19-2022 Estimated GFR (MDRD) Amer 104 mL/min >60 [facility] Comment on above: GFR Calc Estimated GFR (MDRD) Non-Af Amer 86 mL/min >60 [facility] Comment on above: Non- GFR Calc Hepatitis C Antibody Non-Reactive Nonreactive [facility] Comment on above: Non Reactive: < 0.8 Equivocal: >/= 0.8 to < 1.0 Reactive: >/= 1.0The CDC recommends that a reactive/equivocal HCV antibody result be followed up by the HCV Nucleic Acid Amplificationtest (800325) Prostate Specific Antigen Screen 0.90 ng/mL 0.00-4.00 [facility] Comment on above: This test was perfor med using the TPSA assay method for the[employer] retargeting chemistry system. Values obtained with differentassay methods cannot be used interchangably.When changing PSA assays in the course of monitoring apatient, additional sequential testing should be carriedout to confirm baseline values. Thyroid Stimulating Hormone (TSH) 1.70 uIU/mL 0.358-3.74 [facility] Vitamin D 25-Hydroxy 54.6 ng/mL [facility] Comment on above: Vitamin D 25(OH) Sta tus Range Deficiency <20 ng/mL (50nmol/L) Insufficiency 20 - 30 ng/mL (50 - 75 nmol/L) Sufficiency 30 - 100 ng/mL (75 - 250 nmol/L) Toxicity >100 ng/mL (>250 nmol/L) Platelets bldOrdered By: Shravan Gonzalez on 07-19-2022 Platelets (Bld) [#/Vol] 145 10*3/uL 150-450 [facility] Serum or plasma albumin dylon urement (mass/volume)Ordered By: Shravan Gonzalez on 07-19-2022 Albumin [Mass/Vol] 3.9 g/dL 3.2-5.0 [facility] Serum or plasma albumin/glob ulin mass ratioOrdered By: Shravan Gonzalez 07-19-2022 Albumin/Globulin [Mass ratio] 1.1 {ratio} 0.9-2.4 [facility] Serum or plasma calcium dylon urement (mass/volume)Ordered By: Shravan Gonzalez 07-19-2022 Calcium [Mass/Vol] 9.7 mg/dL 8.5-10.1 [facility] Serum or plasma creatinine m easurement (mass/volume)Ordered By: Shravan Gonzalez 07-19-2022 Creatinine [Mass/Vol] 0.94 mg/dL 0.70-1.30 [facility] Comment on above: The validity of the calculated GFR & GFRAA in patients over 70 years has not been determined. Clinical correlation is essential. Serum or plasma urea nitroge n measurement (mass/volume)Ordered By: Shravan Gonzalez on 07-19-2022 Urea nitrogen [Mass/Vol] 23 mg/dL 7-18 [facility] Thin prep Papanicolaou smear with manual screeningOrdered By: Shravan Gonzalez on 07-19-2022 Thin prep Papanicolaou smear with manual screening 20 U/L 15-37 [facility] Thin prep Papanicolaou smear with manual screening 7 5-15 [facility] Brittnee 08-17-2021 FERR 185.0 NG/ML Normal 24.0-388.0 [facility] Comment on above: Performed By: #### L [id number], [id number], L500.88400, L500.07967 #### [facility] [place] [id number] IRON PANELon 08-17-2021 Iron [Mass/Vol] 104 ug/dL Normal 65-175 [facility] Comment on above: Result Comment: Kailee ents treated with metal-binding drugs (e.g.deferoxamine) may have depressed iron values, as chelated iron may not properly react in the Siemens iron assay. Performed By: #### L 500.27769, L500.81126, L500.40684, L500.62543 #### [facility] [address] [place], [place] [id number] IRON SAT 40 % Normal 30-44 [facility] Comment on above: Performed By: #### L 500.53924, L500.85300, L500.95614, L500.82276 #### [facility] [address] [place] [address] TIBC 260 UG/DL Normal 221-481 [facility] Comment on above: Performed By: #### L 500.03192, L500.12432, L500.18832, L500.38966 #### [facility] [address] [place] [address] MAGNESIUMon 08-17-2021 Magnesium [Mass/Vol] 1.8 mg/dL Normal 1.6-2.6 [facility] Comment on above: Performed By: #### L 500.65013, L500.03207, L500.00659, L500.03364 #### [facility] [place] [address] PHOSon 08-17-2021 Phosphate [Mass/Vol] 2.90 mg/dL Normal 2.5-4.9 [facility] Comment on above: Result Comment: Elev ated m-protein (paraprotein) levels in the serum may be exhibited in patients with monoclonal gammopathies, causing falsely elevated inorganic phosphorus results. Performed By: #### L 500.72737, L500.04954, L500.01907, L500.37308 #### [facility] [place] [address] PTH INTACTon 08-17-2021 PTH INTACT 14.9 PG/ML Normal 14-72 [facility] Comment on above: Performed By: #### L 550.81860 #### [facility] [address] [place] [id number] Vital Signs Date Time Vital Sign Value Performing Clinician Facility 01-26-2025 08:37-0400 Body height 167.[address] Shravan Gonzalez MD Work Phone: [facility] 01-26-2025 08:37-0400 Body mass index (BMI) [Ratio] 26 kg/m2 Dr. Shravan Gonzalez MD Work Phone: [facility] 01-26-2025 08:37-0400 Body weight 73.[address] Shravan Gonzalez MD Work Phone: [facility] 01-26-2025 08:37-0400 Diastolic blood pressure 78 mm[Hg] Dr. Shravan Gonzalez MD Work Phone: [facility] 01-26-2025 08:37-0400 Heart rate 66 /min Dr. Shravan Gonzalez MD Work Phone: [facility] 01-26-2025 08:37-0400 SaO2% (BldA) [Mass fraction] 97 % Dr. Shravan Gonzalez MD Work Phone: [facility] 01-26-2025 08:37-0400 Systolic blood pressure 149 mm[Hg] Dr. Shravan Gonzalez MD Work Phone: 4(216)052-844149 [place] [address] 10-13-2024 08:38-0400 Body height 167.[address] Shravan Gonzalez MD Work Phone: [facility] 10-13-2024 08:38-0400 Body mass index (BMI) [Ratio] 25.8 kg/m2 Dr. Shravan Gonzalez MD Work Phone: 9(658)427-224249 [place] [address] 10-13-2024 08:38-0400 Body weight 72.[address] Shravan Gonzalez MD Work Phone: 4(127)923-262921 [place] [address] 10-13-2024 08:38-0400 Diastolic blood pressure 75 mm[Hg] Dr. Shravan Gonzalez MD Work Phone: 2(048)099-950621 [place] [address] 10-13-2024 08:38-0400 Heart rate 54 /min Dr. Shravan Gonzalez MD Work Phone: 6(513)911-209721 [place] [address] 10-13-2024 08:38-0400 SaO2% (BldA) [Mass fraction] 97 % Dr. Shravan Gonzalez MD Work Phone: 5(101)152-577421 [place] [address] 10-13-2024 08:38-0400 Systolic blood pressure 148 mm[Hg] Dr. Shravan Gonzalez MD Work Phone: 0(044)044-767849 [place] [address] 07-10-2024 08:36-0500 Body height 167.[address] Shravan Gonzalez MD Work Phone: 5(383)676-744449 [place] [address] 07-10-2024 08:36-0500 Body mass index (BMI) [Ratio] 26 kg/m2 Dr. Shravan Gonzalez MD Work Phone: 5(443)537-092649 [place] [address] 07-10-2024 08:36-0500 Body weight 73.[address] Shravan Gonzalez MD Work Phone: 2(815)203-059049 [place] [address] 07-10-2024 08:36-0500 Diastolic blood pressure 83 mm[Hg] Dr. Shravan Gonzalez MD Work Phone: 8(884)454-001349 [place] [address] 07-10-2024 08:36-0500 Heart rate 62 /min Dr. Shravan Gonzalez MD Work Phone: 1(428)679-184449 [place] [address] 07-10-2024 08:36-0500 SaO2% (BldA) [Mass fraction] 96 % Dr. Shravan Gonzalez MD Work Phone: 7(099)130-504249 [place] [address] 07-10-2024 08:36-0500 Systolic blood pressure 150 mm[Hg] Dr. Shravan Gonzalez MD Work Phone: 6(264)473-148121 [place] [address] 03-31-2024 08:05-0500 Body mass index (BMI) [Ratio] 25.7 kg/m2 Dr. Shravan Gonzalez MD Work Phone: 6(412)133-563921 [place] [address] 03-31-2024 08:05-0500 Body weight 72.[address] Shravan Gonzalez MD Work Phone: 1(088)622-802621 [place] [address] 03-31-2024 08:05-0500 Diastolic blood pressure 75 mm[Hg] Dr. Shravan Gonzalez MD Work Phone: 2(005)982-905621 [place] [address] 03-31-2024 08:05-0500 Heart rate 60 /min Dr. Shravan Gonzalez MD Work Phone: 5(704)644-013321 [place] [address] 03-31-2024 08:05-0500 SaO2% (BldA) [Mass fraction] 96 % Dr. Shravan Gonzalez MD Work Phone: 0(819)326-054421 [place] [address] 03-31-2024 08:05-0500 Systolic blood pressure 150 mm[Hg] Dr. Shravan Gonzalez MD Work Phone: 2(249)732-015021 [place] [address] 05-15-2023 11:07-0500 Body height 167.[address] Shravan Gonzalez Work Phone: 1(228)303-473321 [place] [address] 05-15-2023 11:07-0500 Body mass index (BMI) [Ratio] 25.8 kg/m2 Dr. Shravan Gonzalez Work Phone: 7(891)654-852121 [place] [address] 05-15-2023 11:07-0500 Body temperature 98.6 [degF] Dr. Shravan Gonzalez Work Phone: 6(366)154-628421 [place] [address] 05-15-2023 11:07-0500 Body weight 72.[address] Shravan Gonzalez Work Phone: [facility] 05-15-2023 11:07-0500 Diastolic blood pressure 90 mm[Hg] Dr. Shravan Gonzalez Work Phone: 0(765)839-035749 [place] [address] 05-15-2023 11:07-0500 Heart rate 85 /min Dr. Shravan Gonzalez Work Phone: 1(180)877-609549 [place] [address] 05-15-2023 11:07-0500 Respiratory rate 16 /min Dr. Shravan Gonzalez Work Phone: 4(420)060-367349 [place] [address] 05-15-2023 11:07-0500 SaO2% (BldA) [Mass fraction] 97 % Dr. Shravan Gonzalez Work Phone: 9(012)869-913821 [place] [address] 05-15-2023 11:07-0500 Systolic blood pressure 130 mm[Hg] Dr. Shravan Gonzalez Work Phone: 9(376)564-453521 [place] [address] 05-09-2023 08:40-0500 Body mass index (BMI) [Ratio] 26.1 kg/m2 Dr. Shravan Gonzalez Work Phone: 7(985)661-194021 [place] [address] 05-09-2023 08:40-0500 Body temperature 98.9 [degF] Dr. Shravan Gonzalez Work Phone: 9(714)240-618221 [place] [address] 05-09-2023 08:40-0500 Body weight 73.[address] Shravan Gonzalez Work Phone: 6(334)258-752149 [place] [address] 05-09-2023 08:40-0500 Diastolic blood pressure 64 mm[Hg] Dr. Shravan Gonzalez Work Phone: 2(253)789-030449 [place] [address] 05-09-2023 08:40-0500 Heart rate 70 /min Dr. Shravan Gonzalez Work Phone: 0(343)527-788049 [place] [address] 05-09-2023 08:40-0500 Respiratory rate 16 /min Dr. Shravan Gonzalez Work Phone: 0(423)453-139221 [place] [address] 05-09-2023 08:40-0500 SaO2% (BldA) [Mass fraction] 98 % Dr. Shravan Gonzalez Work Phone: [facility] 05-09-2023 08:40-0500 Systolic blood pressure 152 mm[Hg] Dr. Shravan Gonzalez Work Phone: [facility] 02-05-2023 09:07-0400 Body mass index (BMI) [Ratio] 26.5 kg/m2 Dr. Shravan Gonzalez Work Phone: [facility] 02-05-2023 09:07-0400 Body temperature 98 [degF] Dr. Shravan Gonzalez Work Phone: [facility] 02-05-2023 09:07-0400 Body weight 74.[address] Shravan Gonzalez Work Phone: [facility] 02-05-2023 09:07-0400 Diastolic blood pressure 80 mm[Hg] Dr. Shravan Gonzalez Work Phone: [facility] 02-05-2023 09:07-0400 Heart rate 80 /min Dr. Shravan Gonzalez Work Phone: [facility] 02-05-2023 09:07-0400 Respiratory rate 18 /min Dr. Shravan Gonzalez Work Phone: [facility] 02-05-2023 09:07-0400 SaO2% (BldA) [Mass fraction] 97 % Dr. Shravan Gonzalez Work Phone: [facility] 02-05-2023 09:07-0400 Systolic blood pressure 150 mm[Hg] Dr. Shravan Gonzalez Work Phone: [facility] 09-11-2022 11:46-0400 Body temperature 97.88 [degF] [employer]IC[employer] [facility] 09-11-2022 11:46-0400 Diastolic Blood Pressure Non-Invasive 52 1 [employer]LY[employer]ITY [employer] OFFIC[employer] [facility] 09-11-2022 11:46-0400 Heart rate 94 /min [employer] OFFIC[employer] [facility] 09-11-2022 11:46-0400 Reason For Taking VItal Signs [employer]LY[employer]ITY [employer] OFFICER [facility] 09-11-2022 11:46-0400 Respiratory rate 18 /min [employer] A[employer]LY[employer]ITY [employer]ICE OFFICER [facility] 09-11-2022 11:46-0400 Systolic Blood Pressure Non-Invasive 135 1 [employer] A[employer]LY[employer]ITY [employer] OFFICER [facility] 09-11-2022 11:03-0400 Heart rate 92 /min [employer]LY[employer]ITY [employer]ICE OFFICER [facility] 09-11-2022 07:48-0400 Heart rate 106 /min [employer]ITY [employer] OFFICER [facility] 09-11-2022 07:09-0400 Body temperature 98.6 [degF] [employer] A[employer]LY[employer]SEC[employer]ITY [employer]ICE OFFICER [facility] 09-11-2022 07:09-0400 Diastolic Blood Pressure Non-Invasive 54 1 [employer] A[employer]LY[employer]ITY [employer] OFFICER [facility] 09-11-2022 07:09-0400 Reason For Taking VItal Signs [employer] A[employer]LY[employer]ITY [employer] OFFICER [facility] 09-11-2022 07:09-0400 Respiratory rate 18 /min [employer] A[employer]LY[employer]ITY [employer] OFFICER [facility] 09-11-2022 07:09-0400 Systolic Blood Pressure Non-Invasive 130 1 [employer] A[employer]LY[employer]ITY [employer] OFFICER [facility] 09-11-2022 04:08-0400 Respiratory rate 18 /min [employer]ITY [employer] OFFICER [facility] 09-11-2022 02:32-0400 Body height 167.6 cm [employer]LY[employer] OFFIC[employer] [facility] 09-11-2022 02:32-0400 Body weight 77.3 kg [employer]LY[employer] OFFICER [facility] 09-11-2022 02:32-0400 Body weight 27.52 kg/m2 [employer]LY[employer]ITY [employer] OFFICER [facility] 09-11-2022 02:11-0400 Body temperature 97.88 [degF] [employer]ITY [employer] OFFICER [facility] 09-11-2022 02:11-0400 Diastolic Blood Pressure Non-Invasive 51 1 [employer] A[employer]LY[employer]ITY [employer] OFFICER [facility] 09-11-2022 02:11-0400 Heart rate 92 /min [facility] CLAIMS CONFIGURATION ANALYST-SEC[employer]ITY POLICE OFFICER [facility] 09-11-2022 02:11-0400 Systolic Blood Pressure Non-Invasive 141 1 [employer] A[employer]ITY [employer] OFFICER [facility] 09-11-2022 01:36-0400 Heart rate 76 /min [employer]ITY [employer] OFFICER [facility] 09-11-2022 01:36-0400 Reason For Taking VItal Signs [employer]ITY [employer]IC[employer] [facility] 09-11-2022 01:18-0400 Heart rate 108 /min [facility] CLAIMS CONFIGURATION ANALYST-SEC[employer]ITY POLICE OFFICER [facility] 09-11-2022 00:29-0400 Heart rate 88 /min [facility] CLAIMS CONFIGURATION ANALYST-SEC[employer]ITY [employer]ICE OFFICER [facility] 09-10-2022 19:50-0400 Blood Pressure Location [facility] CLAIMS CONFIGURATION ANALY[employer]ITY [employer] OFFICER [facility] 09-10-2022 19:50-0400 Body weight 76.4 kg [facility] CLAIMS CONFIGURATION ANALYST[employer]SEC[employer]ITY [employer] OFFICER [facility] Encounters Encounter Date Encounter Type Care Provider Facility Start: 03-30-2025 ambulatory Dewey Dawit Facility:[facility] Start: 03-23-2025 ambulatory Dewey Dawit Facility:[facility] Start: 03-17-2025 ambulatory Dewey Dawit Facility:[facility] Start: 03-16-2025 End: 03-16-2025 ambulatory Dewey Dawit Facility:[facility] Start: 02-04-2025 End: 02-04-[address] Shravan Gonzalez MD Work Phone: -Laboratory Phy Office 3rd Flr Start: 02-04-2025 End: 02-04-[address] Shravan Gonzalez MD -Laboratory Phy Office 3rd Flr Start: 02-04-2025 End: 02-04-[facility] Start: 01-26-2025 End: 01-26-2025 Patient encounter procedure Naheed BLANCAS -[facility] Work Phone: Start: 01-26-2025 End: 01-26-[address] Shravan Gonzalez MD Work Phone: [facility] Start: 01-05-2025 End: 01-05-[address] Shravan Gonzalez MD Work Phone: -Laboratory Phy Office 3rd Flr Start: 01-05-2025 End: 01-05-[address] Shravan Gonzalez MD -Laboratory Phy Office 3rd Flr Start: 01-05-2025 End: 01-05-2025 ambulatory Shravan Rob Payam Facility:[facility] Start: 12-24-2024 Non-patient / Non-visit Dr. Hima CAMPOS -[facility] Start: 12-24-2024 End: 12-24-[address] Shravan Gonzalez MD Work Phone: -Pulmonary Services/Neurology Start: 12-24-2024 End: 12-24-[address] Shravan Gonzalez MD -Pulmonary Services/Neurology Work Phone: Start: 12-24-2024 End: 12-24-2024 ambulatory [facility] Facility:[facility] Start: 12-22-2024 Non-patient / Non-visit [facility] Monae [facility] Work Phone: Start: 12-22-[address] Shravan Gonzalez MD -Cat Scan [facility] Work Phone: Start: 12-22-2024 ambulatory [facility] Start: 10-13-2024 End: 10-13-2024 Patient encounter procedure Naheed Russ MAINTENANCE SPECIALIST-C -[facility] Work Phone: Start: 10-13-2024 End: 10-13-[address] Shravan Gonzalez MD Work Phone: [facility] Work Phone: Start: 07-23-2024 End: 07-23-[address] Shravan Gonzalez MD Work Phone: [facility] Work Phone: Start: 07-23-2024 End: 07-23-[address] Shravan Gonzalez MD -Laboratory, Phy Office [address] [place] [address] Start: 07-23-2024 End: 07-23-2024 ambulatory Shravan [facility] Pay[facility] Facility:[facility] Start: 07-16-2024 End: 07-16-[address] Shravan Gonzalez MD Work Phone: [facility] Work Phone: Start: 07-16-2024 End: 07-16-[address] Garrett Elena MD -Radiology, [facility] Work Phone: Start: 07-16-2024 End: 07-16-2024 [facility] Start: 07-10-2024 End: 07-10-2024 Patient encounter procedure Naheed Russ MAINTENANCE SPECIALIST-C -[facility] Work Phone: Start: 07-10-2024 End: 07-10-2024 ambulatory Shravan Rob Payam Facility:[facility] Start: 03-31-2024 End: 03-31-2024 Patient encounter procedure Naheed Russ MAINTENANCE SPECIALIST-C -[facility] Work Phone: Start: 03-31-2024 End: 03-31-2024 ambulatory Shravan Rob Payam Facility:[facility] Start: 07-23-2023 End: 07-23-[address] Shravan Gonzalez Work Phone: [facility] Work Phone: Start: 07-23-2023 End: 07-23-[address] Shravan Gonzalez Work Phone: [facility]-Laboratory Work Phone: Start: 05-21-2023 End: 05-21-[address] Shravan Gonzalez Work Phone: [facility]-Pulmonary Services/Neurology Work Phone: Start: 05-15-2023 End: 05-15-[address] Shravan Gonzalez Work Phone: [facility] Work Phone: Start: 05-11-2023 End: 05-11-[address] Shravan Gonzalez Work Phone: [facility] Work Phone: Start: 05-11-2023 End: 05-11-[address] [facility] Start: 05-09-2023 End: 05-09-[address] Shravan Gonzalez Work Phone: [facility] Work Phone: Start: 02-08-2023 End: 02-08-[address] Shravan Gonzalez Work Phone: [facility]-Laboratory Work Phone: Start: 02-05-2023 End: 02-05-[address] Shravan Gonzalez Work Phone: [facility] Endocrinology Work Phone: Start: 10-13-2022 End: 10-14-2022 ambulatory JUSTIN SOTELO Facility:[facility] Start: 10-13-2022 End: 10-13-[address] JUSTIN SOTELO [facility] Start: 09-10-2022 End: 09-11-2022 ambulatory DOMENICO [facility] CLAIMS CONFIGURATION ANALYST-SECURITY POLICE OFFICER Facility:B Start: 09-10-2022 End: 09-11-2022 Observation [facility] CLAIMS CONFIGURATION ANALYST-SECURITY POLICE OFFICER [facility] Start: 07-19-2022 End: 07-19-2022 ambulatory [facility] Work Phone: Start: 07-19-2022 End: 07-19-2022 Patient encounter procedure [facility]-Laboratory, Phy Office 3rd Flr Start: 08-16-2021 End: 08-16-2021 Subsequent hospital visit by physician Candice Corea MD Work Phone: [facility] Comment on above: M25.59 Procedures Date Procedure [...] Start: 04-05-2009 Anal sphincterotomy APR [place] [facility] CLAIMS CONFIGURATION ANALYST-SECURITY POLICE OFFICER Plan of Treatment Date Care Activity Detail Author Start: 01-12-2022 Influenza vaccination INFLUENZA (Season Ended) [facility] Start: 05-14-2021 ADVANCE DIRECTIVE DISCUSSION ADVANCE DIRECTIVE DISCUSSION [facility] Start: 12-19-2020 PNEUMOVAX AGE 65 AND OVER WITH 5YR LOOKBACK (#1) PNEUMOVAX AGE 65 AND OVER WITH 5YR LOOKBACK (#1) [facility] Start: 01-03-2017 Hepatitis B screening URINE ALBUMIN:CREATININE RATIO [facility] Start: 01-03-2017 Hepatitis B surface antibody level LDL CHOLESTEROL [facility] Start: 07-06-2016 Hemoglobin A1c/Hemoglobin.total in Blood HBA1C [facility] Start: 11-25-2015 Hepatitis C antibody, confirmatory test DILATED RETINAL EXAM [facility] Start: 08-27-2015 3 comp foot exam completed DIABETIC FOOT EXAM [facility] Start: 03-10-2015 PROSTATE CANCER SCREENING DISCUSSION PROSTATE CANCER SCREENING DISCUSSION [facility] Start: 12-19-2005 SHINGRIX VACCINE (1 of 2) SHINGRIX VACCINE (1 of 2) [facility] Start: 12-19-2000 COLOGUARD (FIT-DNA) COLOGUARD (FIT-DNA) [facility] Start: 12-19-2000 Colonoscopy COLONOSCOPY [facility] Start: 12-19-2000 COLORECTAL CANCER SCREENING COLORECTAL CANCER SCREENING [facility] Start: 12-19-[address] COLONOGRAPHY [facility] Start: 12-19-2000 FECAL OCCULT BLOOD FECAL OCCULT BLOOD [facility] Start: 12-19-2000 SIGMOIDOSCOPY SIGMOIDOSCOPY [facility] Start: 12-19-1974 Urine microalbumin profile DTAP,TDAP,TD (1 - Tdap) [facility] Start: 12-19-1973 ANNUAL PCP TEAM CHRONIC DISEASE VISIT ANNUAL PCP TEAM CHRONIC DISEASE VISIT [facility] Start: 12-19-1973 HEPATITIS C SCREENING HEPATITIS C SCREENING [facility] Start: 12-19-1973 HIV SCREENING HIV SCREENING [facility] Start: 1967 Adult depression screening assessment DEPRESSION SCREENING [facility] Start: 12-19-1960 COVID-19 VACCINE (1) COVID-19 VACCINE (1) [facility] Lipid 1996 panel - S eloina or Plasma [facility] Urine microalbumin/creatinine ratio measurement [facility] Immunizations Immunization Date Immunization Notes Care Provider Pipo leong 03-20-2022 influenza virus vacc ine, unspecified formulation [facility] CLAIMS [employer]URATION [employer]NALY[employer] [facility] 12-13-2020 SARS-CoV-2 (COVID-19 ) mRNA-1273 vaccine [facility] [employer] [facility] Comment on above: Result Comment: 2020: [id number] 11-17-2020 SARS-CoV-2 (COVID-19 ) mRNA-1273 vaccine [facility] [employer]S [employer] [facility] Comment on above: Result Comment: 2020: TPV60 10-18-2020 pneumococcal conjuga te vaccine, 13 valent; Translations: [Prevnar 13] [email or web address] 10-27-2019 tetanus toxoid, redu shaheen diphtheria toxoid, and acellular pertussis vaccine, adsorbed; Translations: [Boostrix (Tdap)] [facility] 04-07-2019 zoster vaccine recombinant [email or web address] 02-24-2018 influenza virus vacc ine, unspecified formulation [facility] 08-03-2016 zoster vaccine, live [facility] 06-29-2016 pneumococcal polysaccharide vaccine, 23 valent [facility] 02-12-2016 influenza virus vacc ine, unspecified formulation [facility] 03-13-2015 influenza virus vacc ine, unspecified formulation [facility] 03-12-2011 influenza virus vacc ine, unspecified formulation Candice Corea MD Work Phone: [facility] Work Phone: 03-02-2009 influenza virus vacc ine, unspecified formulation Candice Corea MD Work Phone: [facility] 08-20-2007 pneumococcal polysaccharide vaccine, 23 valent Candice Corea MD Work Phone: [facility] Work Phone: Payers Date Payer Category Payer Unknown 2023 Self-pay [id number] 2021 Medicare [id number] 2021 Unknown [id number] 2013 Private Health Insurance AETNA A ETNA CHOICE POS II [id number] 2013-Present [phone] [address] [place] [address] POS [id number] 1955 Unknown [id number] [id number] 27 1955 Unknown [id number] 2.16.840.1.728193.3.579.2.6 27 Private Health Insurance [id number] Unknown [id number] 2.16.840.1.973856.3.579.2.4 62 Unknown [id number] 2.16.840.1.975627.3.579.2.4 62 Unknown [id number] 2.16.840.1.788811.3.579.2.4 62 Unknown [id number] 2.16.840.1.603446.3.579.2.4 62 Unknown [id number] 2.16.840.1.233163.3.579.2.4 62 Unknown [id number] 2.16.840.1.358249.3.579.2.4 62 Unknown [id number] 2.16.840.1.658580.3.579.2.4 62 Unknown [id number] 2.16.840.1.577071.3.579.2.4 62 Unknown [id number] 2.16.840.1.275559.3.579.2.4 62 Unknown [id number] 2.16.840.1.835411.3.579.2.4 62 Unknown [id number] 2.16.840.1.293238.3.579.2.4 62 Unknown [id number] 2.16.840.1.362239.3.579.2.4 62 Unknown [id number] 2.16.840.1.257852.3.579.2.4 62 Unknown [id number] 2.16.840.1.668250.3.579.2.4 62 Unknown [id number] 2.16.840.1.191507.3.579.2.4 62 Unknown [id number] 2.16.840.1.687436.3.579.2.4 62 Unknown [id number] 2.16.840.1.879158.3.579.2.4 62 Social History Date Type Detail Facility Start: 01-04-2019 End: 08-13-2023 Tobacco smoking status NDIS Never smoked tobacco [facility] Start: 01-12-2016 Alcohol intake Current drinke r of alcohol (finding) [facility] Start: 1955 Sex Assigned At Not on file [facility] Start: 04-27-2020 End: 05-15-2023 Tobacco smoking status NDIS Unknown if ever smoked [facility] Start: 1955 Sex Assigned At Male W [facility] Start: 07-29-2024 End: 08-01-2024 Sex Male (finding) [facility] Sex Male [facility] Procedure Code Equipment Code Equipment [...] Functional Status Door open, Room check performed [facility] 09-11-2022 Functional Status [facility] 09-11-2022 Functional Status Independent [facility] 09-11-2022 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, 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, 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, Personal ADL, Social participation [facility] 09-11-2022 Functional Status N/A [facility] 09-10-2022 Functional Status [facility] Mental Status Date Assessment Result Facility 09-11-2022 Mental Status Oriented x 4 [facility] 09-10-2022 Mental Status [facility] Clinical Notes 05-16-2022 to 01-26-2025 Note Date & Type Note Facility 01-26-2025 Evaluation note Diagnosis Onset Date Resolution High cholesterol chronic Septembe r 2024 8:35am Hypertension chronic January 262024 8:35am Insulin pump titration chronic Se pt2024 8:35am Overweight chronic January 8:35am Presence of insulin pump chronic January 26, 2025 8:35am Type 1 diabetes mellitus with hyperglycemia chronic January 8:35am [facility] Work Phone: 1(367) 746-652006-02-2025 Evaluation note* Diagnosis Onset Date Resolution Status Admit Date High cholesterol chronic October 8:40am Hypertension chronic October 13 8:40am Insulin pump titration chronic Ju 2024 8:40am Overweight chronic October 13, 2024 8:40am Presence of insulin pump chronic October 13, 2024 8:40am Type 1 diabetes mellitus wit h hyperglycemia chronic October 13, 2024 8 :40am [facility] Work Phone: 1(364) 735-956403-05-2025 Radiology Diagnostic study note [facility] Imaging Services [address] [place] [address] Esophagus Dual Contrast MR#: [id number] Acct: [id number] Name: CARLYN EVANGELISTA Rep #: [id number] : 1955 M 68 From: Caridad Koch MD PCP: Dr. Shravan Gonzalez MD Status: REG C LI Study:Esophagus Dual Contrast Date of Exam: 07/16/24 Exam# [id number] Ordering Dr: Rupal Elena MD PROCEDURE: ESOPHAGUS [...] gastroesophageal reflux or other abnormalities. Reading Location: [place] [address] CC: Dr. Shravan Gonzalez MD; Dr. Garrett Elena MD ~ Physician Industrial: Signed [facility]02-27-2025 Evaluation note* Diagnosis Onset Date Resolution Status Admit Date High cholesterol chronic July 10, 2024 8:35am Hypertension chronic June 8:35am Insulin pump titration chronic Fe bruary 2024 8:35am Overweight chronic July 10, 2024 8:35am Presence of insulin pump chronic July 10, 2024 8:35am Type 1 diabetes mellitus wit h hyperglycemia chronic July 10, 025 8:35am [facility] Work Phone: 1(347) 294-656211-18-2024 Evaluation note* Diagnosis Onset Date Resolution Status Admit Date High cholesterol chronic March 31, 2024 8:02am Hypertension chronic March 8:02am Insulin pump titration chronic No vember 2023 8:02am Overweight chronic March 31, 2024 8:02am Presence of insulin pump chronic March 31, 2024 8:02am Type 1 diabetes mellitus wit h hyperglycemia chronic March 31, 2 024 8:02am High cholesterol chronic July 10, 2024 8:35am Hypertension chronic June 8:35am Insulin pump titration chronic Fe bruary 2024 8:35am Overweight chronic July 10, 2024 8:35am Presence of insulin pump chronic July 10, 2024 8:35am Type 1 diabetes mellitus wit h hyperglycemia chronic July 10, 2 025 8:35am [facility] Work Phone: 1(293) 331-214705-01-2023 Note Date of Service 09/11/2022 Chief Complaint Arrives from home with c/o headache 01/21 with some confusion with his words per family. Family states patient laid down about [id number] and woke up confused History of Present Illness 66-year-old male with past medical history significant for type 1 diabetes mellitus, BPH, neuropathy, ED, osteoarthritis, hypothyroidism. Patient presented to [facility] emergency department 09/10/2022 With altered [...] regularly. He used to follow with an retail stocker and no longer does so. I recommended [...] See Instructions DME MISCellaneous See Instructions Freestyle Wooldridge See Instructions Freestyle Wooldridge 14 day sensor See Instructions Insulin Syringes [...] month., 02/24/2019 Employment/School Status: Retired. 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 Follow Up Care 09/10/2022 19:39:51 With:FAIZA URIAS MD Address: [address] [place] [address] [place] [address]- [phone] When:3-5 days Comments:Call to establish as new patient. With:ELBA GONZALEZ MD Address: [facility]/[address] [place] [address]- When:3-5 days Comments:Please call to schedule your post-hospital follow-up appointment. [facility] 05-01-2023 Evaluation + Plan noteExtracted from: Title:History and Physical Author:SAKSHI REYES APRN-SECURITY POLICE OFFICER Date:09/11/22 1. Altered mental status 2. History [...] regularly. He used to follow with an retail stocker and no longer does so. I recommended [...] Level 05/16/22 * Complete Metabolic Panel 05/16/22 [facility] 05-01-2023 Note Discharge Instructions Thank you for allowing [facility] to assist you with your healthcare needs. The following is importantdischarge information regarding your hospital visit. Your Care Team Sakshi Reyes CLAIMS CONFIGURATION ANALYST Your Diagnosis Altered mental status Altered mental [...] Call to establish as new patient. [facility] [address] [facility] [place] [address] [phone] Follow Up with ELBA GONZALEZ MD When Within 3-5 days Why: Please call to schedule your post-hospital follow-up appointment. Where: [facility] [address] [place] [address]- The Following Activity and Diet Have Been [...] by mouth Once a day Pickup at [facility]/pharmacy #[id number] none today Changed insulin detemir (Levemir) (Levemir) [...] Dx: E11.9 Diabetes Provider Unchanged DME (Freestyle Wooldridge 14 day sensor) See instructions 1 month supply Unchanged DME (Freestyle Wooldridge) See instructions Glucose level checks Unchanged DME [...] 09/11/22 at 0830 and 1155am Pharmacy Information [facility]/pharmacy #[id number]: [address], [place] [id number] [phone] What How Much When Comments Stop Taking [...] Follow these instructions at home: Medicines Take piwu-ihg-nuewkgz and prescription medicines only as told by [...] 02/06/2009 Document Revised: 01/24/2019 Document Reviewed: 08/01/2017 [employer] Patient Education 2020 [employer] Additional Information VACCINATE! IT SAVES LIVES! Members of the community who have not yet received the COVID-19 vaccine and would like to receive it can visit one of [facility] vaccine clinics. There are many vaccine clinic locations within the [facility]. For locations and available times, please visit [email or web address]/. It is important to note that some COVID mobile vaccine clinics are held outdoors and may be canceled in rainy or stormy conditions. To learn more about pediatric vaccinations (ages 5-11), we invite you to visit the [facility] webpage. [email or web address]/[email or web address] [email or web address] learn more about the COVID-19 vaccine, we invite you to visit the CDC website for a list of frequently asked questions. https://www.cdc.gov/coronavirus/2019-ncov/vaccines/faq.html [facility] Patient Portal Access Instructions: Stay connected with your healthcare team and access your personal medical information anytime with the [facility] Patient Portal.If you would like a full copy of your medical records, please contact the [facility] Medical Records Department, Sunday through Sunday between 8a.m. and 4:30p.m. Please follow the directions below to access the portal: 1.Access the email account you provided upon registration to the hospital.2.Look for an invitation email from [facility].3.Open the email and access the invitation link: Accept Invitation to [facility]4.Fill in the required ramirez to create your account. Sign into www.[employer] with your username and password that you [...] you will allow to register on the [facility] Patient Portal for access to your information. You can also access the [facility] Patient Portal on the [employer]. Simply click on "Health Records" under "HealthData" and then click on the [facility] logo. HOW TO SAFELY DISPOSE OF PRESCRIPTION [...] Call your local pharmacy or go to [email or web address] to find one close to you.3.Make use of household items: Use cat litter or old coffee grounds to dispose medications if other options arenot available. Mix your drugs with these household products, seal them in an airtight container andthrow it into the garbage. Call [facility]: [phone] to be sure your drugs can be [...] Signatures Patient Education Materials Transient Ischemic Attack, Dwmu-zn-Zema Medication Leaflets My discharge plan and instructions have been reviewed and explained to me and I,DANNEMILLER, CARLYN Aunderstand my current condition and have read and understand these discharge instructions. I have received a written copy of the plan/instructions. If I have questions, I am aware that I should contact my doctor. Patient/Head Of Music Signature: Date/Time: Relationship to Patient: Witness Name/Signature: Date/Time: [facility]05-01-2023 Note ORIGINAL HISTORY: Headaches, confusion, slurred [...] Sign Date: 09/11/2022 9:34:19 AM Ordering Provider: [facility]05-01-2023 Note ORIGINAL HISTORY: Headaches, confusion, slurred [...] Sign Date: 09/11/2022 9:34:19 AM Ordering Provider: [facility]04-30-2023 Note ORIGINAL EXAMINATION: CTA OF [...] 09/10/2022 10:06:27 PM Ordering Provider: PIERRE LANZA [facility]04-30-2023 Note ORIGINAL EXAMINATION: CTA OF THE HEAD [...] Date: 09/10/2022 10:02:52 PM [facility] Note ORIGINAL EXAMINATION: CTA OF [...] Sign Date: 09/10/2022 10:06:27 PM Ordering Provider: [facility]04-30-2023 Note ORIGINAL EXAMINATION: CTA OF THE HEAD [...] Sign Date: 09/10/2022 10:02:52 PM Ordering Provider: [facility]04-30-2023 Note ORIGINAL EXAMINATION: CT OF THE HEAD [...] Sign Date: 09/10/2022 8:37:23 PM Ordering Provider: [facility]04-30-2023 Note ORIGINAL EXAMINATION: ONE XRAY VIEW [...] Date: 09/10/2022 8:35:15 PM Ordering Provider: PIERRE [facility]04-30-2023 Note ORIGINAL EXAMINATION: CT OF THE [...] Date: 09/10/2022 8:37:23 PM [facility]ing [facility] Note ORIGINAL EXAMINATION: ONE XRAY VIEW [...] Date: 09/10/2022 8:35:15 PM [facility]ing Provider[facility] Evaluation + Plan note Future Scheduled [...] Level 05/16/22 * Complete Metabolic Panel 05/16/22 [facility] Evaluation noteNo assessment information available [facility] Work Phone: Evaluation note* Diagnosis Onset Date Resolution Status High cholesterol chronic Hypertension chronic Type 1 diabetes mellitus with hyperglycemia chronic Hypertension chronic Type 1 diabetes mellitus with hyperglycemia [facility] Work Phone: Evaluation note* Diagnosis Onset Date Resolution Status Hypertension chronic Type 1 diabetes mellitus with hyperglycemia [facility] Work Phone: Hospital course Narrative No data available for this section [facility] Hospital Discharge instructions No data available for this section [facility] Progress note No data available for this section [facility] Reason for referral (narrative)No reason for referral information availableW[facility] Work Phone: Summary Purpose Family History No Family History Records Found Relationship Condition Age at Onset Recorded Date/T ellen father Myocardial infarction Unknown Cardiac disease Unknown mother Malignant neoplasm of breast Unknown Advance Directives No Advanced Directives Records Found Advance Directive Response Recorded Date/ Time Living Will Yes April 27 2:33pm Power of Quality Improvement Engineer Yes April 27, 2020 2:33pm Advance Directive Response Recorded Date/ Time Living Will Yes April 27 1:33pm Power of Quality Improvement Engineer Yes April 27, 2020 1:33pm Chief Complaint [...] 8:35am Type 1 diabetes mellitus with hyperglyce [facility] July 10, 2024 8:35am Chief Complaint Admit Date 3 M FU July 10, 2024 8:35am DYSPHAGIA July 16, 2024 7:59 am Reason for Visit Admit Date High cholesterol July 10, 2024 8:35am Hypertension July 10, 2024 8:35am Insulin pump titration July 10 8:35am Overweight July 10, 2024 8:35am Presence of insulin pump July 10, 2024 8:35am Type 1 diabetes mellitus with hyperglyce [facility] July 10, 2024 8:35am Chief Complaint Admit [...] 2025 8:35am Insulin pump titration January 26, 025 8:35am Overweight January 26, 2025 8:35am [...] or prosecute any alcohol or drug abuse patient.[facility] Care Teams (unrecognized sec tion and content) Warehouse Administrative Assistant Relationship Specialty Start Date End Date Mihir Iyer PCP - General 09/17/09 Team Status: Active Member Role Status Dates Dr. Mihir Iyer MD Primary Care Provider Active Team Status: Inactive Member Role Status Dates Dr. Mihir Iyer MD Primary Care Provider Active Shravan PAROSN MD Attending Provider Active Team Status: Active Member Role Status Dates Dr. Shravan Gonzalez MD Primary Care Provider Active Team Status: Inactive Member Role Status Dates Dr. Shravan Gonzalez MD Primary Care Provider, Referring Provider Active MAGALIS Faulkner Attending Provider Active Team Status: Inactive Member Role Status Dates Dr. Shravan Gonzalez MD Primary Care Provider, Referring Provider Active Gomez Sarabia PA, PA Attending Provider Active Team Status: Inactive [...] section and content) DATE CREATED AUTHOR 08/23/2021 [facility] DATE CREATED AUTHOR AUTHOR'S ORGANIZ ATION 10/24/2022 [facility] ([place]) DATE CREATED AUTHOR AUTHOR'S ORGANIZ ATION 03/23/2025 [facility] Goals (unrecognized section and content) Goals [...] BE BASED ON THE PRIMARY CLINICAL RECORDS. [facility]. provides no warranty or guarantee of the accuracy or completeness of information in this document.
--- NOTE | 2025-03-30 14:44 | STRESSREP ---
Stress Test Report Date: 03/30/2025 Procedure: Exercise tolerance test/imaging study Indications: Coronary artery disease Consent: Per the patient Procedure: The patient exercised on a Omari protocol for 6 minutes achieving a peak heart rate of 134 bpm (88% predicted maximal heart rate) with a peak blood pressure 230/70 mmHg and a peak MET capacity of 7 METs. The baseline ECG demonstrated sinus rhythm. The peak exercise ECG did not show any ischemic changes. There were no cardiac dysrhythmias pretest, during exercise, or recovery. The functional capacity was considered very good for age. There was no complaints of chest discomfort but some dyspnea with exertion. The examination was discontinued secondary to target heart rate being achieved. The patient was injected with 11.8 mCi of technetium 99m Cardiolite and subsequently rest SPECT Cardiolite nuclear imaging was obtained in the horizontal long, vertical long, and short axis views. Post-exercise, the patient was injected with 33.9 mCi of technetium 99m Cardiolite and subsequently stress SPECT Cardiolite nuclear imaging was obtained in the horizontal long, vertical long, and short axis views. A gated Cardiolite study at peak stress was obtained. Rest and stress SPECT Cardiolite nuclear imaging status post realignment, normalization, and attenuation correction, demonstrates the appearance of relative uniform tracer uptake and myocardial perfusion appearing within normal limits. There is end systolic thickening and brightening. The gated Cardiolite study demonstrates myocardial thickening and inward wall motion. The reported LVEF is 62%. Impression: 1. Technically adequate (percent predicted maximal heart rate greater than 85%) exercise tolerance test 2. Peak exercise ECG with no ischemic changes 3. No cardiac dysrhythmias noted. Hypertensive blood pressure response to exercise 4. Rest and stress SPECT Cardiolite nuclear imaging demonstrate relative uniform tracer uptake and myocardial perfusion appearing within normal limits. 5. The gated Cardiolite study reports an LVEF of 62%. This note was generated with [employer] software. It may contain incorrect words, spelling, and punctuation that were not noted in checking the note before signing.
== END | disposition home or self-care (01) ==
PROVIDERS: PCP Family Medicine Geriatric Medicine; Referring Provider Internal Medicine Cardiovascular Disease; Visit Provider Internal Medicine Cardiovascular Disease
DX: I25.10 Atherosclerotic heart disease of native coronary artery without angina pectoris (principal); E11.69 Type 2 diabetes mellitus with other specified complication; E78.5 Hyperlipidemia, unspecified; I10 Essential (primary) hypertension
CPT/HCPCS: 78452; 93017; A9500; A4216